=== PATIENT | male | born 1955 | race Caucasian/White ===

== ENCOUNTER 2022-11-27 07:11 | Outpatient (OUT) | payer MEDICARE, SELFPAY ==
[2022-11-27 08:29] LABS: Basophils Percent Auto 0.6 % (0.2-2.0); Eosinophils Absolute Auto 0.1 10^3/uL (0.0-0.7); Eosinophils Percent Auto 2.2 % (0.9-7.0); Hematocrit 36.9 % (42.0-54.0); Hemoglobin 12.5 g/dL (14.0-18.0); Immature Granulocytes Abs Auto 0.01 10^3/uL (0.00-0.03); Immature Granulocytes Pct Auto 0.3 % (0.0-0.5); Lymphocytes Absolute Auto 1.1 10^3/uL (1.2-3.8); Lymphocytes Percent Auto 31.8 % (20.5-60.0); Mean Corpuscular HGB Conc 33.9 g/dL (29.9-35.2); Mean Corpuscular Hemoglobin 32.5 pg (25.9-34.0); Mean Corpuscular Volume 95.8 fL (80.0-94.0); Mean Platelet Volume 9.8 fL (9.5-13.5); Monocytes Absolute Auto 0.4 10^3/uL (0.3-0.8); Monocytes Percent Auto 11.7 % (1.7-12.0); Neutrophils Absolute Auto 1.9 10^3/uL (1.4-6.5); Neutrophils Percent Auto 53.4 % (43.0-75.0); Platelet Count 222 10^3/uL (150-450); Red Blood Count 3.85 10^6/uL (4.70-6.10); White Blood Count 3.6 10^3/uL (4.0-11.0)
[2022-11-27 08:39] LABS: Prostate Specific Antigen Dx 1.08 ng/mL (<=4.00)
[2022-11-27 08:44] LABS: Alanine Aminotransferase 23 U/L (16-63); Albumin Globulin Ratio 1.2; Albumin Level 3.6 g/dL (3.4-5.0); Alkaline Phosphatase 53 U/L (46-116); Aspartate Amino Transferase 21 U/L (15-37); BUN Creatinine Ratio 20.7; Bilirubin Total 0.5 mg/dL (0.2-1.0); Calcium 8.7 mg/dL (8.5-10.1); Carbon Dioxide 24.1 mmol/L (21.0-32.0); Chloride 106 mmol/L (98-107); Chol HDL Ratio 2.8; Cholesterol 162 mg/dL (<=200); Estimated GFR (African America >60 (>=60); Estimated GFR (Non-African Ame >60 (>=60); Globulin 3.1 g/dL; Glucose 92 mg/dL (74-106); HDL Cholesterol 57 mg/dL (40-60); Potassium 4.1 mmol/L (3.5-5.1); Sodium 138 mmol/L (136-145); Thyroid Stimulating Hormone 1.348 uIU/mL (0.358-3.740); Total Protein 6.7 g/dL (6.4-8.2); Triglycerides 40 mg/dL (<=150)
[2022-11-27 10:04] LABS: Free T4 1.09 ng/dL (0.76-1.46)
== END 2022-11-27 07:12 | disposition home or self-care (01) ==
LOC: LAB 07:12
PROVIDERS: PCP Family Medicine; Visit Provider Family Medicine
DX: D51.0 Vitamin B12 deficiency anemia due to intrinsic factor deficiency (principal); Z13.1 Encounter for screening for diabetes mellitus; E78.00 Pure hypercholesterolemia, unspecified; Z13.220 Encounter for screening for lipoid disorders; G93.32 Myalgic encephalomyelitis/chronic fatigue syndrome; E03.9 Hypothyroidism, unspecified; N42.9 Disorder of prostate, unspecified; E53.8 Deficiency of other specified B group vitamins
CPT/HCPCS: 36415; 80053; 80061; 82607; 84153; 84439; 84443; 84481; 85025

== ENCOUNTER 2023-12-14 07:50 | Outpatient (OUT) | payer MEDICARE, SELFPAY ==
[2023-12-14 08:21] LABS: Basophils Percent Auto 0.5 % (0.2-2.0); Eosinophils Absolute Auto 0.2 10^3/uL (0.0-0.7); Hemoglobin 13.5 g/dL (14.0-18.0); Immature Granulocytes Abs Auto 0.01 10^3/uL (0.00-0.03); Immature Granulocytes Pct Auto 0.2 % (0.0-0.5); Lymphocytes Absolute Auto 1.3 10^3/uL (1.2-3.8); Lymphocytes Percent Auto 30.2 % (20.5-60.0); Mean Corpuscular HGB Conc 33.8 g/dL (29.9-35.2); Mean Corpuscular Hemoglobin 32.9 pg (25.9-34.0); Mean Corpuscular Volume 97.6 fL (80.0-94.0); Monocytes Absolute Auto 0.4 10^3/uL (0.3-0.8); Monocytes Percent Auto 8.8 % (1.7-12.0); Neutrophils Absolute Auto 2.4 10^3/uL (1.4-6.5); Neutrophils Percent Auto 56.3 % (43.0-75.0); Platelet Count 189 10^3/uL (150-450); Red Cell Distribution Width 12.8 % (11.0-15.0); White Blood Count 4.3 10^3/uL (4.0-11.0)
[2023-12-14 09:12] LABS: Alanine Aminotransferase 21 U/L (16-63); Albumin Globulin Ratio 1.2; Albumin Level 3.5 g/dL (3.4-5.0); Alkaline Phosphatase 57 U/L (46-116); Anion Gap 12.9; Aspartate Amino Transferase 21 U/L (15-37); BUN Creatinine Ratio 25.2; Bilirubin Total 0.4 mg/dL (0.2-1.0); Carbon Dioxide 26.4 mmol/L (21.0-32.0); Chloride 104 mmol/L (98-107); Chol HDL Ratio 2.9; Cholesterol 187 mg/dL (<=200); Estimated GFR (African America >60 (>=60); Estimated GFR (Non-African Ame >60 (>=60); Globulin 2.9 g/dL; Glucose 100 mg/dL (74-106); HDL Cholesterol 65 mg/dL (40-60); Potassium 4.3 mmol/L (3.5-5.1); Sodium 139 mmol/L (136-145); Thyroid Stimulating Hormone 1.166 uIU/mL (0.358-3.740); Total Protein 6.4 g/dL (6.4-8.2); Triglycerides 65 mg/dL (<=150)
[2023-12-14 09:16] LABS: Prostate Specific Antigen Dx 0.76 ng/mL (<=4.00)
[2023-12-15 04:10] LABS: Vitamin B12 652 pg/mL (232-1245)
== END 2023-12-14 07:51 | disposition home or self-care (01) ==
LOC: LAB 07:50
PROVIDERS: PCP Family Medicine; Visit Provider Family Medicine
DX: N40.0 Benign prostatic hyperplasia without lower urinary tract symptoms (principal); E03.9 Hypothyroidism, unspecified; G93.32 Myalgic encephalomyelitis/chronic fatigue syndrome; E78.00 Pure hypercholesterolemia, unspecified; E53.8 Deficiency of other specified B group vitamins
CPT/HCPCS: 36415; 80053; 80061; 82607; 84153; 84443; 85025

== ENCOUNTER 2024-05-24 16:21 | Emergency (ER) | payer MEDICARE, SELFPAY ==
[2024-05-24 16:28] VITALS: BP 78/50; PULSE 44; O2SAT 99; BMI 25.1
--- OUTSIDE RECORDS SUMMARY | 2024-05-24 16:35 | XMS_ITS | CCD ---
Author Organization [facility] CliniSymt Care Team Providers Care Rd Project Manager Name Role Phone ONEIL, DR CORBIN Consulting Unavailable HEMEYER, DR CORBIN Primary Care Unavailable HEMEYER, DR CORBIN Admitting Unavailable HEMEYER, DR CORBIN Attending Unavailable HEMEYER, DR CORBIN Consulting Unavailable ONEIL, DR CORBIN Primary Care Unavailable HEMEYER, DR CORBIN Admitting Unavailable HEMEYER, DR CORBIN Referring Unavailable HEMEYER, DR CORBIN Attending Unavailable HEMEYER, DR CORBIN Primary Care Unavailable BASIA ROME Admitting Unavailable BASIA ROME Attending Unavailable BASIA ROME Consulting Unavailable ONEIL, DR CORBIN Consulting Unavailable ONEIL, DR CORBIN Primary Care Unavailable HEMEYER, DR CORBIN Admitting Unavailable HEMEGEORGINA, DR CORBIN Attending Unavailable LEONIDAS RIGGS Attending Unavailable REAL RUSSO Attending Unavailable REAL RUSSO Referring Unavailable JR. NEGRO GEORGE C Attending Unavaila LEONIDAS Baker Attending Unavailable Leonidas Riggs MD Unavailable Leonidas Riggs MD Primary Care Provider [phone] Leonidas Riggs MD Unavailable Leonidas Riggs MD Primary Care Provider Allergies Allergy Classification Reported Allergen(s) Allergy Type Date of Onset Reaction(s) Facility (1 source) Penicillin Drug Allergy [facility] Repository (3 sources) Penicillins Drug Allergy 11-17-2022 Rash [facility] Medications Current Medications Medication Drug Class(es) Dates Sig (Normalized) Sig (Original) celecoxib 200 mg oral capsule (4 sources) Nonsteroidal Anti-inflammatory Drug Start: 11-29-2023 End: 05-27-2024 take 1 capsule by mouth twice daily as needed for pain celecoxib (CeleBREX) 200 MG capsule Indications: Chronic fatigue syndrome Take 1 capsule (200 mg) by mouth 2 (two) times a day as needed for moderate pain 180 capsule 1 11/29/2023 05/27/2024 Active cyclobenzaprine hydrochloride 10 mg oral tablet (4 sources) Muscle Relaxant Start: 11-29-2023 End: 12-29-2023 take 1 tablet by mouth three times daily as needed for muscle spasms cyclobenzaprine (Flexeril) 10 MG tablet Indications: Chronic fatigue syndrome Take 1 tablet (10 mg) by mouth 3 (three) times a day as needed for muscle spasms 90 tablet 11/29/2023 Active levothyroxine sodium 0.075 mg oral tablet (5 sources) l-Thyroxine Start: 08-19-2023 End: 05-19-2025 take 1 tablet by mouth before mealtime levothyroxine (Synthroid, Levoxyl) 75 MCG tablet Indications: Acquired hypothyroidism (CMS/HCC) Take 1 tablet (75 mcg) by mouth in the morning. Take before meals. 90 tablet 3 05/19/2024 05/19/2025 Active Multiple Vitamins-Minerals (MULTIVITAMIN GUMMIES ADULTS PO) (3 sources) take 1 tablet by mouth once daily Multiple Vitamins-Minerals (MULTIVITAMIN GUMMIES ADULTS PO) Take 1 tablet by mouth 1 (one) time each day at the same time. Active vitamin b12 1 mg/ml injectable solution (1 source) Vitamin B12 Start: 02-26-2023 End: 02-26-2024 cyanocobalamin (Vitamin B-12) 1000 MCG/ML injection Indications: Pernicious anemia Inject 1 mL (1,000 mcg) into the shoulder, thigh, or buttocks every 30 (thirty) days. Dispense in 1 ml vials 12 mL 02/26/2023 02/26/2024 Active Problems Active Problems Problem Classification Problem Date Documented Date Episodic/Chronic Deficiency and other anemia (1 source) Vitamin B12 deficiency anemia due to intrinsic factor deficiency; Translations: [VITAMIN B12 DEF ANEMIA DUE IF DEF] Onset: 11-26-2021 Episodic Disorders of lipid metabolism (4 sources) Pure hypercholesterolemia, unspecified; Translations: [Pure hypercholesterolemia] Onset: 01-08-2021 11-17-2022 Chronic Diverticulosis and diverticulitis (3 sources) Diverticulosis of sigmoid colon; Translations: [Diverticulosis of large intestine without perforation or abscess without bleeding] Onset: 12-08-2017 11-17-2022 Chronic Genitourinary symptoms and ill-defined conditions (1 source) Other symptoms and signs involving the genitourinary system; Translations: [OT SYMPTOMS SIGNS INVLV SYSTEM] Onset: 11-26-2021 Episodic Hyperplasia of prostate (3 sources) Benign prostatic hyperplasia; Translations: [Benign prostatic hyperplasia without lower urinary tract symptoms] Onset: 11-17-2022 11-17-2022 Chronic Malaise and fatigue (8 sources) Chronic fatigue, unspecified; Translations: [Chronic fatigue syndrome] Onset: 01-21-2021 Chronic Osteoarthritis (3 sources) Degenerative joint disease involving multiple joints; Translations: [Polyosteoarthritis, unspecified] Onset: 11-17-2022 11-17-2022 Chronic Other connective tissue disease (1 source) Dupuytren's contracture; Translations: [Palmar fascial fibromatosis [Dupuytren]] 01-04-2024 Episodic Other connective tissue disease (1 source) Palmar fascial fibromatosis [Dupuytren]; Translations: [Contracture of palmar fascia] 01-04-2024 Episodic Other screening for suspected conditions (not mental disorders or infectious disease) (3 sources) Encounter for screening for lipoid disorders; Translations: [Encounter for screening for diabetes mellitus] Onset: 01-08-2021 Episodic Residual codes; unclassified (1 source) Family history of ischemic heart disease and other diseases of the circulatory system; Translations: [FAM HX ISCHEMIC HRT DZ OTH DZ CIRC] Onset: 11-26-2021 Episodic Thyroid disorders (9 sources) Hypothyroidism, unspecified; Translations: [Acquired hypothyroidism] Onset: 01-29-2021 Chronic Past or Other Problems Problem Classification Problem Date Documented Da te Episodic/Chronic Deficiency and other anemia (3 sources) Pernicious anemia; Translations: [Vitamin B12 deficiency anemia due to intrinsic factor deficiency] Onset: 11-17-2022 11-17-2022 Episodic Immunizations and screening for infectious disease (4 sources) Encounter for immunization; Translations: [ENCOUNTER FOR IMMUNIZATION] Onset: 01-31-2021 Episodic Malaise and fatigue (1 source) Other fatigue; Translations: [OTHER FATIGUE] Onset: 01-08-2021 Episodic Mood disorders (3 sources) Mood disorders Onset: 11-29-2023 11-29-2023 Nutritional deficiencies (4 sources) Deficiency of other specified B group vitamins; Translations: [Cobalamin deficiency] Onset: 01-08-2021 11-17-2022 Episodic Other gastrointestinal disorders (3 sources) Slow transit constipation; Translations: [Slow transit constipation] Onset: 11-17-2022 Resolved: 11-29-2023 11-29-2023 Episodic Other male genital disorders (4 sources) Disorder of prostate, unspecified; Translations: [DISORDER OF PROSTATE UNSPECIFIED] Onset: 12-25-2020 Episodic Other male genital disorders (3 sources) Disorder of prostate; Translations: [Disorder of prostate, unspecified] Onset: 11-17-2022 11-17-2022 Episodic Thyroid disorders (3 sources) Sick-euthyroid syndrome; Translations: [Sick-euthyroid syndrome] Onset: 11-17-2022 Resolved: 11-29-2023 11-29-2023 Episodic Results Test Name Value Interpretation Reference Range Facility ALL CBC WITH AUTO DIFFon BASOPHILS ABSOLUTE AUTO 0.0 [facility] Basophils/100 WBC (Bld) 0.5 % 0.2 - 2.0 % [facility] Eosinophils/100 WBC (Bld) 4.0 % 0.9 - 7.0 % [facility] Erythrocyte distribution width (RBC) [Ratio] 12.8 % 11.0 - 15.0 % [facility] Hematocrit (Bld) [Volume fraction] 40.0 % Low 42.0 - 54.0 % [facility] [Mass/Vol] 13.5 g/dL Low 14.0 - 18.0 g/dL [facility] IMMATURE GRANULOCYTES ABS AUTO 0.01 [facility] Immature granulocytes/100 WBC (Bld) 0.2 % 0.0 - 0.5 % [facility] Interpretation and review of laboratory results Abnormal [facility] LYMPHOCYTES ABSOLUTE AUTO 1.3 [facility] Lymphocytes/100 WBC (Bld) 30.2 % 20.5 - 60.0 % [facility] MCH (RBC) [Entitic mass] 32.9 pg 25.9 - 34.0 pg [facility] MCHC (RBC) [Mass/Vol] 33.8 g/dL 29.9 - 35.2 g/dL [facility] MCV (RBC) [Entitic vol] 97.6 fL High 80.0 - 94.0 fL [facility] MONOCYTES ABSOLUTE AUTO 0.4 [facility] Monocytes/100 WBC (Bld) 8.8 % 1.7 - 12.0 % [facility] NEUTROPHILS ABSOLUTE AUTO 2.4 [facility] Neutrophils/100 WBC (Bld) 56.3 % 43.0 - 75.0 % [facility] Platelet mean volume (Bld) [Entitic vol] 10.0 fL 9.5 - 13.5 fL [facility] EO # 0.2 [facility] PLT 189 [facility] RBC 4.10 Low [facility] WBC 4.3 [facility] REVERSE T3on 11-29-2021 Reverse T3, Serum 17.4 ng/dL Normal 9.2-24.1 [facility] Comment on above: Result Comment: This test was developed and its performance characteristics determined by [facility]. It has not been cleared or approved by the Food and Drug Administration. Performed By: #### R EVRT3 #### [facility] [address] [address] [address] Floridalma Collins PSA, FREE AND TOTAL RATIOon 11-26-2021 % Free PSA 21.7 % Normal [facility] Comment on above: Result Comment: The table below lists the probability of prostate cancer for men with non-suspicious CELINE results and total PSA between 4 and 10 ng/mL, by patient age (Clotilde et al, DARCY 1998, 279:1542). % Free PSA 50-64 yr 65-75 yr 0.00-10.00% 56% 55% 10.01-15.00% 24% 35% 15.01-20.00% 17% 23% 20.01-25.00% 10% 20% >25.00% 5% 9% Please note: Clotilde et al did not make specific recommendations regarding the use of percent free PSA for any other population of men. Performed By: #### P SAFREE #### [facility] [address] [place], [place] [address] Dr. Floridalma Collins Prostate specific Ag [Mass/Vol] 0.6 ng/mL Normal 0.0-4.0 [facility] Comment on above: Result Comment: Shantal CORREA methodology. . According to the [employer], Serum PSA should decrease and remain at undetectable levels after radical prostatectomy. The AUA defines biochemical recurrence as an initial PSA value 0.2 ng/mL or greater followed by a subsequent confirmatory PSA value 0.2 ng/mL or greater. Values obtained with different assay methods or kits cannot be used interchangeably. Results cannot be interpreted as absolute evidence of the presence or absence of malignant disease. Performed By: #### P SAFREE #### [facility] [address] [place] [address] Dr. Floridalma Collins PSA, Free 0.13 ng/mL Normal N/A [facility] Comment on above: Result Comment: Shantal bower ECLIA methodology. Performed By: #### P SAFREE #### [facility] [address] [place] [address] Dr. Floridalma Collins T3, TOTAL (TRIIODOTHYRONINE) on 11-26-2021 T3, TOTAL 106 ng/dL Normal 71-180 [facility] Comment on above: Performed By: #### B 12FOL, PSAD #### [facility] [address] [place] [address] Antonette Damon CBC AUTO DIFFon 11-25-2021 BASO # 0.0 103/ul Normal 0.0-0.1 [facility] Comment on above: Performed By: #### C BC #### [facility] [address] [place] [address] Dr. Floridalma Collins Basophils/100 WBC (Bld) 0.4 % Normal 0.2-2.0 [facility] Comment on above: Performed By: #### C BC #### [facility] [address] [place] [address] Dr. Floridalma Collins EO # 0.3 103/ul Normal 0.0-0.7 [facility] Comment on above: Performed By: #### C BC #### [facility] [address] [place] [address] Dr. Floridalma Collins Eosinophils/100 WBC (Bld) 5.4 % Normal 0.9-7.0 [facility] Comment on above: Performed By: #### C BC #### [facility] [address] [place] [address] Dr. Floridalma Collins Erythrocyte distribution width (RBC) [Ratio] 13.3 % Normal 11.0-15.0 [facility] Comment on above: Performed By: #### C BC #### [facility] [address] [place] [address] Dr. Floridalma Collins Hematocrit (Bld) [Volume fraction] 38.9 % Critically low 42.0-54.0 [facility] Comment on above: Performed By: #### C BC #### [facility] [address] [place] [address] Dr. Floridalma Collins Hemoglobin (Bld) [Mass/Vol] 12.9 g/dL Critically low 14.0-18.0 [facility] Comment on above: Performed By: #### C BC #### [facility] [address] [place] [address] Dr. Floridalma Collins IG # 0.01 10e3/ul Normal 0.00-0.03 [facility] Comment on above: Performed By: #### C BC #### [facility] [address] [place] [address] Dr. Floridalma Collins IG % 0.2 % Normal 0.0-0.5 [facility] Comment on above: Performed By: #### C BC #### [facility] [address] [place] [address] Dr. Floridalma Collins LYMPH # 1.3 103/ul Normal 1.2-3.8 [facility] Comment on above: Performed By: #### C BC #### [facility] [address] [place] [address] Dr. Floridalma Collins Lymphocytes/100 WBC (Bld) 28.7 % Normal 20.5-60.0 [facility] Comment on above: Performed By: #### C BC #### [facility] [address] [place] [address] Dr. Floridalma Collins MANUAL DIFF REQ NO Normal [facility] Comment on above: Performed By: #### C BC #### [facility] [address] [place] [address] Dr. Floridalma Collins MCH (RBC) [Entitic mass] 32.3 pg Normal 25.9-34.0 [facility] Comment on above: Performed By: #### C BC #### [facility] [address] [place] [address] Dr. Floridalma Collins MCHC (RBC) [Mass/Vol] 33.2 g/dL Normal 29.9-35.2 [facility] Comment on above: Performed By: #### C BC #### [facility] [address] [place] [address] Dr. Floridalma Collins MCV (RBC) [Entitic vol] 97.3 fL Critically high 80.0-94.0 [facility] Comment on above: Performed By: #### C BC #### [facility] [address] [place] [address] Dr. Floridalma Collins MONO # 0.4 103/ul Normal 0.3-0.8 [facility] Comment on above: Performed By: #### C BC #### [facility] [address] [place] [address] Dr. Floridalma Collins Monocytes/100 WBC (Bld) 9.5 % Normal 1.7-12.0 [facility] Comment on above: Performed By: #### C BC #### [facility] [address] [place] [address] Dr. Floridalma Collins NEUT # 2.6 103/ul Normal 1.4-6.5 [facility] Comment on above: Performed By: #### C BC #### [facility] [address] [place] [address] Dr. Floridalma Collins Neutrophils/100 WBC (Bld) 55.8 % Normal 43.0-75.0 [facility] Comment on above: Performed By: #### C BC #### [facility] [address] [place] [address] Dr. Floridalma Collins Platelet mean volume (Bld) [Entitic vol] 10.0 fL Normal 9.5-13.5 [facility] Comment on above: Performed By: #### C BC #### [facility] [address] [place] [address] Dr. Floridalma Collins PLT 190 103/ul Normal 150-450 [facility] Comment on above: Performed By: #### C BC #### [facility] [address] [place] [address] Dr. Floridalma Collins RBC 4.00 106/ul Critically low 4.70-6.10 [facility] Comment on above: Performed By: #### C BC #### [facility] [id number] Floridalma Collins WBC 4.6 103/ul Normal 4.0-11.0 [facility] Comment on above: Performed By: #### C BC #### [facility] [address] [place] [address] Dr. Floridalma Collins FREE T3on 11-25-2021 FREE T3 2.39 pg/mlL Normal 2.18-3.98 [facility] Comment on above: Performed By: #### F T3, CMP, LIPID, TSH #### [facility] [address] [place] [address] Dr. Floridalma Collins FREE T4on 11-25-2021 Free T4 [Mass/Vol] 1.09 ng/dL Normal 0.76-1.46 [facility] Comment on above: Performed By: #### B 12FOL, PSAD #### [facility] [address] [place] [address] Antonette Damon LIPID PROFILEon 11-25-2021 CHOL-HDL RATIO NORM SEE BELOW Normal [facility] Comment on above: Result Comment: 3.3 - 4.4 LOW RISK 4.4 - 7.1 AVERAGE RISK 7.1 - 11.0 MODERATE RISK >11.0 HIGH RISK Performed By: #### B 12FOL, PSAD #### [facility] [address] [place] [address] Antonette Marisol Cholesterol [Mass/Vol] 175 mg/dL Normal <=200 [facility] Comment on above: Performed By: #### B 12FOL, PSAD #### [facility] [address] [place] [address] Antonette Marisol Cholesterol in HDL [Mass/Vol] 62 mg/dL Critically high 40-60 [facility] Comment on above: Performed By: #### Rudolph 12FOAshley, PSAD #### [facility] [address] [id number] Antonette Marisol Cholesterol in LDL [Mass/Vol] 103.4 mg/dL Normal [facility] Comment on above: Performed By: #### Rudolph 12FOL, PSAD #### [facility] [address] [place], [place] [id number] Antonette Marisol Cholesterol.total/Ch olesterol in HDL [Mass ratio] 2.8 {ratio} Normal [facility] Comment on above: Performed By: #### Rudolph 12FOAshley, PSAD #### [facility] [address] [place], [place] [id number] Antonette Marisol HDL NORMAL > or = 60 mg/dl - LOW CARDIOVASCULAR RISK <40 mg/dl - HIGH CARDIOVASCULAR RISK Normal [facility] Comment on above: Performed By: #### Rudolph 12FOAshley, PSAD #### [facility] [address] [place], [place] [id number] Antonette Marisol LDL CALC NORMAL SEE BELOW Normal [facility] Comment on above: Result Comment: <100 mg/dl OPTIMAL 100 - 129 mg/dl NEAR OR ABOVE OPTIMAL 130 - 159 mg/dl BORDERLINE HIGH 160 - 189 mg/dl HIGH >190 mg/dl VERY HIGH Performed By: #### Rudolph 12FOL, PSAD #### [facility] [address] [place], [place] [id number] Antonette Marisol Triglyceride [Mass/Vol] 48 mg/dL Normal <=150 [facility] Comment on above: Performed By: #### Rudolph 12FOL, PSAD #### [facility] [address] [place], [place] [id number] Antonette Marisol VLDL CALC 9.6 mg/dL Normal [facility] Comment on above: Performed By: #### B 12FOL, PSAD #### [facility] [address] [place] [id number] Antonette Marisol PROF 14(COMP METB)on 022 Albumin [Mass/Vol] 3.7 g/dL Normal 3.4-5.0 [facility] Comment on above: Performed By: #### B 12FOL, PSAD #### [facility] [address] [id number] Antonette Marisol Albumin/Globulin [Mass ratio] 1.3 {ratio} Normal [facility] Comment on above: Performed By: #### B 12FOL, PSAD #### [facility] [address] [id number] Antonette Marisol ALP [Catalytic activity/Vol] 58 U/L Normal 46-116 [facility] Comment on above: Performed By: #### B 12FOL, PSAD #### [facility] [address] [id number] Antonette Marisol ALT [Catalytic activity/Vol] 21 U/L Normal 16-63 [facility] Comment on above: Performed By: #### B 12FOL, PSAD #### [facility] [address] [id number] Antonette Marisol Anion gap [Moles/Vol] 13.1 mmol/L Normal [facility] Comment on above: Performed By: #### B 12FOL, PSAD #### [facility] [address] [place], [place] [id number] Antonette Marisol AST [Catalytic activity/Vol] 21 U/L Normal 15-37 [facility] Comment on above: Performed By: #### B 12FOL, PSAD #### [facility] [address] [id number] Antonette Marisol Bilirubin [Mass/Vol] 0.5 mg/dL Normal 0.2-1.0 [facility] Comment on above: Performed By: #### B 12FOL, PSAD #### [facility] [address] [id number] Antonette Marisol Calcium [Mass/Vol] 8.6 mg/dL Normal 8.5-10.1 [facility] Comment on above: Performed By: #### B 12FOL, PSAD #### [facility] [address] [id number] Antonette Marisol Chloride [Moles/Vol] 106 mmol/L Normal 98-107 [facility] Comment on above: Performed By: #### Rudolph 12ALEKSEY, PSAD #### [facility] [address] [place], [place] [id number] Antonette Marisol CO2 [Moles/Vol] 23.9 mmol/L Normal 21.0-32.0 [facility] Comment on above: Performed By: #### Rudolph 12FOAshley, PSAD #### [facility] [address] [place] [address] Antonette Marisol Creatinine [Mass/Vol] 1.20 mg/dL Normal 0.70-1.30 [facility] Comment on above: Performed By: #### Rudolph 12FOAshley, PSAD #### [facility] [address] [place] [address] Antonette Marisol EGFR-AF [place] >60 Normal >=60 [facility] Comment on above: Performed By: #### Rudolph 12ALEKSEY, PSAD #### [facility] [address] [place] [address] Antonette Marisol EGFR-NON AF [place] =60 Normal >=60 [facility] Comment on above: Performed By: #### Rudolph 12ALEKSEY, PSAD #### [facility] [address] [place], [place] [id number] Antonette Marisol Globulin (S) [Mass/Vol] 2.9 g/dL Normal [facility] Comment on above: Performed By: #### Rudolph 12FOAshley, PSAD #### [facility] [address] [place] [address] Antonette Marisol Glucose [Mass/Vol] 97 mg/dL Normal 74-106 [facility] Comment on above: Performed By: #### Rudolph 12FOL, PSAD #### [facility] [address] [place] [address] Antonette Marisol Potassium [Moles/Vol] 4.0 mmol/L Normal 3.5-5.1 [facility] Comment on above: Performed By: #### Rudolph 12FOL, PSAD #### [facility] [address] [place], [place] [id number] Antonette Marisol Protein [Mass/Vol] 6.6 g/dL Normal 6.4-8.2 [facility] Comment on above: Performed By: #### Rudolph EVERETT PSARosalio #### [facility] [address] [place] [address] Antonette Marisol Sodium [Moles/Vol] 139 mmol/L Normal 136-145 [facility] Comment on above: Performed By: #### Rudolph EVERETT PSAD #### [facility] [address] [place] [address] Antonette Marisol Urea nitrogen [Mass/Vol] 19.0 mg/dL Critically high 7.0-18.0 [facility] Comment on above: Performed By: #### Rudolph EVERETT PSARosalio #### [facility] [address] [place] [address] Antonette Marisol Urea nitrogen/Creatinine [Mass ratio] 15.8 mg/mg Normal [facility] Comment on above: Performed By: #### Rudolph EVERETT PSARosalio #### [facility] [address] [place] [address] Antonette Marisol TSHon 11-25-2021 TSH 1.726 uIU/mL Normal 0.358-3.740 [facility] Comment on above: Performed By: #### Rudolph EVERETT PSAD #### [facility] [address] [place] [address] Antonette Marisol VIT B12 AND FOLATEon 022 Cobalamin (Vitamin B12) [Mass/Vol] 641.0 pg/mL Normal 193.0-986.0 [facility] Comment on above: Performed By: #### Rudolph 12ALEKSEY PSAD #### [facility] [address] [place] [address] Antonette Marisol FOLATE 17.90 ng/mL Normal 8.60-58.90 [facility] Comment on above: Performed By: #### Rudolph EVERETT PSAD #### [facility] [address] [place] [address] Antonette Marisol TSHon 01-21-2021 TSH 0.720 uIU/mL Normal 0.470-4.680 [facility] Comment on above: Performed By: #### T SH #### [facility] [address] [place] [address] Dr. Floridalma Collins TSH RANGE SEE BELOW Normal [facility] Comment on above: Result Comment: <0.3 4 UIU/ml HYPERTHYROID 0.34-5.60 UIU/ml EUTHYROID >5.60 UIU/ml HYPOTHYROID Performed By: #### T SH #### [facility] [address] [place] [address] Dr. Floridalma Collins T3, TOTAL (TRIIODOTHYRONINE) on 12-25-2020 T3, TOTAL 120 ng/dL Normal 71-180 [facility] Comment on above: Performed By: #### T 3TOTAL #### [facility] [address] [place] [address] Dr. Floridalma Collins CBC AUTO DIFFon 12-24-2020 BASO # 0.0 103/ul Normal 0.0-0.1 [facility] Comment on above: Performed By: #### C BC #### [facility] [address] [place] [address] Antonette Marisol Basophils/100 WBC (Bld) 0.5 % Normal 0.2-2.0 [facility] Comment on above: Performed By: #### C BC #### [facility] [address] [place] [address] Antonette Marisol EO # 0.1 103/ul Normal 0.0-0.7 [facility] Comment on above: Performed By: #### C BC #### [facility] [address] [place] [address] Antonette Marisol Eosinophils/100 WBC (Bld) 3.3 % Normal 0.9-7.0 [facility] Comment on above: Performed By: #### C BC #### [facility] [address] [place], [place] [id number] Antonette Marisol Erythrocyte distribution width (RBC) [Ratio] 12.9 % Normal 11.0-15.0 [facility] Comment on above: Performed By: #### C BC #### [facility] [address] [place], [place] [id number] Antonette Marisol Hematocrit (Bld) [Volume fraction] 37.2 % Critically low 42.0-54.0 [facility] Comment on above: Performed By: #### C BC #### [facility] [address] [place] [address] Antonette Marisol Hemoglobin (Bld) [Mass/Vol] 12.7 g/dL Critically low 14.0-18.0 [facility] Comment on above: Performed By: #### C BC #### [facility] [address] [place] [address] Antonette Marisol IG # 0.01 10e3/ul Normal 0.00-0.03 [facility] Comment on above: Performed By: #### C BC #### [facility] [address] [place] [address] Antonette Marisol IG % 0.3 % Normal 0.0-0.5 [facility] Comment on above: Performed By: #### C BC #### [facility] [address] [place] [address] Antonette Marisol LYMPH # 1.4 103/ul Normal 1.2-3.8 [facility] Comment on above: Performed By: #### C BC #### [facility] [address] [place] [address] Antonette Marisol Lymphocytes/100 WBC (Bld) 33.9 % Normal 20.5-60.0 [facility] Comment on above: Performed By: #### C BC #### [facility] [address] [place] [address] Antonettearsenio Kendallen MANUAL DIFF REQ NO Normal [facility] Comment on above: Performed By: #### C BC #### [facility] [address] [place], [place] [id number] Antonette Marisol MCH (RBC) [Entitic mass] 33.2 pg Normal 25.9-34.0 [facility] Comment on above: Performed By: #### C BC #### [facility] [address] [place] [address] Antonette Marisol MCHC (RBC) [Mass/Vol] 34.1 g/dL Normal 29.9-35.2 [facility] Comment on above: Performed By: #### C BC #### [facility] [address] [place], [place] [id number] Antonette Damon MCV (RBC) [Entitic vol] 97.4 fL Critically high 80.0-94.0 [facility] Comment on above: Performed By: #### C BC #### [facility] [address] [place] [address] Antonette Damon MONO # 0.4 103/ul Normal 0.3-0.8 [facility] Comment on above: Performed By: #### C BC #### [facility] [address] [place] [address] Antonette Damon Monocytes/100 WBC (Bld) 10.8 % Normal 1.7-12.0 [facility] Comment on above: Performed By: #### C BC #### [facility] [address] [place] [address] Antonette Damon NEUT # 2.0 103/ul Normal 1.4-6.5 [facility] Comment on above: Performed By: #### C BC #### [facility] [address] [place] [address] Antonette Damon Neutrophils/100 WBC (Bld) 51.2 % Normal 43.0-75.0 [facility] Comment on above: Performed By: #### C BC #### [facility] [address] [place], [place] [id number] Antonette Damon Platelet mean volume (Bld) [Entitic vol] 9.2 fL Critically low 9.5-13.5 [facility] Comment on above: Performed By: #### C BC #### [facility] [address] [place] [address] Antonette Damon PLT 201 103/ul Normal 150-450 [facility] Comment on above: Performed By: #### C BC #### [facility] [address] [place] [address] Antonette Damon RBC 3.82 106/ul Critically low 4.70-6.10 [facility] Comment on above: Performed By: #### C BC #### [facility] [address] [address] Antonette Marisol WBC 4.0 103/ul Normal 4.0-11.0 [facility] Comment on above: Performed By: #### C BC #### [facility] [address] [address] Antonette Marisol FREE T3on 12-24-2020 FREE T3 2.63 pg/mlL Critically low 2.77-5.27 [facility] Comment on above: Performed By: #### F T3 #### [facility] [address] [place] [address] Dr. Floridalma Collins FREE T4on 12-24-2020 Free T4 [Mass/Vol] 0.76 ng/dL Critically low 0.78-2.19 [facility] Comment on above: Performed By: #### C BC #### [facility] [address] [place] [address] Dr. Floridalma Collins LIPID PROFILEon 12-24-2020 CHOL-HDL RATIO NORM SEE BELOW Normal [facility] Comment on above: Result Comment: 3.3 - 4.4 LOW RISK 4.4 - 7.1 AVERAGE RISK 7.1 - 11.0 MODERATE RISK >11.0 HIGH RISK Performed By: #### B 12FOL PSAD #### [facility] [address] [place] [address] Antonette Marisol Cholesterol [Mass/Vol] 188 mg/dL Normal <=200 [facility] Comment on above: Performed By: #### B 12FOL PSAD #### [facility] [address] [place] [address] Antonette Marisol Cholesterol in HDL [Mass/Vol] 52 mg/dL Normal [facility] Comment on above: Performed By: #### B 12FOL, PSAD #### [facility] [address] [place] [address] Antonette Marisol Cholesterol in LDL [Mass/Vol] 121.6 mg/dL Normal [facility] Comment on above: Performed By: #### B 12FOL, PSAD #### [facility] [address] [place], [place] [address] Antonette Marisol Cholesterol.total/Ch olesterol in HDL [Mass ratio] 3.6 {ratio} Normal [facility] Comment on above: Performed By: #### Rudolph 12ALEKSEY PSAD #### [facility] [address] [id number] Antonette Marisol HDL NORMAL > or = 60 mg/dl - LOW CARDIOVASCULAR RISK <40 mg/dl - HIGH CARDIOVASCULAR RISK Normal [facility] Comment on above: Performed By: #### Rudolph EVERETT PSAD #### [facility] [address] [id number] Antonette Marisol LDL CALC NORMAL SEE BELOW Normal [facility] Comment on above: Result Comment: <100 mg/dl OPTIMAL 100 - 129 mg/dl NEAR OR ABOVE OPTIMAL 130 - 159 mg/dl BORDERLINE HIGH 160 - 189 mg/dl HIGH >190 mg/dl VERY HIGH Performed By: #### Rudolph EVERETT PSARosalio #### [facility] [address] [id number] Antonette Marisol Triglyceride [Mass/Vol] 72 mg/dL Normal <=150 [facility] Comment on above: Performed By: #### Rudolph EVERETT PSARosalio #### [facility] [address] [phone] Antonette Marisol VLDL CALC 14.4 mg/dL Normal [facility] Comment on above: Performed By: #### Rudolph EVERETT PSARosalio #### [facility] [address] [phone] Antonette Marisol PROF 14(COMP METB)on 021 Albumin [Mass/Vol] 3.7 g/dL Normal 3.5-5.0 [facility] Comment on above: Performed By: #### Rudolph EVERETT PSARosalio #### [facility] [address] [id number] Antonette Marisol Albumin/Globulin [Mass ratio] 1.2 {ratio} Normal [facility] Comment on above: Performed By: #### B 12FOL, PSAD #### [facility] [address] [place], [place] [address] Antonette Marisol ALP [Catalytic activity/Vol] 51 U/L Normal 38-126 [facility] Comment on above: Performed By: #### Rudolph 12ALEKSEY, PSAD #### [facility] [address] [place], [place] [address] Antonette Marisol ALT [Catalytic activity/Vol] 23 U/L Normal 21-72 [facility] Comment on above: Performed By: #### Rudolph 12ALEKSEY, PSAD #### [facility] [address] [place], [place] [address] Antonette Marisol Anion gap [Moles/Vol] 14.0 mmol/L Normal [facility] Comment on above: Performed By: #### Rudolph 12ALEKSEY, PSAD #### [facility] [address] [phone] Antonette Marisol AST [Catalytic activity/Vol] 21 U/L Normal 17-59 [facility] Comment on above: Performed By: #### Rudolph EVERETT, PSAD #### [facility] [address] [phone] Antonette Marisol Bilirubin [Mass/Vol] 0.4 mg/dL Normal 0.2-1.3 [facility] Comment on above: Performed By: #### Rudolph 12ALEKSEY, PSAD #### [facility] [address] [phone] Antonette Marisol Calcium [Mass/Vol] 8.7 mg/dL Normal 8.4-10.2 [facility] Comment on above: Performed By: #### Rudolph 12ALEKSEY, PSAD #### [facility] [address] [phone] Antonette Marisol Chloride [Moles/Vol] 105 mmol/L Normal 98-107 [facility] Comment on above: Performed By: #### Rudolph 12FOAshley, PSAD #### [facility] [address] [place], [place] [address] Antonette Marisol CO2 [Moles/Vol] 25.2 mmol/L Normal 22.0-30.0 [facility] Comment on above: Performed By: #### B 12FOL, PSAD #### [facility] [address] [place], [place] [address] Antonette Marisol Creatinine [Mass/Vol] 1.10 mg/dL Normal 0.66-1.25 [facility] Comment on above: Performed By: #### B 12FOL, PSAD #### [facility] [address] [place], [place] [address] Antonette Marisol EGFR-AF [place] >60 Normal >=60 [facility] Comment on above: Performed By: #### B 12FOL, PSAD #### [facility] [address] [place], [place] [address] Antonette Marisol EGFR-NON AF [place] >60 Normal >=60 [facility] Comment on above: Performed By: #### B 12FOL, PSAD #### [facility] [address] [phone] Antonette Marisol Globulin (S) [Mass/Vol] 3.0 g/dL Normal [facility] Comment on above: Performed By: #### B 12FOL, PSAD #### [facility] [address] [place], [place] [address] Antonette Marisol Glucose [Mass/Vol] 97 mg/dL Normal 74-106 [facility] Comment on above: Performed By: #### B 12FOL, PSAD #### [facility] [address] [phone] Antonette Marisol Potassium [Moles/Vol] 4.2 mmol/L Normal 3.4-5.0 [facility] Comment on above: Performed By: #### B 12FOL, PSAD #### [facility] [address] [phone] Antonette Marisol Protein [Mass/Vol] 6.7 g/dL Normal 6.1-8.2 [facility] Comment on above: Performed By: #### B 12FOL, PSAD #### [facility] [address] [phone] Antonette Marisol Sodium [Moles/Vol] 140 mmol/L Normal 137-145 [facility] Comment on above: Performed By: #### Rudolph EVERETT PSARosalio #### [facility] [address] [place] [address] Antonettearsenio Damon Urea nitrogen [Mass/Vol] 24.0 mg/dL Critically high 9.0-20.0 [facility] Comment on above: Performed By: #### Rudolph EVERETT PSAD #### [facility] [address] [place] [address] Antonette Damon Urea nitrogen/Creatinine [Mass ratio] 21.8 mg/mg Normal [facility] Comment on above: Performed By: #### Rudolph EVERETT PSAD #### [facility] [address] [place] [address] Antonette Damon T4on 12-24-2020 T4 [Mass/Vol] 6.60 ug/dL Normal 5.53-11.00 [facility] Comment on above: Performed By: #### Rudolph EVERETT PSARosalio #### [facility] [address] [place] [address] Antonette Damon TSHon 12-24-2020 TSH 6.821 uIU/mL Critically high 0.470-4.680 [facility] Comment on above: Performed By: #### Rudolph EVERETT PSARosalio #### [facility] [address] [place] [address] Antonette Damon TSH RANGE SEE BELOW Normal [facility] Comment on above: Result Comment: <0.3 4 UIU/ml HYPERTHYROID 0.34-5.60 UIU/ml EUTHYROID >5.60 UIU/ml HYPOTHYROID Performed By: #### Rudolph EVERETT PSAD #### [facility] [address] [place] [address] Antonette Marisol VIT B12 AND FOLATEon 021 Cobalamin (Vitamin B12) [Mass/Vol] 1306.0 pg/mL Critically high 239.0-931.0 [facility] Comment on above: Performed By: #### Rudolph EVERETT PSARosalio #### [facility] [address] [place] [address] Antonette Damon FOLATE >20.00 Normal >=2.76 [facility] Comment on above: Performed By: #### B 12FOL, PSAD #### [facility] [address] [place], [place] [address] Antonette Damon Encounters Encounter Date Encounter Type Care Provider Facility Start: 05-19-2024 End: 05-19-2024 Orders Only Leonidas Riggs MD Work Phone: [facility] Comment on above: Acquired hypothyroid ism (CMS/HCC) Start: 05-18-2024 End: 05-18-2024 Telephone encounter Leonidas Riggs MD Work Phone: [facility] Start: 01-04-2024 End: 01-04-2024 ambulatory [facility] Work Phone: Start: 01-04-2024 End: 01-04-2024 Patient encounter procedure [facility] Work Phone: Start: 12-14-2023 End: 12-14-2023 Clinisync Result Encounter Leonidas Riggs MD Work Phone: [facility] Unsolicited Start: 12-14-2023 End: 12-14-2023 Clinisync Result Encounter Leonidas Riggs MD Work Phone: [facility] Unsolicited Start: 11-29-2023 End: 11-29-2023 ambulatory LEONIDAS RIGGS Not Available Start: 08-04-2023 End: 08-04-2023 ambulatory STEW COLE Not Available Start: 08-02-2023 End: 08-02-2023 ambulatory REAL RUSSO Not Available Start: 2023 End: 2023 ambulatory LEONIDAS RIGGS Not Available Start: 11-25-2021 End: 11-26-[address] LEONIDAS RIGGS Facility:[facility] Start: 01-31-2021 End: 02-01-[address] LEONIDAS RIGGS Facility:[facility] Start: 01-21-2021 End: 01-22-[address] LEONIDAS RIGGS Facility:[facility] Start: 12-25-2020 End: 12-26-[address] LEONIDAS RIGGS Facility:[facility] Procedures Date Procedure Procedure Detail Performing Clinician Start: 12-14-2023 ALL CBC WITH AUTO DIFF Leonidas Riggs MD Work Phone: Start: 12-24-[address] LEONIDAS RIGGS Comment on above: Performed By: #### B 12FOL, PSAD #### [facility] [address] [place] [address] Antonette Damon Start: 12-08-2017 Colonoscopy Leonidas mcclure MD Work Phone: Plan of Treatment Date Care Activity Detail Author Start: 12-09-2027 Screening for malign ant neoplasm of colon [facility] Start: 11-28-2024 Medicare Annual Well ness (AWV) Medicare Annual Wellness (AWV) [facility] Start: 12-12-2023 Influenza vaccination Influenza Vacc ine (#1) [facility] Start: 2018 Pneumococcal Vaccine : 65+ Years (1 of 1 - PCV) Pneumococcal Vaccine: 65+ Years (1 of 1 - PCV) [facility] Start: 1955 Screening for malign ant neoplasm of colon [facility] Immunizations Immunization Date Immunization Notes Care Provider Fa [facility] 02-06-2022 Moderna Bivalent Delaney ster Vaccination Leonidas Riggs MD Work Phone: [facility] Healthcare Payers Date Payer Category Payer Private Health Insurance AARP Ma mber [id number] 2022 Unknown AARP AARP [id number] 2022-Present [address] [place] [address] [id number] 2018 Medicare [id number] 1959 Medicare [id number] 1959 Self-pay 1959 Unknown [id number] 1953 Unknown [id number] 1953 Unknown [id number] 1953 Unknown [id number] 1953 Unknown [id number] 1953 Unknown [id number] 1953 Unknown [id number] 1953 Unknown [id number] 1953 Unknown [id number] Unknown [id number] Social History Date Type Detail Facility [facility] Start: 1955 Sex Assigned At Male F [facility] Start: 11-25-2022 [facility] Start: 11-25-2022 Tobacco use and exposure Smoke less tobacco non-user [facility] Start: 11-29-2023 Alcoholic beverage intake Curr ent drinker of alcohol (finding) [facility] Start: 07-19-2023 End: 11-29-2023 Alcoholic beverage intake [facility] Start: 07-19-2023 End: 11-29-2023 Social connection and isolation panel [facility] Do you belong to any clubs or organizations such as buddhist groups, unions, fraternal or athletic groups, or school groups? Yes [facility] Are you now , , , , never or living with a partner? [facility] How often to you hav e a drink containing alcohol? 4 or more times a week [facility] How many standard dr inks containing alcohol do you have on a typical day? 1 or 2 [facility] How often do you hav e 6 or more drinks on 1 occasion? Never [facility] How hard is it for y ou to pay for the very basics like food, housing, medical care, and heating Not hard at all [facility] Do you feel stress - tense, restless, nervous, or anxious, or unable to sleep at night because your mind is troubled all the time - these days [OSQ] Not at all [facility] (I/We) worried whe er (my/our) food would run out before (I/we) got money to buy more. Never true [facility] In the past 12 month s, was there a time when you were not able to pay the mortgage or rent on time? No [facility] Start: 11-24-2022 Alcohol Comment Caffeine intak e: 2 cups per day coffee [facility] Start: 1955 Sex assigned at Not on file [facility] Telephone encounter Note 05-18-2024 Telephone Encounter - Leonidas Riggs MD - 05/18/2024 1:50 PM EST Note Date & Type Note Facility 05-18-2024 Telephone encount er Note RX sent [facility] Note 05-18-2024 Telephone Encounter - Leonidas Riggs MD - 05/18/2024 1:50 PM ESTTelephone Encounter - Tram Zhong - 05/18/2024 10:03 AM EST Note Date & Type Note Facility 05-18-2024 Miscellaneous Notes Formattin g of this note might be different from the original. RX sent Virgie called, He switched his prescription coverage and is asking for his Levo to be sent to [facility] in [place]. documented in this encounter [facility] Telephone encounter Note 05-18-2024 Telephone Encounter - Tram Zhong - 05/18/2024 10:03 AM EST Note Date & Type Note Facility 05-18-2024 Telephone encount er Note Virgie called, He switched his prescription coverage and is asking for his Levo to be sent to [facility] in [place]. [facility] Evaluation note Note Date & Type Note Facility Evaluation note Diagnosis Onset Date Dupuytren contracture of both hands [facility] Work Phone: Evaluation note Note Date & Type Note Facility Evaluation note Diagnosis Acquired hypothyroidism (CMS/HCC) Unspecified hypothyroidism documented in this encounter [facility] Summary Purpose Family History No Family History Records FoundNo Family History Records Found Advance Directives Advance Directive Response Recorded Date/ Time Advance Directives No August 11, 2023 10:22am Documents on File Type Date Recorded Patient Investigation Specialist Expl anation Advance Directives and Living Will 02/21/2019 2003-02-06 Power Of Sales Facilitator Advance Directives and Living Will 02/06/2003 8:09 AM Power of Sales Facilitator 11/30/2022 8:09 AM Power Of Sales Facilitator Chief Complaint and Reason for Visit Chief Complaint NEW RT DUPUYTRENS CO NTRACTURE WX [facility] Reason for Visit Dupuytren contractur e of both hands Additional Source Comments (unrecognized sect ion and content) No Status Records FoundNo Status Records Found INFORMATION SOURCE (unrecogn ized section and content) DATE CREATED AUTHOR 12/02/2021 [facility] [place] [facility] DATE CREATED AUTHOR AUTHOR'S ORGANIZ ATION 11/29/2023 [facility] Care Teams (unrecognized sec tion and content) Team Status: Active Member Role Status Dates Leonidas Riggs MD Primary Care Provider Active Team Status: Inactive Member Role Status Dates Leonidas Riggs MD Primary Care Provider Active Start: January 04, 2024 End: January 04, 2024 Gauri Burris MD Attending Provider Active Start: January 04, 2024 End: January 04, 2024 Rd Project Manager Relationship Specialty Start Date End Date Leonidas Riggs MD [address] [place] [address] (Fax) PCP - ACO Reach 09/03/22 Leonidas Riggs MD [address] [facility] [place] [place] [address] PCP - General Family Medicine 10/05/22 Rd Project Manager Relationship Specialty Start Date End Date Leonidas Riggs MD [address] [address] (Fax) PCP - ACO Reach 09/03/22 Leonidas Riggs MD [address] [address] (Fax) PCP - General Family Medicine 10/05/22 Rd Project Manager Relationship Specialty Start Date End Date Leonidas Riggs MD [address] [address] (Fax) PCP - ACO Reach 09/03/22 Leonidas Riggs MD [address] [address] (Fax) PCP - General Family Medicine 10/05/22 Goals (unrecognized section and content) Goals may be documented in a n alternate section FOR RECORDS PERTAINING TO PATIENTS WHO ARE OR HAVE BEEN ENROLLED IN A CHEMICAL DEPENDENCY/SUBSTANCEABUSE PROGRAM, SOME INFORMATION MAY BE OMITTED. This clinical summary was aggregated from multiple sources. Caution should be exercised in using it in the provision of clinical care. This summary normalizes information from multiple sources, and as a consequence, information in this document may materially change the coding, format and clinical context of patient data. In addition, data may be omitted in some cases. CLINICAL DECISIONS SHOULD BE BASED ON THE PRIMARY CLINICAL RECORDS. [facility]. provides no warranty or guarantee of the accuracy or completeness of information in this document.
[2024-05-24 16:37] VITALS: BP 126/86; PULSE 60; O2SAT 100
--- NOTE | 2024-05-24 16:46 | ED.LOWEXI1 ---
HPI HPI - Extremity Injury (Lower) General Chief Complaint: Extremity Injury, Lower Stated Complaint: Fell Lower Injury Time Seen by Provider: 05/24/24 16:37 Source: patient Mode of arrival: Wheelchair Limitations: no limitations History of Present Illness HPI Narrative: Patient presents to ED complaining of left lower leg pain. Patient states he was walking outside and he stepped over the tracks on a metal thinking that would be the slippery part but he stepped onto the wood and he said it was like his shoe device. He fell and twisted his left ankle. He denies pain anywhere else. No headache no head injury no loss of consciousness. He denies any shoulder or arm pain. He denies any hip pain or knee pain. He said he just has pain in the left ankle. There is obvious swelling in the left ankle. Patient did get diaphoretic and near syncopal while we were triaging him. He had a drop in his blood pressure but it came back up. He thinks that was due to pain in the leg. Patient has no other complaints at this time. Alert and oriented no neurological deficits Related Data Allergies Allergy/AdvReac Type Severity Reaction Status Date / Time Penicillins Allergy Severe Rash Verified 05/24/24 16:28 Opioid HPI Opioid Management Most Recent Pain and Opioid Data: Last Pain Assessment 05/24/24 18:16 Review of Systems ROS Status of ROS 10 or more systems reviewed and unremarkable except as noted in history and below PFSH PFSH Social History Little interest or pleasure in doing things: not at all Feeling down, depressed, or hopeless: not at all Exam Narrative Exam Narrative: Time Seen: [] Vital Signs: [Per nurse's notes.] General: [Alert] Skin: [Warm, dry, no rash.] Head: [Normocephalic, atraumatic.] Neck: [Supple, trachea midline.] No cervical spine tenderness Eye: [Pupils are equal, round and reactive to light, extraocular movements are intact, normal conjunctiva.] Ears, nose, mouth and throat: oral mucosa moist. Cardiovascular: [Regular rate and rhythm, no murmur.] Respiratory: [Lungs are clear to auscultation, respirations are non-labored, breath sounds are equal.] Chest wall: [No tenderness, no deformity.] Gastrointestinal: [Soft, nontender, non distended, normal bowel sounds.] MSK: Patient has pain and swelling to the medial and lateral malleolus on the left ankle. Normal distal pulses normal sensation and motor. No knee pain or proximal fibular pain. No hip pain. Full range of motion of all her other extremities without any deformity or pain. Psychiatric: [Cooperative, appropriate mood & affect.] Neurological: [Alert and oriented to person, place, time, and situation, no focal neurological deficit observed.] Constitutional Vital Signs, click to edit/add: Last Vital Signs Pulse 60 05/24/24 16:37 Resp 20 05/24/24 16:37 BP 126/86 05/24/24 16:37 Pulse Ox 100 05/24/24 16:37 Course Vital Signs Vital signs: Vital Signs Pulse Rate 44 L 05/24/24 16:28 Respiratory Rate 24 H 05/24/24 16:28 Blood Pressure 78/50 L 05/24/24 16:28 Pulse Oximetry 99 05/24/24 16:28 Pulse Rate 60 05/24/24 16:37 Respiratory Rate 20 05/24/24 16:37 Blood Pressure 126/86 05/24/24 16:37 Pulse Oximetry 100 05/24/24 16:37 Discharge Plan Discharge Chief Complaint: Extremity Injury, Lower Print Language: Cape Verdean Referrals: EMERALD RIGGS [Primary Care Provider] - 1 week
--- NOTE | 2024-05-24 16:55 | XR_ITS ---
The [place] [id number] Patient Name: MONI HASTINGS MRN: [id number] date: 1955 Sex: M Assigned Patient Location: ER Current Patient Location: ER Accession/Order Number: [id number] Exam Date: 05/24/2024 16:48 Report Date: 05/24/2024 17:40 At the request of: SHI LARIOS Procedure: XR ankle LT min 3V EXAM: XR ankle LT min 3V HISTORY: fracutre COMPARISON: None. TECHNIQUE: 3 views of the left ankle FINDINGS: Acute displaced oblique fracture of the distal fibula is seen with extension to the ankle joint. Abnormal orientation of the talus is seen relative to the distal tibia with widening of the medial clear space, suspicious for subluxation/dislocation. CT of the left ankle may be considered for better evaluation. XR/XR ankle LT min 3V IMPRESSION: Acute displaced oblique fracture of the distal fibula is seen with extension to the ankle joint. Abnormal orientation of the talus is seen relative to the distal tibia with widening of the medial clear space, suspicious for subluxation/dislocation. CT of the left ankle may be considered for better evaluation. Electronically authenticated by: BERNARDINO GUERRA Date: 05/24/2024 17:40
--- NOTE | 2024-05-24 17:08 | PC.NURSE ---
Pain and swelling to left ankle, skin pink and warm and pulses present. Ice applied to left ankle.
[2024-05-24 17:14] LABS: Basophils Percent Auto 0.7 % (0.2-2.0); Eosinophils Absolute Auto 0.1 10^3/uL (0.0-0.7); Eosinophils Percent Auto 1.7 % (0.9-7.0); Hematocrit 37.6 % (42.0-54.0); Hemoglobin 12.8 g/dL (14.0-18.0); Immature Granulocytes Abs Auto 0.01 10^3/uL (0.00-0.03); Immature Granulocytes Pct Auto 0.2 % (0.0-0.5); Lymphocytes Absolute Auto 2.1 10^3/uL (1.2-3.8); Lymphocytes Percent Auto 36.6 % (20.5-60.0); Mean Corpuscular Hemoglobin 32.6 pg (25.9-34.0); Mean Corpuscular Volume 95.7 fL (80.0-94.0); Mean Platelet Volume 9.7 fL (9.5-13.5); Monocytes Absolute Auto 0.7 10^3/uL (0.3-0.8); Monocytes Percent Auto 11.2 % (1.7-12.0); Neutrophils Absolute Auto 2.9 10^3/uL (1.4-6.5); Neutrophils Percent Auto 49.6 % (43.0-75.0); Platelet Count 225 10^3/uL (150-450); Red Blood Count 3.93 10^6/uL (4.70-6.10); Red Cell Distribution Width 12.3 % (11.0-15.0); White Blood Count 5.8 10^3/uL (4.0-11.0)
[2024-05-24] MEDS: ONDANSETRON PF 4 MG/2 ML VIAL IV ×2 (17:14→21:09)
[2024-05-24] MEDS: MORPHINE SULFATE 4 MG/ML VIAL IV ×3 (17:16→20:37)
[2024-05-24 17:27] LABS: INR 1.01; Prothrombin Time 10.7 sec (9.0-11.6)
[2024-05-24 17:34] LABS: Alanine Aminotransferase 23 U/L (16-63); Albumin Globulin Ratio 1.1; Albumin Level 3.6 g/dL (3.4-5.0); Alkaline Phosphatase 59 U/L (46-116); Anion Gap 13.9; Aspartate Amino Transferase 23 U/L (15-37); BUN Creatinine Ratio 22.8; Bilirubin Total 0.2 mg/dL (0.2-1.0); Calcium 9.4 mg/dL (8.5-10.1); Carbon Dioxide 26.4 mmol/L (21.0-32.0); Chloride 104 mmol/L (98-107); Estimated GFR (African America >60 (>=60 mL/min/1.73m^2); Estimated GFR (Non-African Ame 52 (>=60 mL/min/1.73m^2); Globulin 3.2 g/dL; Glucose 130 mg/dL (74-106); Potassium 4.3 mmol/L (3.5-5.1); Sodium 140 mmol/L (136-145); Total Protein 6.8 g/dL (6.4-8.2)
[2024-05-24 18:01] VITALS: BP 128/82; PULSE 65; O2SAT 100
--- NOTE | 2024-05-24 18:17 | PC.NURSE ---
Patient voices relief of left ankle pain at this time.
--- NOTE | 2024-05-24 18:27 | CT_ITS ---
The [place] [id number] Patient Name: MONI HASTINGS MRN: [id number] date: 1955 Sex: M Assigned Patient Location: ER Current Patient Location: ER Accession/Order Number: [id number] Exam Date: 05/24/2024 18:20 Report Date: 05/24/2024 20:16 At the request of: SHI LARIOS Procedure: CT lower leg LT wo con CT left lower EXTREMITY WITHOUT IV CONTRAST HISTORY: L ankle pain/fracture COMPARISON: There are no prior studies available for comparison. TECHNIQUE: Axial CT images of the left lower extremity was obtained without IV contrast. Coronal and sagittal reformats were constructed. FINDINGS: OSSEOUS STRUCTURES: There is a mildly displaced, comminuted fracture of the distal fibular metadiaphysis. JOINTS: There is widening of the tibiotalar space.. SUBCUTANEOUS/SOFT TISSUES: There is mild edema of the lateral ankle. CT/CT lower leg LT wo con IMPRESSION: Acute mildly displaced fracture of the distal fibular metadiaphysis. There is widening of the tibiotalar space. Electronically authenticated by: MELA MENJIVAR Date: 05/24/2024 20:16
--- NOTE | 2024-05-24 20:27 | ED.LOWEXI1 ---
HPI HPI - Extremity Injury (Lower) General Chief Complaint: Extremity Injury, Lower Stated Complaint: Fell Lower Injury Time Seen by Provider: 05/24/24 16:37 Source: patient Mode of arrival: Wheelchair Limitations: no limitations Related Data Allergies Allergy/AdvReac Type Severity Reaction Status Date / Time Penicillins Allergy Severe Rash Verified 05/24/24 16:28 Opioid HPI Opioid Management Most Recent Pain and Opioid Data: Last Pain Assessment 05/24/24 18:16 PFSH PFSH Social History Little interest or pleasure in doing things: not at all Feeling down, depressed, or hopeless: not at all Exam Constitutional Vital Signs, click to edit/add: Last Vital Signs Pulse 65 05/24/24 18:01 Resp 16 05/24/24 18:01 BP 128/82 05/24/24 18:01 Pulse Ox 100 05/24/24 18:01 O2 Del Method Room Air 05/24/24 18:01 Course Vital Signs Vital signs: Vital Signs Pulse Rate 44 L 05/24/24 16:28 Respiratory Rate 24 H 05/24/24 16:28 Blood Pressure 78/50 L 05/24/24 16:28 Pulse Oximetry 99 05/24/24 16:28 Pulse Rate 65 05/24/24 18:01 Respiratory Rate 16 05/24/24 18:01 Blood Pressure 128/82 05/24/24 18:01 Pulse Oximetry 100 05/24/24 18:01 Oxygen Delivery Method Room Air 05/24/24 18:01 MDM - Extremity Injury (Lower) MDM Narrative Medical decision making narrative: This 68-year-old male was signed out to me at shift change pending CT scan and further disposition of the left lower extremity. 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 X-ray showed a displaced distal fibula fracture with questionable joint space abnormality and recommendation for a CT scan was done. The CT scan showed widening of the tibiotalar space in addition to the fracture of the distal fibula. This was discussed with Dr. Hardy. He recommends gentle reduction and splinting as well as nonweightbearing status and he will see the patient tomorrow in his office. This was discussed with the patient who verbalizes understanding. Please refer to my procedure note. He was gently reduced and splinted. He tolerated the procedure well and was discharged home with 2 [place] and a prescription for [place] and Zofran and Colace. Medical Records Medical records narrative: The [address] [address] [address] Scan Report Signed Patient: MONI HASTINGS MR#: [id number] : 1955 Acct:[id number] Age/Sex: 68 / M ADM Date: 05/24/24 Loc: ER Attending Dr: Ordering Physician: Shi Guardado D.O. Date of Service: 05/24/24 Procedure(s): CT lower leg LT wo con Accession Number(s): [id number] cc: EMERALD RIGGS ~ The [address] [address] Patient Name: MONI HASTINGS MRN: [id number] date: 1955 Sex: M Assigned Patient Location: ER Current Patient Location: ER Accession/Order Number: [id number] Exam Date: 05/24/2024 18:20 Report Date: 05/24/2024 20:16 At the request of: SHI GUARDADO Procedure: CT lower leg LT wo con CT left lower EXTREMITY WITHOUT IV CONTRAST HISTORY: L ankle pain/fracture COMPARISON: There are no prior studies available for comparison. TECHNIQUE: Axial CT images of the left lower extremity was obtained without IV contrast. Coronal and sagittal reformats were constructed. FINDINGS: OSSEOUS STRUCTURES: There is a mildly displaced, comminuted fracture of the distal fibular metadiaphysis. JOINTS: There is widening of the tibiotalar space.. SUBCUTANEOUS/SOFT TISSUES: There is mild edema of the lateral ankle. CT/CT lower leg LT wo con IMPRESSION: Acute mildly displaced fracture of the distal fibular metadiaphysis. There is widening of the tibiotalar space. Electronically authenticated by: MELA MENJIVAR Date: 05/24/2024 20:16 Lab Data Labs: Lab Results 05/24/24 Range/Units 17:05 WBC 5.8 (4.0-11.0) 10^3/uL RBC 3.93 L (4.70-6.10) 10^6/uL Hgb 12.8 L (14.0-18.0) g/dL Hct 37.6 L (42.0-54.0) % MCV 95.7 H (80.0-94.0) fL MCH 32.6 (25.9-34.0) pg MCHC 34.0 (29.9-35.2) g/dL RDW 12.3 (11.0-15.0) % Plt Count 225 (150-450) 10^3/uL MPV 9.7 (9.5-13.5) fL Neut % (Auto) 49.6 (43.0-75.0) % Lymph % (Auto) 36.6 (20.5-60.0) % [place] % (Auto) 11.2 (1.7-12.0) % Eos % (Auto) 1.7 (0.9-7.0) % Baso % (Auto) 0.7 (0.2-2.0) % Neut # (Auto) 2.9 (1.4-6.5) 10^3/uL Lymph # (Auto) 2.1 (1.2-3.8) 10^3/uL [place] # (Auto) 0.7 (0.3-0.8) 10^3/uL Eos # (Auto) 0.1 (0.0-0.7) 10^3/uL Baso # (Auto) 0.0 (0.0-0.1) 10^3/uL Abs Immat Gran (auto) 0.01 (0.00-0.03) 10^3/uL Imm/Tot Granulo (auto) 0.2 (0.0-0.5) % PT 10.7 (9.0-11.6) sec INR 1.01 Sodium 140 (136-145) mmol/L Potassium 4.3 (3.5-5.1) mmol/L Chloride 104 (98-107) mmol/L Carbon Dioxide 26.4 (21.0-32.0) mmol/L Anion Gap 13.9 BUN 31.0 H (7.0-18.0) mg/dL Creatinine 1.36 H (0.70-1.30) mg/dL Est GFR ( Amer) >60 (>=60 mL/min/1.73m^2) Est GFR (Non-Af Amer) 52 L (>=60 mL/min/1.73m^2) BUN/Creatinine Ratio 22.8 Glucose 130 H (74-106) mg/dL Calcium 9.4 (8.5-10.1) mg/dL Total Bilirubin 0.2 (0.2-1.0) mg/dL AST 23 (15-37) U/L ALT 23 (16-63) U/L Alkaline Phosphatase 59 (46-116) U/L Total Protein 6.8 (6.4-8.2) g/dL Albumin 3.6 (3.4-5.0) g/dL Globulin 3.2 g/dL Albumin/Globulin Ratio 1.1 Discharge Plan Discharge Chief Complaint: Extremity Injury, Lower Clinical Impression: Ankle fracture Patient Disposition: Home, Self-Care Time of Disposition Decision: 20:57 Condition: Good Print Language: Kiswahili Instructions: Ankle Fracture (ED), Crutch Instructions (ED) Referrals: EMERALD RIGGS [Primary Care Provider] - 1 week Adam Dhillon DPM [Physician] - As soon as possible Discharge Date/Time: 05/24/24 21:27 Procedures ED Procedure Instructions Procedures Procedures: Fracture care with manipulation. The patient was medicated with 4 mg of IV morphine and a one-step posterior splint was applied to the left lower extremity during which time the fibula was manipulated into anatomic position. Patient tolerated procedure well. Postreduction x-ray showed improved alignment of the distal fibula fracture
--- NOTE | 2024-05-24 20:46 | XR_ITS ---
The [address] [address] Patient Name: MONI HASTINGS MRN: [id number] date: 1955 Sex: M Assigned Patient Location: ER Current Patient Location: Accession/Order Number: [id number] Exam Date: 05/24/2024 20:52 Report Date: 05/24/2024 22:16 At the request of: JOSELYN MARKER Procedure: XR ankle LT 2V EXAM: XR ankle LT 2V HISTORY: post redux COMPARISON: None. TECHNIQUE: 2 views of the left ankle FINDINGS: Images are obtained with the left ankle in a posterior splint which obscures bony detail. Acute displaced distal fibular fracture is again seen with grossly stable appearance widening of the tibiotalar joint. XR/XR ankle LT 2V IMPRESSION: Images are obtained with the left ankle in a posterior splint which obscures bony detail. Acute displaced distal fibular fracture is again seen with grossly stable appearance widening of the tibiotalar joint. Electronically authenticated by: BERNARDINO GUERRA Date: 05/24/2024 22:16
[2024-05-24] MEDS: HYDROCODONE/ACET 5-325 MG TABLET 2 TAB PO (21:16)
[2024-05-24] MEDS: ONDANSETRON 4 MG RAPDIS TABLET SL (21:16)
== END 2024-05-24 21:27 | disposition home or self-care (01) ==
PROVIDERS: Emergency Medicine; Emergency Provider Emergency Medicine; PCP Family Medicine
DX: S82.832A Other fracture of upper and lower end of left fibula, initial encounter for closed fracture (principal); W18.39XA Other fall on same level, initial encounter
CPT/HCPCS: 36415; 73600; 73610; 73700; 80053; 85025; 85610; 96374; 96375; 96376; 99285; J2270; J2405; Q0162

== ENCOUNTER 2024-05-26 06:38 | Day surgery (SDC) | payer MEDICARE, SELFPAY ==
[2024-05-26] VITALS (13 sets, daily range): BP systolic 107–132; BP diastolic 62–76; PULSE 64–70; TEMP 36.2–36.4; O2SAT 93–98; BMI 25.0
--- OUTSIDE RECORDS SUMMARY | 2024-05-26 06:44 | XMS_ITS | CCD ---
Author Organization [facility] CliniSynm Care Team Providers Care Student Education Specialist Name Role Phone ONEIL, DR CORBIN Consulting [...] Unavailable Leonidas Riggs MD Primary Care Provider Leonidas Riggs MD Unavailable Leonidas Riggs MD Primary Care Provider Allergies Allergy Classification Reported Allergen(s) Allergy Type Date of Onset Reaction(s) Facility (1 source) Penicillin Drug Allergy [facility] Repository (3 sources) Penicillins Drug Allergy 11-17-2022 [...] WITH AUTO DIFFon BASOPHILS ABSOLUTE AUTO 0.0 [facility] Basophils/100 WBC (Bld) 0.5 % 0.2 - 2.0 % [facility] Eosinophils/100 WBC (Bld) 4.0 % 0.9 - 7.0 % [facility] Erythrocyte distribution width (RBC) [Ratio] 12.8 % 11.0 - 15.0 % [facility] Hematocrit (Bld) [Volume fraction] 40.0 % Low 42.0 - 54.0 % [facility] (Bld[facility] [Mass/Vol] 13.5 g/dL Low 14.0 - 18.0 g/dL [facility] IMMATURE GRANULOCYTES ABS AUTO 0.01 [facility] Immature granulocytes/100 WBC (Bld) 0.2 % 0.0 - 0.5 % [facility] Interpretation and review of laboratory results Abnormal [facility] LYMPHOCYTES ABSOLUTE AUTO 1.3 [facility] Lymphocytes/100 WBC (Bld) 30.2 % 20.5 - 60.0 % [facility] MCH (RBC) [Entitic mass] 32.9 pg 25.9 - 34.0 pg [facility] MCHC (RBC) [Mass/Vol] 33.8 g/dL 29.9 - 35.2 g/dL [facility] MCV (RBC) [Entitic vol] 97.6 fL High [...] T3, Serum 17.4 ng/dL Normal 9.2-24.1 [facility] Comment on above: Result Comment: This test was developed and its performance characteristics determined by [facility]. It has not been cleared or approved by the Food and Drug Administration. Performed By: #### R EVRT3 #### [facility] [address] [address] [address] Floridalma Collins PSA, FREE AND TOTAL RATIOon 11-26-2021 % Free PSA 21.7 % Normal [facility] Comment on above: Result Comment: The table [...] men. Performed By: #### P SAFREE #### [facility] [address] [place], [place] [address] Dr. Floridalma Collins Prostate specific Ag [Mass/Vol] 0.6 ng/mL Normal 0.0-4.0 [facility] Comment on above: Result Comment: Shantal CORREA methodology. . According to the [employer], Serum PSA should decrease and [...] disease. Performed By: #### P SAFREE #### [facility] [address] [place] [address] Dr. Floridalma Collins PSA, Free 0.13 ng/mL Normal N/A [facility] Comment on above: Result Comment: Shantal bower ECLIA methodology. Performed By: #### P SAFREE #### [facility] [address] [place] [address] Dr. Floridalma Collins T3, TOTAL (TRIIODOTHYRONINE) on 11-26-2021 T3, TOTAL 106 ng/dL Normal 71-180 [facility] Comment on above: Performed By: #### B 12FOL, PSAD #### [facility] [address] [place] [address] Antonette Damon CBC AUTO DIFFon 11-25-2021 BASO # 0.0 103/ul Normal 0.0-0.1 [facility] Comment on above: Performed By: #### C BC #### [facility] [address] [place] [address] Dr. Floridalma Collins Basophils/100 WBC (Bld) 0.4 % Normal 0.2-2.0 [facility] Comment on above: Performed By: #### C BC #### [facility] [address] [place] [address] Dr. Floridalma Collins EO # 0.3 103/ul Normal 0.0-0.7 [facility] Comment on above: Performed By: #### C BC #### [facility] [address] [place] [address] Dr. Floridalma Collins Eosinophils/100 WBC (Bld) 5.4 % Normal 0.9-7.0 [facility] Comment on above: Performed By: #### C BC #### [facility] [address] [place] [address] Dr. Floridalma Collins Erythrocyte distribution width (RBC) [Ratio] 13.3 % Normal 11.0-15.0 [facility] Comment on above: Performed By: #### C BC #### [facility] [address] [place] [address] Dr. Floridalma Collins Hematocrit (Bld) [Volume fraction] 38.9 % Critically low 42.0-54.0 [facility] Comment on above: Performed By: #### C BC #### [facility] [address] [place] [address] Dr. Floridalma Collins Hemoglobin (Bld) [Mass/Vol] 12.9 g/dL Critically low 14.0-18.0 [facility] Comment on above: Performed By: #### C BC #### [facility] [address] [place] [address] Dr. Floridalma Collins IG # 0.01 10e3/ul Normal 0.00-0.03 [facility] Comment on above: Performed By: #### C BC #### [facility] [address] [place] [address] Dr. Floridalma Collins IG % 0.2 % Normal 0.0-0.5 [facility] Comment on above: Performed By: #### C BC #### [facility] [address] [place] [address] Dr. Floridalma Collins LYMPH # 1.3 103/ul Normal 1.2-3.8 [facility] Comment on above: Performed By: #### C BC #### [facility] [address] [place] [address] Dr. Floridalma Collins Lymphocytes/100 WBC (Bld) 28.7 % Normal 20.5-60.0 [facility] Comment on above: Performed By: #### C BC #### [facility] [address] [place] [address] Dr. Floridalma Collins MANUAL DIFF REQ NO Normal [facility] Comment on above: Performed By: #### C BC #### [facility] [address] [place] [address] Dr. Floridalma Collins MCH (RBC) [Entitic mass] 32.3 pg Normal 25.9-34.0 [facility] Comment on above: Performed By: #### C BC #### [facility] [address] [place] [address] Dr. Floridalma Collins MCHC (RBC) [Mass/Vol] 33.2 g/dL Normal 29.9-35.2 [facility] Comment on above: Performed By: #### C BC #### [facility] [address] [place] [address] Dr. Floridalma Collins MCV (RBC) [Entitic vol] 97.3 fL Critically high 80.0-94.0 [facility] Comment on above: Performed By: #### C BC #### [facility] [address] [place] [address] Dr. Floridalma Collins MONO # 0.4 103/ul Normal 0.3-0.8 [facility] Comment on above: Performed By: #### C BC #### [facility] [address] [place] [address] Dr. Floridalma Collins Monocytes/100 WBC (Bld) 9.5 % Normal 1.7-12.0 [facility] Comment on above: Performed By: #### C BC #### [facility] [address] [place] [address] Dr. Floridalma Collins NEUT # 2.6 103/ul Normal 1.4-6.5 [facility] Comment on above: Performed By: #### C BC #### [facility] [address] [place] [address] Dr. Floridalma Collins Neutrophils/100 WBC (Bld) 55.8 % Normal 43.0-75.0 [facility] Comment on above: Performed By: #### C BC #### [facility] [address] [place] [address] Dr. Floridalma Collins Platelet mean volume (Bld) [Entitic vol] 10.0 fL Normal 9.5-13.5 [facility] Comment on above: Performed By: #### C BC #### [facility] [address] [place] [address] Dr. Floridalma Collins PLT 190 103/ul Normal 150-450 [facility] Comment on above: Performed By: #### C BC #### [facility] [address] [place] [address] Dr. Floridalma Collins RBC 4.00 106/ul Critically low 4.70-6.10 [facility] Comment on above: Performed By: #### C BC #### [facility] [id number] Floridalma Collins WBC 4.6 103/ul Normal 4.0-11.0 [facility] Comment on above: Performed By: #### C BC #### [facility] [address] [place] [address] Dr. Floridalma Collins FREE T3on 11-25-2021 FREE T3 2.39 pg/mlL Normal 2.18-3.98 [facility] Comment on above: Performed By: #### F T3, CMP, LIPID, TSH #### [facility] [address] [place] [address] Dr. Floridalma Collins FREE T4on 11-25-2021 Free T4 [Mass/Vol] 1.09 ng/dL Normal 0.76-1.46 [facility] Comment on above: Performed By: #### B 12FOL, PSAD #### [facility] [address] [place] [address] Antonette Damon LIPID PROFILEon 11-25-2021 CHOL-HDL RATIO NORM SEE BELOW Normal [facility] Comment on above: Result Comment: 3.3 - 4.4 LOW RISK 4.4 - 7.1 AVERAGE RISK 7.1 - 11.0 MODERATE RISK >11.0 HIGH RISK Performed By: #### B 12FOL, PSAD #### [facility] [address] [place] [address] Antonette Marisol Cholesterol [Mass/Vol] 175 mg/dL Normal <=200 [facility] Comment on above: Performed By: #### B 12FOL, PSAD #### [facility] [address] [place] [address] Antonette Marisol Cholesterol in HDL [Mass/Vol] 62 mg/dL Critically high 40-60 [facility] Comment on above: Performed By: #### Rudolph 12FOAshley, PSAD #### [facility] [address] [id number] Antonette Marisol Cholesterol in LDL [Mass/Vol] 103.4 mg/dL Normal [facility] Comment on above: Performed By: #### Rudolph 12FOL, PSAD #### [facility] [address] [place], [place] [id number] Antonette Marisol Cholesterol.total/Ch olesterol in HDL [Mass ratio] 2.8 {ratio} Normal [facility] Comment on above: Performed By: #### Rudolph 12FOAshley, PSAD #### [facility] [address] [place], [place] [id number] Antonette Marisol HDL NORMAL > or = 60 mg/dl - LOW CARDIOVASCULAR RISK <40 mg/dl - HIGH CARDIOVASCULAR RISK Normal [facility] Comment on above: Performed By: #### Rudolph 12FOAshley, PSAD #### [facility] [address] [place], [place] [id number] Antonette Marisol LDL CALC NORMAL SEE BELOW Normal [facility] Comment on above: Result Comment: <100 mg/dl OPTIMAL 100 - 129 mg/dl NEAR OR ABOVE OPTIMAL 130 - 159 mg/dl BORDERLINE HIGH 160 - 189 mg/dl HIGH >190 mg/dl VERY HIGH Performed By: #### Rudolph 12FOL, PSAD #### [facility] [address] [place], [place] [id number] Antonette Marisol Triglyceride [Mass/Vol] 48 mg/dL Normal <=150 [facility] Comment on above: Performed By: #### Rudolph 12FOL, PSAD #### [facility] [address] [place], [place] [id number] Antonette Marisol VLDL CALC 9.6 mg/dL Normal [facility] Comment on above: Performed By: #### B 12FOL, PSAD #### [facility] [address] [place] [id number] Antonette Marisol PROF 14(COMP METB)on 022 Albumin [Mass/Vol] 3.7 g/dL Normal 3.4-5.0 [facility] Comment on above: Performed By: #### B 12FOL, PSAD #### [facility] [address] [id number] Antonette Marisol Albumin/Globulin [Mass ratio] 1.3 {ratio} Normal [facility] Comment on above: Performed By: #### B 12FOL, PSAD #### [facility] [address] [id number] Antonette Marisol ALP [Catalytic activity/Vol] 58 U/L Normal 46-116 [facility] Comment on above: Performed By: #### B 12FOL, PSAD #### [facility] [address] [id number] Antonette Marisol ALT [Catalytic activity/Vol] 21 U/L Normal 16-63 [facility] Comment on above: Performed By: #### B 12FOL, PSAD #### [facility] [address] [id number] Antonette Marisol Anion gap [Moles/Vol] 13.1 mmol/L Normal [facility] Comment on above: Performed By: #### B 12FOL, PSAD #### [facility] [address] [place], [place] [id number] Antonette Marisol AST [Catalytic activity/Vol] 21 U/L Normal 15-37 [facility] Comment on above: Performed By: #### B 12FOL, PSAD #### [facility] [address] [id number] Antonette Marisol Bilirubin [Mass/Vol] 0.5 mg/dL Normal 0.2-1.0 [facility] Comment on above: Performed By: #### B 12FOL, PSAD #### [facility] [address] [id number] Antonette Marisol Calcium [Mass/Vol] 8.6 mg/dL Normal 8.5-10.1 [facility] Comment on above: Performed By: #### B 12FOL, PSAD #### [facility] [address] [id number] Antonette Marisol Chloride [Moles/Vol] 106 mmol/L Normal 98-107 [facility] Comment on above: Performed By: #### Rudolph 12ALEKSEY, PSAD #### [facility] [address] [place], [place] [id number] Antonette Marisol CO2 [Moles/Vol] 23.9 mmol/L Normal 21.0-32.0 [facility] Comment on above: Performed By: #### Rudolph 12FOAshley, PSAD #### [facility] [address] [place] [address] Antonette Marisol Creatinine [Mass/Vol] 1.20 mg/dL Normal 0.70-1.30 [facility] Comment on above: Performed By: #### Rudolph 12FOAshley, PSAD #### [facility] [address] [place] [address] Antonette Marisol EGFR-AF UZBEK >60 Normal >=60 [facility] Comment on above: Performed By: #### Rudolph 12ALEKSEY, PSAD #### [facility] [address] [place] [address] Antonette Marisol EGFR-NON AF UZBEK =60 Normal >=60 [facility] Comment on above: Performed By: #### Rudolph 12ALEKSEY, PSAD #### [facility] [address] [place], [place] [id number] Antonette Marisol Globulin (S) [Mass/Vol] 2.9 g/dL Normal [facility] Comment on above: Performed By: #### Rudolph 12FOAshley, PSAD #### [facility] [address] [place] [address] Antonette Marisol Glucose [Mass/Vol] 97 mg/dL Normal 74-106 [facility] Comment on above: Performed By: #### Rudolph 12FOL, PSAD #### [facility] [address] [place] [address] Antonette Marisol Potassium [Moles/Vol] 4.0 mmol/L Normal 3.5-5.1 [facility] Comment on above: Performed By: #### Rudolph 12FOL, PSAD #### [facility] [address] [place], [place] [id number] Antonette Marisol Protein [Mass/Vol] 6.6 g/dL Normal 6.4-8.2 [facility] Comment on above: Performed By: #### Rudolph EVERETT PSARosalio #### [facility] [address] [place] [address] Antonette Marisol Sodium [Moles/Vol] 139 mmol/L Normal 136-145 [facility] Comment on above: Performed By: #### Rudolph EVERETT PSAD #### [facility] [address] [place] [address] Antonette Marisol Urea nitrogen [Mass/Vol] 19.0 mg/dL Critically high 7.0-18.0 [facility] Comment on above: Performed By: #### Rudolph EVERETT PSARosalio #### [facility] [address] [place] [address] Antonette Marisol Urea nitrogen/Creatinine [Mass ratio] 15.8 mg/mg Normal [facility] Comment on above: Performed By: #### Rudolph EVERETT PSARosalio #### [facility] [address] [place] [address] Antonette Marisol TSHon 11-25-2021 TSH 1.726 uIU/mL Normal 0.358-3.740 [facility] Comment on above: Performed By: #### Rudolph EVERETT PSAD #### [facility] [address] [place] [address] Antonette Marisol VIT B12 AND FOLATEon 022 Cobalamin (Vitamin B12) [Mass/Vol] 641.0 pg/mL Normal 193.0-986.0 [facility] Comment on above: Performed By: #### Rudolph 12ALEKSEY PSAD #### [facility] [address] [place] [address] Antonette Marisol FOLATE 17.90 ng/mL Normal 8.60-58.90 [facility] Comment on above: Performed By: #### Rudolph EVERETT PSAD #### [facility] [address] [place] [address] Antonette Marisol TSHon 01-21-2021 TSH 0.720 uIU/mL Normal 0.470-4.680 [facility] Comment on above: Performed By: #### T SH #### [facility] [address] [place] [address] Dr. Floridalma Collins TSH RANGE SEE BELOW Normal [facility] Comment on above: Result Comment: <0.3 4 UIU/ml HYPERTHYROID 0.34-5.60 UIU/ml EUTHYROID >5.60 UIU/ml HYPOTHYROID Performed By: #### T SH #### [facility] [address] [place] [address] Dr. Floridalma Collins T3, TOTAL (TRIIODOTHYRONINE) on 12-25-2020 T3, TOTAL 120 ng/dL Normal 71-180 [facility] Comment on above: Performed By: #### T 3TOTAL #### [facility] [address] [place] [address] Dr. Floridalma Collins CBC AUTO DIFFon 12-24-2020 BASO # 0.0 103/ul Normal 0.0-0.1 [facility] Comment on above: Performed By: #### C BC #### [facility] [address] [place] [address] Antonette Marisol Basophils/100 WBC (Bld) 0.5 % Normal 0.2-2.0 [facility] Comment on above: Performed By: #### C BC #### [facility] [address] [place] [address] Antonette Marisol EO # 0.1 103/ul Normal 0.0-0.7 [facility] Comment on above: Performed By: #### C BC #### [facility] [address] [place] [address] Antonette Marisol Eosinophils/100 WBC (Bld) 3.3 % Normal 0.9-7.0 [facility] Comment on above: Performed By: #### C BC #### [facility] [address] [place], [place] [id number] Antonette Marisol Erythrocyte distribution width (RBC) [Ratio] 12.9 % Normal 11.0-15.0 [facility] Comment on above: Performed By: #### C BC #### [facility] [address] [place], [place] [id number] Antonette Marisol Hematocrit (Bld) [Volume fraction] 37.2 % Critically low 42.0-54.0 [facility] Comment on above: Performed By: #### C BC #### [facility] [address] [place] [address] Antonette Marisol Hemoglobin (Bld) [Mass/Vol] 12.7 g/dL Critically low 14.0-18.0 [facility] Comment on above: Performed By: #### C BC #### [facility] [address] [place] [address] Antonette Marisol IG # 0.01 10e3/ul Normal 0.00-0.03 [facility] Comment on above: Performed By: #### C BC #### [facility] [address] [place] [address] Antonette Marisol IG % 0.3 % Normal 0.0-0.5 [facility] Comment on above: Performed By: #### C BC #### [facility] [address] [place] [address] Antonette Marisol LYMPH # 1.4 103/ul Normal 1.2-3.8 [facility] Comment on above: Performed By: #### C BC #### [facility] [address] [place] [address] Antonette Marisol Lymphocytes/100 WBC (Bld) 33.9 % Normal 20.5-60.0 [facility] Comment on above: Performed By: #### C BC #### [facility] [address] [place] [address] Antonettearsenio Kendallen MANUAL DIFF REQ NO Normal [facility] Comment on above: Performed By: #### C BC #### [facility] [address] [place], [place] [id number] Antonette Marisol MCH (RBC) [Entitic mass] 33.2 pg Normal 25.9-34.0 [facility] Comment on above: Performed By: #### C BC #### [facility] [address] [place] [address] Antonette Marisol MCHC (RBC) [Mass/Vol] 34.1 g/dL Normal 29.9-35.2 [facility] Comment on above: Performed By: #### C BC #### [facility] [address] [place], [place] [id number] Antonette Damon MCV (RBC) [Entitic vol] 97.4 fL Critically high 80.0-94.0 [facility] Comment on above: Performed By: #### C BC #### [facility] [address] [place] [address] Antonette Damon MONO # 0.4 103/ul Normal 0.3-0.8 [facility] Comment on above: Performed By: #### C BC #### [facility] [address] [place] [address] Antonette Damon Monocytes/100 WBC (Bld) 10.8 % Normal 1.7-12.0 [facility] Comment on above: Performed By: #### C BC #### [facility] [address] [place] [address] Antonette Damon NEUT # 2.0 103/ul Normal 1.4-6.5 [facility] Comment on above: Performed By: #### C BC #### [facility] [address] [place] [address] Antonette Damon Neutrophils/100 WBC (Bld) 51.2 % Normal 43.0-75.0 [facility] Comment on above: Performed By: #### C BC #### [facility] [address] [place], [place] [id number] Antonette Damon Platelet mean volume (Bld) [Entitic vol] 9.2 fL Critically low 9.5-13.5 [facility] Comment on above: Performed By: #### C BC #### [facility] [address] [place] [address] Antonette Damon PLT 201 103/ul Normal 150-450 [facility] Comment on above: Performed By: #### C BC #### [facility] [address] [place] [address] Antonette Damon RBC 3.82 106/ul Critically low 4.70-6.10 [facility] Comment on above: Performed By: #### C BC #### [facility] [address] [address] Antonette Marisol WBC 4.0 103/ul Normal 4.0-11.0 [facility] Comment on above: Performed By: #### C BC #### [facility] [address] [address] Antonette Marisol FREE T3on 12-24-2020 FREE T3 2.63 pg/mlL Critically low 2.77-5.27 [facility] Comment on above: Performed By: #### F T3 #### [facility] [address] [place] [address] Dr. Floridalma Collins FREE T4on 12-24-2020 Free T4 [Mass/Vol] 0.76 ng/dL Critically low 0.78-2.19 [facility] Comment on above: Performed By: #### C BC #### [facility] [address] [place] [address] Dr. Floridalma Collins LIPID PROFILEon 12-24-2020 CHOL-HDL RATIO NORM SEE BELOW Normal [facility] Comment on above: Result Comment: 3.3 - 4.4 LOW RISK 4.4 - 7.1 AVERAGE RISK 7.1 - 11.0 MODERATE RISK >11.0 HIGH RISK Performed By: #### B 12FOL PSAD #### [facility] [address] [place] [address] Antonette Marisol Cholesterol [Mass/Vol] 188 mg/dL Normal <=200 [facility] [place] [facility] Comment on above: Performed By: #### B 12FOL PSAD #### [facility] [address] [place] [address] Antonette Marisol Cholesterol in HDL [Mass/Vol] 52 mg/dL Normal [facility] Comment on above: Performed By: #### B 12FOL, PSAD #### [facility] [address] [place] [address] Antonette Marisol Cholesterol in LDL [Mass/Vol] 121.6 mg/dL Normal [facility] Comment on above: Performed By: #### B 12FOL, PSAD #### [facility] [address], [place] [address] Antonette Marisol Cholesterol.total/Ch olesterol in HDL [Mass ratio] 3.6 {ratio} Normal [facility] Comment on above: Performed By: #### Rudolph 12ALEKSEY PSAD #### [facility] [address] [id number] Antonette Marisol HDL NORMAL > or = 60 mg/dl - LOW CARDIOVASCULAR RISK <40 mg/dl - HIGH CARDIOVASCULAR RISK Normal [facility] Comment on above: Performed By: #### Rudolph EVERETT PSAD #### [facility] [address] [id number] Antonette Marisol LDL CALC NORMAL SEE BELOW Normal [facility] Comment on above: Result Comment: <100 mg/dl OPTIMAL 100 - 129 mg/dl NEAR OR ABOVE OPTIMAL 130 - 159 mg/dl BORDERLINE HIGH 160 - 189 mg/dl HIGH >190 mg/dl VERY HIGH Performed By: #### Rudolph EVERETT PSARosalio #### [facility] [address] [phone] Antonette Marisol Triglyceride [Mass/Vol] 72 mg/dL Normal <=150 [facility] Comment on above: Performed By: #### Rudolph EVERETT PSARosalio #### [facility] [address] [phone] Antonette Marisol VLDL CALC 14.4 mg/dL Normal [facility] Comment on above: Performed By: #### Rudolph EVERETT PSARosalio #### [facility] [address] [id number] Antonette Marisol PROF 14(COMP METB)on 021 Albumin [Mass/Vol] 3.7 g/dL Normal 3.5-5.0 The [facility] Comment on above: Performed By: #### Rudolph EVERETT PSARosalio #### [facility] [address] [phone] Antonette Marisol Albumin/Globulin [Mass ratio] 1.2 {ratio} Normal [facility] Comment on above: Performed By: #### B 12FOL, PSAD #### [facility] [address], [place] [address] Antonette Marisol ALP [Catalytic activity/Vol] 51 U/L Normal 38-126 [facility] Comment on above: Performed By: #### Rudolph 12ALEKSEY, PSAD #### [facility] [address], [place] [address] Antonette Marisol ALT [Catalytic activity/Vol] 23 U/L Normal 21-72 [facility] Comment on above: Performed By: #### Rudolph 12ALEKSEY, PSAD #### [facility] [address], [place] [address] Antonette Marisol Anion gap [Moles/Vol] 14.0 mmol/L Normal [facility] Comment on above: Performed By: #### Rudolph 12ALEKSEY, PSAD #### [facility] [address] [phone] Antonette Marisol AST [Catalytic activity/Vol] 21 U/L Normal 17-59 [facility] Comment on above: Performed By: #### Rudolph EVERETT, PSAD #### [facility] [address] [phone] Antonette Marisol Bilirubin [Mass/Vol] 0.4 mg/dL Normal 0.2-1.3 [facility] Comment on above: Performed By: #### Rudolph 12ALEKSEY, PSAD #### [facility] [address] [phone] Antonette Marisol Calcium [Mass/Vol] 8.7 mg/dL Normal 8.4-10.2 [facility] Comment on above: Performed By: #### Rudolph 12ALEKSEY, PSAD #### [facility] [address] [phone] Antonette Marisol Chloride [Moles/Vol] 105 mmol/L Normal 98-107 [facility] Comment on above: Performed By: #### Rudolph 12FOAshley, PSAD #### [facility] [address], [place] [address] Antnoette Marisol CO2 [Moles/Vol] 25.2 mmol/L Normal 22.0-30.0 [facility] Comment on above: Performed By: #### B 12FOL, PSAD #### [facility] [address], [place] [address] Antonette Marisol Creatinine [Mass/Vol] 1.10 mg/dL Normal 0.66-1.25 [facility] Comment on above: Performed By: #### B 12FOL, PSAD #### [facility] [address], [place] [address] Antonette Marisol EGFR-AF UZBEK >60 Normal >=60 [facility] Comment on above: Performed By: #### B 12FOL, PSAD #### [facility] [address], [place] [address] Antonette Marisol EGFR-NON AF UZBEK >60 Normal >=60 [facility] Comment on above: Performed By: #### B 12FOL, PSAD #### [facility] [address] [phone] Antonette Marisol Globulin (S) [Mass/Vol] 3.0 g/dL Normal [facility] Comment on above: Performed By: #### B 12FOL, PSAD #### [facility] [address], [place] [address] Antonette Marisol Glucose [Mass/Vol] 97 mg/dL Normal 74-106 [facility] Comment on above: Performed By: #### B 12FOL, PSAD #### [facility] [address] [phone] Antonette Marisol Potassium [Moles/Vol] 4.2 mmol/L Normal 3.4-5.0 [facility] Comment on above: Performed By: #### B 12FOL, PSAD #### [facility] [address] [phone] Antonette Marisol Protein [Mass/Vol] 6.7 g/dL Normal 6.1-8.2 [facility] Comment on above: Performed By: #### B 12FOL, PSAD #### [facility] [address] [phone] Antonette Marisol Sodium [Moles/Vol] 140 mmol/L Normal 137-145 [facility] Comment on above: Performed By: #### Rudolph EVERETT PSARosalio #### [facility] [address] [place] [address] Antonettearsenio Damon Urea nitrogen [Mass/Vol] 24.0 mg/dL Critically high 9.0-20.0 [facility] Comment on above: Performed By: #### Rudolph EVERETT PSAD #### [facility] [address] [place] [address] Antonette Damon Urea nitrogen/Creatinine [Mass ratio] 21.8 mg/mg Normal [facility] Comment on above: Performed By: #### Rudolph EVERETT PSAD #### [facility] [address] [place] [address] Antonette Damon T4on 12-24-2020 T4 [Mass/Vol] 6.60 ug/dL Normal 5.53-11.00 [facility] Comment on above: Performed By: #### Rudolph EVERETT PSARosalio #### [facility] [address] [place] [address] Antonette Damon TSHon 12-24-2020 TSH 6.821 uIU/mL Critically high 0.470-4.680 [facility] Comment on above: Performed By: #### Rudolph EVERETT PSARosalio #### [facility] [address] [place] [address] Antonette Damon TSH RANGE SEE BELOW Normal [facility] Comment on above: Result Comment: <0.3 4 UIU/ml HYPERTHYROID 0.34-5.60 UIU/ml EUTHYROID >5.60 UIU/ml HYPOTHYROID Performed By: #### Rudolph EVERETT PSAD #### [facility] [address] [place] [address] Antonette Marisol VIT B12 AND FOLATEon 021 Cobalamin (Vitamin B12) [Mass/Vol] 1306.0 pg/mL Critically high 239.0-931.0 [facility] Comment on above: Performed By: #### Rudolph EVERETT PSARosalio #### [facility] [address] [place] [address] Antonette Damon FOLATE >20.00 Normal >=2.76 [facility] Comment on above: Performed By: #### B 12FOL, PSAD #### [facility] [address], [place] [address] Antonette Damon Encounters Encounter Date Encounter Type Care Provider Facility Start: 05-19-2024 End: 05-19-2024 Orders Only Leonidas Riggs MD Work Phone: [facility] Comment on above: Acquired hypothyroid ism (CMS/HCC) Start: 05-18-2024 End: 05-18-2024 Telephone encounter Leonidas Riggs MD Work Phone: [facility] Start: 01-04-2024 End: 01-04-2024 ambulatory [facility] Work Phone: Start: 01-04-2024 End: 01-04-2024 Patient encounter procedure [facility] Work Phone: Start: 12-14-2023 End: [...] Performed By: #### B 12FOL, PSAD #### [facility] [address] [place] [address] Antonette Damon Start: 12-08-2017 Colonoscopy Leonidas mcclure [...] Immunization Date Immunization Notes Care Provider Fa [facility] 02-06-2022 Moderna Bivalent Delaney ster Vaccination Leonidas Riggs MD Work Phone: [facility] Healthcare Payers Date Payer Category Payer Private Health Insurance AARP Ri mber [id number] 2022 Unknown AARP AARP [id number] 2022-Present [address] [place] [address] [id number] 2018 Medicare [id number] 1959 Medicare [id number] 1959 Self-pay 1959 Unknown [id number] 1953 Unknown [id number] 1953 Unknown [id number] 1953 Unknown [id number] 1953 Unknown [id number] .[id number] 1953 Unknown [id number] 1953 Unknown [id number] .1259 1953 Unknown [id number] .1259 1953 Unknown [id number] .1259 Unknown [id number] Social History Date Type Detail [facility] Start: 1955 Sex Assigned At Male [facility] Start: 11-25-2022 [facility] Start: 11-25-2022 Tobacco use and exposure Smoke less tobacco non-user [facility] Start: 11-29-2023 Alcoholic beverage intake Curr ent drinker of alcohol (finding) [facility] Start: 07-19-2023 End: 11-29-2023 Alcoholic beverage intake [facility] Start: 07-19-2023 End: 11-29-2023 Social connection and isolation panel [facility] Do you belong to any clubs or organizations such as christianity groups, unions, fraternal or athletic groups, or [...] to be sent to [facility] in [place]. documented in this encounter [facility] Telephone encounter Note 05-18-2024 Telephone Encounter - Tram Zhong - 05/18/2024 10:03 AM EST Note Date & Type Note Facility 05-18-2024 Telephone encount er Note Virgie called, He switched his prescription coverage and is asking for his Levo to be sent to [facility] in [place]. [facility] Evaluation note Note Date & Type Note Facility Evaluation note Diagnosis Onset Date Dupuytren contracture of both hands [facility] Work Phone: Evaluation note Note Date & Type Note Facility Evaluation note Diagnosis Acquired hypothyroidism (CMS/HCC) Unspecified hypothyroidism documented in this encounter [facility] Summary Purpose Family History No Family History Records FoundNo Family History Records Found Advance Directives Advance Directive Response Recorded Date/ Time Advance Directives No August 11, 2023 10:22am Documents on File Type Date Recorded Patient Associate Java Developer Expl anation Advance Directives and Living Will 02/21/2019 2003-02-06 Power Of Assembly Stock Supervisor Advance Directives and Living Will 02/06/2003 8:09 AM Power of Assembly Stock Supervisor 11/30/2022 8:09 AM Power Of Assembly Stock Supervisor Chief Complaint and Reason for Visit Chief Complaint NEW RT DUPUYTRENS CO NTRACTURE WX [facility] Reason for Visit Dupuytren contractur e of both hands Additional Source Comments (unrecognized sect ion and content) No Status Records FoundNo Status Records Found INFORMATION SOURCE (unrecogn ized section and content) DATE CREATED AUTHOR 12/02/2021 [facility] DATE CREATED AUTHOR AUTHOR'S ORGANIZ ATION 11/29/2023 [facility] Care Teams (unrecognized sec tion and content) Team Status: Active Member Role Status Dates Leonidas Riggs MD Primary Care Provider Active Team Status: Inactive Member Role Status Dates Leonidas Riggs MD Primary Care Provider Active Start: January 04, 2024 End: January 04, 2024 Gauri Burris MD Attending Provider Active Start: January 04, 2024 End: January 04, 2024 Student Education Specialist Relationship Specialty Start Date End Date Leonidas Riggs MD [address] [place] [address] (Fax) PCP - ACO Reach 09/03/22 Leonidas Riggs MD [address] [facility] [place] [address] PCP - General Family Medicine 10/05/22 Student Education Specialist Relationship Specialty Start Date End Date Leonidas Riggs MD [address] [address] (Fax) PCP - ACO Reach 09/03/22 Leonidas Riggs MD [address] [address] (Fax) PCP - General Family Medicine 10/05/22 Student Education Specialist Relationship Specialty Start Date End Date Leonidas Riggs MD [address] [address] (Fax) PCP - ACO Reach 09/03/22 Leonidas Riggs MD [address] [address] (Fax) PCP - General Family Medicine 10/05/22 [...] BE BASED ON THE PRIMARY CLINICAL RECORDS. [facility]. provides no warranty or guarantee of the accuracy or completeness of information in this document.
--- NOTE | 2024-05-26 07:02 | ECG_ITS ---
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
[2024-05-26 07:11] LABS: Basophils Percent Auto 0.5 % (0.2-2.0); Eosinophils Absolute Auto 0.1 10^3/uL (0.0-0.7); Hematocrit 38.2 % (42.0-54.0); Hemoglobin 12.9 g/dL (14.0-18.0); Immature Granulocytes Abs Auto 0.01 10^3/uL (0.00-0.03); Immature Granulocytes Pct Auto 0.2 % (0.0-0.5); Lymphocytes Absolute Auto 1.3 10^3/uL (1.2-3.8); Lymphocytes Percent Auto 21.5 % (20.5-60.0); Mean Corpuscular HGB Conc 33.8 g/dL (29.9-35.2); Mean Corpuscular Hemoglobin 32.6 pg (25.9-34.0); Mean Corpuscular Volume 96.5 fL (80.0-94.0); Mean Platelet Volume 9.6 fL (9.5-13.5); Monocytes Absolute Auto 0.7 10^3/uL (0.3-0.8); Monocytes Percent Auto 11.1 % (1.7-12.0); Neutrophils Absolute Auto 3.9 10^3/uL (1.4-6.5); Neutrophils Percent Auto 64.7 % (43.0-75.0); Platelet Count 201 10^3/uL (150-450); Red Blood Count 3.96 10^6/uL (4.70-6.10); Red Cell Distribution Width 12.7 % (11.0-15.0)
[2024-05-26 07:37] LABS: Glucometer 114 mg/dL (74-106)
[2024-05-26] MEDS: LACTATED RINGER'S SOLUTION 1,000 ML 50 ML IV ×2 (07:45→09:56)
--- NOTE | 2024-05-26 08:39 | P.ORON_ITS ---
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 He was taken to the emergency department by his shortly after the injury and x-rays/CT scan confirmed displaced Moyer B fibular fracture with medial clear space widening. He was splinted and reduced in the emergency department however postreduction x-rays did not show anatomic reduction therefore I contacted the patient and recommended he follow- up with me on 05/25/2024. Fortunately his skin remained intact it did not appear at immediate risk. He was resplinted in a lateral decubitus position with his foot in gravity varus/plantarflexion and a multilayer modified Valiente posterior splint. I recommended operative intervention today and I discussed the potential risks and benefits as well as the postoperative course. All questions were answered to his satisfaction. Intraoperative findings: Displaced oblique Moyer B fibular fracture at the level of the tibiotalar joint with mild comminution. Periosteum and soft tissue within the fracture line. Fracture was reduced which closed down medial clear space. Bone quality was good and within normal limits. No medial, lateral or syndesmotic ligamentous instability observed on stress exam Procedure in detail: Patient was identified in preoperative holding by myself which time correct side and site were marked and consent was obtained. Regional anesthesia was performed by the anesthesia team and preoperative antibiotics were started. Patient is brought back to the operating theater placed on table in supine position with a thigh tourniquet. General anesthesia was administered and the left lower extremity was prepped and draped in usual sterile fashion. The left lower extremity was then exsanguinated and the tourniquet was inflated. Incision was placed along the distal fibula and a combination of sharp and blunt dissection gained access to the fracture while protecting neurovascular and tendinous structures. Bleeders are coagulated. Hematoma was evacuated and the surgical site was irrigated with copious saline. Periosteum and soft tissue within the fracture was excised and the periosteum at the fracture ends was meticulously elevated as minimal as possible. I manually reduced the displaced lateral malleolus fracture while my preschool teacher's assistant maintained this gross reduction I used [id number] forceps to anatomically reduce the lateral malleolus. Fluoroscopy confirmed reduction to proper length and rotation. The fracture was temporarily fixated with multiple K wires. Then a 3.5 mm cortical screw was placed using lag by technique to achieve compression at the fracture line. The reduction forceps were removed and a 3.5 mm plate was placed over the lateral malleolus and temporarily fixated. Hardware position and alignment was checked on fluoroscopy and the plate was temporarily fixated with BB tacks. The plate was then fixated with locking and nonlocking screws and temporary fixation was removed. The lateral, medial and syndesmotic ligaments were stressed under fluoroscopy noting stability in all planes. Surgical site was irrigated with copious months of sterile saline and the incision was then closed in layers. The tourniquet was deflated noting a prompt hyperemic response. A dry sterile dressing consisting of Xeroform, 4 x 4's and Kerlix was applied followed by a multilayer modified Valiente posterior splint. Patient tolerated the procedure and anesthesia well and was transferred to the recovery room with vital signs stable and brisk capillary refill to left toes. Postoperative plan: Discharge home under 's care Nonweightbearing left ankle Elevate operative extremity above level heart Prescriptions were sent to patient's pharmacy using my office EMR Follow-up next week for incision check and hopeful transition to cam boot and partial protected weightbearing. Implants: Medline 3.5 mm plate/screws Anesthesia: regional and General-LMA Surgeon: Adam Dhillon Estimated blood loss (mL): 25 Tourniquet time (min): 43 Pathology: none sent Condition: stable Disposition: PACU
[2024-05-26] MEDS: CLINDAMYCIN PHOS 900 MG/50 ML D5W PREMIX 100 MG IV (08:50)
--- NOTE | 2024-05-26 09:01 | XR_ITS ---
The [address] [address] Patient Name: MONI HASTINGS MRN: [id number] date: 1955 Sex: M Assigned Patient Location: [facility] Current Patient Location: Accession/Order Number: [id number] Exam Date: 05/26/2024 11:20 Report Date: 05/29/2024 15:18 At the request of: AINSLEY RAIN Procedure: XR ankle LT min 3V EXAM: XR ankle LT min 3V 05/26/2024. HISTORY: lateral malleolus fracture COMPARISON: Radiographs left ankle 05/24/2024. FINDINGS: There is a plaster splint overlying the ankle posteriorly which obscures fine bone detail. There has been interval open reduction internal fixation of a fracture of the lateral malleolus with a lateral plate and multiple cortical screws and an interfragmentary screw. This fracture appears in anatomic alignment. There has been interval reduction of the previously seen tibiotalar joint subluxation and widening of the medial ankle mortise. There is a small 3 mm fracture fragment displaced posterior to the posterior malleolus seen on the lateral view. XR/XR ankle LT min 3V IMPRESSION: 1. Satisfactory postoperative appearance from interval open reduction internal fixation of a fracture of the lateral malleolus which appears in anatomic alignment. No hardware complication is seen. 2. A small displaced fracture of the posterior malleolus is seen. 3. Interval reduction of the previously seen tibiotalar joint subluxation and widening of the medial ankle mortise. Electronically authenticated by: AYAAN GOMEZ Date: 05/29/2024 15:18
--- NOTE | 2024-05-26 09:24 | PC.NURSE ---
(0836) Final timeout completed. Patient placed on monitor and O2 at 3l/min via nc. Patient positioned on right side. Left leg elevated with pillows. (0839) Left leg popliteal site landmarked with Ultrasound per Romulo Mercado FURNACE OPERATOR AND TENDER. (0840) Needle placed (0842) Left popliteal site injected. (0843) Left popliteal block completed. (0845) Patient positioned supine. Left leg placed in a frog position. Left adductor site landmarked with ultrasound per Romulo Mercado FURNACE OPERATOR AND TENDER. (0846) Left adductor canal injected. (0847) Left adductor canal completed. Patient tolerated it well. See posted vital signs.
--- NOTE | 2024-05-26 11:27 | PC.NURSE ---
PATIENT IS RESTING WITH EYES CLOSED. VERBALIZES NO PAIN AND WANTS TO REST SOME BEFORE ANY WATER.
[2024-05-26 11:33] LABS: Glucometer 105 mg/dL (74-106)
--- NOTE | 2024-05-26 12:17 | PC.NURSE ---
left lower leg is flaccid d/t pain block
== END 2024-05-26 13:07 | disposition home or self-care (01) ==
PROVIDERS: Anesthesiology; PCP Family Medicine; Visit Provider Podiatrist Foot & Ankle Surgery
PROC: (CPT 27792; principal; 2024-05-26 08:00)
DX: S82.62XA Displaced fracture of lateral malleolus of left fibula, initial encounter for closed fracture (principal); W00.0XXA Fall on same level due to ice and snow, initial encounter; S93.432A Sprain of tibiofibular ligament of left ankle, initial encounter; E03.9 Hypothyroidism, unspecified; Z79.899 Other long term (current) drug therapy
CPT/HCPCS: 27792; 36415; 64445; 64450; 73610; 76000; 76942; 82948; 85025; 93005; C1713; J0131; J0736; J1100; J2250; J2405; J2704; J2795

== ENCOUNTER 2024-05-29 10:50 | Emergency (ER) | payer MEDICARE, SELFPAY ==
[2024-05-29] VITALS (11 sets, daily range): BP systolic 98–130; BP diastolic 68–71; PULSE 57–77; TEMP 36.6; O2SAT 94–99; BMI 22.7
--- NOTE | 2024-05-29 11:28 | ECG_ITS ---
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
--- NOTE | 2024-05-29 11:30 | XR_ITS ---
The [address] [address] Patient Name: MONI HASTINGS MRN: [id number] date: 1955 Sex: M Assigned Patient Location: ER Current Patient Location: ED.MAIN Accession/Order Number: [id number] Exam Date: 05/29/2024 11:55 Report Date: 05/29/2024 14:14 At the request of: CHAD SALAS Procedure: XR acute abdomen series EXAM: XR acute abdomen series HISTORY: abd pain constipation. Nausea. COMPARISON: None. TECHNIQUE: AP chest x-ray with upright and supine abdominal x-rays. FINDINGS: Cardiac size appears within normal limits. The trachea is midline. No mediastinal widening. No pneumothorax or effusion. Slight asymmetric elevation of the right hemidiaphragm. Convex right curvature of the dorsal spine. Moderate stool throughout the course of the colon. The rectum is distended 8.0 cm in diameter. No air-fluid levels identified. No free air below diaphragm. No pathologic-appearing abdominal calcifications. XR/XR acute abdomen series IMPRESSION: 1. No acute cardiopulmonary process identified. 2. Constipation. Prominent stool in the rectum may correlate with fecal impaction. No bowel obstruction. Electronically authenticated by: REAL CHAVEZ Date: 05/29/2024 14:14
--- NOTE | 2024-05-29 11:55 | ED.GENADUL1 ---
HPI HPI - General Adult General Chief complaint: Weakness Stated complaint: POSSIBLE BOWEL IMPACTION Time Seen by Provider: 05/29/24 11:51 Source: patient Mode of arrival: Wheelchair Limitations: no limitations History of Present Illness HPI narrative: Patient is a 5-year-old male who is presenting to the ER today with chief complaint of rectal pain, pressure, and possible constipation. Patient had fractured his ankle Wednesday, patient had surgery on Wednesday by Dr. Dhillon. Patient is only taken for norco for pain. Patient has not been drinking much fluids in last several days. Patient used MiraLAX yesterday, also tried a fleets enema. When patient's try to place a fleets enema inside, she had significant resistance and the water just came right back out. Patient does not have his appendix. Patient had no other abdominal surgery previously. Patient having pain and pressure to her rectum. Patient did have small bowel movements, patient was only having small graciela coming out. He has no chest pain or shortness of breath. Patient was having lightheaded, abdominal cramping and nausea secondary abdominal pain, abdominal cramping. Patient is not having much pain at all to his left foot/ankle. Patient is in a splint that was placed on Wednesday from surgery. All systems are negative except as noted/marked. All systems reviewed and otherwise negative. Nurses note and vital signs reviewed and patient is not hypoxic. General: The patient appears well and in no apparent distress. Patient is resting comfortably on cart. Patient is not toxic, lethargic, or listless Skin: Warm, dry, no pallor noted. There is no rash noted. No petechiae, purpura. Head: Normocephalic, atraumatic Eye: Normal conjunctiva, no drainage, EOMI. PERRL Ears, Nose, Mouth, and Throat: oral mucosa is moist. Nares patent. Mouth without vesicles. Cardiovascular: Regular Rate and Rhythm, no murmur, gallop, rub Respiratory: Patient is in no distress, no accessory muscle use, lungs are clear to auscultation, no wheezing, rales or rhonchi Back: non-tender, no CVA tenderness bilaterally to percussion. No CT LS midline pain GI: Bowel sounds x 4, hypoactive bowel sounds but present in all 4 mancuso, mild to moderate left lower quadrant tenderness palpation, no peritoneal signs, otherwise no tenderness to palpation, no masses appreciated. mild rebound, mild guarding, no tympany or rigidity noted. No distention Musculoskeletal: Patient has full range of motion of all of the extremities, no motor, sensory, or focal neurological deficits Neurological: A&O x4, normal speech Psychiatric: Cooperative Related Data Home Medications ?Medication ?Instructions ?Recorded ?Confirmed hydrocodone 5 mg-acetaminophen 325 1 tab PO Q6H PRN pain 05/26/24 05/26/24 mg tablet levothyroxine 75 mcg tablet 75 mcg PO DAILY 05/26/24 05/26/24 mecobalamin (vitamin B12) 10,000 1,000 mcg IM .monthly 05/26/24 05/26/24 mcg solution for injection Previous Rx's ?Medication ?Instructions ?Recorded dicyclomine 20 mg tablet 20 mg PO TID PRN abdominal pain #7 05/29/24 tabs Allergies Allergy/AdvReac Type Severity Reaction Status Date / Time Penicillins Allergy Severe Rash Verified 05/24/24 16:28 Opioid HPI Opioid Management Most Recent Opioid Data: Last Pain Scale 4 05/29/24 12:03 05/29/24 Last Pain Assessment 05/26/24 12:55 Last MAR Pain Assessment 05/29/24 12:03 PFSH PFS Medical History (Updated 05/29/24 @ 15:44 by Hector Juares MD) Normal colonoscopy Ankle fracture ?S82.899A - Other fracture of unspecified lower leg, initial encounter for closed fracture (ICD-10) Vitamin B12 deficiency ?E53.8 - Deficiency of other specified B group vitamins (ICD-10) Hypothyroidism ?E03.9 - Hypothyroidism, unspecified (ICD-10) Surgical History (Updated 05/26/24 @ 07:20 by Blanca Knox, CHARLEEN) Hx of appendectomy ?Z90.49 - Acquired absence of other specified parts of digestive tract (ICD-10) Family History (Updated 05/26/24 @ 07:21 by Blanca Knox, CHARLEEN) Other CAD (coronary artery disease) Dementia Family history of cancer Social History Little interest or pleasure in doing things: not at all Feeling down, depressed, or hopeless: not at all Exam Constitutional Vital Signs, click to edit/add: Last Vital Signs Temp 97.8 F 05/29/24 11:01 Pulse 77 05/29/24 15:30 Resp 25 H 05/29/24 15:30 BP 125/69 05/29/24 11:13 Pulse Ox 99 05/29/24 15:00 O2 Del Method Room Air 05/29/24 11:01 Course Vital Signs Vital signs: Vital Signs Temperature 97.8 F 05/29/24 11:01 Pulse Rate 58 L 05/29/24 11:01 Respiratory Rate 18 05/29/24 11:01 Blood Pressure 98/68 05/29/24 11:01 Pulse Oximetry 98 05/29/24 11:01 Oxygen Delivery Method Room Air 05/29/24 11:01 Temperature 97.8 F 05/29/24 11:01 Pulse Rate 77 05/29/24 15:30 Respiratory Rate 25 H 05/29/24 15:30 Blood Pressure 125/69 05/29/24 11:13 Pulse Oximetry 99 05/29/24 15:00 Oxygen Delivery Method Room Air 05/29/24 11:01 Medical Decision Making MDM Narrative Medical decision making narrative: 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 Patient had IV established by ultrasound guidance from chest, RN, please see procedure note. Patient will receive IV fluids, Toradol, Bentyl, Zofran, x-ray and lab work. Patient agrees with this plan. Patient may need to be disimpacted and have soapsuds enema, we will wait to see what x-ray and lab test show. Patient admittedly has not been drink much water recently. 1430 patient x-ray shows no acute findings, no obstruction, no air-fluid levels, it does show signs of constipation with moderate amount of stool in the rectal vault. There is rectal distention, see report below. Procedure note: Disimpaction of rectum Tesfaye VILLASEÑOR and Kelsie there is interim at bedside during procedure. Uro-Jet was used to help with pain and relief. Approximately 8 cc of the Uro-Jet was injected around the rectum and inside rectum. After several minutes, disimpaction was done by myself. 5 different attempts of disimpacting the patient. The first 4 times, small amount of hard stool was able to be removed. There is not a large piece of stool in the rectal vault, there is a multiple small grapelike stool that has been palpated but has already been broken up. On the fifth attempt, there is no more stool in the rectal vault, and the stool most likely went more proximal secondary to vacuum suction into the sigmoid, there is no more stool in the rectal vault that I could disimpact on the fifth attempt. Procedure stopped. Procedure was tolerated well by patient, no acute bleeding or abnormalities occurred. Patient will have a soapsuds enema. 1545 patient had a soapsuds enema. Patient had good relief of moderate amount of stool production after soapsuds enema. Patient felt much better. Patient received 1 L of IV fluid, IV Toradol, Bentyl. Patient's BUN was slightly elevated, patient's last 3 BUNs were elevated as well, this was discussed at bedside. Patient understands to use MiraLAX magnesium citrate next few days. Patient was very appreciative, very thankful for care, no question at discharge. Nonsurgical abdomen at discharge. Lab Data Lab results reviewed: Yes I reviewed the patient's lab results Labs: Lab Results 05/29/24 05/29/24 Range/Units 11:47 13:57 WBC 7.3 (4.0-11.0) 10^3/uL RBC 3.70 L (4.70-6.10) 10^6/uL Hgb 12.4 L (14.0-18.0) g/dL Hct 35.6 L (42.0-54.0) % MCV 96.2 H (80.0-94.0) fL MCH 33.5 (25.9-34.0) pg MCHC 34.8 (29.9-35.2) g/dL RDW 12.3 (11.0-15.0) % Plt Count 210 (150-450) 10^3/uL MPV 9.8 (9.5-13.5) fL Neut % (Auto) 82.0 H (43.0-75.0) % Lymph % (Auto) 11.2 L (20.5-60.0) % [place] % (Auto) 6.3 (1.7-12.0) % Eos % (Auto) 0.1 L (0.9-7.0) % Baso % (Auto) 0.3 (0.2-2.0) % Neut # (Auto) 6.0 (1.4-6.5) 10^3/uL Lymph # (Auto) 0.8 L (1.2-3.8) 10^3/uL [place]ton # (Auto) 0.5 (0.3-0.8) 10^3/uL Eos # (Auto) 0.0 (0.0-0.7) 10^3/uL Baso # (Auto) 0.0 (0.0-0.1) 10^3/uL Abs Immat Gran (auto) 0.01 (0.00-0.03) 10^3/uL Imm/Tot Granulo (auto) 0.1 (0.0-0.5) % Sodium 138 (136-145) mmol/L Potassium 4.5 (3.5-5.1) mmol/L Chloride 104 (98-107) mmol/L Carbon Dioxide 25.2 (21.0-32.0) mmol/L Anion Gap 13.3 BUN 28.0 H (7.0-18.0) mg/dL Creatinine 1.20 (0.70-1.30) mg/dL Est GFR ( Amer) >60 (>=60 mL/min/1.73m^2) Est GFR (Non-Af Amer) 60 (>=60 mL/min/1.73m^2) BUN/Creatinine Ratio 23.3 Glucose 111 H (74-106) mg/dL Lactate 2.0 (0.4-2.0) mmol/L Calcium 9.1 (8.5-10.1) mg/dL Total Bilirubin 0.3 (0.2-1.0) mg/dL AST 21 (15-37) U/L ALT 23 (16-63) U/L Alkaline Phosphatase 60 (46-116) U/L Troponin I High Sens 6.1 (4.0-76.1) pg/mL Total Protein 6.7 (6.4-8.2) g/dL Albumin 3.4 (3.4-5.0) g/dL Globulin 3.3 g/dL Albumin/Globulin Ratio 1.0 Lipase 42.0 (16.0-77.0) U/L Urine Color Lt. yellow (YELLOW) Urine Clarity Clear (CLEAR) Urine pH 7.0 (5.0-9.0) Ur Specific [place] 1.015 (1.005-1.025) Urine Protein Negative (NEG/TRACE) mg/dL Urine Glucose (UA) Negative (NEGATIVE) mg/dL Urine Ketones Negative (NEGATIVE) mg/dL Urine Occult Blood Negative (NEGATIVE) Urine Nitrite Negative (NEGATIVE) Urine Bilirubin Negative (NEGATIVE) Urine Urobilinogen 0.2 (0.2-1.0) EU/dL Ur Leukocyte Esterase Negative (NEGATIVE) Urine RBC None seen (0-2) #/HPF Urine WBC 0-2 A (NONE SEEN) #/HPF Ur Squamous Epith Cells Rare (NONE/RARE) #/LPF Urine Crystals None seen (None Seen) #/HPF Urine Bacteria Trace A (NONE SEEN) #/HPF Urine Casts None seen (NONE SEEN) #/LPF Urine Mucus Moderate A (NONE SEEN) Ur Culture Indicated? No Patient's BUN to 28 was discussed with patient. Patient has elevated BUNs the last 3 lab test that have been done as well. Patient has not been diagnosed with any type of stage kidney disease. ECG Data Attestation: I personally reviewed and interpreted this ECG as follows: (EKG interpretation. Normal sinus rhythm at 55 beats a minute. Normal axis deviation. No acute ST elevation, no acute ectopy. 404 QTc) Discharge Plan Discharge Chief Complaint: Weakness Clinical Impression: Acute constipation, Rectal pain Patient Disposition: Home, Self-Care Time of Disposition Decision: 15:41 Condition: Fair Prescriptions / Home Meds: New dicyclomine 20 mg tablet 20 mg PO TID PRN (Reason: abdominal pain) Qty: 7 0RF No Action levothyroxine 75 mcg tablet 75 mcg PO DAILY hydrocodone-acetaminophen 5-325 mg tablet 1 tab PO Q6H PRN (Reason: pain) mecobalamin (vitamin B12) 10,000 mcg recon soln 1,000 mcg IM .monthly Print Language: Azerbaijani Instructions: Constipation (ED), Acute Abdominal Pain (ED) Additional Instructions: Use MiraLAX twice a day for the next 2 or 3 days Use 1 bottle of magnesium citrate today and tomorrow to help with stool production as well. Increase fluids, Gatorade, Powerade, water. Use Zofran and Bentyl as needed. Enjoy your detention sir !!!!!!!!!!!!!!!!!!!!!!!!!!!!!!!!!!!!!!! It has been a pleasure working with you all these years. Referrals: EMERALD RIGGS [Primary Care Provider] - 1 week
[2024-05-29 11:59] LABS: Basophils Percent Auto 0.3 % (0.2-2.0); Eosinophils Percent Auto 0.1 % (0.9-7.0); Hematocrit 35.6 % (42.0-54.0); Hemoglobin 12.4 g/dL (14.0-18.0); Immature Granulocytes Abs Auto 0.01 10^3/uL (0.00-0.03); Immature Granulocytes Pct Auto 0.1 % (0.0-0.5); Lymphocytes Absolute Auto 0.8 10^3/uL (1.2-3.8); Lymphocytes Percent Auto 11.2 % (20.5-60.0); Mean Corpuscular HGB Conc 34.8 g/dL (29.9-35.2); Mean Corpuscular Hemoglobin 33.5 pg (25.9-34.0); Mean Corpuscular Volume 96.2 fL (80.0-94.0); Mean Platelet Volume 9.8 fL (9.5-13.5); Monocytes Absolute Auto 0.5 10^3/uL (0.3-0.8); Monocytes Percent Auto 6.3 % (1.7-12.0); Platelet Count 210 10^3/uL (150-450); Red Cell Distribution Width 12.3 % (11.0-15.0); White Blood Count 7.3 10^3/uL (4.0-11.0)
[2024-05-29] MEDS: KETOROLAC TROMETHAMINE 30 MG/ML VIAL 15 MG IVP (12:03)
[2024-05-29] MEDS: DICYCLOMINE HCL 20 MG/2 ML VIAL IM (12:03)
[2024-05-29] MEDS: ONDANSETRON PF 4 MG/2 ML VIAL IV (12:03)
[2024-05-29] MEDS: 0.9 % SODIUM CHLORIDE 1,000 ML 999 ML IV (12:04)
[2024-05-29 12:14] LABS: Troponin I High Sensitivity 6.1 pg/mL (4.0-76.1)
[2024-05-29 12:23] LABS: Alanine Aminotransferase 23 U/L (16-63); Albumin Level 3.4 g/dL (3.4-5.0); Alkaline Phosphatase 60 U/L (46-116); Anion Gap 13.3; Aspartate Amino Transferase 21 U/L (15-37); BUN Creatinine Ratio 23.3; Bilirubin Total 0.3 mg/dL (0.2-1.0); Calcium 9.1 mg/dL (8.5-10.1); Carbon Dioxide 25.2 mmol/L (21.0-32.0); Chloride 104 mmol/L (98-107); Estimated GFR (African America >60 (>=60 mL/min/1.73m^2); Estimated GFR (Non-African Ame 60 (>=60 mL/min/1.73m^2); Globulin 3.3 g/dL; Glucose 111 mg/dL (74-106); Potassium 4.5 mmol/L (3.5-5.1); Sodium 138 mmol/L (136-145); Total Protein 6.7 g/dL (6.4-8.2)
--- OUTSIDE RECORDS SUMMARY | 2024-05-29 14:25 | XMS_ITS | CCD ---
Author Organization [facility]ini[facility] Care Team Providers Care Car Detailer Name Role Phone ONEIL, DR CORBIN Consulting [...] Admitting Unavailable HEMEGEORGINA, DR CORBIN Attending Unavailable EMERALD RIGGS Attending Unavailable REAL RUSSO Attending Unavailable REAL RUSSO Referring Unavailable JR. NEGRO GEORGE C Attending Unavaila EMERALD Baker Attending Unavailable Emerald Riggs MD Unavailable Emerald Riggs MD Primary Care Provider Emerald Riggs MD Unavailable Emerald Riggs MD Primary Care Provider Allergies Allergy Classification Reported Allergen(s) Allergy Type Date of Onset Reaction(s) Facility (1 source) Penicillin Drug Allergy [facility] (5 sources) Penicillins Drug Allergy 11-17-2022 Rash [facility] Medications Current Medications Medication Drug Class(es) Dates Sig (Normalized) Sig (Original) celecoxib 200 mg oral capsule (6 sources) Nonsteroidal Anti-inflammatory Drug Start: 11-29-2023 End: 05-27-2024 take 1 capsule by mouth twice daily as needed for pain celecoxib (CeleBREX) 200 MG capsule Indications: Chronic fatigue syndrome Take 1 capsule (200 mg) by mouth 2 (two) times a day as needed for moderate pain 180 capsule 1 11/29/2023 05/27/2024 Active cyclobenzaprine hydrochloride 10 mg oral tablet (5 sources) Muscle Relaxant Start: 11-29-2023 End: 12-29-2023 take 1 tablet by mouth three times daily as needed for muscle spasms cyclobenzaprine (Flexeril) 10 MG tablet Indications: Chronic fatigue syndrome Take 1 tablet (10 mg) by mouth 3 (three) times a day as needed for muscle spasms 90 tablet 11/29/2023 Active levothyroxine sodium 0.075 mg oral tablet (7 sources) l-Thyroxine Start: 08-19-2023 End: 05-19-2025 take 1 tablet by mouth before mealtime levothyroxine (Synthroid, Levoxyl) 75 MCG tablet Indications: Acquired hypothyroidism (CMS/HCC) Take 1 tablet (75 mcg) by mouth in the morning. Take before meals. 90 tablet 3 05/19/2024 05/19/2025 Active Multiple Vitamins-Minerals (MULTIVITAMIN GUMMIES ADULTS PO) (5 sources) take 1 tablet by mouth once [...] Onset: 11-26-2021 Episodic Disorders of lipid metabolism (6 sources) Pure hypercholesterolemia, unspecified; Translations: [Pure hypercholesterolemia] Onset: 01-08-2021 11-17-2022 Chronic Diverticulosis and diverticulitis (5 sources) Diverticulosis of sigmoid colon; Translations: [Diverticulosis of large intestine without perforation or abscess without bleeding] Onset: 12-08-2017 11-17-2022 Chronic Genitourinary symptoms and ill-defined conditions (1 source) Other symptoms and signs involving the genitourinary system; Translations: [OT SYMPTOMS SIGNS INVLV SYSTEM] Onset: 11-26-2021 Episodic Hyperplasia of prostate (5 sources) Benign prostatic hyperplasia; Translations: [Benign prostatic hyperplasia without lower urinary tract symptoms] Onset: 11-17-2022 11-17-2022 Chronic Malaise and fatigue (10 sources) Chronic fatigue, unspecified; Translations: [Chronic fatigue syndrome] Onset: 01-21-2021 Chronic Osteoarthritis (5 sources) Degenerative joint disease involving multiple joints; [...] DZ CIRC] Onset: 11-26-2021 Episodic Thyroid disorders (11 sources) Hypothyroidism, unspecified; Translations: [Acquired hypothyroidism] Onset: 01-29-2021 Chronic Past or Other Problems Problem Classification Problem Date Documented Da te Episodic/Chronic Deficiency and other anemia (5 sources) Pernicious anemia; Translations: [Vitamin B12 deficiency anemia due to intrinsic factor deficiency] Onset: 11-17-2022 11-17-2022 Episodic Immunizations and screening for infectious disease (4 sources) Encounter for immunization; Translations: [ENCOUNTER FOR IMMUNIZATION] Onset: 01-31-2021 Episodic Malaise and fatigue (1 source) Other fatigue; Translations: [OTHER FATIGUE] Onset: 01-08-2021 Episodic Mood disorders (5 sources) Mood disorders Onset: 11-29-2023 11-29-2023 Nutritional deficiencies (6 sources) Deficiency of other specified B group vitamins; Translations: [Cobalamin deficiency] Onset: 01-08-2021 11-17-2022 Episodic Other gastrointestinal disorders (5 sources) Slow transit constipation; Translations: [Slow transit constipation] Onset: 11-17-2022 Resolved: 11-29-2023 11-29-2023 Episodic Other male genital disorders (4 sources) Disorder of prostate, unspecified; Translations: [DISORDER OF PROSTATE UNSPECIFIED] Onset: 12-25-2020 Episodic Other male genital disorders (5 sources) Disorder of prostate; Translations: [Disorder of prostate, unspecified] Onset: 11-17-2022 11-17-2022 Episodic Thyroid disorders (5 sources) Sick-euthyroid syndrome; Translations: [Sick-euthyroid syndrome] Onset: 11-17-2022 Resolved: 11-29-2023 11-29-2023 Episodic Results Test Name Value Interpretation Reference Range Facility ECG 12-LEADon 05-27-2024 [place] [address] Electrocardiograph Report Signed Patient: VIRGIE SMITH MR#: [id number] : 1955 Acct:[id number] Age/Sex: 68 / M ADM Date: 05/26/24 Loc: SURGOUT Attending Dr: Adam Dhillon D.P.M. Ordering Physician: Mati Mckeon M.D. Date of Service: 05/26/24 Procedure(s): ECG 12 lead Accession Number(s): [id number] cc: [facility] Test Date: 2024-05-26 Pat Name: VIRGIE SMITH Department: Room: - Gender: Male Center [employer] Hand: : 1955 Requested By: 1850 Order Number: [id number] Reading MD: THAD WEBBER Measurements Intervals [place] Rate: 65 P: 61 MN: 168 QRS: 52 QRSD: 88 T: 56 QT: 377 QTc: 394 Interpretive Statements SINUS RHYTHM No previous ECG available for comparison Electronically Signed On 05-27-2024 8:21:07 EST by THAD WEBBER Dictated By: Thad Webber D.O. Signed By: 05/27/24 0821 DD/ TD/TT: Spiral Weaver: [facility] Radiology, Radiologist, MD - 05/27/2024 [place] [address] Electrocardiograph Report Signed Patient: VIRGIE SMITH MR#: [id number] : 1955 Acct:[id number] Age/Sex: 68 / M ADM Date: 05/26/24 Loc: SURGOUT Attending Dr: Adam Dhillon D.P.M. Ordering Physician: Mati Mckeon M.D. 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 Signed By: 05/27/24 08 DD/ 0738 TD/TT: Spiral Weaver: [facility] [employer] ECG 12-LEADOrdered By: Radio logist Radiology on 05-27-2024 [facility] [employer] Work Phone: ALL CBC WITH AUTO DIFFon BASOPHILS ABSOLUTE AUTO 0 [facility] [place] Basophils/100 WBC (Bld) 0.5 % 0.2 - 2.0 % [facility] Eosinophils/100 WBC (Bld) 2 % 0.9 - 7.0 % [facility] Erythrocyte distribution width (RBC) [Ratio] 12.7 % 11.0 - 15.0 % [facility] Hematocrit (Bld) [Volume fraction] 38.2 % Low 42.0 - 54.0 % [facility] Hemoglobin (Bld) [Mass/Vol] 12.9 g/dL Low 14.0 - 18.0 g/dL [facility] IMMATURE GRANULOCYTES ABS AUTO 0.01 [facility] [place] Immature granulocytes/100 WBC (Bld) 0.2 % 0.0 - 0.5 % [facility] [place] Interpretation and review of laboratory results Abnormal [facility] [place] LYMPHOCYTES ABSOLUTE AUTO 1.3 [facility] Lymphocytes/100 WBC (Bld) 21.5 % 20.5 - 60.0 % [facility] [place] MCH (RBC) [Entitic mass] 32.6 pg 25.9 - 34.0 pg [facility] [place] MCHC (RBC) [Mass/Vol] 33.8 g/dL 29.9 - 35.2 g/dL [facility] [place] MCV (RBC) [Entitic vol] 96.5 fL High 80.0 - 94.0 fL [facility] [place] MONOCYTES ABSOLUTE AUTO 0.7 [facility] [place] Monocytes/100 WBC (Bld) 11.1 % 1.7 - 12.0 % [facility] [place] NEUTROPHILS ABSOLUTE AUTO 3.9 [facility] [place] Neutrophils/100 WBC (Bld) 64.7 % 43.0 - 75.0 % [facility] [place] Platelet mean volume (Bld) [Entitic vol] 9.6 fL 9.5 - 13.[address] [facility]1 [facility] PLT 201 [facility] TB RBC 3.96 Low [facility] WBC 6 [facility] ECG 12-LEADon 05-26-2024 Radiology Study observation (narrative) [facility] ALL CBC WITH AUTO DIFFon BASOPHILS ABSOLUTE AUTO 0.0 [facility] [place] Basophils/100 WBC (Bld) 0.5 % 0.2 - 2.0 % [facility] [place] Eosinophils/100 WBC (Bld) 4.0 % 0.9 - 7.0 % [facility] [place] Erythrocyte distribution width (RBC) [Ratio] 12.8 % 11.0 - 15.0 % [facility] [place] Hematocrit (Bld) [Volume fraction] 40.0 % Low 42.0 - 54.0 % [facility] Hemoglobin (Bld) [Mass/Vol] 13.5 g/dL Low 14.0 - 18.0 g/dL [facility] IMMATURE GRANULOCYTES ABS AUTO 0.01 [facility] [place] Immature granulocytes/100 WBC (Bld) 0.2 % 0.0 - 0.5 % [facility] [place] Interpretation and review of laboratory results Abnormal [facility] LYMPHOCYTES ABSOLUTE AUTO 1.3 [facility] [place] Lymphocytes/100 WBC (Bld) 30.2 % 20.5 - 60.0 % [facility] [place] MCH (RBC) [Entitic mass] 32.9 pg 25.9 - 34.0 pg [facility] MCHC (RBC) [Mass/Vol] 33.8 g/dL 29.9 - 35.2 g/dL [facility] MCV (RBC) [Entitic vol] 97.6 fL High 80.0 - 94.0 fL [facility] MONOCYTES ABSOLUTE AUTO 0.4 [facility] Monocytes/100 WBC (Bld) 8.8 % 1.7 - 12.0 % [facility] NEUTROPHILS ABSOLUTE AUTO 2.4 [facility] Neutrophils/100 WBC (Bld) 56.3 % 43.0 - 75.0 % [facility] Platelet mean volume (Bld) [Entitic vol] 10.0 fL 9.5 - 13.5 fL [facility] are TBH EO # 0.2 [facility] TBH PLT 189 [facility] TBH RBC 4.10 Low [facility] WBC 4.3 [facility] REVERSE T3on 11-29-2021 Reverse T3, Serum 17.4 ng/dL Normal 9.2-24.1 [facility] Comment on above: Result Comment: This test was developed and its performance characteristics determined by [facility]. It has not been cleared or approved by the Food and Drug Administration. Performed By: #### R EVRT3 #### [facility] [address] [place] [address] Dr. Floridalma Collins PSA, FREE AND TOTAL RATIOon 11-26-2021 % Free PSA 21.7 % Normal [facility] Comment on above: Result Comment: The table [...] men. Performed By: #### P SAFREE #### [facility] [address] [place] [address] Dr. Floridalma Collins Prostate specific Ag [Mass/Vol] 0.6 ng/mL Normal 0.0-4.[address] [facility] Comment on above: Result Comment: Shantal CORREA methodology. . According to the [place] [employer], Serum PSA should decrease and [...] disease. Performed By: #### P SAFREE #### [facility] [address] [place] [address] Dr. Floridalma Collins PSA, Free 0.13 ng/mL Normal N/A [facility] Comment on above: Result Comment: Shantal CORREA methodology. Performed By: #### P SAFREE #### [facility] [address] [place] [address] Dr. Floridalma Collins T3, TOTAL (TRIIODOTHYRONINE) on 11-26-2021 T3, TOTAL 106 ng/dL Normal 71-[address] [facility] Comment on above: Performed By: #### B 12FOL, PSAD #### [facility] [address] [place] [address] Antonette Damon CBC AUTO DIFFon 11-25-2021 BASO # 0.0 103/ul Normal 0.0-0.[address] [facility] Comment on above: Performed By: #### C BC #### [facility] [address] [place] [address] Dr. Floridalma Collins Basophils/100 WBC (Bld) 0.4 % Normal 0.2-2.[address] [facility] Comment on above: Performed By: #### C BC #### [facility] [address] [place] [address] Dr. Floridalma Collins EO # 0.3 103/ul Normal 0.0-0.[address] [facility] Comment on above: Performed By: #### C BC #### [facility] [address] [place] [address] Dr. Floridalma Collins Eosinophils/100 WBC (Bld) 5.4 % Normal 0.9-7.[address] [facility] Comment on above: Performed By: #### C BC #### [facility] [address] [place] [address] Dr. Floridalma Collins Erythrocyte distribution width (RBC) [Ratio] 13.3 % Normal 11.0-15.[address] [facility] Comment on above: Performed By: #### C BC #### [facility] [address] [place] [address] Dr. Floridalma Collins Hematocrit (Bld) [Volume fraction] 38.9 % Critically low 42.0-54.[address] [facility] Comment on above: Performed By: #### C BC #### [facility] [address] [place] [address] Dr. Floridalma Collins Hemoglobin (Bld) [Mass/Vol] 12.9 g/dL Critically low 14.0-18.[address] [facility] Comment on above: Performed By: #### C BC #### [facility] [address] [place] [address] Dr. Floridalma Collins IG # 0.01 10e3/ul Normal 0.00-0.[address] [facility] Comment on above: Performed By: #### C BC #### [facility] [address] [place] [address] Dr. Floridalma Collins IG % 0.2 % Normal 0.0-0.5 [facility] Comment on above: Performed By: #### C BC #### [facility] [address] [place] [address] Dr. Floridalma Collins LYMPH # 1.3 103/ul Normal 1.2-3.8 [facility] Comment on above: Performed By: #### C BC #### [facility] [address] [place] [address] Dr. Floridalma Collins Lymphocytes/100 WBC (Bld) 28.7 % Normal 20.5-60.[address] [facility] Comment on above: Performed By: #### C BC #### [facility] [address] [place] [address] Dr. Floridalma Collins MANUAL DIFF REQ NO Normal [facility] Comment on above: Performed By: #### C BC #### [facility] [address] [place] [address] Dr. Floridalma Collins MCH (RBC) [Entitic mass] 32.3 pg Normal 25.9-34.[address] [facility] Comment on above: Performed By: #### C BC #### [facility] [address] [place] [address] Dr. Floridalma Collins MCHC (RBC) [Mass/Vol] 33.2 g/dL Normal 29.9-35.[address] [facility] Comment on above: Performed By: #### C BC #### [facility] [address] [place] [address] Dr. Floridalma Collins MCV (RBC) [Entitic vol] 97.3 fL Critically high 80.0-94.[address] [facility] Comment on above: Performed By: #### C BC #### [facility] [address] [place] [address] Dr. Floridalma Collins MONO # 0.4 103/ul Normal 0.3-0.[address] [facility] Comment on above: Performed By: #### C BC #### [facility] [address] [place] [address] Dr. Floridalma Collins Monocytes/100 WBC (Bld) 9.5 % Normal 1.7-12.[address] [facility] Comment on above: Performed By: #### C BC #### [facility] [address] [place] [address] Dr. Floridalma Collins NEUT # 2.6 103/ul Normal 1.4-6.[address] [facility] Comment on above: Performed By: #### C BC #### [facility] [address] [place] [address] Dr. Floridalma Collins Neutrophils/100 WBC (Bld) 55.8 % Normal 43.0-75.[address] [facility] Comment on above: Performed By: #### C BC #### [facility] [address] [address] [address] Floridalma Collins Platelet mean volume (Bld) [Entitic vol] 10.0 fL Normal 9.5-13.[address] [facility] Comment on above: Performed By: #### C BC #### [facility] [address] [address] [address] Floridalma Collins PLT 190 103/ul Normal 150-[address] [facility] Comment on above: Performed By: #### C BC #### [facility] [address] [address] [address] Floridalma Collins RBC 4.00 106/ul Critically low 4.70-6.10 [facility] Comment on above: Performed By: #### C BC #### [facility] [address] [place] [address] Dr. Floridalma Collins WBC 4.6 103/ul Normal 4.0-11.[address] [facility] Comment on above: Performed By: #### C BC #### [facility] [address] [address] [address] Floridalma Collins FREE T3on 11-25-2021 FREE T3 2.39 pg/mlL Normal 2.18-3.[address] [facility] Comment on above: Performed By: #### F T3, CMP, LIPID, TSH #### [facility] [address] [place] [address] Dr. Floridalma Collins FREE T4on 11-25-2021 Free T4 [Mass/Vol] 1.09 ng/dL Normal 0.76-1.46 [facility] Comment on above: Performed By: #### B 12FOL, PSAD #### [facility] [address] [place] [address] Antonette Damon LIPID PROFILEon 11-25-2021 CHOL-HDL RATIO NORM SEE BELOW Normal [facility] Comment on above: Result Comment: 3.3 - 4.4 LOW RISK 4.4 - 7.1 AVERAGE RISK 7.1 - 11.0 MODERATE RISK >11.0 HIGH RISK Performed By: #### B 12FOL, PSAD #### [facility] [address] [place], [place] [address] Antonette Marisol Cholesterol [Mass/Vol] 175 mg/dL Normal <=[address] [facility] Comment on above: Performed By: #### B 12FOL, PSAD #### [facility] [address] [place], [place] [address] Antonette Marisol Cholesterol in HDL [Mass/Vol] 62 mg/dL Critically high 40-60 [facility] Comment on above: Performed By: #### B 12FOL, PSAD #### [facility] [address] [place], [place] [address] Antonette Marisol Cholesterol in LDL [Mass/Vol] 103.4 mg/dL Normal [facility] Comment on above: Performed By: #### B 12FOL, PSAD #### [facility] [address] [id number] Antonette Marisol Cholesterol.total/Ch olesterol in HDL [Mass ratio] 2.8 {ratio} Normal [facility] Comment on above: Performed By: #### B 12FOL, PSAD #### [facility] [address] [place], [place] [address] Antonette Marisol HDL NORMAL > or = 60 mg/dl - LOW CARDIOVASCULAR RISK <40 mg/dl - HIGH CARDIOVASCULAR RISK Normal [facility] Comment on above: Performed By: #### B 12FOL, PSAD #### [facility] [address] [id number] Antonette Marisol LDL CALC NORMAL SEE BELOW Normal [facility] Comment on above: Result Comment: <100 mg/dl OPTIMAL 100 - 129 mg/dl NEAR OR ABOVE OPTIMAL 130 - 159 mg/dl BORDERLINE HIGH 160 - 189 mg/dl HIGH >190 mg/dl VERY HIGH Performed By: #### B 12FOL, PSAD #### [facility] [address] [id number] Antonette Marisol Triglyceride [Mass/Vol] 48 mg/dL Normal <=150 [facility] Comment on above: Performed By: #### B 12FOL, PSAD #### [facility] [address] [place], [place] [address] Antonette Marisol VLDL CALC 9.6 mg/dL Normal [facility] Comment on above: Performed By: #### Rudolph EVERTET PSAD #### [facility] [address] [place], [place] [address] Antonette Marisol PROF 14(COMP METB)on 022 Albumin [Mass/Vol] 3.7 g/dL Normal 3.4-5.0 [facility] Comment on above: Performed By: #### Rudolph EVERETT, PSAD #### [facility] [address] [id number] Antonette Marisol Albumin/Globulin [Mass ratio] 1.3 {ratio} Normal [facility] Comment on above: Performed By: #### Rudolph EVERETT, PSAD #### [facility] [address] [phone] Antonette Marisol ALP [Catalytic activity/Vol] 58 U/L Normal 46-[address] [facility] Comment on above: Performed By: #### Rudolph EVERETT, PSAD #### [facility] [address] [place] [address] Antonette Marisol ALT [Catalytic activity/Vol] 21 U/L Normal 16-[address] [facility] Comment on above: Performed By: #### Rudolph EVERETT, PSAD #### [facility] [address] [phone] Antonette Marisol Anion gap [Moles/Vol] 13.1 mmol/L Normal [facility] Comment on above: Performed By: #### Rudolph EVERETT, PSAD #### [facility] [address] [phone] Antonette Marisol AST [Catalytic activity/Vol] 21 U/L Normal 15-[address] [facility] Comment on above: Performed By: #### Rudolph 12FOAshley, PSAD #### [facility] [address] [place], [place] [address] Antonette Marisol Bilirubin [Mass/Vol] 0.5 mg/dL Normal 0.2-1.[address] [facility] Comment on above: Performed By: #### B 12FOL, PSAD #### [facility] [address] [phone] Antonette Marisol Calcium [Mass/Vol] 8.6 mg/dL Normal 8.5-10.1 [facility] Comment on above: Performed By: #### B 12FOL, PSAD #### [facility] [address] [place], [place] [id number] Antonette Marisol Chloride [Moles/Vol] 106 mmol/L Normal 98-[address] [facility] Comment on above: Performed By: #### B 12FOL, PSAD #### [facility] [address] [place], [place] [id number] Antonette Marisol CO2 [Moles/Vol] 23.9 mmol/L Normal 21.0-32.0 [facility] Comment on above: Performed By: #### B 12FOL, PSAD #### [facility] [address] [place] [address] Antonette Marisol Creatinine [Mass/Vol] 1.20 mg/dL Normal 0.70-1.[address] [facility] Comment on above: Performed By: #### Rudolph 12FOL, PSAD #### [facility] [address] [place], [place] [id number] Antonette Marisol EGFR-AF TUNISIAN >60 Normal >=60 [facility] Comment on above: Performed By: #### B 12FOL, PSAD #### [facility] [address] [place], [place] [phone] Antonette Marisol EGFR-NON AF TUNISIAN =60 Normal >=60 [facility] Comment on above: Performed By: #### B 12FOL, PSAD #### [facility] [address] [place], [place] [phone] Antonette Marisol Globulin (S) [Mass/Vol] 2.9 g/dL Normal [facility] Comment on above: Performed By: #### B 12FOL, PSAD #### [facility] [address] [place], [place] [phone] Antonette Marisol Glucose [Mass/Vol] 97 mg/dL Normal 74-106 [facility] Comment on above: Performed By: #### Rudolph 12ALEKSEY PSAD #### [facility] [address] [place] [address] Antonette Marisol Potassium [Moles/Vol] 4.0 mmol/L Normal 3.5-5.[address] [facility] Comment on above: Performed By: #### Rudolph EVERETT PSAD #### [facility] [address] [place] [address] Antonette Marisol Protein [Mass/Vol] 6.6 g/dL Normal 6.4-8.2 [facility] Comment on above: Performed By: #### Rudolph EVERETT PSARosalio #### [facility] [address] [place] [address] Antonette Marisol Sodium [Moles/Vol] 139 mmol/L Normal 136-145 [facility] Comment on above: Performed By: #### Rudolph EVERETT PSARosalio #### [facility] [address] [place] [address] Antonette Marisol Urea nitrogen [Mass/Vol] 19.0 mg/dL Critically high 7.0-18.[address] [facility] Comment on above: Performed By: #### MEDINA WATSON #### [facility] [address] [place] [address] Antonette Marisol Urea nitrogen/Creatinine [Mass ratio] 15.8 mg/mg Normal [facility] Comment on above: Performed By: #### Rudolph EVERETT PSARosalio #### [facility] [address] [place], [place] [phone] Antonette Marisol TSHon 11-25-2021 TSH 1.726 uIU/mL Normal 0.358-3.740 [facility] Comment on above: Performed By: #### Rudolph EVERETT PSARosalio #### [facility] [address] [place] [address] Antonette Marisol VIT B12 AND FOLATEon 022 Cobalamin (Vitamin B12) [Mass/Vol] 641.0 pg/mL Normal 193.0-986.0 [facility] [facility] Comment on above: Performed By: #### Rudolph EVERETT, PSAD #### [facility] [address] [place] [address] Antonette Marisol FOLATE 17.90 ng/mL Normal 8.60-58.90 [facility] Comment on above: Performed By: #### B 12ALEKSEY PSAD #### [facility] [address] [place] [address] Antonette Marisol TSHon 01-21-2021 TSH 0.720 uIU/mL Normal 0.470-4.680 [facility] Comment on above: Performed By: #### T SH #### [facility] [address] [place] [address] Dr. Floridalma Collins TSH RANGE SEE BELOW Normal [facility] Comment on above: Result Comment: <0.3 4 UIU/ml HYPERTHYROID 0.34-5.60 UIU/ml EUTHYROID >5.60 UIU/ml HYPOTHYROID Performed By: #### T SH #### [facility] [address] [place] [address] Dr. Floridalma Collins T3, TOTAL (TRIIODOTHYRONINE) on 12-25-2020 T3, TOTAL 120 ng/dL Normal 71-[address] [facility] Comment on above: Performed By: #### T 3TOTAL #### [facility] [address] [place] [address] Dr. Floridalma Collins CBC AUTO DIFFon 12-24-2020 BASO # 0.0 103/ul Normal 0.0-0.1 [facility] Comment on above: Performed By: #### C BC #### [facility] [address] [place] [address] Antonette Marisol Basophils/100 WBC (Bld) 0.5 % Normal 0.2-2.0 [facility] Comment on above: Performed By: #### C BC #### [facility] [address] [place] [address] Antonette Marisol EO # 0.1 103/ul Normal 0.0-0.7 [facility] Comment on above: Performed By: #### C BC #### [facility] [address] [place] [address] Antonette Marisol Eosinophils/100 WBC (Bld) 3.3 % Normal 0.9-7.[address] [facility] Comment on above: Performed By: #### C BC #### [facility] [address] [place] [address] Antonette Marisol Erythrocyte distribution width (RBC) [Ratio] 12.9 % Normal 11.0-15.[address] [facility] Comment on above: Performed By: #### C BC #### [facility] [address] [place] [address] Antonette Marisol Hematocrit (Bld) [Volume fraction] 37.2 % Critically low 42.0-54.[address] [facility] Comment on above: Performed By: #### C BC #### [facility] [address] [place] [address] Antonette Marisol Hemoglobin (Bld) [Mass/Vol] 12.7 g/dL Critically low 14.0-18.0 [facility] Comment on above: Performed By: #### C BC #### [facility] [address] [place] [address] Antonette Marisol IG # 0.01 10e3/ul Normal 0.00-0.03 [facility] Comment on above: Performed By: #### C BC #### [facility] [address] [place] [address] Antonette Marisol IG % 0.3 % Normal 0.0-0.5 [facility] Comment on above: Performed By: #### C BC #### [facility] [address] [place] [address] Antonette Marisol LYMPH # 1.4 103/ul Normal 1.2-3.8 [facility] Comment on above: Performed By: #### C BC #### [facility] [address] [place] [address] Antonette Marisol Lymphocytes/100 WBC (Bld) 33.9 % Normal 20.5-60.0 [facility] Comment on above: Performed By: #### C BC #### [facility] [address] [place] [address] Antonette Marisol MANUAL DIFF REQ NO Normal [facility] Comment on above: Performed By: #### C BC #### [facility] [address] [place], [place] [id number] Antonette Damon MCH (RBC) [Entitic mass] 33.2 pg Normal 25.9-34.[address] [facility] Comment on above: Performed By: #### C BC #### [facility] [address] [place], [place] [id number] Antonette Damon MCHC (RBC) [Mass/Vol] 34.1 g/dL Normal 29.9-35.[address] [facility] Comment on above: Performed By: #### C BC #### [facility] [address] [place] [address] Antonette Damon MCV (RBC) [Entitic vol] 97.4 fL Critically high 80.0-94.[address] [facility] Comment on above: Performed By: #### C BC #### [facility] [address] [place] [address] Antonette Damon MONO # 0.4 103/ul Normal 0.3-0.[address] [facility] Comment on above: Performed By: #### C BC #### [facility] [address] [place] [address] Antonette Damon Monocytes/100 WBC (Bld) 10.8 % Normal 1.7-12.[address] [facility] Comment on above: Performed By: #### C BC #### [facility] [address] [place] [address] Antonette Damon NEUT # 2.0 103/ul Normal 1.4-6.[address] [facility] Comment on above: Performed By: #### C BC #### [facility] [address] [place], [place] [id number] Antonette Marisol Neutrophils/100 WBC (Bld) 51.2 % Normal 43.0-75.[address] [facility] Comment on above: Performed By: #### C BC #### [facility] [address] [place] [address] Antonette Marisol Platelet mean volume (Bld) [Entitic vol] 9.2 fL Critically low 9.5-13.[address] [facility] Comment on above: Performed By: #### C BC #### [facility] [address] [place], [place] [address] Antonette Marisol PLT 201 103/ul Normal 150-[address] [facility] Comment on above: Performed By: #### C BC #### [facility] [address] [place] [address] Antonette Marisol RBC 3.82 106/ul Critically low 4.70-6.10 [facility] Comment on above: Performed By: #### C BC #### [facility] [address] [place] [address] Antonette Marisol WBC 4.0 103/ul Normal 4.0-11.[address] [facility] Comment on above: Performed By: #### C BC #### [facility] [address] [place] [address] Antonette Marisol FREE T3on 12-24-2020 FREE T3 2.63 pg/mlL Critically low 2.77-5.27 [facility] Comment on above: Performed By: #### F T3 #### [facility] [address] [place] [address] Dr. Floridalma Collins FREE T4on 12-24-2020 Free T4 [Mass/Vol] 0.76 ng/dL Critically low 0.78-2.19 [facility] Comment on above: Performed By: #### C BC #### [facility] [address] [place] [address] Dr. Floridalma Collins LIPID PROFILEon 12-24-2020 CHOL-HDL RATIO NORM SEE BELOW Normal [facility] Comment on above: Result Comment: 3.3 - 4.4 LOW RISK 4.4 - 7.1 AVERAGE RISK 7.1 - 11.0 MODERATE RISK >11.0 HIGH RISK Performed By: #### Rudolph 12MEDINA RYDER #### [facility] [address] [place] [address] Antonette Marisol Cholesterol [Mass/Vol] 188 mg/dL Normal <=[address] [facility] Comment on above: Performed By: #### Rudolph 12FOL, PSAD #### [facility] [address] [place], [place] [address] Antonette Marisol Cholesterol in HDL [Mass/Vol] 52 mg/dL Normal [facility] Comment on above: Performed By: #### Rudolph 12ALEKSEY, PSAD #### [facility] [address] [place], [place] [address] Antonette Marisol Cholesterol in LDL [Mass/Vol] 121.6 mg/dL Normal [facility] Comment on above: Performed By: #### Rudolph 12ALEKSEY, PSAD #### [facility] [address] [place], [place] [address] Antonette Marisol Cholesterol.total/Ch olesterol in HDL [Mass ratio] 3.6 {ratio} Normal [facility] Comment on above: Performed By: #### Rudolph 12FOAshley, PSAD #### [facility] [address] [place], [place] [address] Antonette Marisol HDL NORMAL > or = 60 mg/dl - LOW CARDIOVASCULAR RISK <40 mg/dl - HIGH CARDIOVASCULAR RISK Normal [facility] Comment on above: Performed By: #### Rudolph 12FOAshley, PSAD #### [facility] [address] [place] [id number] Antonette Marisol LDL CALC NORMAL SEE BELOW Normal [facility] Comment on above: Result Comment: <100 mg/dl OPTIMAL 100 - 129 mg/dl NEAR OR ABOVE OPTIMAL 130 - 159 mg/dl BORDERLINE HIGH 160 - 189 mg/dl HIGH >190 mg/dl VERY HIGH Performed By: #### Rudolph 12FOAshley, PSAD #### [facility] [address] [place] [id number] Antonette Marisol Triglyceride [Mass/Vol] 72 mg/dL Normal <=150 [facility] Comment on above: Performed By: #### Rudolph EVERETT, PSAD #### [facility] [address] [place] [id number] Antonette Marisol VLDL CALC 14.4 mg/dL Normal [facility] Comment on above: Performed By: #### Rudolph 12FOAshley, PSAD #### [facility] [address] [place] [id number] Antnoette Marisol PROF 14(COMP METB)on 021 Albumin [Mass/Vol] 3.7 g/dL Normal 3.5-5.0 [facility] Comment on above: Performed By: #### MEDINA WATSON #### [facility] [address] [place] [id number] Antonette Marisol Albumin/Globulin [Mass ratio] 1.2 {ratio} Normal [facility] Comment on above: Performed By: #### Rudolph EVERETT PSARosalio #### [facility] [address] [address] Antonette Marisol ALP [Catalytic activity/Vol] 51 U/L Normal 38-[address] [facility] Comment on above: Performed By: #### MEDINA WATSON #### [facility] [address] [place] [address] Antonette Marisol ALT [Catalytic activity/Vol] 23 U/L Normal 21-[address] [facility] Comment on above: Performed By: #### Rudolph EVERETT PSARosalio #### [facility] [address] [place] [address] Antonette Marisol Anion gap [Moles/Vol] 14.0 mmol/L Normal [facility] Comment on above: Performed By: #### Rudolph EVERETT PSAD #### [facility] [address] [place] [id number] Antonette Marisol AST [Catalytic activity/Vol] 21 U/L Normal 17-[address] [facility] Comment on above: Performed By: #### Rudolph EVERETT PSAD #### [facility] [address] [place] [id number] Antonette Marisol Bilirubin [Mass/Vol] 0.4 mg/dL Normal 0.2-1.3 [facility] Comment on above: Performed By: #### MEDINA WATSON #### [facility] [address] [place] [id number] Antonette Marisol Calcium [Mass/Vol] 8.7 mg/dL Normal 8.4-10.2 [facility] Comment on above: Performed By: #### MEDINA WATSON #### [facility] [address] [place] [id number] Antonette Marisol Chloride [Moles/Vol] 105 mmol/L Normal 98-107 [facility] Comment on above: Performed By: #### Rudolph 12ALEKSEY, PSAD #### [facility] [address] [place] [id number] Antonette Marisol CO2 [Moles/Vol] 25.2 mmol/L Normal 22.0-30.0 [facility] Comment on above: Performed By: #### Rudolph 12ALEKSEY, PSAD #### [facility] [address] [address] Antonette Marisol Creatinine [Mass/Vol] 1.10 mg/dL Normal 0.66-1.[address] [facility] Comment on above: Performed By: #### Rudolph EVERETT, PSAD #### [facility] [address] [place] [address] Antonette Marisol EGFR-AF TUNISIAN >60 Normal >=60 [facility] Comment on above: Performed By: #### Rudolph EVERETT, PSAD #### [facility] [address] [place] [address] Antonette Marisol EGFR-NON AF TUNISIAN >60 Normal >=[address] [facility] Comment on above: Performed By: #### Rudolph 12ALEKSEY, PSAD #### [facility] [address] [place], [place] [address] Antonette Marisol Globulin (S) [Mass/Vol] 3.0 g/dL Normal [facility] Comment on above: Performed By: #### Rudolph 12ALEKSEY, PSAD #### [facility] [address] [place], [place] [address] Antonette Marisol Glucose [Mass/Vol] 97 mg/dL Normal 74-106 [facility] Comment on above: Performed By: #### Rudolph 12ALEKSEY, PSAD #### [facility] [address] [place], [place] [address] Antonette Marisol Potassium [Moles/Vol] 4.2 mmol/L Normal 3.4-5.0 [facility] Comment on above: Performed By: #### B 12FOL, PSAD #### [facility] [address] [place] [address] Antonette Marisol Protein [Mass/Vol] 6.7 g/dL Normal 6.1-8.2 [facility] Comment on above: Performed By: #### Rudolph 12ALEKSEY, PSAD #### [facility] [address] [place], [place] [address] Antonette Marisol Sodium [Moles/Vol] 140 mmol/L Normal 137-145 [facility] Comment on above: Performed By: #### Rudolph 12ALEKSEY PSAD #### [facility] [address] [place] [address] Antonette Marisol Urea nitrogen [Mass/Vol] 24.0 mg/dL Critically high 9.0-20.[address] [facility] Comment on above: Performed By: #### Rudolph EVERETT PSAD #### [facility] [address] [place] [address] Antonette Marisol Urea nitrogen/Creatinine [Mass ratio] 21.8 mg/mg Normal [facility] Comment on above: Performed By: #### Rudolph EVERETT PSAD #### [facility] [address] [place], [place] [address] Antonette Marisol T4on 12-24-2020 T4 [Mass/Vol] 6.60 ug/dL Normal 5.53-11.00 [facility] Comment on above: Performed By: #### Rudolph EVERETT PSAD #### [facility] [address] [place], [place] [address] Antonette Marisol TSHon 12-24-2020 TSH 6.821 uIU/mL Critically high 0.470-4.680 [facility] Comment on above: Performed By: #### Rudolph 12ALEKSEY PSAD #### [facility] [address] [place], [place] [address] Antonette Marisol TSH RANGE SEE BELOW Normal [facility] Comment on above: Result Comment: <0.3 4 UIU/ml HYPERTHYROID 0.34-5.60 UIU/ml EUTHYROID >5.60 UIU/ml HYPOTHYROID Performed By: #### Rudolph 12FOAshley PSAD #### [facility] [address] [place], [place] [address] Antonette Damon VIT B12 AND FOLATEon 021 Cobalamin (Vitamin B12) [Mass/Vol] 1306.0 pg/mL Critically high 239.0-931.[address] [facility] Comment on above: Performed By: #### B 12FOL, PSAD #### [facility] [address] [place], [place] [address] Antonette Damon FOLATE >20.00 Normal >=2.[address] [facility] Comment on above: Performed By: #### B 12FOL, PSAD #### [facility] [address] [place], [place] [address] Antonette Damon Encounters Encounter Date Encounter Type Care Provider Facility Start: 05-26-2024 End: 05-27-2024 Clinisync Result Encounter Generic External Data Provider [facility] Unsolicited Start: 05-26-2024 End: 05-27-2024 Clinisync Result Encounter Generic External Data Provider [facility] Unsolicited Start: 05-19-2024 End: 05-19-2024 Orders Only Emerald Riggs MD Work Phone: [facility] Comment on above: Acquired hypothyroid ism (CMS/HCC) Start: 05-18-2024 End: 05-18-2024 Telephone encounter Emerald Riggs MD Work Phone: [facility] Start: 01-04-2024 End: 01-04-2024 ambulatory [facility] Work Phone: Start: 01-04-2024 End: 01-04-2024 Patient encounter procedure [facility] Work Phone: Start: 12-14-2023 End: 12-14-2023 Clinisync Result Encounter Emerald Riggs MD Work Phone: [facility] Unsolicited Start: 12-14-2023 End: 12-14-2023 Clinisync Result Encounter Emerald Riggs MD Work Phone: [facility] Unsolicited Start: 11-29-2023 End: 11-29-2023 ambulatory EMERALD RIGGS Not Available Start: 08-04-2023 End: 08-04-2023 ambulatory STEW COLE Not Available Start: 08-02-2023 End: 08-02-2023 ambulatory REAL RUSSO Not Available Start: 2023 End: 2023 ambulatory EMERALD RIGGS Not Available Start: 11-25-2021 End: 11-26-[address] EMERALD RIGGS Facility:[facility] Start: 01-31-2021 End: 02-01-[address] EMERALD RIGGS Facility:[facility] Start: 01-21-2021 End: 01-22-[address] EMERALD RIGGS Facility:[facility] Start: 12-25-2020 End: 12-26-[address] EMERALD RIGGS Facility:[facility] Procedures Date Procedure Procedure Detail Performing Clinician Start: 05-26-2024 ECG 12-LEAD Generic Ex ternal Data Provider Start: 05-26-2024 ALL CBC WITH AUTO DIFF Generic External Data Provider Start: 12-14-2023 ALL CBC WITH AUTO DIFF Emerald Riggs MD Work Phone: Start: 12-24-[address] EMERALD RIGGS Comment on above: Performed By: #### B 12FOL, PSAD #### [facility] [address] [place] [address] Antonette Damon Start: 12-08-2017 Colonoscopy Emerald mcclure MD Work Phone: Plan of Treatment [...] Screening for malign ant neoplasm of colon [facility] Immunizations Immunization Date Immunization Notes Care Provider Fa prestonty 02-06-2022 Moderna Bivalent Delaney ster Vaccination Emerlad Riggs MD Work Phone: [facility] Payers Date Payer Category Payer Private Health Insurance AARP [id number] 2022 Unknown AARP AARP [id number] 2022-Present [address] [place] [address] [id number] 2018 Medicare [id number] 1959 Medicare [id number] 1959 Self-pay 1959 Unknown [id number] 1953 Unknown [id number] 1953 Unknown [id number] 1953 Unknown [id number] 1953 Unknown [id number] .[id number] 1953 Unknown [id number] .[id number] 1953 Unknown [id number] .1259 1953 Unknown [id number] .1259 1953 Unknown [id number] [id number] .1259 Unknown [id number] .593 Social History Date Type Detail Facility Tobacco smoking stat RUSTIS Unknown if ever smoked [facility] Start: 1955 Sex Assigned At Male [facility] Start: 11-25-2022 Tobacco smoking stat RUSTIS Never smoked tobacco [facility] Start: 11-25-2022 Tobacco use and exposure Smoke less tobacco non-user [facility] Start: 11-29-2023 Alcoholic beverage intake Curr ent drinker of alcohol (finding) [facility] Start: 07-19-2023 End: 11-29-2023 Alcoholic beverage intake [facility] Start: 07-19-2023 End: 11-29-2023 Social connection and isolation panel [facility] Do you belong to any clubs or organizations such as latter day groups, unions, fraternal or athletic groups, or [...] Not at all [facility] (I/We) worried wheth er (my/our) food would run out before (I/we) got money to buy more. Never true [facility] In the past 12 month s, was there a time when you were not able to pay the mortgage or rent on time? No [facility] Start: 11-24-2022 Alcohol Comment Caffeine intak e: 2 cups per day coffee [facility] Start: 1955 Sex assigned at Not on file [facility] Telephone encounter Note 05-18-2024 Telephone Encounter - Emerald Riggs MD - 05/18/2024 1:50 PM EST Note Date & Type Note Facility 05-18-2024 Telephone encount er Note RX sent [facility] Note 05-18-2024 Telephone Encounter - Emerald Riggs MD - 05/18/2024 1:50 PM ESTTelephone Encounter - Tram Zhong - 05/18/2024 10:03 AM EST Note Date & Type Note Facility 05-18-2024 Miscellaneous Notes Formattin g of this note might be different from the original. RX sent Virgie called, He switched his prescription coverage and is asking for his Levo to be sent to [facility] in [place]. documented in this encounter [facility] Telephone encounter Note 05-18-2024 Telephone Encounter - Tram Zhong - 05/18/2024 10:03 AM EST Note Date & Type Note Facility 05-18-2024 Telephone encount er Note Virgie called, He switched his prescription coverage and is asking for his Levo to be sent to [facility] in [place]. [facility] Healthcare Evaluation note Note Date & Type Note Facility Evaluation note Diagnosis Onset Date Dupuytren contracture of both hands acute [facility] Work Phone: Evaluation note Note Date & Type Note Facility Evaluation note Diagnosis Acquired hypothyroidism (CMS/HCC) Unspecified hypothyroidism documented in this encounter [facility] Healthcare Summary Purpose Family History No Family History Records FoundNo Family History Records Found Advance Directives Advance Directive Response Recorded Date/ Time Advance Directives No August 11, 2023 10:22am Documents on File Type Date Recorded Patient Snack Steward Expl anation Advance Directives and Living Will 02/21/2019 2003-02-06 Power Of Hadoop Application Developer Advance Directives and Living Will 02/06/2003 8:09 AM Power of Hadoop Application Developer 11/30/2022 8:09 AM Power Of Hadoop Application Developer Chief Complaint and Reason for Visit Chief Complaint NEW RT DUPUYTRENS CO NTRACTURE WX [facility] Reason for Visit Dupuytren contractur e of both hands Additional Source Comments (unrecognized sect ion and content) No Status Records FoundNo Status Records Found INFORMATION SOURCE (unrecogn ized section and content) DATE CREATED AUTHOR 12/02/2021 [facility] DATE CREATED AUTHOR 'S ORGANIZ ATTIFFANY 11/29/[address] [facility] Care Teams (unrecognized sec tion and content) Team Status: Active Member Role Status Dates Emerald Riggs MD Primary Care Provider Active Team Status: Inactive Member Role Status Dates Emerald Riggs MD Primary Care Provider Active Start: January 04, 2024 End: January 04, 2024 Gauri Burris MD Attending Provider Active Start: January 04, 2024 End: January 04, 2024 Car Detailer Relationship Specialty Start Date End Date Emerald Riggs MD [address] [place] [address] (Fax) PCP - ACO Reach 09/03/22 Emerald Riggs MD [address] [address] PCP - General Family Medicine 10/05/22 Car Detailer Relationship Specialty Start Date End Date Emerald Riggs MD [address] [facility] [address] [place] [address] PCP - ACO Reach 09/03/22 Emerald Riggs MD [address] [place] [address] [place] [address] (Fax) PCP - General Family Medicine 10/05/22 Car Detailer Relationship Specialty Start Date End Date Emerald Riggs MD [address] [facility] [place] [address] (Fax) PCP - ACO Reach 09/03/22 Emerald Riggs MD [address] [place] [address] (Fax) PCP - General Family Medicine 10/05/22 Car Detailer Relationship Specialty Start Date End Date Emerald Riggs MD [address] [place] [address] (Fax) PCP - ACO Reach 09/03/22 Emerald Riggs MD [address] [place] [address] (Fax) PCP - General Family Medicine 10/05/22 Car Detailer Relationship Specialty Start Date End Date Emerald Riggs MD [address] [address] [place] [address] (Fax) PCP - ACO Reach 09/03/22 Emerald Riggs MD [address] [address] (Fax) PCP - General Family Medicine 10/05/22 [...] BE BASED ON THE PRIMARY CLINICAL RECORDS. [facility] [employer] [facility]. provides no warranty or guarantee of the accuracy or completeness of information in this document.
[2024-05-29] MEDS: LIDOCAINE 2% JELLY 10 ML UR (14:31)
--- NOTE | 2024-05-29 14:32 | PC.NURSE ---
Dr. Juares and this RN bedside for physical disimpaction of pts constipation. pt tolerated as expected. lidocaine urojet used for pts comfort.
[2024-05-29 14:37] LABS: Bilirubin Urine NEGATIVE (NEGATIVE); Blood Urine NEGATIVE (NEGATIVE); Clarity Urine CLEAR (CLEAR); Color Urine LT. YELLOW (YELLOW); Glucose Urine UA NEGATIVE (NEGATIVE); Ketones Urine NEGATIVE (NEGATIVE); Leukocyte Esterase Urine NEGATIVE (NEGATIVE); Nitrite Urine NEGATIVE (NEGATIVE); Protein Urine NEGATIVE (NEG/TRACE); Specific Gravity Urine 1.015 (1.005-1.025); Urobilinogen Urine 0.2 EU/dL (0.2-1.0)
[2024-05-29 14:53] LABS: Bacteria Urine TRACE #/HPF (NONE SEEN); Cast Seen? NONE SEEN #/LPF (NONE SEEN); Crystals Seen? None Seen #/HPF (None Seen); Mucus Urine MODERATE (NONE SEEN); RBC Urine NONE SEEN #/HPF (0-2); Squamous Epithelial Cell Urine RARE #/LPF (NONE/RARE); WBC Urine 0-2 #/HPF (NONE SEEN)
[2024-05-29 14:54] LABS: Urine Culture Indicated NO
--- NOTE | 2024-05-29 15:36 | PC.NURSE ---
this RN bedside to administer soaps suds enema per Dr. Juares orders. pt tolerated as expected. approx 350ml of warm fluid with soap administered. pt states sense of urge to have bowel movement. pt assisted to bedside commode with this RN help. moderate stool noted with bowel movement. pt states relief of abd pain and discomfort after bowel movement. pt expresses relief of symptoms and feels much better . Dr. Juares updated on pts bowel movement and that pt expresses readiness for discharge.
== END 2024-05-29 16:09 | disposition home or self-care (01) ==
PROVIDERS: Emergency Provider Emergency Medicine; PCP Family Medicine
DX: K59.00 Constipation, unspecified (principal); K62.89 Other specified diseases of anus and rectum; Z90.49 Acquired absence of other specified parts of digestive tract; R42 Dizziness and giddiness; R10.32 Left lower quadrant pain; Z98.890 Other specified postprocedural states
CPT/HCPCS: 36415; 74022; 80053; 81001; 83605; 83690; 84484; 85025; 93005; 96372; 96374; 96375; 99285; J0500; J1885; J2405

== ENCOUNTER 2024-06-14 09:18 | Outpatient (OUT) | payer MEDICARE, SELFPAY ==
--- NOTE | 2024-06-14 09:22 | XR_ITS ---
[place] [id number] Patient Name: MONI HASTINGS MRN: [id number] date: 1955 Sex: M Assigned Patient Location: RAD Current Patient Location: Accession/Order Number: [id number] Exam Date: 06/14/2024 23:02 Report Date: 06/14/2024 23:04 At the request of: AINSLEY RAIN DPIvan Procedure: XR ankle LT min 3V LEFT ANKLE - 3 views CLINICAL HISTORY: Follow-up surgery. COMPARISON: Left ankle 05/26/2024 FINDINGS: Splint has been removed. Soft tissue swelling is present. Distal fibular hardware is in place without hardware complication. Fracture is unchanged in alignment. Ankle mortise appears intact. XR/XR ankle LT min 3V IMPRESSION: NO HARDWARE COMPLICATION. Impression dictated by: Chino Ulloa Jr., D.O.06/14/2024 11:04 PM Dictation Location: [place] [id number] Electronically authenticated by: [id number] Y Date: 06/14/2024 23:04
--- OUTSIDE RECORDS SUMMARY | 2024-06-14 09:37 | XMS_ITS | CCD ---
Author Organization [facility] CliniSymd Care Team Providers Care Quality Improvement Manager Name Role Phone ONEIL, DR CORBIN [...] Unavailable Emerald Riggs MD Primary Care Provider [phone] Emerald Riggs MD Unavailable [phone] Emerald Riggs MD Primary Care Provider [phone] Allergies Allergy Classification Reported Allergen(s) Allergy Type Date of Onset Reaction(s) Facility (1 source) Penicillin Drug Allergy [facility] Repository (6 sources) Penicillins Drug Allergy 11-17-2022 Rash [facility] [...] Active cyclobenzaprine hydrochloride 10 mg oral tablet (6 sources) Muscle Relaxant Start: 11-29-2023 End: 12-29-2023 take 1 tablet by mouth three times daily as needed for muscle spasms cyclobenzaprine (Flexeril) 10 MG tablet Indications: Chronic fatigue syndrome Take 1 tablet (10 mg) by mouth 3 (three) times a day as needed for muscle spasms 90 tablet 11/29/2023 Active levothyroxine sodium 0.075 mg oral tablet (8 sources) l-Thyroxine Start: 08-19-2023 End: 05-19-2025 take 1 tablet by mouth before mealtime levothyroxine (Synthroid, Levoxyl) 75 MCG tablet Indications: Acquired hypothyroidism (CMS/HCC) Take 1 tablet (75 mcg) by mouth in the morning. Take before meals. 90 tablet 3 05/19/2024 05/19/2025 Active Multiple Vitamins-Minerals (MULTIVITAMIN GUMMIES ADULTS PO) (6 sources) take 1 tablet by mouth once [...] Onset: 11-26-2021 Episodic Disorders of lipid metabolism (7 sources) Pure hypercholesterolemia, unspecified; Translations: [Pure hypercholesterolemia] Onset: 01-08-2021 11-17-2022 Chronic Diverticulosis and diverticulitis (6 sources) Diverticulosis of sigmoid colon; Translations: [Diverticulosis of large intestine without perforation or abscess without bleeding] Onset: 12-08-2017 11-17-2022 Chronic Genitourinary symptoms and ill-defined conditions (1 source) Other symptoms and signs involving the genitourinary system; Translations: [OT SYMPTOMS SIGNS INVLV SYSTEM] Onset: 11-26-2021 Episodic Hyperplasia of prostate (6 sources) Benign prostatic hyperplasia; Translations: [Benign prostatic hyperplasia without lower urinary tract symptoms] Onset: 11-17-2022 11-17-2022 Chronic Malaise and fatigue (11 sources) Chronic fatigue, unspecified; Translations: [Chronic fatigue syndrome] Onset: 01-21-2021 Chronic Osteoarthritis (6 sources) Degenerative joint disease involving multiple joints; [...] DZ CIRC] Onset: 11-26-2021 Episodic Thyroid disorders (12 sources) Hypothyroidism, unspecified; Translations: [Acquired hypothyroidism] Onset: 01-29-2021 Chronic Past or Other Problems Problem Classification Problem Date Documented Da te Episodic/Chronic Deficiency and other anemia (6 sources) Pernicious anemia; Translations: [Vitamin B12 deficiency anemia due to intrinsic factor deficiency] Onset: 11-17-2022 11-17-2022 Episodic Immunizations and screening for infectious disease (4 sources) Encounter for immunization; Translations: [ENCOUNTER FOR IMMUNIZATION] Onset: 01-31-2021 Episodic Malaise and fatigue (1 source) Other fatigue; Translations: [OTHER FATIGUE] Onset: 01-08-2021 Episodic Mood disorders (6 sources) Mood disorders Onset: 11-29-2023 11-29-2023 Nutritional deficiencies (7 sources) Deficiency of other specified B group vitamins; Translations: [Cobalamin deficiency] Onset: 01-08-2021 11-17-2022 Episodic Other gastrointestinal disorders (6 sources) Slow transit constipation; Translations: [Slow transit constipation] Onset: 11-17-2022 Resolved: 11-29-2023 11-29-2023 Episodic Other male genital disorders (4 sources) Disorder of prostate, unspecified; Translations: [DISORDER OF PROSTATE UNSPECIFIED] Onset: 12-25-2020 Episodic Other male genital disorders (6 sources) Disorder of prostate; Translations: [Disorder of prostate, unspecified] Onset: 11-17-2022 11-17-2022 Episodic Thyroid disorders (6 sources) Sick-euthyroid syndrome; Translations: [Sick-euthyroid syndrome] Onset: 11-17-2022 Resolved: 11-29-2023 11-29-2023 Episodic Results Test Name Value Interpretation Reference Range Facility XR ANKLE LT MIN [address] [place] [address] XRay Report Signed Patient: VIRGIE SMITH MR#: [id number] : 1955 Acct:[id number] Age/Sex: 68 / M ADM Date: 05/26/24 Loc: [facility] Attending Dr: Ainsley Dhillon D.P.M. Ordering Physician: Ainsley Dhillon D.P.M. Date of Service: 05/26/24 Procedure(s): XR ankle LT min 3V Accession Number(s): [id number] cc: EMERALD RIGGS ; Ainsley Dhillon D.P.M. [place] [id number] Patient Name: VIRGIE SMITH MRN: [id number] date: 1955 Sex: M Assigned Patient Location: [facility] Current Patient Location: Accession/Order Number: [id number] Exam Date: 05/26/2024 11:20 Report Date: 05/29/2024 15:18 At the request of: AINSLEY DHILLON Procedure: XR ankle LT min 3V EXAM: XR ankle LT min 3V 05/26/2024. HISTORY: lateral malleolus fracture COMPARISON: Radiographs left ankle 05/24/2024. FINDINGS: There is a plaster splint overlying the ankle posteriorly which obscures fine bone detail. There has been interval open reduction internal fixation of a fracture of the lateral malleolus with a lateral plate and multiple cortical screws and an interfragmentary screw. This fracture appears in anatomic alignment. There has been interval reduction of the previously seen tibiotalar joint subluxation and widening of the medial ankle mortise. There is a small 3 mm fracture fragment displaced posterior to the posterior malleolus seen on the lateral view. XR/XR ankle LT min 3V IMPRESSION: 1. Satisfactory postoperative appearance from interval open reduction internal fixation of a fracture of the lateral malleolus which appears in anatomic alignment. No hardware complication is seen. 2. A small displaced fracture of the posterior malleolus is seen. 3. Interval reduction of the previously seen tibiotalar joint subluxation and widening of the medial ankle mortise. Electronically authenticated by: AYAAN CLARK Date: 05/29/2024 15:18 Dictated By: Ayaan Clark M.D. Signed By: 05/29/24 1521 DD/ 1518 TD/TT: Machine Assembler Supervisor: [facility] Radiology, Radiologist, MD - 05/29/2024 [place] [address] XRay Report Signed Patient: VIRGIE SMITH MR#: [id number] : 1955 Acct:[id number] Age/Sex: 68 / M ADM Date: 05/26/24 [facility] Attending Dr: Ainsley Dhillon D.P.M. Ordering Physician: Ainsley Dhillon D.P.M. Date of Service: 05/26/24 Procedure(s): XR ankle LT min 3V Accession Number(s): [id number] cc: EMERALD RIGGS ; Ainsley Dhillon D.P.M. The [place] [id number] Patient Name: VIRGIE SMITH MRN: [facility]:[id number] date: 1955 Sex: M Assigned Patient Location: SURGOUT Current Patient Location: ER Accession/Order Number: [id number] Exam Date: 05/26/2024 11:20 Report Date: 05/29/2024 15:18 At the request of: AINSLEY DHILLON Procedure: XR ankle LT min 3V EXAM: XR ankle LT min 3V 05/26/2024. HISTORY: lateral malleolus fracture COMPARISON: Radiographs left ankle 05/24/2024. FINDINGS: There is a plaster splint overlying the ankle posteriorly which obscures fine bone detail. There has been interval open reduction internal fixation of a fracture of the lateral malleolus with a lateral plate and multiple cortical screws and an interfragmentary screw. This fracture appears in anatomic alignment. There has been interval reduction of the previously seen tibiotalar joint subluxation and widening of the medial ankle mortise. There is a small 3 mm fracture fragment displaced posterior to the posterior malleolus seen on the lateral view. XR/XR ankle LT min 3V IMPRESSION: 1. Satisfactory postoperative appearance from interval open reduction internal fixation of a fracture of the lateral malleolus which appears in anatomic alignment. No hardware complication is seen. 2. A small displaced fracture of the posterior malleolus is seen. 3. Interval reduction of the previously seen tibiotalar joint subluxation and widening of the medial ankle mortise. Electronically authenticated by: AYAAN CLARK Date: 05/29/2024 15:18 Dictated By: Ayaan Clark M.D. Signed By: 05/29/24 1521 DD/ 1518 TD/TT: Machine Assembler Supervisor: [facility] Radiology Study observation (narrative) [facility] XR ANKLE LT MIN 3VOrdered By : Radiologist Radiology on 05-29-2024 [facility] Work Phone: ECG 12-LEADon 05-27-2024 [place] [address] Electrocardiograph Report Signed Patient: VIRGIE SMITH MR#: [id number] : 1955 Acct:[id number] Age/Sex: 68 / M ADM Date: 05/26/24 Loc: SURG[facility] Attending Dr: Ainsley Dhillon D.P.M. Ordering Physician: Mati Mckeon M.D. Date of Service: 05/26/24 Procedure(s): ECG 12 lead Accession Number(s): [id number] cc: [facility] Test Date: 2024-05-26 Pat Name: VIRGIE SMITH Department: Room: - Gender: Male Core Dipper: : 1955 Requested By: 1850 Order Number: [id number] Reading MD: THAD WEBBER Measurements Intervals [place] Rate: 65 P: 61 PA: 168 QRS: 52 QRSD: 88 T: 56 QT: 377 QTc: 394 Interpretive Statements SINUS RHYTHM No previous ECG available for comparison Electronically Signed On 05-27-2024 8:21:07 EST by THAD WEBBER Dictated By: Thad Webber D.O. Signed By: 05/27/24820 DD/ 7 TD/TT: Machine Assembler Supervisor: [facility] Radiology, Radiologist, MD - 05/27/2024 [place] [address] Electrocardiograph Report Signed Patient: VIRGIE SMITH MR#: [id number] : 1955 Acct:[id number] Age/Sex: 68 / M ADM Date: 05/26/24 Loc: SURGOUT Attending Dr: Ainsley Dhillon D.P.M. Ordering Physician: Mati Mckeon M.D. Date of Service: 05/26/24 Procedure(s): ECG 12 lead Accession Number(s): [id number] cc: [facility] Test Date: 2024-05-26 Pat Name: VIRGIE SMITH Department: Room: - Gender: Male Core Dipper: : 1955 Requested By: 1850 Order Number: [id number] Reading MD: THAD WEBBER Measurements Intervals [place] Rate: 65 P: 61 PA: 168 QRS: 52 QRSD: 88 T: 56 QT: 377 QTc: 394 Interpretive Statements SINUS RHYTHM No previous ECG available for comparison Electronically Signed On 05-27-2024 8:21:07 EST by THAD WEBBER Dictated By: Thad Webber D.O. Signed By: 05/27/24820 DD/ 7 TD/TT: Machine Assembler Supervisor: [facility] ECG 12-LEADOrdered By: Radio logist Radiology on 05-27-2024 [facility] Work Phone: ALL CBC WITH AUTO DIFFon BASOPHILS ABSOLUTE [facility] 0 [facility] Basophils/100 WBC (Bld) 0.5 % 0.2 - 2.0 % [facility] Eosinophils/100 WBC (Bld) 2 % 0.9 - 7.0 % [facility] Erythrocyte distribution width (RBC) [Ratio] 12.7 % 11.0 - 15.0 % [facility] Hematocrit (Bld) [Volume fraction] 38.2 % Low 42.0 - 54.0 % [facility] Hemoglobin (Bld) [Mass/Vol] 12.9 g/dL Low 14.0 - 18.0 g/dL [facility] IMMATURE GRANULOCYTES ABS AUTO 0.01 [facility] Immature granulocytes/100 WBC (Bld) 0.2 % 0.0 - 0.5 % [facility] Interpretation and review of laboratory results Abnormal [facility] LYMPHOCYTES ABSOLUTE AUTO 1.3 [facility] Lymphocytes/100 WBC (Bld) 21.5 % 20.5 - 60.0 % [facility] MCH (RBC) [Entitic mass] 32.6 pg 25.9 - 34.0 pg [facility] MCHC (RBC) [Mass/Vol] 33.8 g/dL 29.9 - 35.2 g/dL [facility] MCV (RBC) [Entitic vol] 96.5 fL High 80.0 - 94.0 fL [facility] MONOCYTES ABSOLUTE AUTO 0.7 [facility] Monocytes/100 WBC (Bld) 11.1 % 1.7 - 12.0 % [facility] NEUTROPHILS ABSOLUTE AUTO 3.9 [facility] Neutrophils/100 WBC (Bld) 64.7 % 43.0 - 75.0 % [facility] Platelet mean volume (Bld) [Entitic vol] 9.6 fL 9.5 - 13.5 fL [facility] EO # 0.1 [facility] PLT 201 [facility] RBC 3.96 Low [facility] WBC 6 [facility] ECG 12-LEADon 05-26-2024 Radiology Study observation (narrative) [facility] ALL CBC WITH AUTO DIFFon BASOPHILS ABSOLUTE AUTO 0.0 [facility] Basophils/100 WBC (Bld) 0.5 % 0.2 - 2.0 % [facility] Eosinophils/100 WBC (Bld) 4.0 % 0.9 - 7.0 % [facility] Erythrocyte distribution width (RBC) [Ratio] 12.8 % 11.0 - 15.0 % [facility] Hematocrit (Bld) [Volume fraction] 40.0 % Low 42.0 - 54.0 % [facility] Hemoglobin (Bld) [Mass/Vol] 13.5 g/dL Low 14.0 - 18.0 g/dL [facility] IMMATURE GRANULOCYTES ABS AUTO 0.01 [facility] Immature granulocytes/100 WBC (Bld) 0.2 % 0.0 - 0.5 % [facility] Interpretation and review of laboratory results Abnormal [facility] LYMPHOCYTES ABSOLUTE AUTO 1.3 [facility] Lymphocytes/100 WBC (Bld) 30.2 % 20.5 - 60.0 % [facility] MCH (RBC) [Entitic mass] 32.9 pg 25.9 - 34.0 pg [facility] MCHC (RBC) [Mass/Vol] 33.8 g/dL 29.9 - 35.2 g/dL [facility] MCV (RBC) [Entitic vol] 97.6 fL High 80.0 - 94.0 fL [facility] MONOCYTES ABSOLUTE AUTO 0.4 [facility] Monocytes/100 WBC (Bld) 8.8 % 1.7 - 12.0 % [facility] NEUTROPHILS ABSOLUTE AUTO 2.4 [facility] Neutrophils/100 WBC (Bld) 56.3 % 43.0 - 75.0 % [facility] Platelet mean volume (Bld) [Entitic vol] 10.0 fL 9.5 - 13.5 fL [facility] EO # 0.2 [facility] PLT 189 [facility] RBC 4.10 Low [facility] WBC 4.3 [facility] REVERSE T3on 11-29-2021 Reverse T3, Serum 17.4 ng/dL Normal 9.2-24.1 [facility] Comment on above: Result Comment: This test was developed and its performance characteristics determined by [facility]. It has not been cleared or approved by the Food and Drug Administration. Performed By: #### R EVRT3 #### [facility] [address] [place] [address] [address] Floridalma Collins PSA, FREE AND TOTAL RATIOon 11-26-2021 % Free PSA 21.7 % [facility] Comment on above: Result Comment: The [...] men. Performed By: #### P SAFREE #### [facility] [address] [place] [id number] Floridalma Collins Prostate specific Ag [Mass/Vol] 0.6 ng/mL Normal 0.0-4.0 [facility] Comment on above: Result Comment: Roch sathish ECLIA methodology. . According to the [place] [employer], Serum PSA should decrease and [...] disease. Performed By: #### P SAFREE #### [facility] [address] [place] [id number] Floridalma Collins PSA, Free 0.13 ng/mL Normal N/A [facility] Comment on above: Result Comment: Roch e ECLIA methodology. Performed By: #### P SAFREE #### [facility] [address] [place] [id number] Floridalma Collins T3, TOTAL (TRIIODOTHYRONINE) on 11-26-2021 T3, TOTAL 106 ng/dL Normal 71-180 [facility] Comment on above: Performed By: #### B 12FOL, PSAD #### [facility] [address] [place] [address] Antonette Damon CBC AUTO DIFFon 11-25-2021 BASO # 0.0 103/ul Normal 0.0-0.1 [facility] Comment on above: Performed By: #### C BC #### [facility] [address] [place] [address] Dr. Floridalma Collins Basophils/100 WBC (Bld) 0.4 % Normal 0.2-2.0 [facility] Comment on above: Performed By: #### C BC #### [facility] [address] [place] [address] Dr. Floridalma Collins EO # 0.3 103/ul Normal 0.0-0.7 [facility] Comment on above: Performed By: #### C BC #### [facility] [address] [place] [address] Dr. Floridalma Collins Eosinophils/100 WBC (Bld) 5.4 % Normal 0.9-7.0 [facility] Comment on above: Performed By: #### C BC #### [facility] [address] [place] [address] Dr. Floridalma Collins Erythrocyte distribution width (RBC) [Ratio] 13.3 % Normal 11.0-15.0 [facility] Comment on above: Performed By: #### C BC #### [facility] [address] [place] [address] Dr. Floridalma Collins Hematocrit (Bld) [Volume fraction] 38.9 % Critically low 42.0-54.0 [facility] Comment on above: Performed By: #### C BC #### [facility] [address] [place] [address] Dr. Floridalma Collins Hemoglobin (Bld) [Mass/Vol] 12.9 g/dL Critically low 14.0-18.0 [facility] Comment on above: Performed By: #### C BC #### [facility] [address] [place] [address] Dr. Floridalma Collins IG # 0.01 10e3/ul Normal 0.00-0.03 [facility] Comment on above: Performed By: #### C BC #### [facility] [address] [place] [address] Dr. Floridalma Collins IG % 0.2 % Normal 0.0-0.5 [facility] Comment on above: Performed By: #### C BC #### [facility] [address] [place] [address] Dr. Floridalma Collins LYMPH # 1.3 103/ul Normal 1.2-3.8 [facility] Comment on above: Performed By: #### C BC #### [facility] [address] [place] [address] Dr. Floridalma Collins Lymphocytes/100 WBC (Bld) 28.7 % Normal 20.5-60.0 [facility] Comment on above: Performed By: #### C BC #### [facility] [address] [place] [address] Dr. Floridalma Collins MANUAL DIFF REQ NO Normal [facility] Comment on above: Performed By: #### C BC #### [facility] [address] [place] [address] Dr. Floridalma Collins MCH (RBC) [Entitic mass] 32.3 pg Normal 25.9-34.0 [facility] Comment on above: Performed By: #### C BC #### [facility] [address] [place] [address] Dr. Floridalma Collins MCHC (RBC) [Mass/Vol] 33.2 g/dL Normal 29.9-35.2 [facility] Comment on above: Performed By: #### C BC #### [facility] [address] [place] [address] Dr. Floridalma Collins MCV (RBC) [Entitic vol] 97.3 fL Critically high 80.0-94.0 [facility] Comment on above: Performed By: #### C BC #### [facility] [address] [place] [address] Dr. Floridalma Collins MONO # 0.4 103/ul Normal 0.3-0.8 [facility] Comment on above: Performed By: #### C BC #### [facility] [address] [place] [address] [address] Floridalma Collins Monocytes/100 WBC (Bld) 9.5 % Normal 1.7-12.0 [facility] Comment on above: Performed By: #### C BC #### [facility] [address] [place] [address] [address] Floridalma Collins NEUT # 2.6 103/ul Normal 1.4-6.5 [facility] Comment on above: Performed By: #### C BC #### [facility] [address] [place] [address] Dr. Floridalma Collins Neutrophils/100 WBC (Bld) 55.8 % Normal 43.0-75.0 [facility] Comment on above: Performed By: #### C BC #### [facility] [address] [place] [address] Dr. Floridalma Collins Platelet mean volume (Bld) [Entitic vol] 10.0 fL Normal 9.5-13.5 [facility] Comment on above: Performed By: #### C BC #### [facility] [address] [place] [address] Dr. Floridalma Collins PLT 190 103/ul Normal 150-450 [facility] Comment on above: Performed By: #### C BC #### [facility] [address] [place] [address] Dr. Floridalma Collins RBC 4.00 106/ul Critically low 4.70-6.10 The [facility] Comment on above: Performed By: #### C BC #### [facility] [address] [place] [address] Dr. Floridalma Collins WBC 4.6 103/ul Normal 4.0-11.0 [facility] Comment on above: Performed By: #### C BC #### [facility] [address] [place] [address] Dr. Floridalma Collins FREE T3on 08-16-2022 FREE T3 2.39 pg/mlL Normal 2.18-3.98 [facility] Comment on above: Performed By: #### F T3, CMP, LIPID, TSH #### [facility] [address] [place], [place] [address] Dr. Floridalma Collins FREE T4on 11-25-2021 Free T4 [Mass/Vol] 1.09 ng/dL Normal 0.76-1.46 [facility] Comment on above: Performed By: #### B 12FOL, PSAD #### [facility] [address] [place] [id number] Antonette Marisol LIPID PROFILEon 11-25-2021 CHOL-HDL RATIO NORM SEE BELOW Normal [facility] Comment on above: Result Comment: 3.3 - 4.4 LOW RISK 4.4 - 7.1 AVERAGE RISK 7.1 - 11.0 MODERATE RISK >11.0 HIGH RISK Performed By: #### B 12FOL, PSAD #### [facility] [address] [place] [address] Antonette Marisol Cholesterol [Mass/Vol] 175 mg/dL Normal <=200 [facility] Comment on above: Performed By: #### B 12FOL, PSAD #### [facility] [address] [place], [place] [address] Antonette Marisol Cholesterol in HDL [Mass/Vol] 62 mg/dL Critically high 40-60 [facility] Comment on above: Performed By: #### B 12FOL, PSAD #### [facility] [address] [place] [id number] Antonette Marisol Cholesterol in LDL [Mass/Vol] 103.4 mg/dL [facility] Comment on above: Performed By: #### B 12FOL, PSAD #### [facility] [address] [place] [id number] Antonette Marisol Cholesterol.total/C holesterol in HDL [Mass ratio] 2.8 {ratio} [facility] Comment on above: Performed By: #### B 12FOL, PSAD #### [facility] [address] [place] [id number] Antonette Marisol HDL NORMAL > or = 60 mg/dl - LO W CARDIOVASCULAR RISK <40 mg/dl - HIGH CARDIOVASCULAR RISK [facility] Comment on above: Performed By: #### Rudolph EVERETT PSARosalio #### [facility] [address] [place], [place] [address] Antonette Marisol LDL CALC NORMAL SEE BELOW Normal [facility] Comment on above: Result Comment: <100 mg/dl OPTIMAL 100 - 129 mg/dl NEAR OR ABOVE OPTIMAL 130 - 159 mg/dl BORDERLINE HIGH 160 - 189 mg/dl HIGH >190 mg/dl VERY HIGH Performed By: #### Rudolph EVERETT, PSAD #### [facility] [address] [place], [place] [address] Antonette Marisol Triglyceride [Mass/Vol] 48 mg/dL Normal <=150 [facility] Comment on above: Performed By: #### Rudolph EVERETT PSAD #### [facility] [address] [place], [place] [address] Antonette Marisol VLDL CALC 9.6 mg/dL [facility] Comment on above: Performed By: #### Rudolph EVERETT PSARosalio #### [facility] [address] [place], [place] [address] Antonette Damon PROF 14(COMP METB)on 022 Albumin [Mass/Vol] 3.7 g/dL Normal 3.4-5.0 [facility] Comment on above: Performed By: #### Rudolph EVERETT, PSAD #### [facility] [address] [place], [place] [address] Antonette Marisol Albumin/Globulin [Mass ratio] 1.3 {ratio} [facility] Comment on above: Performed By: #### Rudolph 12ALEKSEY, PSAD #### [facility] [address] [place], [place] [address] Antonette Marisol ALP [Catalytic activity/Vol] 58 U/L Normal 46-116 [facility] Comment on above: Performed By: #### Rudolph EVERETT, PSAD #### [facility] [address] [place], [place] [address] Antonette Marisol ALT [Catalytic activity/Vol] 21 U/L Normal 16-63 [facility] Comment on above: Performed By: #### Rudolph 12FOL, PSAD #### [facility] [address] [place] [id number] Antonette Marisol Anion gap [Moles/Vol] 13.1 mmol/L [facility] Comment on above: Performed By: #### Rudolph 12FOAshley, PSAD #### [facility] [address] [place], [place] [address] Antonette Marisol AST [Catalytic activity/Vol] 21 U/L Normal 15-37 [facility] Comment on above: Performed By: #### Rudolph 12FOAshley, PSAD #### [facility] [address] [place], [place] [address] Antonette Marisol Bilirubin [Mass/Vol] 0.5 mg/dL Normal 0.2-1.0 [facility] Comment on above: Performed By: #### Rudolph 12FOAshley, PSAD #### [facility] [address] [place] [address] Antonette Marisol Calcium [Mass/Vol] 8.6 mg/dL Normal 8.5-10.1 [facility] Comment on above: Performed By: #### Rudolph 12FOAshley, PSAD #### [facility] [address] [place] [address] Antonette Marisol Chloride [Moles/Vol] 106 mmol/L Normal 98-107 [facility] Comment on above: Performed By: #### Rudolph 12FOAshley, PSAD #### [facility] [address] [place] [address] Antonette Marisol CO2 [Moles/Vol] 23.9 mmol/L Normal 21.0-32.0 [facility] Comment on above: Performed By: #### Rudolph 12FOL, PSAD #### [facility] [address] [place], [place] [address] Antonette Marisol Creatinine [Mass/Vol] 1.20 mg/dL Normal 0.70-1.30 [facility] Comment on above: Performed By: #### Rudolph 12FOL, PSAD #### [facility] [address] [place], [place] [address] Antonette Marisol EGFR-AF CUBAN >60 Normal >=60 [facility] Comment on above: Performed By: #### Rudolph 12FOL, PSAD #### [facility] [address] [place], [place] [address] Antonette Marisol EGFR-NON AF CUBAN =60 Normal >=60 [facility] Comment on above: Performed By: #### Rudolph 12FOAshley, PSAD #### [facility] [address] [place], [place] [address] Antonette Marisol Globulin (S) [Mass/Vol] 2.9 g/dL Normal [facility] Comment on above: Performed By: #### Rudolph 12ALEKSEY, PSAD #### [facility] [address] [place] [address] Antonette Marisol Glucose [Mass/Vol] 97 mg/dL Normal 74-106 The [facility] Comment on above: Performed By: #### Rudolph 12FOAshley, PSAD #### [facility] [address] [place] [address] Antonette Marisol Potassium [Moles/Vol] 4.0 mmol/L Normal 3.5-5.1 [facility] Comment on above: Performed By: #### Rudolph 12ALEKSEY PSAD #### [facility] [address] [place] [address] Antonette Marisol Protein [Mass/Vol] 6.6 g/dL Normal 6.4-8.2 The [facility] Comment on above: Performed By: #### Rudolph 12FOAshley, PSAD #### [facility] [address] [place] [address] Antonette Marisol Sodium [Moles/Vol] 139 mmol/L Normal 136-145 The [facility] Comment on above: Performed By: #### Rudolph 12FOAshley, PSAD #### [facility] [address] [place] [address] Antonette Marisol Urea nitrogen [Mass/Vol] 19.0 mg/dL Critically high 7.0-18.0 [facility] Comment on above: Performed By: #### Rudolph 12FOAshley, PSAD #### [facility] [address] [place] [address] Antonette Damon Urea nitrogen/Creatinine [Mass ratio] 15.8 mg/mg Normal [facility] Comment on above: Performed By: #### Rudolph EVERETT PSAD #### [facility] [address] [place] [address] Antonette Damon TSHon 11-25-2021 TSH 1.726 uIU/mL Normal 0.358-3.740 [facility] Comment on above: Performed By: #### Rudolph EVERETT PSAD #### [facility] [address] [place] [address] Antonette Damon VIT B12 AND FOLATEon 022 Cobalamin (Vitamin B12) [Mass/Vol] 641.0 pg/mL Normal 193.0-986.0 [facility] Comment on above: Performed By: #### Rudolph 12ALEKSEY PSAD #### [facility] [address] [place] [address] Antonette Damon FOLATE 17.90 ng/mL Normal 8.60-58.90 [facility] Comment on above: Performed By: #### Rudolph 12ALEKSEY PSAD #### [facility] [address] [place] [address] Antonette Damon TSHon 01-21-2021 TSH 0.720 uIU/mL Normal 0.470-4.680 [facility] Comment on above: Performed By: #### T SH #### [facility] [address] [place] [address] Dr. Floridalma Collins TSH RANGE SEE BELOW Normal The [facility] Comment on above: Result Comment: <0.3 4 UIU/ml HYPERTHYROID 0.34-5.60 UIU/ml EUTHYROID >5.60 UIU/ml HYPOTHYROID Performed By: #### T SH #### [facility] [address] [place] [address] Dr. Floridalma Collins T3, TOTAL (TRIIODOTHYRONINE) on 12-25-2020 T3, TOTAL 120 ng/dL Normal 71-180 [facility] Comment on above: Performed By: #### T 3TOTAL #### [facility] [address] [place], [place] [address] Dr. Floridalma Collins CBC AUTO DIFFon 12-24-2020 BASO # 0.0 103/ul Normal 0.0-0.1 [facility] Comment on above: Performed By: #### C BC #### [facility] [address] [place], [place] [address] Antonette Marisol Basophils/100 WBC (Bld) 0.5 % Normal 0.2-2.0 [facility] Comment on above: Performed By: #### C BC #### [facility] [address] [place] [id number] Antonette Marisol EO # 0.1 103/ul Normal 0.0-0.7 [facility] Comment on above: Performed By: #### C BC #### [facility] [address] [place], [place] [address] Antonette Marisol Eosinophils/100 WBC (Bld) 3.3 % Normal 0.9-7.0 [facility] Comment on above: Performed By: #### C BC #### [facility] [address] [place], [place] [address] Antonette Marisol Erythrocyte distribution width (RBC) [Ratio] 12.9 % Normal 11.0-15.0 [facility] Comment on above: Performed By: #### C BC #### [facility] [address] [place], [place] [address] Antonette Marisol Hematocrit (Bld) [Volume fraction] 37.2 % Critically low 42.0-54.0 [facility] Comment on above: Performed By: #### C BC #### [facility] [address] [place], [place] [address] Antonette Marisol Hemoglobin (Bld) [Mass/Vol] 12.7 g/dL Critically low 14.0-18.0 [facility] Comment on above: Performed By: #### C BC #### [facility] [address] [place] [address] Antonette Marisol IG # 0.01 10e3/ul Normal 0.00-0.03 [facility] Comment on above: Performed By: #### C BC #### [facility] [address] [place], [place] [address] Antonette Marisol IG % 0.3 % Normal 0.0-0.5 [facility] Comment on above: Performed By: #### C BC #### [facility] [address] [place], [place] [address] Antonette Marisol LYMPH # 1.4 103/ul Normal 1.2-3.8 [facility] Comment on above: Performed By: #### C BC #### [facility] [address] [place], [place] [address] Antonette Marisol Lymphocytes/100 WBC (Bld) 33.9 % Normal 20.5-60.0 [facility] Comment on above: Performed By: #### C BC #### [facility] [address] [place], [place] [address] Antonette Marisol MANUAL DIFF REQ NO Normal The [facility] Comment on above: Performed By: #### C BC #### [facility] [address] [place], [place] [address] Antonette Marisol MCH (RBC) [Entitic mass] 33.2 pg Normal 25.9-34.0 [facility] Comment on above: Performed By: #### C BC #### [facility] [address] [place], [place] [address] Antonette Marisol MCHC (RBC) [Mass/Vol] 34.1 g/dL Normal 29.9-35.2 [facility] Comment on above: Performed By: #### C BC #### [facility] [address] [place], [place] [address] Antonette Marisol MCV (RBC) [Entitic vol] 97.4 fL Critically high 80.0-94.0 [facility] Comment on above: Performed By: #### C BC #### [facility] [address] [place], [place] [address] Antonette Marisol MONO # 0.4 103/ul Normal 0.3-0.8 [facility] Comment on above: Performed By: #### C BC #### [facility] [address] [place], [place] [address] Antonette Marisol Monocytes/100 WBC (Bld) 10.8 % Normal 1.7-12.0 [facility] Comment on above: Performed By: #### C BC #### [facility] [address] [place], [place] [address] Antonette Damon NEUT # 2.0 103/ul Normal 1.4-6.5 [facility] Comment on above: Performed By: #### C BC #### [facility] [address] [place], [place] [address] Antonette Damon Neutrophils/100 WBC (Bld) 51.2 % Normal 43.0-75.0 [facility] Comment on above: Performed By: #### C BC #### [facility] [address] [place], [place] [address] Antonette Damon Platelet mean volume (Bld) [Entitic vol] 9.2 fL Critically low 9.5-13.5 [facility] Comment on above: Performed By: #### C BC #### [facility] [address] [place] [address] Antonettearsenio Kendallen PLT 201 103/ul Normal 150-450 [facility] Comment on above: Performed By: #### C BC #### [facility] [address] [place] [address] Antonette Kendallen RBC 3.82 106/ul Critically low 4.70-6.10 The [facility] Comment on above: Performed By: #### C BC #### [facility] [address] [place], [place] [address] Antonette Kendallen WBC 4.0 103/ul Normal 4.0-11.0 [facility] Comment on above: Performed By: #### C BC #### [facility] [address] [place] [address] Antonette Marisol FREE T3on 12-24-2020 FREE T3 2.63 pg/mlL Critically low 2.77-5.27 The [facility] Comment on above: Performed By: #### F T3 #### [facility] [address] [place] [address] Dr. Floridalma Collins FREE T4on 12-24-2020 Free T4 [Mass/Vol] 0.76 ng/dL Critically low 0.78-2.19 Th e [facility] Comment on above: Performed By: #### C BC #### [facility] [address] [place], [place] [address] Dr. Floridalma Collins LIPID PROFILEon 12-24-2020 CHOL-HDL RATIO NORM SEE BELOW Normal [facility] Comment on above: Result Comment: 3.3 - 4.4 LOW RISK 4.4 - 7.1 AVERAGE RISK 7.1 - 11.0 MODERATE RISK >11.0 HIGH RISK Performed By: #### B 12FOL, PSAD #### [facility] [address] [place], [place] [address] Antonette Marisol Cholesterol [Mass/Vol] 188 mg/dL Normal <=200 [facility] Comment on above: Performed By: #### B 12FOL, PSAD #### [facility] [address] [place], [place] [address] Antonette Marisol Cholesterol in HDL [Mass/Vol] 52 mg/dL [facility] Comment on above: Performed By: #### B 12FOL, PSAD #### [facility] [address] [place], [place] [address] Antonette Marisol Cholesterol in LDL [Mass/Vol] 121.6 mg/dL [facility] Comment on above: Performed By: #### B 12FOL, PSAD #### [facility] [address] [place], [place] [address] Antonette Marisol Cholesterol.total/C holesterol in HDL [Mass ratio] 3.6 {ratio} Normal [facility] Comment on above: Performed By: #### B 12FOL, PSAD #### [facility] [address] [place], [place] [address] Antonette Marisol HDL NORMAL > or = 60 mg/dl - LO W CARDIOVASCULAR RISK <40 mg/dl - HIGH CARDIOVASCULAR RISK Normal [facility] Comment on above: Performed By: #### B 12FOL, PSAD #### [facility] [address] [place], [place] [address] Antonette Marisol LDL CALC NORMAL SEE BELOW Normal The [facility] Comment on above: Result Comment: <100 mg/dl OPTIMAL 100 - 129 mg/dl NEAR OR ABOVE OPTIMAL 130 - 159 mg/dl BORDERLINE HIGH 160 - 189 mg/dl HIGH >190 mg/dl VERY HIGH Performed By: #### MEDINA WATSON #### [facility] [address] [place], [place] [address] Antonette Marisol Triglyceride [Mass/Vol] 72 mg/dL Normal <=150 [facility] Comment on above: Performed By: #### MEDINA WATSON #### [facility] [address] [place] [address] Antonette Marisol VLDL CALC 14.4 mg/dL [facility] Comment on above: Performed By: #### MEDINA WATSON #### [facility] [address] [place] [address] Antonette Marisol PROF 14(COMP METB)on 021 Albumin [Mass/Vol] 3.7 g/dL Normal 3.5-5.0 [facility] Comment on above: Performed By: ###MEDINA MAURICE #### [facility] [address] [place] [address] Antonette Marisol Albumin/Globulin [Mass ratio] 1.2 {ratio} [facility] Comment on above: Performed By: #### MEDINA WATSON #### [facility] [address] [place] [address] Antonette Marisol ALP [Catalytic activity/Vol] 51 U/L Normal 38-126 [facility] Comment on above: Performed By: #### Rudolph EVERETT PSARosalio #### [facility] [address] [place], [place] [address] Antonette Marisol ALT [Catalytic activity/Vol] 23 U/L Normal 21-72 [facility] Comment on above: Performed By: #### MEDINA WATSON #### [facility] [address] [place], [place] [address] Antonette Marisol Anion gap [Moles/Vol] 14.0 mmol/L [facility] Comment on above: Performed By: #### MEDINA WATSON #### [facility] [address] [place] [id number] Antonette Marisol AST [Catalytic activity/Vol] 21 U/L Normal 17-59 [facility] Comment on above: Performed By: #### Rudolph EVERETT PSAD #### [facility] [address] [place] [address] Antonette Marisol Bilirubin [Mass/Vol] 0.4 mg/dL Normal 0.2-1.3 [facility] Comment on above: Performed By: #### Rudolph EVERETT PSAD #### [facility] [address] [place] [address] Antonette Marisol Calcium [Mass/Vol] 8.7 mg/dL Normal 8.4-10.2 [facility] Comment on above: Performed By: #### Rudolph EVERETT PSAD #### [facility] [address] [place] [address] Antonette Marisol Chloride [Moles/Vol] 105 mmol/L Normal 98-107 [facility] Comment on above: Performed By: #### Rudolph EVERETT PSAD #### [facility] [address] [place] [address] Antonette Marisol CO2 [Moles/Vol] 25.2 mmol/L Normal 22.0-30.0 [facility] Comment on above: Performed By: #### Rudolph EVERETT, PSAD #### [facility] [address] [place], [place] [address] Antonette Marisol Creatinine [Mass/Vol] 1.10 mg/dL Normal 0.66-1.25 [facility] Comment on above: Performed By: #### Rudolph EVERETT, PSAD #### [facility] [address] [place] [address] Antonette Marisol EGFR-AF CUBAN >60 Normal >=60 [facility] Comment on above: Performed By: #### Rudolph HinojosaFOAshley, PSAD #### [facility] [address] [place], [place] [address] Antonette Marisol EGFR-NON AF CUBAN >60 Normal >=60 [facility] Comment on above: Performed By: #### B 12FOL, PSAD #### [facility] [address] [place], [place] [address] Antonette Marisol Globulin (S) [Mass/Vol] 3.0 g/dL [facility] Comment on above: Performed By: #### Rudolph 12ALEKSEY, PSAD #### [facility] [address] [place], [place] [address] Antonette Marisol Glucose [Mass/Vol] 97 mg/dL Normal 74-106 The [facility] Comment on above: Performed By: #### Rudolph 12FOAshley, PSAD #### [facility] [address] [place] [address] Antonette Marisol Potassium [Moles/Vol] 4.2 mmol/L Normal 3.4-5.0 [facility] Comment on above: Performed By: #### Rudolph 12FOAshley, PSAD #### [facility] [address] [place], [place] [address] Antonette Marisol Protein [Mass/Vol] 6.7 g/dL Normal 6.1-8.2 [facility] Comment on above: Performed By: #### Rudolph 12ALEKSEY, PSAD #### [facility] [address] [place], [place] [address] Antonette Marisol Sodium [Moles/Vol] 140 mmol/L Normal 137-145 The [facility] Comment on above: Performed By: #### Rudolph 12FOAshley, PSAD #### [facility] [address] [place] [address] Antonette Marisol Urea nitrogen [Mass/Vol] 24.0 mg/dL Critically high 9.0-20.0 [facility] Comment on above: Performed By: #### Rudolph 12FOAshley, PSAD #### [facility] [address] [place], [place] [address] Antonette Marisol Urea nitrogen/Creatinine [Mass ratio] 21.8 mg/mg [facility] Comment on above: Performed By: #### Rudolph 12FOAshley, PSAD #### [facility] [address] [place] [address] Antonette Marisol T4on 12-24-2020 T4 [Mass/Vol] 6.60 ug/dL Normal 5.53-11.00 [facility] Comment on above: Performed By: #### MEDINA WATSON #### [facility] [address] [place], [place] [address] Antonette Damon TSHon 12-24-2020 TSH 6.821 uIU/mL Critically high 0.470-4.680 The [facility] Comment on above: Performed By: #### Rudolph EVERETT PSAD #### [facility] [address] [place], [place] [address] Antonette Damon TSH RANGE SEE BELOW [facility] Comment on above: Result Comment: <0.3 4 UIU/ml HYPERTHYROID 0.34-5.60 UIU/ml EUTHYROID >5.60 UIU/ml HYPOTHYROID Performed By: #### MEDINA WATSON #### [facility] [address] [place], [place] [address] Antonette Damon VIT B12 AND FOLATEon 021 Cobalamin (Vitamin B12) [Mass/Vol] 1306.0 pg/mL Critically high 239.0-931.0 [facility] Comment on above: Performed By: #### MEDINA WATSON #### [facility] [address] [place], [place] [address] Antonette Damon FOLATE >20.00 Normal >=2.76 [facility] Comment on above: Performed By: #### MEDINA WATSON #### [facility] [address] [place], [place] [address] Antonette Damon Encounters Encounter Date Encounter Type Care Provider Facility Start: 05-29-2024 End: 05-29-2024 Clinisync Result Encounter Generic External Data Provider [facility] Department Unsolicited Start: 05-29-2024 End: 05-29-2024 Clinisync Result Encounter Generic External Data Provider [...] FM 100 Start: 01-04-2024 End: 01-04-2024 ambulatory [facility] Work Phone: Start: 01-04-2024 End: 01-04-2024 Patient encounter procedure [facility] Work Phone: Start: 12-14-2023 End: 12-14-2023 [...] Not Available Start: 2023 End: 2023 ambulatory EMEARLD RIGGS Not Available Start: 11-25-2021 End: 11-26-[address] EMERALD RIGGS Facility:[facility] Start: 01-31-2021 End: 02-01-[address] EMERALD RIGGS Facility:[facility] Start: 01-21-2021 End: 01-22-[address] EMERALD RIGGS Facility:[facility] Start: 12-25-2020 End: 12-26-[address] EMERALD RIGGS Facility:[facility] Procedures Date Procedure Procedure Detail Performing Clinician Start: 05-29-2024 XR ANKLE LT MIN 3V Gene isaiah External Data Provider Start: 05-26-2024 ECG 12-LEAD Generic Ex ternal Data Provider Start: 05-26-2024 ALL CBC WITH AUTO DIFF Generic External Data Provider Start: 12-14-2023 ALL CBC WITH AUTO DIFF Emerald Riggs MD Work Phone: Start: 12-24-[address] EMERALD RIGGS Comment on above: Performed By: #### B 12FOL, PSAD #### [facility] [address] [place] [address] Antonette Damon Start: 12-08-2017 Colonoscopy Emerald mcclure [...] Immunization Date Immunization Notes Care Provider Fa cility 02-06-2022 Moderna Bivalent Delaney ster Vaccination Emerald Riggs MD Work Phone: [facility] Healthcare Payers Date Payer Category Payer Private Health Insurance AARP Sc mber [id number] 2022 Unknown AARP AARP [id number] 2022-Present [address] [place] [address] [id number] 2018 Medicare [id number] 1959 Medicare [id number] 1959 Self-pay 1959 Unknown [id number] 1953 Unknown [id number] 1953 Unknown [id number] 1953 Unknown [id number] 1953 Unknown [id number] .1259 1953 Unknown [id number] .[id number] 1953 Unknown [id number] .1259 1953 Unknown [id number] .1259 1953 Unknown [id number] .1259 Unknown [id number] Social History Date Type Detail [facility] Start: 1955 Sex Assigned At Male [facility] Start: 11-25-2022 [facility] Start: 11-25-2022 Tobacco use and exposure Smoke less tobacco non-user [facility] Start: 11-29-2023 Alcoholic beverage intake Curr ent drinker of alcohol (finding) [facility] Start: 07-19-2023 End: 11-29-2023 [facility]coholic beverage [facility] Start: 07-19-2023 End: 11-29-2023 Social connection and isolation panel [facility] Do you belong to any clubs or organizations such as restorationism groups, unions, fraternal or athletic groups, or [...] Not at all [facility] (I/We) worried [facility] (my/our) food would run out before [...] to be sent to [facility] in [place]. documented in this encounter [facility] Telephone encounter Note 05-18-2024 Telephone Encounter - Tram Zhong - 05/18/2024 10:03 AM EST Note Date & Type Note Facility 05-18-2024 Telephone encount er Note Virgie called, He switched his prescription coverage and is asking for his Levo to be sent to [facility] in [place]. 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 Advance Directives and Living Will 02/21/2019 2003-02-06 Power Of Dividend Deposit Voucher Clerk Advance Directives and Living Will 02/06/2003 8:09 AM Power of Dividend Deposit Voucher Clerk 11/30/2022 8:09 AM Power Of Dividend Deposit Voucher Clerk Chief Complaint and Reason for Visit Chief Complaint NEW RT DUPUYTRENS CO NTRACTURE WX [facility] Reason for Visit Dupuytren contractur e of both hands Additional Source Comments (unrecognized sect ion and content) No Status Records FoundNo Status Records Found INFORMATION SOURCE (unrecogn ized section and content) DATE CREATED AUTHOR 12/02/2021 [facility] [place] [facility] DATE CREATED AUTHOR AUTHOR'S ORGANIZ ATION 11/29/2023 [facility] Care Teams (unrecognized sec tion and content) Team Status: Active Member Role Status Dates Emerald Riggs MD Primary Care Provider Active Team Status: Inactive Member Role Status Dates Emerald Riggs MD Primary Care Provider Active Start: January 04, 2024 End: January 04, 2024 Gauri Burris MD Attending Provider Active Start: January 04, 2024 End: January 04, 2024 Quality Improvement Manager Relationship Specialty Start Date End Date Emerald Riggs MD [address] [place] [address] (Fax) PCP - ACO Reach 09/03/22 Emerald Riggs MD [address] [facility] [place] [id number] PCP - General Family Medicine 10/05/22 Quality Improvement Manager Relationship Specialty Start Date End Date Emerald Riggs MD [address] [place] [address] (Fax) PCP - ACO Reach 09/03/22 Emerald Riggs MD [address] [place] [address] (Fax) PCP - General Family Medicine 10/05/22 Quality Improvement Manager Relationship Specialty Start Date End Date Emerald Riggs MD [address] [place] [address] (Fax) PCP - ACO Reach 09/03/22 Emerald Riggs MD [address] [place] [address] (Fax) PCP - General Family Medicine 10/05/22 Quality Improvement Manager Relationship Specialty Start Date End Date Emerald Riggs MD [address] [place] [address] (Fax) PCP - ACO Reach 09/03/22 Emerald Riggs MD [address] [place] [address] PCP - General Family Medicine 10/05/22 Quality Improvement Manager Relationship Specialty Start Date End Date Emerald Riggs MD [address] [place] [address] PCP - ACO Reach 09/03/22 Emerald Riggs MD [address] [address] [facility] [address] [place] [address] PCP - General Family Medicine 10/05/22 Goals [...] BE BASED ON THE PRIMARY CLINICAL RECORDS. [employer] [facility]. provides no warranty or guarantee of the accuracy or completeness of information in this document.
== END 2024-06-14 09:19 | disposition home or self-care (01) ==
LOC: RAD 09:18
PROVIDERS: PCP Family Medicine; Visit Provider Podiatrist Foot & Ankle Surgery
DX: M25.572 Pain in left ankle and joints of left foot (principal); Z98.890 Other specified postprocedural states
CPT/HCPCS: 73610

== ENCOUNTER 2024-06-27 13:57 | Outpatient (RCR) | payer MEDICARE, SELFPAY | END 2024-10-11 10:06 | disposition home or self-care (01) | LOC: PT 13:57 | PROVIDERS: PCP Family Medicine; Visit Provider Podiatrist Foot & Ankle Surgery | DX: M25.572 Pain in left ankle and joints of left foot (principal); S89.392D Other physeal fracture of lower end of left fibula, subsequent encounter for fracture with routine healing | CPT/HCPCS: 97110; 97112; 97116; 97140; 97161; 97530 ==

== ENCOUNTER 2024-07-11 08:39 | Outpatient (OUT) | payer MEDICARE, SELFPAY ==
--- NOTE | 2024-07-11 08:42 | XR_ITS ---
[facility] [place] [id number] Patient Name: MONI HASTINGS MRN: [id number] date: 1955 Sex: M Assigned Patient Location: [facility] Current Patient Location: [facility] Accession/Order Number: [id number] Exam Date: 07/11/2024 09:20 Report Date: 07/11/2024 09:22 At the request of: AINSLEY RAIN DPIvan Procedure: XR ankle LT min 3V LEFT ANKLE - 3 views CLINICAL DATA: Follow-up distal fibular fracture COMPARISON: 06/14/2024 AP, lateral and oblique views were obtained. A lateral plate and multiple screws is again seen along the distal fibula. The underlying fracture is not well seen though there is no change in alignment. There is no new fracture or dislocation. The talar dome is intact. There are no significant soft tissue abnormalities. XR/XR ankle LT min 3V IMPRESSION: STABLE APPEARANCE OF THE ANKLE. Impression dictated by: Marisol Wesley M.D.07/11/2024 9:22 AM Dictation Location: [place] [address] Electronically authenticated by: [id number] Y Date: 07/11/2024 09:22
--- OUTSIDE RECORDS SUMMARY | 2024-07-11 08:54 | XMS_ITS | CCD ---
Author Organization [facility] Care Team Providers Care Driller'S Offsider Name Role Phone ONEIL, DR CORBIN Consulting [...] Facility (1 source) Penicillin Drug Allergy [facility] Repository (8 sources) Penicillins Drug Allergy 11-17-2022 Rash [facility] [...] Active cyclobenzaprine hydrochloride 10 mg oral tablet (8 sources) Muscle Relaxant Start: 11-29-2023 End: 12-29-2023 take 1 tablet by mouth three times daily as needed for muscle spasms cyclobenzaprine (Flexeril) 10 MG tablet Indications: Chronic fatigue syndrome Take 1 tablet (10 mg) by mouth 3 (three) times a day as needed for muscle spasms 90 tablet 11/29/2023 Active levothyroxine sodium 0.075 mg oral tablet (10 sources) l-Thyroxine Start: 08-19-2023 End: 05-19-2025 take 1 tablet by mouth before mealtime levothyroxine (Synthroid, Levoxyl) 75 MCG tablet Indications: Acquired hypothyroidism (CMS/HCC) Take 1 tablet (75 mcg) by mouth in the morning. Take before meals. 90 tablet 3 05/19/2024 05/19/2025 Active Multiple Vitamins-Minerals (MULTIVITAMIN GUMMIES ADULTS PO) (8 sources) take 1 tablet by mouth once daily Multiple Vitamins-Minerals (MULTIVITAMIN GUMMIES ADULTS PO) Take 1 tablet by mouth 1 (one) time each day at the same time. Active vitamin b12 1 mg/ml injectable solution (2 sources) Vitamin B12 Start: 06-21-2024 End: 06-21-2025 cyanocobalamin (Vitamin B-12) 1000 MCG/ML injection Indications: Pernicious anemia Inject 1 mL (1,000 mcg) into the shoulder, thigh, or buttocks every 30 (thirty) days 12 mL 06/21/2024 06/21/2025 Active Start: 02-26-2023 End: 02-26-2024 cyanocobalamin (Vitamin B-12 ) 1000 MCG/ML injection Indications: Pernicious anemia Inject [...] ANEMIA DUE IF DEF] Onset: 11-26-2021 Episodic Deficiency and other anemia (9 sources) Pernicious anemia; Translations: [Vitamin B12 deficiency anemia due to intrinsic factor deficiency] Onset: 11-17-2022 11-17-2022 Episodic Disorders of lipid metabolism (9 sources) Pure hypercholesterolemia, unspecified; Translations: [Pure hypercholesterolemia] Onset: 01-08-2021 11-17-2022 Chronic Diverticulosis and diverticulitis (8 sources) Diverticulosis of sigmoid colon; Translations: [Diverticulosis of large intestine without perforation or abscess without bleeding] Onset: 12-08-2017 11-17-2022 Chronic Genitourinary symptoms and ill-defined conditions (1 source) Other symptoms and signs involving the genitourinary system; Translations: [OT SYMPTOMS SIGNS INVLV SYSTEM] Onset: 11-26-2021 Episodic Hyperplasia of prostate (8 sources) Benign prostatic hyperplasia; Translations: [Benign prostatic hyperplasia without lower urinary tract symptoms] Onset: 11-17-2022 11-17-2022 Chronic Malaise and fatigue (13 sources) Chronic fatigue, unspecified; Translations: [Chronic fatigue syndrome] Onset: 01-21-2021 Chronic Osteoarthritis (8 sources) Degenerative joint disease involving multiple joints; [...] DZ CIRC] Onset: 11-26-2021 Episodic Thyroid disorders (14 sources) Hypothyroidism, unspecified; Translations: [Acquired hypothyroidism] Onset: 01-29-2021 Chronic Past or Other Problems Problem Classification Problem Date Documented Da te Episodic/Chronic Immunizations and screening for infectious disease (4 sources) Encounter for immunization; Translations: [ENCOUNTER FOR IMMUNIZATION] Onset: 01-31-2021 Episodic Malaise and fatigue (1 source) Other fatigue; Translations: [OTHER FATIGUE] Onset: 01-08-2021 Episodic Mood disorders (8 sources) Mood disorders Onset: 11-29-2023 11-29-2023 Nutritional deficiencies (9 sources) Deficiency of other specified B group vitamins; Translations: [Cobalamin deficiency] Onset: 01-08-2021 11-17-2022 Episodic Other gastrointestinal disorders (8 sources) Slow transit constipation; Translations: [Slow transit constipation] Onset: 11-17-2022 Resolved: 11-29-2023 11-29-2023 Episodic Other male genital disorders (4 sources) Disorder of prostate, unspecified; Translations: [DISORDER OF PROSTATE UNSPECIFIED] Onset: 12-25-2020 Episodic Other male genital disorders (8 sources) Disorder of prostate; Translations: [Disorder of prostate, unspecified] Onset: 11-17-2022 11-17-2022 Episodic Thyroid disorders (8 sources) Sick-euthyroid syndrome; Translations: [Sick-euthyroid syndrome] Onset: 11-17-2022 Resolved: 11-29-2023 11-29-2023 Episodic Results Test Name Value Interpretation Reference Range Facility XR ANKLE LT MIN [address] [place] [address] XRay Report Signed Patient: VIRGIE SMITH MR#: [id number] : 1955 Acct:[id number] Age/Sex: 68 / M ADM Date: 06/14/24 Loc: RAD Attending Dr: Ainsley Dhillon D.P.M. Ordering Physician: Ainsley Dhillon D.P.M. Date of Service: 06/14/24 Procedure(s): XR ankle LT min 3V Accession Number(s): [id number] cc: EMERALD RIGGS ; Ainsley Dhillon D.P.M. [place] [id number] Patient Name: VIRGIE SMITH MRN: [id number] date: 1955 Sex: M Assigned Patient Location: RAD Current Patient Location: PT Accession/Order Number: [id number] Exam Date: 06/14/2024 23:02 Report Date: 06/14/2024 23:04 At the request of: AINSLEY DHILLON DPM Procedure: XR ankle LT min 3V LEFT ANKLE - 3 views CLINICAL HISTORY: Follow-up surgery. COMPARISON: Left ankle 05/26/2024 FINDINGS: Splint has been removed. Soft tissue swelling is present. Distal fibular hardware is in place without hardware complication. Fracture is unchanged in alignment. Ankle mortise appears intact. XR/XR ankle LT min 3V IMPRESSION: NO HARDWARE COMPLICATION. Impression dictated by: Chino Ulloa Jr., D.O.06/14/2024 11:04 PM Dictation Location: [place] [address] Electronically authenticated by: [id number] Y Date: 06/14/2024 23:04 Dictated By: Chino Ulloa M.D. Signed By: 06/14/242306 DD/ 03 TD/TT: Rhia: [facility] Radiology, Radiologist, MD - 06/14/2024 [place] [address] XRay Report Signed Patient: VIRGIE SMITH MR#: [id number] : 1955 Acct:[id number] Age/Sex: 68 / M ADM Date: 06/14/24 Loc: RAD Attending Dr: Ainsley Dhillon D.P.M. Ordering Physician: Ainsley Dhillon D.P.M. Date of Service: 06/14/24 Procedure(s): XR ankle LT min 3V Accession Number(s): [id number] cc: EMERALD RIGGS ; Ainsley Dhillon D.P.M. The [address] [address] Patient Name: VIRGIE SMITH MRN: [facility]:[id number] date: 1955 Sex: M Assigned Patient Location: RAD Current Patient Location: PT Accession/Order Number: [id number] Exam Date: 06/14/2024 23:02 Report Date: 06/14/2024 23:04 At the request of: AINSLEY DHILLON DPM Procedure: XR ankle LT min 3V LEFT ANKLE - 3 views CLINICAL HISTORY: Follow-up surgery. COMPARISON: Left ankle 05/26/2024 FINDINGS: Splint has been removed. Soft tissue swelling is present. Distal fibular hardware is in place without hardware complication. Fracture is unchanged in alignment. Ankle mortise appears intact. XR/XR ankle LT min 3V IMPRESSION: NO HARDWARE COMPLICATION. Impression dictated by: Chino Ulloa Jr., D.O.06/14/2024 11:04 PM Dictation Location: [place] [address] Electronically authenticated by: [id number] Y Date: 06/14/2024 23:04 Dictated By: Chino Ulloa M.D. Signed By: 06/14/242306 DD/ 03 TD/TT: Rhia: [facility] Radiology Study observation (narrative) [facility] XR ANKLE LT MIN 3VOrdered By : Radiologist Radiology on 06-14-2024 [facility] [employer] Work Phone: XR ANKLE LT MIN [address] [place] [address] XRay Report Signed Patient: VIRGIE SMITH MR#: [id number] : 1955 Acct:[id number] Age/Sex: 68 / M ADM Date: 05/26/24 Loc: SURGOUT Attending Dr: Ainsley Dhillon D.P.M. Ordering Physician: Ainsley Dhillon D.P.M. Date of Service: 05/26/24 Procedure(s): XR ankle LT min 3V Accession Number(s): [id number] cc: EMERALD RIGGS ; Ainsley Dhillon D.P.M. The [place] [id number] Patient Name: VIRGIE SMITH MRN: [id number] date: 1955 Sex: M Assigned Patient Location: [facility] Current Patient Location: ER Accession/Order Number: [id number] Exam Date: 05/26/2024 11:20 Report Date: 05/29/2024 [...] medial ankle mortise. Electronically authenticated by: AYAAN CALRK Date: 05/29/2024 15:18 Dictated By: Ayaan Clark M.D. Signed By: 05/29/24 1521 DD/ 1518 TD/TT: Rhia: [facility] Radiology, Radiologist, - 05/29/2024 [place] [address] XRay Report Signed Patient: VIRGIE SMITH MR#: [id number] : 1955 Acct:[id number] Age/Sex: 68 / M ADM Date: 05/26/24 Loc: SURGOUT Attending Dr: Ainsley Dhillon D.P.M. Ordering Physician: Ainsley Dhillon D.P.M. Date of Service: 05/26/24 Procedure(s): XR ankle LT min 3V Accession Number(s): [id number] cc: EMERALD RIGGS ; Ainsley Dhillon D.P.M. The [place] [address] Patient Name: VIRGIE SMITH MRN: [facility]:[id number] date: 1955 Sex: M Assigned Patient Location: [facility] Current Patient Location: Accession/Order Number: [id number] Exam Date: 05/26/2024 11:20 Report Date: 05/29/2024 [...] Signed By: 05/29/24 1521 DD/ 1518 TD/TT: Rhia: [facility] [employer] Radiology Study observation (narrative) [facility] [employer] XR ANKLE LT MIN 3VOrdered By : Radiologist Radiology on 05-29-2024 [facility] [employer] Work Phone: ECG 12-LEADon 05-27-[address] [address] Electrocardiograph Report Signed Patient: VIRGIE SMITH MR#: [id number] : 1955 Acct:[id number] Age/Sex: 68 / M ADM Date: 05/26/24 Loc: SURGOUT Attending Dr: Ainsley Dhillon D.P.M. Ordering Physician: Mati Mckeon M.D. Date of Service: 05/26/24 Procedure(s): ECG 12 lead Accession Number(s): [id number] cc: [facility] [place] [facility] Test Date: 2024-05-26 Pat Name: VIRGIE SMITH Department: Room: - Gender: Male Dock Builder: : 1955 Requested By: 1850 Order Number: [id number] Reading MD: THAD WEBBER Measurements Intervals [place] Rate: 65 P: 61 FL: 168 QRS: 52 QRSD: 88 T: 56 QT: 377 QTc: 394 Interpretive Statements SINUS RHYTHM No previous ECG available for comparison Electronically Signed On 05-27-2024 8:21:07 EST by THAD WEBBER Dictated By: Thad Webber D.O. Signed By: 05/27/24 0821 DD/ 0738 TD/TT: Rhia: [facility] Radiology, Radiologist, MD - 05/27/2024 [place] [address] Electrocardiograph Report Signed Patient: VIRGIE SMITH MR#: [id number] : 1955 Acct:[id number] Age/Sex: 68 / M ADM Date: 05/26/24 Loc: SURGOUT Attending Dr: Ainsley Dhillon D.P.M. Ordering Physician: Mati Mckeon M.D. Date of Service: 05/26/24 Procedure(s): ECG 12 lead Accession Number(s): [id number] cc: [facility] [place] [facility] Test Date: 2024-05-26 Pat Name: VIRGIE SMITH Department: Room: - Gender: Male Dock Builder: : 1955 Requested By: 1850 Order Number: [id number] Reading MD: THAD WEBBER Measurements Intervals [place] Rate: 65 P: 61 FL: 168 QRS: 52 QRSD: 88 T: 56 QT: 377 QTc: 394 Interpretive Statements SINUS RHYTHM No previous ECG available for comparison Electronically Signed On 05-27-2024 8:21:07 EST by THAD WEBBER Dictated By: Thad Webber D.O. Signed By: 05/27/24 0821 DD/ 0738 TD/TT: Rhia: [facility] ECG 12-LEADOrdered By: Radio logist Radiology on 05-27-2024 [employer] Work Phone: ALL CBC WITH AUTO DIFFon BASOPHILS ABSOLUTE AUTO 0 [facility] Basophils/100 WBC (Bld) 0.5 % 0.2 - 2.0 % [facility] Eosinophils/100 WBC (Bld) 2 % 0.9 - 7.0 % [facility] Erythrocyte distribution width (RBC) [Ratio] 12.7 % 11.0 - 15.0 % [facility] Hematocrit (Bld) [Volume fraction] 38.2 % Low 42.0 - 54.0 % [facility] Hemoglobin (Bld) [Mass/Vol] 12.9 g/dL Low 14.0 - 18.0 g/dL [facility] IMMATURE GRANULOCYTES ABS AUTO 0.01 [facility] Immature granulocytes/100 WBC (Bld) 0.2 % 0.0 - 0.5 % [facility] Interpretation and review of laboratory results Abnormal [facility] LYMPHOCYTES ABSOLUTE AUTO 1.3 [facility] Lymphocytes/100 WBC (Bld) 21.5 % 20.5 - 60.0 % [facility] MCH (RBC) [Entitic mass] 32.6 pg 25.9 - 34.0 pg [facility] MCHC (RBC) [Mass/Vol] 33.8 g/dL 29.9 - 35.2 g/dL [facility] MCV (RBC) [Entitic vol] 96.5 fL High 80.0 - 94.0 fL [facility] MONOCYTES ABSOLUTE AUTO 0.7 [facility] Monocytes/100 WBC (Bld) 11.1 % 1.7 - 12.0 % [facility] NEUTROPHILS ABSOLUTE AUTO 3.9 [facility] Neutrophils/100 WBC (Bld) 64.7 % 43.0 - 75.0 % [facility] Platelet mean volume (Bld) [Entitic vol] 9.6 fL 9.5 - 13.5 fL [facility]H EO # 0.1 [facility] PLT 201 [facility] RBC 3.96 Low [facility] WBC 6 [facility] ECG 12-LEADon 05-26-2024 Radiology Study observation (narrative) [facility] ALL CBC WITH AUTO DIFFon BASOPHILS ABSOLUTE AUTO 0.0 [facility] Basophils/100 WBC (Bld) 0.5 % 0.2 - 2.0 % [facility] Eosinophils/100 WBC (Bld) 4.0 % 0.9 - 7.0 % [facility] Erythrocyte distribution width (RBC) [Ratio] 12.8 % 11.0 - 15.0 % [facility] Hematocrit (Bld) [Volume fraction] 40.0 % Low 42.0 - 54.0 % [facility] Hemoglobin (Bld) [Mass/Vol] 13.5 g/dL Low 14.0 - 18.0 g/dL [facility] IMMATURE GRANULOCYTES ABS AUTO 0.01 [facility] Immature granulocytes/100 WBC (Bld) 0.2 % 0.0 - 0.5 % [facility] Interpretation and review of laboratory results Abnormal [facility] LYMPHOCYTES ABSOLUTE AUTO 1.3 [facility] Lymphocytes/100 WBC (Bld) 30.2 % 20.5 - 60.0 % [facility] MCH (RBC) [Entitic mass] 32.9 pg 25.9 - 34.0 pg [facility] MCHC (RBC) [Mass/Vol] 33.8 g/dL 29.9 - 35.2 g/dL [facility] MCV (RBC) [Entitic vol] 97.6 fL High 80.0 - 94.0 fL [facility] MONOCYTES ABSOLUTE AUTO 0.4 [facility] Monocytes/100 WBC (Bld) 8.8 % 1.7 - 12.0 % [facility] NEUTROPHILS ABSOLUTE AUTO 2.4 [facility] Neutrophils/100 WBC (Bld) 56.3 % 43.0 - 75.0 % [facility] Platelet mean volume (Bld) [Entitic vol] 10.0 fL 9.5 - 13.5 fL [facility] EO # 0.2 [facility] PLT 189 [facility] RBC 4.10 Low [facility] WBC 4.3 [facility] REVERSE T3on 11-29-2021 Reverse T3, Serum 17.4 ng/dL Normal 9.2-24.1 [facility] Comment on above: Result Comment: This test was developed and its performance characteristics determined by [employer]. It has not been cleared or approved by the Food and Drug Administration. Performed By: #### R EVRT3 #### [facility] [address] [place] [address] [address] Floridalma Collins PSA, FREE AND TOTAL RATIOon 11-26-2021 % Free PSA 21.7 % Normal [facility] [place] [facility] Comment on above: Result Comment: The table [...] men. Performed By: #### P SAFREE #### [facility] [address] [place] [address] [address] Floridalma Collins Prostate specific Ag [Mass/Vol] 0.6 ng/mL Normal 0.0-4.0 [facility] [place] [facility] Comment on above: Result Comment: Shantal bower ECLIA methodology. . According to the [place] [employer], Serum PSA should decrease and [...] disease. Performed By: #### P SAFREE #### [facility] [address] [place], [place] [address] Dr. Floridalma Collins PSA, Free 0.13 ng/mL Normal N/A [facility] [place] [facility] Comment on above: Result Comment: Roch e ECLIA methodology. Performed By: #### P SAFREE #### [facility] [address] [place] [address] Dr. Floridalma Collins T3, TOTAL (TRIIODOTHYRONINE) on 11-26-2021 T3, TOTAL 106 ng/dL Normal 71-180 [facility] [place] [facility] Comment on above: Performed By: #### B 12FOL, PSAD #### [facility] [address] [place] [address] Antonette Damon CBC AUTO DIFFon 11-25-2021 BASO # 0.0 103/ul Normal 0.0-0.1 [facility] [place] [facility] Comment on above: Performed By: #### C BC #### [facility] [address] [place] [address] Dr. Floridalma Collins Basophils/100 WBC (Bld) 0.4 % Normal 0.2-2.0 [facility] [place] [facility] Comment on above: Performed By: #### C BC #### [facility] [address] [place] [address] Dr. Floridalma Collins EO # 0.3 103/ul Normal 0.0-0.7 [facility] [place] [facility] Comment on above: Performed By: #### C BC #### [facility] [address] [place] [address] Dr. Floridalma Collins Eosinophils/100 WBC (Bld) 5.4 % Normal 0.9-7.0 [facility] [place] [facility] Comment on above: Performed By: #### C BC #### [facility] [address] [place] [address] Dr. Floridalma Collins Erythrocyte distribution width (RBC) [Ratio] 13.3 % Normal 11.0-15.0 [facility] [place] [facility] Comment on above: Performed By: #### C BC #### [facility] [address] [place] [address] Dr. Floridalma Collins Hematocrit (Bld) [Volume fraction] 38.9 % Critically low 42.0-54.0 [facility] [place] [facility] Comment on above: Performed By: #### C BC #### [facility] [address] [place] [address] Dr. Floridalma Collins Hemoglobin (Bld) [Mass/Vol] 12.9 g/dL Critically low 14.0-18.0 [facility] [place] [facility] Comment on above: Performed By: #### C BC #### [facility] [address] [place] [address] Dr. Floridalma Collins IG # 0.01 10e3/ul Normal 0.00-0.03 [facility] [place] [facility] Comment on above: Performed By: #### C BC #### [facility] [address] [place] [address] Dr. Floridalma Collins IG % 0.2 % Normal 0.0-0.5 [facility] [place] [facility] Comment on above: Performed By: #### C BC #### [facility] [address] [place] [address] Dr. Floridalma Collins LYMPH # 1.3 103/ul Normal 1.2-3.8 [facility] [place] [facility] Comment on above: Performed By: #### C BC #### [facility] [address] [place] [address] Dr. Floridalma Collins Lymphocytes/100 WBC (Bld) 28.7 % Normal 20.5-60.0 [facility] [place] [facility] Comment on above: Performed By: #### C BC #### [facility] [address] [place] [address] Dr. Floridalma Collins MANUAL DIFF REQ NO Normal [facility] Comment on above: Performed By: #### C BC #### [facility] [address] [place] [address] Dr. Floridalma Collins MCH (RBC) [Entitic mass] 32.3 pg Normal 25.9-34.0 [facility] [place] [facility] Comment on above: Performed By: #### C BC #### [facility] [address] [place] [address] Dr. Floridalma Collins MCHC (RBC) [Mass/Vol] 33.2 g/dL Normal 29.9-35.2 [facility] [place] [facility] Comment on above: Performed By: #### C BC #### [facility] [address] [place] [address] Dr. Floridalma Collins MCV (RBC) [Entitic vol] 97.3 fL Critically high 80.0-94.0 [facility] [place] [facility] Comment on above: Performed By: #### C BC #### [facility] [address] [place] [address] [address] Floridalma Collins MONO # 0.4 103/ul Normal 0.3-0.8 [facility] [place] [facility] Comment on above: Performed By: #### C BC #### [facility] [address] [place] [address] [address] Floridalma Collins Monocytes/100 WBC (Bld) 9.5 % Normal 1.7-12.0 [facility] [place] [facility] Comment on above: Performed By: #### C BC #### [facility] [address] [place] [address] Dr. Floridalma Collins NEUT # 2.6 103/ul Normal 1.4-6.5 [facility] [place] [facility] Comment on above: Performed By: #### C BC #### [facility] [address] [place] [address] Dr. Floridalma Collins Neutrophils/100 WBC (Bld) 55.8 % Normal 43.0-75.0 [facility] [place] [facility] Comment on above: Performed By: #### C BC #### [facility] [address] [place] [address] Dr. Floridalma Collins Platelet mean volume (Bld) [Entitic vol] 10.0 fL Normal 9.5-13.5 [facility] [place] [facility] Comment on above: Performed By: #### C BC #### [facility] [address] [place] [address] Dr. Floridalma Collins PLT 190 103/ul Normal 150-450 [facility] Comment on above: Performed By: #### C BC #### [facility] [address] [place] [address] Dr. Floridalma Collins RBC 4.00 106/ul Critically low 4.70-6.10 [facility] Comment on above: Performed By: #### C BC #### [facility] [address] [place] [address] Dr. Floridalma Collins WBC 4.6 103/ul Normal 4.0-11.0 [facility] Comment on above: Performed By: #### C BC #### [facility] [address] [place], [place] [address] Dr. Floridalma Collins FREE T3on 11-25-2021 FREE T3 2.39 pg/mlL Normal 2.18-3.98 [facility] [place] [facility] Comment on above: Performed By: #### F T3, CMP, LIPID, TSH #### [facility] [address] [place], [place] [address] Dr. Floridalma Collins FREE T4on 11-25-2021 Free T4 [Mass/Vol] 1.09 ng/dL Normal 0.76-1.46 [facility] Comment on above: Performed By: #### B 12FOL, PSAD #### [facility] [address] [place] [id number] [place] Marisol LIPID PROFILEon 11-25-2021 CHOL-HDL RATIO NORM SEE BELOW Normal [facility] Comment on above: Result Comment: 3.3 - 4.4 LOW RISK 4.4 - 7.1 AVERAGE RISK 7.1 - 11.0 MODERATE RISK >11.0 HIGH RISK Performed By: #### B 12FOL, PSAD #### [facility] [address] [place] [address] Antonette Marisol Cholesterol [Mass/Vol] 175 mg/dL Normal <=200 [facility] [place] [facility] Comment on above: Performed By: #### B 12FOL, PSAD #### [facility] [address] [place] [id number] Antonette Marisol Cholesterol in HDL [Mass/Vol] 62 mg/dL Critically high 40-60 [facility] [place] [facility] Comment on above: Performed By: #### B 12FOL, PSAD #### [facility] [address] [place], [place] [address] Antonette Marisol Cholesterol in LDL [Mass/Vol] 103.4 mg/dL Normal [facility] [place] [facility] Comment on above: Performed By: #### B 12FOL, PSAD #### [facility] [address] [place], [place] [address] Antonette Marisol Cholesterol.total/C holesterol in HDL [Mass ratio] 2.8 {ratio} Normal [facility] [place] [facility] Comment on above: Performed By: #### Rudolph EVERETT PSAD #### [facility] [address] [place] [id number] [place]ette Marisol HDL NORMAL > or = 60 mg/dl - LO W CARDIOVASCULAR RISK <40 mg/dl - HIGH CARDIOVASCULAR RISK Normal [facility] [place] [facility] Comment on above: Performed By: #### Rudolph EVERETT PSAD #### [facility] [address] [place] [id number] [place]ette Marisol LDL CALC NORMAL SEE BELOW Normal [facility] Comment on above: Result Comment: <100 mg/dl OPTIMAL 100 - 129 mg/dl NEAR OR ABOVE OPTIMAL 130 - 159 mg/dl BORDERLINE HIGH 160 - 189 mg/dl HIGH >190 mg/dl VERY HIGH Performed By: #### Rudolph EVERETT PSAD #### [facility] [address] [place] [address] Antonette Marisol Triglyceride [Mass/Vol] 48 mg/dL Normal <=150 [facility] [place] [facility] Comment on above: Performed By: #### Rudolph EVERETT PSARosalio #### [facility] [address] [place] [id number] Antonette Marisol VLDL CALC 9.6 mg/dL Normal [facility] [place] [facility] Comment on above: Performed By: #### Rudolph EVERETT PSARosalio #### [facility] [address] [place] [id number] Antonettearsenio Damon PROF 14(COMP METB)on 022 Albumin [Mass/Vol] 3.7 g/dL Normal 3.4-5.0 [facility] Comment on above: Performed By: #### Rudolph EVERETT PSAD #### [facility] [address] [place] [phone] [place]ette Marisol Albumin/Globulin [Mass ratio] 1.3 {ratio} Normal [facility] [place] [facility] Comment on above: Performed By: #### Rudolph EVERETT PSAD #### [facility] [address] [place] [phone] Antonette Marisol ALP [Catalytic activity/Vol] 58 U/L Normal 46-116 [facility] Comment on above: Performed By: #### B 12FOL, PSAD #### [facility] Laboratory [address], [place] [address] Antonette Marisol ALT [Catalytic activity/Vol] 21 U/L Normal 16-63 [facility] [place] [facility] Comment on above: Performed By: #### Rudolph 12ALEKSEY, PSAD #### [facility] [address], [place] [address] Antonette Marisol Anion gap [Moles/Vol] 13.1 mmol/L Normal [facility] [place] [facility] Comment on above: Performed By: #### Rudolph 12ALEKSEY, PSAD #### [facility] [address] [id number] Antonette Marisol AST [Catalytic activity/Vol] 21 U/L Normal 15-37 [facility] [place] [facility] Comment on above: Performed By: #### Rudolph 12ALEKSEY, PSAD #### [facility] [address] [place], [place] [id number] Antonette Marisol Bilirubin [Mass/Vol] 0.5 mg/dL Normal 0.2-1.0 [facility] [place] [facility] Comment on above: Performed By: #### Rudolph EVERETT, PSAD #### [facility] [address] [place], [place] [id number] Antonette Marisol Calcium [Mass/Vol] 8.6 mg/dL Normal 8.5-10.1 [facility] Comment on above: Performed By: #### Rudolph 12FOAshley, PSAD #### [facility] [address] [place], [place] [phone] Antonette Marisol Chloride [Moles/Vol] 106 mmol/L Normal 98-107 [facility] Comment on above: Performed By: #### Rudolph 12FOAshley, PSAD #### [facility] [address] [place] [address] Antonette Marisol CO2 [Moles/Vol] 23.9 mmol/L Normal 21.0-32.0 [facility] Comment on above: Performed By: #### Rudolph 12FOAshley, PSAD #### [facility] [address], [place] [address] Antonette Marisol Creatinine [Mass/Vol] 1.20 mg/dL Normal 0.70-1.30 [facility] [place] [facility] Comment on above: Performed By: #### B 12FOL, PSAD #### [facility] [address] [place], [place] [address] Antonette Mariosl EGFR-AF BERMUDIAN >60 Normal >=60 [facility] Comment on above: Performed By: #### B 12FOL, PSAD #### [facility] [address] [place], [place] [address] Antonette Marisol EGFR-NON AF BERMUDIAN =60 Normal >=60 [facility] [place] [facility] Comment on above: Performed By: #### B 12FOL, PSAD #### [facility] [address], [place] [address] Antonette Marisol Globulin (S) [Mass/Vol] 2.9 g/dL Normal [facility] [place] [facility] Comment on above: Performed By: #### B 12FOL, PSAD #### [facility] [address] [place], [place] [address] Antonette Marisol Glucose [Mass/Vol] 97 mg/dL Normal 74-106 [facility] Comment on above: Performed By: #### B 12FOL, PSAD #### [facility] [address] [place], [place] [address] Antonette Marisol Potassium [Moles/Vol] 4.0 mmol/L Normal 3.5-5.1 [facility] [place] [facility] Comment on above: Performed By: #### B 12FOL, PSAD #### [facility] [address], [place] [address] Antonette Marisol Protein [Mass/Vol] 6.6 g/dL Normal 6.4-8.2 [facility] Comment on above: Performed By: #### B 12FOL, PSAD #### [facility] [address] [place], [place] [address] Antonette Marisol Sodium [Moles/Vol] 139 mmol/L Normal 136-145 [facility] Comment on above: Performed By: #### B 12FOL, PSAD #### [facility] [address] [place], [place] [address] Antonette Marisol Urea nitrogen [Mass/Vol] 19.0 mg/dL Critically high 7.0-18.0 [facility] [place] [facility] Comment on above: Performed By: #### Rudolph EVERETT PSAD #### [facility] [address] [place] [address] Antonette Damon Urea nitrogen/Creatinine [Mass ratio] 15.8 mg/mg Normal [facility] Comment on above: Performed By: #### Rudolph 12ALEKSEY PSAD #### [facility] [address] [place] [address] Antonette Kendallen TSHon 11-25-2021 TSH 1.726 uIU/mL Normal 0.358-3.740 [facility] Comment on above: Performed By: #### Rudolph EVERETT PSAD #### [facility] [address] [place] [address] Antonette Damon VIT B12 AND FOLATEon 022 Cobalamin (Vitamin B12) [Mass/Vol] 641.0 pg/mL Normal 193.0-986.0 [facility] [place] [facility] Comment on above: Performed By: #### Rudolph EVERETT PSAD #### [facility] [address] [place] [address] Antonette Damon FOLATE 17.90 ng/mL Normal 8.60-58.90 [facility] Comment on above: Performed By: #### Rudolph 12ALEKSEY PSAD #### [facility] [address] [place] [address] Antonette Damon TSHon 01-21-2021 TSH 0.720 uIU/mL Normal 0.470-4.680 [facility] Comment on above: Performed By: #### T SH #### [facility] [address] [place] [address] Dr. Floridalma Collins TSH RANGE SEE BELOW Normal [facility] Comment on above: Result Comment: <0.3 4 UIU/ml HYPERTHYROID 0.34-5.60 UIU/ml EUTHYROID >5.60 UIU/ml HYPOTHYROID Performed By: #### T SH #### [facility] [address] [place] [address] Dr. Floridalma Collins T3, TOTAL (TRIIODOTHYRONINE) on 12-25-2020 T3, TOTAL 120 ng/dL Normal 71-180 [facility] [place] [facility] Comment on above: Performed By: #### T 3TOTAL #### [facility] [address] [place] [address] Dr. Floridalma Collins CBC AUTO DIFFon 12-24-2020 BASO # 0.0 103/ul Normal 0.0-0.1 [facility] [place] [facility] Comment on above: Performed By: #### C BC #### [facility] [address] [place] [address] Antonette Marisol Basophils/100 WBC (Bld) 0.5 % Normal 0.2-2.0 [facility] [place] [facility] Comment on above: Performed By: #### C BC #### [facility] [address] [place] [address] Antonette Marisol EO # 0.1 103/ul Normal 0.0-0.7 [facility] [place] [facility] Comment on above: Performed By: #### C BC #### [facility] [address] [place] [address] Antonette Marisol Eosinophils/100 WBC (Bld) 3.3 % Normal 0.9-7.0 [facility] [place] [facility] Comment on above: Performed By: #### C BC #### [facility] [address] [place] [address] Antonette Marisol Erythrocyte distribution width (RBC) [Ratio] 12.9 % Normal 11.0-15.0 [facility] [place] [facility] Comment on above: Performed By: #### C BC #### [facility] [address] [place] [address] Antonette Marisol Hematocrit (Bld) [Volume fraction] 37.2 % Critically low 42.0-54.0 [facility] [place] [facility] Comment on above: Performed By: #### C BC #### [facility] [address] [place], [place] [phone] Antonette Marisol Hemoglobin (Bld) [Mass/Vol] 12.7 g/dL Critically low 14.0-18.0 [facility] [place] [facility] Comment on above: Performed By: #### C BC #### [facility] [address] [place] [address] Antonette Marisol IG # 0.01 10e3/ul Normal 0.00-0.03 [facility] [place] [facility] Comment on above: Performed By: #### C BC #### [facility] [address] [place] [address] Antonettearsenio Damon IG % 0.3 % Normal 0.0-0.5 [facility] [place] [facility] Comment on above: Performed By: #### C BC #### [facility] [address] [place] [address] Antonettearsenio Damon LYMPH # 1.4 103/ul Normal 1.2-3.8 [facility] [place] [facility] Comment on above: Performed By: #### C BC #### [facility] [address] [place] [address] Antonette Damon Lymphocytes/100 WBC (Bld) 33.9 % Normal 20.5-60.0 [facility] [place] [facility] Comment on above: Performed By: #### C BC #### [facility] [address] [place] [address] Antonette Damon MANUAL DIFF REQ NO Normal [facility] Comment on above: Performed By: #### C BC #### [facility] [address] [place] [address] Antonette Damon MCH (RBC) [Entitic mass] 33.2 pg Normal 25.9-34.0 [facility] [place] [facility] Comment on above: Performed By: #### C BC #### [facility] [address] [place] [address] Antonette Damon MCHC (RBC) [Mass/Vol] 34.1 g/dL Normal 29.9-35.2 [facility] [place] [facility] Comment on above: Performed By: #### C BC #### [facility] [address] [place] [address] Antonette Damon MCV (RBC) [Entitic vol] 97.4 fL Critically high 80.0-94.0 [facility] [place] [facility] Comment on above: Performed By: #### C BC #### [facility] [address] [place] [address] Antonette Marisol MONO # 0.4 103/ul Normal 0.3-0.8 [facility] [place] [facility] Comment on above: Performed By: #### C BC #### [facility] [address], [place] [address] Antonette Marisol Monocytes/100 WBC (Bld) 10.8 % Normal 1.7-12.0 [facility] [place] [facility] Comment on above: Performed By: #### C BC #### [facility] [address] [id number] Antnoette Marisol NEUT # 2.0 103/ul Normal 1.4-6.5 [facility] Comment on above: Performed By: #### C BC #### [facility] [address] [id number] Antonette Marisol Neutrophils/100 WBC (Bld) 51.2 % Normal 43.0-75.0 [facility] Comment on above: Performed By: #### C BC #### [facility] [address] [place], [place] [phone] Antonette Marisol Platelet mean volume (Bld) [Entitic vol] 9.2 fL Critically low 9.5-13.5 [facility] [place] [facility] Comment on above: Performed By: #### C BC #### [facility] [address] [place], [place] [address] Antonette Marisol PLT 201 103/ul Normal 150-450 [facility] Comment on above: Performed By: #### C BC #### [facility] [address] [place], [place] [address] Antonette Marisol RBC 3.82 106/ul Critically low 4.70-6.10 [facility] Comment on above: Performed By: #### C BC #### [facility] [address] [place], [place] [phone] Antonette Marisol WBC 4.0 103/ul Normal 4.0-11.0 [facility] Comment on above: Performed By: #### C BC #### [facility] [address] [place], [place] [phone] Antonette Marisol FREE T3on 12-24-2020 FREE T3 2.63 pg/mlL Critically low 2.77-5.27 [facility] Comment on above: Performed By: #### F T3 #### [facility] [address], [place] [address] Dr. Floridalma Collins FREE T4on 12-24-2020 Free T4 [Mass/Vol] 0.76 ng/dL Critically low 0.78-2.19 [facility] Comment on above: Performed By: #### C BC #### [facility] [address] [place] [address] [address] Floridalma Collins LIPID PROFILEon 12-24-2020 CHOL-HDL RATIO NORM SEE BELOW Normal [facility] Comment on above: Result Comment: 3.3 - 4.4 LOW RISK 4.4 - 7.1 AVERAGE RISK 7.1 - 11.0 MODERATE RISK >11.0 HIGH RISK Performed By: #### Rudolph EVERETT PSARosalio #### [facility] [address] [place] [address] Antonette Marisol Cholesterol [Mass/Vol] 188 mg/dL Normal <=200 [facility] [place] [facility] Comment on above: Performed By: #### Rudolph EVERETT PSARosalio #### [facility] [address] [place] [address] Antonette Marisol Cholesterol in HDL [Mass/Vol] 52 mg/dL Normal [facility] [place] [facility] Comment on above: Performed By: #### MEDINA WATSON #### [facility] [address] [place] [address] Antonette Marisol Cholesterol in LDL [Mass/Vol] 121.6 mg/dL Normal [facility] [place] [facility] Comment on above: Performed By: #### Rudolph EVERETT PSARosalio #### [facility] [address] [phone] Antonette Marisol Cholesterol.total/C holesterol in HDL [Mass ratio] 3.6 {ratio} Normal [facility] [place] [facility] Comment on above: Performed By: #### Rudolph EVERETT PSARosalio #### [facility] [address] [place], [place] [address] Antonette Marisol HDL NORMAL > or = 60 mg/dl - LO W CARDIOVASCULAR RISK <40 mg/dl - HIGH CARDIOVASCULAR RISK Normal [facility] [place] [facility] Comment on above: Performed By: #### MEDINA WATSON #### [facility] [address] [id number] Antonette Marisol LDL CALC NORMAL SEE BELOW Normal [facility] Comment on above: Result Comment: <100 mg/dl OPTIMAL 100 - 129 mg/dl NEAR OR ABOVE OPTIMAL 130 - 159 mg/dl BORDERLINE HIGH 160 - 189 mg/dl HIGH >190 mg/dl VERY HIGH Performed By: #### Rudolph EVERETT PSAD #### [facility] [address] [id number] Antonette Marisol Triglyceride [Mass/Vol] 72 mg/dL Normal <=150 [facility] [place] [facility] Comment on above: Performed By: #### MEDINA WATSON #### [facility] [address] [place], [place] [address] Antonette Marisol VLDL CALC 14.4 mg/dL Normal [facility] [place] [facility] Comment on above: Performed By: #### MEDINA WATSON #### [facility] [address] [place], [place] [address] Antonette aDmon PROF 14(COMP METB)on 021 Albumin [Mass/Vol] 3.7 g/dL Normal 3.5-5.0 [facility] Comment on above: Performed By: #### MEDINA WATSON #### [facility] [address] [place], [place] [address] Antonette Damon Albumin/Globulin [Mass ratio] 1.2 {ratio} Normal [facility] [place] [facility] Comment on above: Performed By: #### Rudolph EVERETT PSAD #### [facility] [address] [place], [place] [address] Antonette Marisol ALP [Catalytic activity/Vol] 51 U/L Normal 38-126 [facility] Comment on above: Performed By: #### Rudolph EVERETT PSARosalio #### [facility] [address] [place], [place] [phone] Antonette Marisol ALT [Catalytic activity/Vol] 23 U/L Normal 21-72 [facility] [place] [facility] Comment on above: Performed By: #### Rudolph EVERETT PSARosalio #### [facility] [address] [place], [place] [address] Antonette Marisol Anion gap [Moles/Vol] 14.0 mmol/L Normal [facility] [place] [facility] Comment on above: Performed By: #### Rudolph EVERETT PSARosalio #### [facility] [address] [place] [address] Antonette Marisol AST [Catalytic activity/Vol] 21 U/L Normal 17-59 [facility] Comment on above: Performed By: #### Rudolph EVERETT PSARosalio #### [facility] [address] [place] [address] Antonette Marisol Bilirubin [Mass/Vol] 0.4 mg/dL Normal 0.2-1.3 [facility] Comment on above: Performed By: #### Rudolph EVERETT PSARosalio #### [facility] [address] [place] [address] Antonette Marisol Calcium [Mass/Vol] 8.7 mg/dL Normal 8.4-10.2 [facility] Comment on above: Performed By: #### Rudolph EVERETT PSARosalio #### [facility] [address] [place] [address] Antonette Marisol Chloride [Moles/Vol] 105 mmol/L Normal 98-107 [facility] Comment on above: Performed By: #### Rudolph EVERETT PSARosalio #### [facility] [address] [place] [address] Antonette Marisol CO2 [Moles/Vol] 25.2 mmol/L Normal 22.0-30.0 [facility] Comment on above: Performed By: #### Rudolph EVERETT PSAD #### [facility] [address] [place] [address] Antonette Marisol Creatinine [Mass/Vol] 1.10 mg/dL Normal 0.66-1.25 [facility] Comment on above: Performed By: #### Rudolph EVERETT PSARosalio #### [facility] [address] [place], [place] [address] Antonette Marisol EGFR-AF BERMUDIAN >60 Normal >=60 [facility] Comment on above: Performed By: #### Rudolph EEVRETT PSAD #### [facility] [address] [address] Antonette Marisol EGFR-NON AF BERMUDIAN >60 Normal >=60 [facility] Comment on above: Performed By: #### Rudolph EVERETT PSAD #### [facility] [address] [id number] Antonette Marisol Globulin (S) [Mass/Vol] 3.0 g/dL Normal [facility] [place] [facility] Comment on above: Performed By: #### Rudolph EVERETT, PSAD #### [facility] [address] [place] [address] Antonette Marisol Glucose [Mass/Vol] 97 mg/dL Normal 74-106 [facility] Comment on above: Performed By: #### Rudolph EVERETT PSAD #### [facility] [address] [place] [address] Antonette Marisol Potassium [Moles/Vol] 4.2 mmol/L Normal 3.4-5.0 [facility] Comment on above: Performed By: #### Rudolph EVERETT PSAD #### [facility] [address] [place] [address] Antonette Marisol Protein [Mass/Vol] 6.7 g/dL Normal 6.1-8.2 [facility] Comment on above: Performed By: #### Rudolph EVERETT, PSAD #### [facility] [address] [place] [address] Antonette Marisol Sodium [Moles/Vol] 140 mmol/L Normal 137-145 [facility] Comment on above: Performed By: #### Rudolph EVERETT, PSAD #### [facility] [address] [place] [address] Antonette Marisol Urea nitrogen [Mass/Vol] 24.0 mg/dL Critically high 9.0-20.0 [facility] Comment on above: Performed By: #### Rudolph EVERETT, PSAD #### [facility] [address] [place], [place] [address] Antonette Marisol Urea nitrogen/Creatinine [Mass ratio] 21.8 mg/mg Normal [facility] Comment on above: Performed By: #### Rudolph EVERETT, PSAD #### [facility] [address] [address] Antonette Damon T4on 12-24-2020 T4 [Mass/Vol] 6.60 ug/dL Normal 5.53-11.00 [facility] Comment on above: Performed By: #### Rudolph 12ALEKSEY, PSAD #### [facility] [address] [id number] Antonette Damon TSHon 12-24-2020 TSH 6.821 uIU/mL Critically high 0.470-4.680 [facility] Comment on above: Performed By: #### Rudolph 12ALEKSEY PSAD #### [facility] [address] [place] [address] Antonette Damon TSH RANGE SEE BELOW Normal [facility] [place] [facility] Comment on above: Result Comment: <0.3 4 UIU/ml HYPERTHYROID 0.34-5.60 UIU/ml EUTHYROID >5.60 UIU/ml HYPOTHYROID Performed By: #### Rudolph 12ALEKSEY PSAD #### [facility] [address] [place] [address] Antonette Damon VIT B12 AND FOLATEon 021 Cobalamin (Vitamin B12) [Mass/Vol] 1306.0 pg/mL Critically high 239.0-931.0 [facility] [place] [facility] Comment on above: Performed By: #### Rudolph 12ALEKSEY, PSAD #### [facility] [address] [place] [address] Antonette Damon FOLATE >20.00 Normal >=2.76 [facility] Comment on above: Performed By: #### Rudolph 12FOAshley, PSAD #### [facility] [address] [place], [place] [phone] Antonette Damon Encounters Encounter Date Encounter Type Care Provider Facility Start: 06-21-2024 End: 06-21-2024 Telephone encounter Emerald Riggs MD Work Phone: [facility] Start: 06-14-2024 End: 06-14-2024 [facility] Result Encounter Generic External Data Provider [facility] Department Unsolicited Start: 06-14-2024 End: 06-14-2024 [facility] Result Encounter Generic External Data Provider [...] FM 100 Start: 01-04-2024 End: 01-04-2024 ambulatory [facility] Work Phone: Start: 01-04-2024 End: 01-04-2024 Patient encounter procedure [facility] Work Phone: Start: 12-14-2023 End: 12-14-2023 [...] Date Procedure Procedure Detail Performing Clinician Start: 06-14-2024 XR ANKLE LT MIN 3V Gene isaiah External Data Provider Start: 05-29-2024 XR ANKLE LT MIN 3V Gene isaiah External Data Provider Start: 05-26-2024 ECG 12-LEAD Generic Ex ternal Data Provider Start: 05-26-2024 ALL CBC WITH AUTO DIFF Generic External Data Provider Start: 12-14-2023 ALL CBC WITH AUTO DIFF Emerald Riggs MD Work Phone: Start: 12-24-[address] EMERALD RIGGS Comment on above: Performed By: #### B 12FOL, PSAD #### [facility] [address] [place] [address] Antonette Damon Start: 12-08-2017 Colonoscopy Emerald mcclure [...] ster Vaccination Emerald Riggs MD Work Phone: [facility] Payers Date Payer Category Payer Private Health Insurance ZENAIDA Olivas mber [id number] 2022 Unknown AARP AARP [id number] 2022-Present [address] [place] [address] [id number] 2018 Medicare [id number] 1959 Medicare [id number] 1959 Self-pay 1959 Unknown [id number] 1953 Unknown [id number] 1953 Unknown [id number] 1953 Unknown [id number] [id number] .593 1953 Unknown [id number] .1259 1953 Unknown [id number] .1259 1953 Unknown [id number] .1259 1953 Unknown [id number] [id number] .1259 1953 Unknown [id number] [id number] .1259 Unknown [id number] .593 Social History Date Type Detail Facility [facility] Start: 1955 [facility] At [facility] Start: 11-25-2022 [facility] Start: 11-25-2022 Tobacco use and exposure Smoke less tobacco non-user [facility] Start: 11-29-2023 Alcoholic beverage intake Curr ent drinker of alcohol (finding) [facility] Start: 07-19-2023 End: 11-29-2023 Alcoholic beverage intake [facility] Start: 07-19-2023 End: 11-29-2023 Social connection and isolation panel [facility] Do you belong to any clubs or organizations such as faith groups, unions, fraternal or athletic groups, or [...] file [facility] Telephone encounter Note 06-21-2024 Telephone Encounter - Emerald Riggs MD - 06/21/2024 1:32 PM EDT Note Date & Type Note Facility 06-21-2024 Telephone encount er Note RX sent [facility] Note 06-21-2024 Telephone Encounter - Emerald Riggs MD - 06/21/2024 1:32 PM EDTTelephone Encounter - Tramdanny Zhong - 06/21/2024 11:33 AM EDT Note Date & Type Note Facility 06-21-2024 Miscellaneous Notes Formattin g of this note might be different from the original. RX sent Virgie called, he is requesting that his B12 shots be refilled to mail away. documented in this encounter [facility] Telephone encounter Note 06-21-2024 Telephone Encounter - Tram Farheen - 06/21/2024 11:33 AM EDT Note Date & Type Note Facility 06-21-2024 Telephone encount er Note Virgie called, he is requesting that his B12 shots be refilled to mail away. [facility] Telephone encounter Note 05-18-2024 Telephone [...] to be sent to [facility] in [place]. documented in this encounter [facility] Telephone encounter Note 05-18-2024 Telephone Encounter - Tram Zhong - 05/18/2024 10:03 AM EST Note Date & Type Note Facility 05-18-2024 Telephone encount er Note Virgie called, He switched his prescription coverage and is asking for his Levo to be sent to [facility] in [place]. [facility] Evaluation note Note Date & Type Note Facility Evaluation note Diagnosis Onset Date Dupuytren contracture of both hands [facility] Work Phone: Evaluation note Note Date & Type Note Facility Evaluation note Diagnosis Acquired hypothyroidism (CMS/HCC) Unspecified hypothyroidism documented in this encounter [facility] Evaluation note Note Date & Type Note Facility Evaluation note Diagnosis Pernicious anemia- Primary documented in this encounter [facility] Summary Purpose Family History No Family History Records FoundNo Family History Records Found Advance Directives Advance Directive Response Recorded Date/ Time Advance Directives No August 11, 2023 10:22am Documents on File Type Date Recorded 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 Advance Directives and Living Will 02/21/2019 2003-02-06 Power Of Sanitor Advance Directives and Living Will 02/06/2003 8:09 AM Power of Sanitor 11/30/2022 8:09 AM Power Of Sanitor Chief Complaint and Reason for Visit Chief Complaint NEW RT DUPUYTRENS CO NTRACTURE WX NOMS Reason for Visit Dupuytren contractur e of both hands Additional Source Comments (unrecognized sect ion and content) No Status Records FoundNo Status Records Found INFORMATION SOURCE (unrecogn ized section and content) DATE CREATED AUTHOR 12/02/2021 [facility] DATE CREATED AUTHOR AUTHOR'S ORGANIZ ATION 11/29/2023 [facility] EPIC Care Teams (unrecognized sec tion and content) Team Status: Active Member Role Status Dates Emerald Riggs MD Primary Care Provider Active Team Status: Inactive Member Role Status Dates Emerald Riggs MD Primary Care Provider Active Start: January 04, 2024 End: January 04, 2024 Gauri Burris MD Attending Provider Active Start: January 04, 2024 End: January 04, 2024 [employer]iller'S Offsider Relationship Specialty Start Date End Date Emerald Riggs MD [address] [facility] [place] [address] (Fax) PCP - ACO Reach 09/03/22 Emerald Riggs MD [address] [facility] [place] [id number] PCP - General Family Medicine 10/05/22 Driller'S Offsider Relationship Specialty Start Date End Date Emerald Riggs MD [address] [place] [address] (Fax) PCP - ACO Reach 09/03/22 Emerald Riggs MD [address] [place] [address] (Fax) PCP - General Family Medicine 10/05/22 Driller'S Offsider Relationship Specialty Start Date End Date Emerald Riggs MD [address] [place] [address] (Fax) PCP - ACO Reach 09/03/22 Emerald Riggs MD [address] [place] [address] (Fax) PCP - General Family Medicine 10/05/22 Driller'S Offsider Relationship Specialty Start Date End Date Emerald Riggs MD [address] [place] [address] PCP - ACO Reach 09/03/22 Emerald Riggs MD [address] [place] [address] PCP - General Family Medicine 10/05/22 Driller'S Offsider Relationship Specialty Start Date End Date Emerald Riggs MD [address] [place] [address] PCP - ACO Reach 09/03/22 Emerald Riggs MD [address] [place] [address] PCP - General Family Medicine 10/05/22 Goals [...] BE BASED ON THE PRIMARY CLINICAL RECORDS. [facility]. provides no warranty or guarantee of the accuracy or completeness of information in this document.
== END 2024-07-11 08:40 | disposition home or self-care (01) ==
LOC: RAD 08:39
PROVIDERS: PCP Family Medicine; Visit Provider Podiatrist Foot & Ankle Surgery
DX: M25.572 Pain in left ankle and joints of left foot (principal); S89.302D Unspecified physeal fracture of lower end of left fibula, subsequent encounter for fracture with routine healing
CPT/HCPCS: 73610

== ENCOUNTER 2024-08-28 10:01 | Outpatient (OUT) | payer MEDICARE, SELFPAY ==
--- OUTSIDE RECORDS SUMMARY | 2024-08-28 10:09 | XMS_ITS | CCD ---
Author Organization [facility] CliniSymi Care Team Providers Care Special Assemblies Supervisor Name Role Phone ONEIL, DR CORBIN Consulting [...] JR. NEGRO GEORGE C Attending Unavaila EMERALD aBker Attending Unavailable Emerald Riggs MD Unavailable Emerald Riggs MD Primary Care Provider Emerald Riggs MD Unavailable Emerald Riggs MD Primary Care Provider [phone] Allergies Allergy Classification Reported Allergen(s) Allergy Type Date of Onset Reaction(s) Facility (1 source) Penicillin Drug Allergy [facility] Repository (9 sources) Penicillins Drug Allergy 11-17-2022 Rash [facility] [...] Active cyclobenzaprine hydrochloride 10 mg oral tablet (9 sources) Muscle Relaxant Start: 11-29-2023 End: 12-29-2023 take 1 tablet by mouth three times daily as needed for muscle spasms cyclobenzaprine (Flexeril) 10 MG tablet Indications: Chronic fatigue syndrome Take 1 tablet (10 mg) by mouth 3 (three) times a day as needed for muscle spasms 90 tablet 11/29/2023 Active levothyroxine sodium 0.075 mg oral tablet (11 sources) l-Thyroxine Start: 08-19-2023 End: 05-19-2025 take 1 tablet by mouth before mealtime levothyroxine (Synthroid, Levoxyl) 75 MCG tablet Indications: Acquired hypothyroidism (CMS/HCC) Take 1 tablet (75 mcg) by mouth in the morning. Take before meals. 90 tablet 3 05/19/2024 05/19/2025 Active Multiple Vitamins-Minerals (MULTIVITAMIN GUMMIES ADULTS PO) (9 sources) take 1 tablet by mouth once daily Multiple Vitamins-Minerals (MULTIVITAMIN GUMMIES ADULTS PO) Take 1 tablet by mouth 1 (one) time each day at the same time. Active vitamin b12 1 mg/ml injectable solution (3 sources) Vitamin B12 Start: 06-21-2024 End: 06-21-2025 [...] Onset: 11-26-2021 Episodic Disorders of lipid metabolism (10 sources) Pure hypercholesterolemia, unspecified; Translations: [Pure hypercholesterolemia] Onset: 01-08-2021 11-17-2022 Chronic Diverticulosis and diverticulitis (9 sources) Diverticulosis of sigmoid colon; Translations: [Diverticulosis of large intestine without perforation or abscess without bleeding] Onset: 12-08-2017 11-17-2022 Chronic Genitourinary symptoms and ill-defined conditions (1 source) Other symptoms and signs involving the genitourinary system; Translations: [OTH SYMPTOMS SIGNS INVLV SYSTEM] Onset: 11-26-2021 Episodic Hyperplasia of prostate (9 sources) Benign prostatic hyperplasia; Translations: [Benign prostatic hyperplasia without lower urinary tract symptoms] Onset: 11-17-2022 11-17-2022 Chronic Malaise and fatigue (14 sources) Chronic fatigue, unspecified; Translations: [Chronic fatigue syndrome] Onset: 01-21-2021 Chronic Osteoarthritis (9 sources) Degenerative joint disease involving multiple joints; [...] DZ CIRC] Onset: 11-26-2021 Episodic Thyroid disorders (15 sources) Hypothyroidism, unspecified; Translations: [Acquired hypothyroidism] Onset: 01-29-2021 Chronic Past or Other Problems Problem Classification Problem Date Documented Da te Episodic/Chronic Deficiency and other anemia (10 sources) Pernicious anemia; Translations: [Vitamin B12 deficiency anemia due to intrinsic factor deficiency] Onset: 11-17-2022 11-17-2022 Episodic Immunizations and screening for infectious disease (4 sources) Encounter for immunization; Translations: [ENCOUNTER FOR IMMUNIZATION] Onset: 01-31-2021 Episodic Malaise and fatigue (1 source) Other fatigue; Translations: [OTHER FATIGUE] Onset: 01-08-2021 Episodic Mood disorders (9 sources) Mood disorders Onset: 11-29-2023 11-29-2023 Nutritional deficiencies (10 sources) Deficiency of other specified B group vitamins; Translations: [Cobalamin deficiency] Onset: 01-08-2021 11-17-2022 Episodic Other gastrointestinal disorders (9 sources) Slow transit constipation; Translations: [Slow transit constipation] Onset: 11-17-2022 Resolved: 11-29-2023 11-29-2023 Episodic Other male genital disorders (4 sources) Disorder of prostate, unspecified; Translations: [DISORDER OF PROSTATE UNSPECIFIED] Onset: 12-25-2020 Episodic Other male genital disorders (9 sources) Disorder of prostate; Translations: [Disorder of prostate, unspecified] Onset: 11-17-2022 11-17-2022 Episodic Thyroid disorders (9 sources) Sick-euthyroid syndrome; Translations: [Sick-euthyroid syndrome] Onset: 11-17-2022 Resolved: 11-29-2023 11-29-2023 Episodic Results Test Name Value Interpretation Reference Range Facility XR ANKLE LT MIN [address] [place] [address] XRay Report Signed Patient: VIRGIE SMITH MR#: [id number] : 1955 Acct:[id number] Age/Sex: 68 / M ADM Date: 07/11/24 Loc: RAD Attending Dr: Ainsley Dhillon D.P.M. Ordering Physician: Ainsley Dhillon D.P.M. Date of Service: 07/11/24 Procedure(s): XR ankle LT min 3V Accession Number(s): [id number] cc: EMERALD RIGGS ; Ainsley Dhillon D.P.M. [place] [id number] Patient Name: VIRGIE SMITH MRN: [id number]:[id number] date: 1955 Sex: M Assigned Patient Location: RAD Current Patient Location: RAD Accession/Order Number: [id number] Exam Date: 07/11/2024 09:20 Report Date: 07/11/2024 09:22 At the request of: AINSLEY DHILLON DPM Procedure: XR ankle LT min 3V LEFT ANKLE - 3 views CLINICAL DATA: Follow-up distal fibular fracture COMPARISON: 06/14/2024 AP, lateral and oblique views were obtained. A lateral plate and multiple screws is again seen along the distal fibula. The underlying fracture is not well seen though there is no change in alignment. There is no new fracture or dislocation. The talar dome is intact. There are no significant soft tissue abnormalities. XR/XR ankle LT min 3V IMPRESSION: STABLE APPEARANCE OF THE ANKLE. Impression dictated by: Marisol Wesley M.D.07/11/2024 9:22 AM Dictation Location: [place] [address] Electronically authenticated by: [id number] Y Date: 07/11/2024 09:22 Dictated By: Marisol Wesley M.D. Signed By: 07/11/24924 DD/ 1 TD/TT: Resident Buyer: [facility] Radiology, Radiologist, MD - 07/11/2024 [place] [address] XRay Report Signed Patient: VIRGIE SMITH MR#: [id number] : 1955 Acct:[id number] Age/Sex: 68 / M ADM Date: 07/11/24 Loc: TERRIE Attending Dr: Ainsley Dhillon D.P.M. Ordering Physician: Ainsley Dhillon D.P.M. Date of Service: 07/11/24 Procedure(s): XR ankle LT min 3V Accession Number(s): [id number] cc: EMERALD RIGGS ; Ainsley Dhillon D.P.M. The [address] [address] Patient Name: VIRGIE SMITH MRN: [facility]:[id number] date: 1955 Sex: M Assigned Patient Location: RAD Current Patient Location: RAD Accession/Order Number: [id number] Exam Date: 07/11/2024 09:20 Report Date: 07/11/2024 09:22 At the request of: AINSLEY DHILLON DPM Procedure: XR ankle LT min 3V LEFT ANKLE - 3 views CLINICAL DATA: Follow-up distal fibular fracture COMPARISON: 06/14/2024 AP, lateral and oblique views were obtained. A lateral plate and multiple screws is again seen along the distal fibula. The underlying fracture is not well seen though there is no change in alignment. There is no new fracture or dislocation. The talar dome is intact. There are no significant soft tissue abnormalities. XR/XR ankle LT min 3V IMPRESSION: STABLE APPEARANCE OF THE ANKLE. Impression dictated by: Marisol Wesley M.D.07/11/2024 9:22 AM Dictation Location: [place] [address] Electronically authenticated by: [id number] Y Date: 07/11/2024 09:22 Dictated By: Marisol Wesley M.D. Signed By: 07/11/24924 DD/ 1 TD/TT: Resident Buyer: [facility] SCP Events Radiology Study observation (narrative) [facility] XR ANKLE LT MIN 3VOrdered By : Radiologist Radiology on 07-11-2024 [facility] sportif225car e Work Phone: XR ANKLE LT MIN [address] [place] [address] XRay Report Signed Patient: VIRGIE SMITH MR#: [id number] : 1955 Acct:[id number] Age/Sex: 68 / M ADM Date: 06/14/24 Loc: RAD Attending Dr: Ainsley Dhillon D.P.M. Ordering Physician: Ainsley Dhillon D.P.M. Date of Service: 06/14/24 Procedure(s): XR ankle LT min 3V Accession Number(s): [id number] cc: EMERALD RIGGS ; Ainsley Dhillon D.P.M. The [place] [address] Patient Name: VIRGIE SMITH MRN: [facility]:[id number] date: 1955 Sex: M Assigned Patient Location: RAD Current Patient Location: PT Accession/Order Number: [id number] Exam Date: 06/14/2024 23:02 Report Date: 06/14/2024 23:04 At the request of: AINSLEY DHILLON DPIvan Procedure: XR ankle LT min 3V LEFT ANKLE - 3 views CLINICAL HISTORY: Follow-up surgery. COMPARISON: Left ankle 05/26/2024 FINDINGS: Splint has been removed. Soft tissue swelling is present. Distal fibular hardware is in place without hardware complication. Fracture is unchanged in alignment. Ankle mortise appears intact. XR/XR ankle LT min 3V IMPRESSION: NO HARDWARE COMPLICATION. Impression dictated by: Chino Ulloa Jr., DHayde06/14/2024 11:04 PM Dictation Location: [place] [address] Electronically authenticated by: [id number] Y Date: 06/14/2024 23:04 Dictated By: Chino Ulloa M.D. Signed By: 06/14/242306 DD/ 03 TD/TT: Resident Buyer: [facility] Radiology, Radiologist, MD - 06/14/2024 [place] [address] XRay Report Signed Patient: VIRGIE SMITH MR#: [id number] : 1955 Acct:[id number] Age/Sex: 68 / M ADM Date: 06/14/24 Loc: RAD Attending Dr: Ainsley Dhillon D.P.M. Ordering Physician: Ainsley Dhillon D.P.M. Date of Service: 06/14/24 Procedure(s): XR ankle LT min 3V Accession Number(s): [id number] cc: EMERALD RIGGS ; Ainsley Dhillon D.P.M. The [address] [address] Patient Name: VIRGIE SMITH MRN: [facility]:[id number] date: 1955 Sex: M Assigned Patient Location: RAD Current Patient Location: PT Accession/Order Number: [id number] Exam Date: 06/14/2024 23:02 Report Date: 06/14/2024 23:04 At the request of: AINSLEY DHILLON DPIvan Procedure: XR ankle LT min 3V LEFT [...] Ulloa Jr., D.O.06/14/2024 11:04 PM Dictation Location: [facility] Electronically authenticated by: [id number] Y Date: 06/14/2024 23:04 Dictated By: Chino Ulloa M.D. Signed By: 06/14/242306 DD/ 03 TD/TT: Resident Buyer: [facility] Radiology Study observation (narrative) [facility] XR ANKLE LT MIN 3VOrdered By : Radiologist Radiology on 06-14-2024 [facility] sportif225car e Work Phone: XR ANKLE LT MIN [address] [place] [address] XRay Report Signed Patient: VIRGIE SMITH MR#: [id number] : 1955 Acct:[id number] Age/Sex: 68 / M ADM Date: 05/26/24 Loc: SURGOUT Attending Dr: Ainsley Dhillon D.P.M. Ordering Physician: Ainsley Dhillon D.P.M. Date of Service: 05/26/24 Procedure(s): XR ankle LT min 3V Accession Number(s): [id number] cc: EMERALD RIGGS ; Ainsley Dhillon D.P.M. [place] [id number] Patient Name: VIRGIE SMITH MRN: [facility]:[id number] date: 1955 Sex: M [facility] ER Accession/Order Number: [id number] Exam Date: 05/26/2024 11:20 Report Date: 05/29/2024 [...] Signed By: 05/29/24 1521 DD/ 1518 TD/TT: Resident Buyer: [facility] Radiology, Radiologist, MD - 05/29/2024 [place] [address] XRay Report Signed Patient: VIRGIE SMITH MR#: [id number] : 1955 Acct:[id number] Age/Sex: 68 / M ADM Date: 05/26/24 Loc: SURGOUT Attending Dr: Ainsley Dhillon D.P.M. Ordering Physician: Ainsley Dhillon D.P.M. Date of Service: 05/26/24 Procedure(s): XR ankle LT min 3V Accession Number(s): [id number] cc: EMERALD RIGGS ; Ainsley Dhillon D.P.M. [address] [address] Patient Name: VIRGIE SMITH MRN: [id number] date: 1955 Sex: M Assigned Patient Location: SURGOUT Current Patient Location: ER Accession/Order Number: [id number] Exam Date: 05/26/2024 11:20 Report Date: 05/29/2024 [...] Signed By: 05/29/24 1521 DD/ 1518 TD/TT: Resident Buyer: [facility] Radiology Study observation (narrative) [facility] XR ANKLE LT MIN 3VOrdered By : Radiologist Radiology on 05-29-2024 [facility] [email or web address] e Work Phone: ECG 12-LEADon 05-27-[address] [address] Electrocardiograph Report Signed Patient: VIRGIE SMITH MR#: [id number] : 1955 Acct:[id number] Age/Sex: 68 / M ADM Date: 05/26/24 Loc: SURGOUT Attending Dr: Ainsley Dhillon D.P.M. Ordering Physician: Mati Mckeon M.D. 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 Signed By: 05/27/24 0821 DD/ 0738 TD/TT: Resident Buyer: [facility] Radiology, Radiologist, MD - 05/27/2024 [place] [address] Electrocardiograph Report Signed Patient: VIRGIE SMITH MR#: [id number] : 1955 Acct:[id number] Age/Sex: 68 / M ADM Date: 05/26/24 Loc: SURGOUT Attending Dr: Ainsley Dhillon D.P.M. Ordering Physician: Mati Mckeon M.D. 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 Signed By: 05/27/24 0821 DD/ TD/TT: Resident Buyer: [facility] ECG 12-LEADOrdered By: Radio logist Radiology [facility]24 [facility]: ALL CBC WITH AUTO DIFFon BASOPHILS ABSOLUTE AUTO 0 [facility] Basophils/100 WBC (Bld) 0.5 % 0.2 - 2.0 % [facility] Eosinophils/100 WBC (Bld) 2 % 0.9 - 7.0 % [facility] Erythrocyte distribution width (RBC) [Ratio] 12.7 % 11.0 - 15.0 % [facility] Hematocrit (Bld) [Volume fraction] 38.2 % Low 42.0 - 54.0 % [facility] e Hemoglobin (Bld) [Mass/Vol] 12.9 g/dL Low 14.0 - 18.0 g/dL [facility] IMMATURE GRANULOCYTES ABS AUTO 0.01 [facility] Immature granulocytes/100 WBC (Bld) 0.2 % 0.0 - 0.5 % [facility] Interpretation and review of laboratory results [facility]normal [facility] LYMPHOCYTES ABSOLUTE AUTO 1.3 [facility] Lymphocytes/100 WBC (Bld) 21.5 % 20.5 - 60.0 % [facility] MCH (RBC) [Entitic mass] 32.6 pg 25.9 - 34.0 pg [facility] MCHC (RBC) [Mass/Vol] 33.8 g/dL 29.9 - 35.2 g/dL [facility] MCV (RBC) [Entitic vol] 96.5 fL High 80.0 - 94.0 fL [facility] MONOCYTES ABSOLUTE AUTO 0.7 [facility] Monocytes/100 WBC (Bld) 11.1 % 1.7 - 12.0 % [facility] NEUTROPHILS ABSOLUTE AUTO 3.9 [facility] Neutrophils/100 WBC (Bld) 64.7 % 43.0 - 75.0 % [facility] Platelet mean volume (Bld) [Entitic vol] 9.6 fL 9.5 - 13.5 fL [facility] EO # 0.1 [facility] PLT 201 [facility] RBC 3.96 Low [facility] WBC 6 [facility] ECG 12-LEADon 05-26-2024 Radiology Study observation (narrative) [facility] ALL CBC WITH AUTO DIFFon BASOPHILS ABSOLUTE AUTO 0.0 [facility] Basophils/100 WBC (Bld) 0.5 % 0.2 - 2.0 % [facility] Eosinophils/100 WBC (Bld) 4.0 % 0.9 - 7.0 % [facility] Erythrocyte distribution width (RBC) [Ratio] 12.8 % 11.0 - 15.0 % [facility] Hematocrit (Bld) [Volume fraction] 40.0 % Low 42.0 - 54.0 % [facility] Hemoglobin (Bld) [Mass/Vol] 13.5 g/dL Low 14.0 - 18.0 g/dL [facility] IMMATURE GRANULOCYTES ABS AUTO 0.01 [facility] Immature granulocytes/100 WBC (Bld) 0.2 % 0.0 - 0.5 % [facility] Interpretation and review of laboratory results Abnormal [facility] LYMPHOCYTES ABSOLUTE AUTO 1.3 [facility] Lymphocytes/100 WBC (Bld) 30.2 % 20.5 - 60.0 % [facility] MCH (RBC) [Entitic mass] 32.9 pg 25.9 - 34.0 pg [facility]C ([facility]BC) [Mass/Vol] 33.8 g/dL 29.9 - 35.2 g/dL [facility] MCV (RBC) [Entitic vol] 97.6 fL High 80.0 - 94.0 fL [facility] MONOCYTES ABSOLUTE AUTO 0.4 [facility] Monocytes/100 WBC (Bld) 8.8 % 1.7 - 12.0 % [facility] NEUTROPHILS ABSOLUTE AUTO 2.4 [facility] Neutrophils/100 WBC (Bld) 56.3 % 43.0 - 75.0 % [facility] Platelet mean volume (Bld) [Entitic vol] 10.0 fL 9.5 - 13.5 fL [facility] EO # 0.2 [facility] PLT 189 [facility] RBC 4.10 Low [facility] WBC 4.3 [facility] REVERSE T3on 11-29-2021 Reverse T3, Serum 17.4 ng/dL Normal 9.2-24.1 [facility] Comment on above: Result Comment: This test was developed and its performance characteristics determined by [facility]. It has not been cleared or approved by the Food and Drug Administration. Performed By: #### R EVRT3 #### [facility] [address] [place] [address] [address] Floridalma Collins PSA, FREE AND TOTAL RATIOon 11-26-2021 % Free PSA 21.7 % Normal [facility] Comment on above: Result Comment: The [...] men. Performed By: #### P SAFREE #### [facility] [address] [place], [place] [address] Dr. Floridalma Collins Prostate specific Ag [Mass/Vol] 0.6 ng/mL Normal 0.0-4.0 [facility] Comment on above: Result Comment: Shantal CORREA methodology. . According to the [place] [employer], Serum PSA should decrease and [...] disease. Performed By: #### P SAFREE #### [facility] [address] [place], [place] [address] Dr. Floridalma Collins PSA, Free 0.13 ng/mL Normal N/A [facility] Comment on above: Result Comment: Shantal CORREA methodology. Performed By: #### P SAFREE #### [facility] [address] [place] [address] Dr. Floridalma Collins T3, TOTAL (TRIIODOTHYRONINE) on 11-26-2021 T3, TOTAL 106 ng/dL Normal 71-180 [facility] Comment on above: Performed By: #### B 12FOL, PSAD #### [facility] [address] [place] [address] Antonette Damon CBC AUTO DIFFon 11-25-2021 BASO # 0.0 103/ul Normal 0.0-0.1 [facility] Comment on above: Performed By: #### C BC #### [facility] [address] [place] [address] Dr. Floridalma Collins Basophils/100 WBC (Bld) 0.4 % Normal 0.2-2.0 [facility] Comment on above: Performed By: #### C BC #### [facility] [address] [place] [address] Dr. Floridalma Collins EO # 0.3 103/ul Normal 0.0-0.7 [facility] Comment on above: Performed By: #### C BC #### [facility] [address] [place] [address] Dr. Floridalma Collins Eosinophils/100 WBC (Bld) 5.4 % Normal 0.9-7.0 [facility] Comment on above: Performed By: #### C BC #### [facility] [address] [place] [address] Dr. Floridalma Collins Erythrocyte distribution width (RBC) [Ratio] 13.3 % Normal 11.0-15.0 [facility] Comment on above: Performed By: #### C BC #### [facility] [address] [place] [address] Dr. Floridalma Collins Hematocrit (Bld) [Volume fraction] 38.9 % Critically low 42.0-54.0 [facility] Comment on above: Performed By: #### C BC #### [facility] [address] [place] [address] Dr. Floridalma Collins Hemoglobin (Bld) [Mass/Vol] 12.9 g/dL Critically low 14.0-18.0 [facility] Comment on above: Performed By: #### C BC #### [facility] [address] [place] [address] [address] Floridalma Collins IG # 0.01 10e3/ul Normal 0.00-0.03 [facility] Comment on above: Performed By: #### C BC #### [facility] [address] [place] [address] Dr. Floridalma Collins IG % 0.2 % Normal 0.0-0.5 [facility] Comment on above: Performed By: #### C BC #### [facility] [address] [place] [address] Dr. Floridalma Collins LYMPH # 1.3 103/ul Normal 1.2-3.8 [facility] Comment on above: Performed By: #### C BC #### [facility] [address] [place] [address] Dr. Floridalma Collins Lymphocytes/100 WBC (Bld) 28.7 % Normal 20.5-60.0 [facility] Comment on above: Performed By: #### C BC #### [facility] [address] [place] [address] Dr. Floridalma Collins MANUAL DIFF REQ NO Normal [facility] Comment on above: Performed By: #### C BC #### [facility] [address] [place] [address] Dr. Floridalma Collins MCH (RBC) [Entitic mass] 32.3 pg Normal 25.9-34.0 [facility] Comment on above: Performed By: #### C BC #### [facility] [address] [place] [address] Dr. Floridalma Collins MCHC (RBC) [Mass/Vol] 33.2 g/dL Normal 29.9-35.2 [facility] Comment on above: Performed By: #### C BC #### [facility] [address] [place] [address] Dr. Floridalma Collins MCV (RBC) [Entitic vol] 97.3 fL Critically high 80.0-94.0 [facility] [place] [facility] Comment on above: Performed By: #### C BC #### [facility] [address] [place] [address] Dr. Floridalma Collins MONO # 0.4 103/ul Normal 0.3-0.8 [facility] Comment on above: Performed By: #### C BC #### [facility] [address] [place] [address] [address] Floridalma Collins Monocytes/100 WBC (Bld) 9.5 % Normal 1.7-12.0 [facility] Comment on above: Performed By: #### C BC #### [facility] [address] [place] [address] Dr. Floridalma Collins NEUT # 2.6 103/ul Normal 1.4-6.5 [facility] Comment on above: Performed By: #### C BC #### [facility] [address] [place] [address] Dr. Floridalma Collins Neutrophils/100 WBC (Bld) 55.8 % Normal 43.0-75.0 [facility] Comment on above: Performed By: #### C BC #### [facility] [address] [place] [address] Dr. Floridalma Collins Platelet mean volume (Bld) [Entitic vol] 10.0 fL Normal 9.5-13.5 [facility] Comment on above: Performed By: #### C BC #### [facility] [address] [place] [address] Dr. Floridalma Collins PLT 190 103/ul Normal 150-450 [facility] [place] [facility] Comment on above: Performed By: #### C BC #### [facility] [address] [place] [address] Dr. Floridalma Collins RBC 4.00 106/ul Critically low 4.70-6.10 [facility] Comment on above: Performed By: #### C BC #### [facility] [address] [place] [address] Dr. Floridalma Collins WBC 4.6 103/ul Normal 4.0-11.0 [facility] Comment on above: Performed By: #### C BC #### [facility] [address] [place] [address] [address] Floridalma Collins FREE T3on 11-25-2021 FREE T3 2.39 pg/mlL Normal 2.18-3.98 [facility] Comment on above: Performed By: #### F T3, CMP, LIPID, TSH #### [facility] [address] [place] [address] Dr. Floridalma Collins FREE T4on 11-25-2021 Free T4 [Mass/Vol] 1.09 ng/dL Normal 0.76-1.46 [facility] Comment on above: Performed By: #### B 12FOL, PSAD #### [facility] [address] [place] [address] Antonette Marisol LIPID PROFILEon 11-25-2021 CHOL-HDL RATIO NORM SEE BELOW Normal [facility] Comment on above: Result Comment: 3.3 - 4.4 LOW RISK 4.4 - 7.1 AVERAGE RISK 7.1 - 11.0 MODERATE RISK >11.0 HIGH RISK Performed By: #### B 12FOL, PSAD #### [facility] [address] [place] [address] Antonette Marisol Cholesterol [Mass/Vol] 175 mg/dL Normal <=200 [facility] Comment on above: Performed By: #### B 12FOL, PSAD #### [facility] [address] [id number] Antonette Marisol Cholesterol in HDL [Mass/Vol] 62 mg/dL Critically high 40-60 [facility] Comment on above: Performed By: #### B 12FOL, PSAD #### [facility] [address] [place], [place] [id number] Antonette Marisol Cholesterol in LDL [Mass/Vol] 103.4 mg/dL Normal [facility] Comment on above: Performed By: #### B 12FOL, PSAD #### [facility] [address] [id number] Antonette Marisol Cholesterol.total/C holesterol in HDL [Mass ratio] 2.8 {ratio} Normal [facility] Comment on above: Performed By: #### Rudolph 12ALEKSEY PSAD #### [facility] [address] [id number] Antonette Marisol HDL NORMAL > or = 60 mg/dl - LO W CARDIOVASCULAR RISK <40 mg/dl - HIGH CARDIOVASCULAR RISK Normal [facility] Comment on above: Performed By: #### Rudolph 12ALEKSEY, PSAD #### [facility] [address] [id number] Antonette Marisol LDL CALC NORMAL SEE BELOW Normal [facility] Comment on above: Result Comment: <100 mg/dl OPTIMAL 100 - 129 mg/dl NEAR OR ABOVE OPTIMAL 130 - 159 mg/dl BORDERLINE HIGH 160 - 189 mg/dl HIGH >190 mg/dl VERY HIGH Performed By: #### Rudolph 12FOAshley, PSAD #### [facility] [address] [id number] Antonette Marisol Triglyceride [Mass/Vol] 48 mg/dL Normal <=150 [facility] Comment on above: Performed By: #### Rudolph 12ALEKSEY PSAD #### [facility] [address] [id number] Antonette Marisol VLDL CALC 9.6 mg/dL Normal [facility] Comment on above: Performed By: #### Rudolph 12FOAshley, PSAD #### [facility] [address] [id number] Antonette Damon PROF 14(COMP METB)on 022 Albumin [Mass/Vol] 3.7 g/dL Normal 3.4-5.0 [facility] Comment on above: Performed By: #### Rudolph 12FOAshley, PSAD #### [facility] [address] [id number] Antonette Marisol Albumin/Globulin [Mass ratio] 1.3 {ratio} Normal [facility] Comment on above: Performed By: #### Rudolph 12FOAshley, PSAD #### [facility] [address] [id number] Antonette Marisol ALP [Catalytic activity/Vol] 58 U/L Normal 46-116 [facility] Comment on above: Performed By: #### Rudolph 12FOL, PSAD #### [facility] [address] [place], [place] [address] Antonette Marisol ALT [Catalytic activity/Vol] 21 U/L Normal 16-63 [facility] Comment on above: Performed By: #### B 12FOL, PSAD #### [facility] [address] [place], [place] [address] Antonette Marisol Anion gap [Moles/Vol] 13.1 mmol/L Normal [facility] Comment on above: Performed By: #### Rudolph 12FOL, PSAD #### [facility] [address] [place], [place] [address] Antonette Marisol AST [Catalytic activity/Vol] 21 U/L Normal 15-37 [facility] Comment on above: Performed By: #### Rudolph 12FOAshley, PSAD #### [facility] [address] [place] [address] Antonette Marisol Bilirubin [Mass/Vol] 0.5 mg/dL Normal 0.2-1.0 [facility] Comment on above: Performed By: #### Rudolph 12FOAshley, PSAD #### [facility] [address] [place], [place] [address] Antonette Marisol Calcium [Mass/Vol] 8.6 mg/dL Normal 8.5-10.1 [facility] Comment on above: Performed By: #### Rudolph 12FOL, PSAD #### [facility] [address] [place], [place] [address] Antonette Marisol Chloride [Moles/Vol] 106 mmol/L Normal 98-107 [facility] Comment on above: Performed By: #### Rudolph 12FOL, PSAD #### [facility] [address] [place], [place] [address] Antonette Marisol CO2 [Moles/Vol] 23.9 mmol/L Normal 21.0-32.0 [facility] Comment on above: Performed By: #### Rudolph 12FOL, PSAD #### [facility] [address] [place], [place] [address] Antonette Marisol Creatinine [Mass/Vol] 1.20 mg/dL Normal 0.70-1.30 [facility] Comment on above: Performed By: #### Rudolph EVERETT PSAD #### [facility] [address] [place], [place] [address] Antonette Marisol EGFR-AF MALAWIAN >60 Normal >=60 [facility] Comment on above: Performed By: #### Rudolph 12ALEKSEY PSAD #### [facility] [address] [id number] Antonette Marisol EGFR-NON AF MALAWIAN =60 Normal >=60 [facility] Comment on above: Performed By: #### Rudolph EVERETT PSAD #### [facility] [address] [place], [place] [address] Antonette Marisol Globulin (S) [Mass/Vol] 2.9 g/dL Normal [facility] Comment on above: Performed By: #### Rudolph EVERETT PSAD #### [facility] [address] [place] [address] Antonette Marisol Glucose [Mass/Vol] 97 mg/dL Normal 74-106 [facility] Comment on above: Performed By: #### Rudolph EVERETT PSARosalio #### [facility] [address] [place] [address] Antonette Marisol Potassium [Moles/Vol] 4.0 mmol/L Normal 3.5-5.1 [facility] Comment on above: Performed By: #### Rudolph EVERETT, PSAD #### [facility] [address] [place] [address] Antonette Marisol Protein [Mass/Vol] 6.6 g/dL Normal 6.4-8.2 [facility] Comment on above: Performed By: #### Rudolph EVERETT PSAD #### [facility] [address] [place] [address] Antonette Marisol Sodium [Moles/Vol] 139 mmol/L Normal 136-145 [facility] Comment on above: Performed By: #### Rudolph EVERETT PSAD #### [facility] [address] [place] [address] Antonette Marisol Urea nitrogen [Mass/Vol] 19.0 mg/dL Critically high 7.0-18.0 [facility] Comment on above: Performed By: #### Rudolph EVERETT PSARosalio #### [facility] [address] [place] [address] Antonette Damon Urea nitrogen/Creatinine [Mass ratio] 15.8 mg/mg Normal [facility] Comment on above: Performed By: #### Rudolph EVERETT PSAD #### [facility] [address] [place] [address] Antonette Marisol TSHon 11-25-2021 TSH 1.726 uIU/mL Normal 0.358-3.740 [facility] Comment on above: Performed By: #### Rudolph EVERETT PSAD #### [facility] [address] [place] [address] Antonette Marisol VIT B12 AND FOLATEon 022 Cobalamin (Vitamin B12) [Mass/Vol] 641.0 pg/mL Normal 193.0-986.0 [facility] Comment on above: Performed By: #### Rudolph EVERETT PSAD #### [facility] [address] [place] [address] Antonette Damon FOLATE 17.90 ng/mL Normal 8.60-58.90 [facility] Comment on above: Performed By: #### Rudolph EVERETT PSAD #### [facility] [address] [place] [address] Antonette Marisol TSHon 01-21-2021 TSH 0.720 uIU/mL Normal 0.470-4.680 [facility] Comment on above: Performed By: #### T SH #### [facility] [address] [place] [address] Dr. Floridalma Collins TSH RANGE SEE BELOW Normal [facility] Comment on above: Result Comment: <0.3 4 UIU/ml HYPERTHYROID 0.34-5.60 UIU/ml EUTHYROID >5.60 UIU/ml HYPOTHYROID Performed By: #### T SH #### [facility] [address] [place] [address] Dr. Floridalma Collins T3, TOTAL (TRIIODOTHYRONINE) on 12-25-2020 T3, TOTAL 120 ng/dL Normal 71-180 [facility] Comment on above: Performed By: #### T 3TOTAL #### [facility] [address] [place] [address] Dr. Floridalma Collins CBC AUTO DIFFon 12-24-2020 BASO # 0.0 103/ul Normal 0.0-0.1 [facility] Comment on above: Performed By: #### C BC #### [facility] [address] [place] [address] Antonette Marisol Basophils/100 WBC (Bld) 0.5 % Normal 0.2-2.0 [facility] Comment on above: Performed By: #### C BC #### [facility] [address] [place] [address] Antonette Marisol EO # 0.1 103/ul Normal 0.0-0.7 [facility] Comment on above: Performed By: #### C BC #### [facility] [address] [place] [address] Antonette Marisol Eosinophils/100 WBC (Bld) 3.3 % Normal 0.9-7.0 [facility] Comment on above: Performed By: #### C BC #### [facility] [address] [place] [address] Antonette Marisol Erythrocyte distribution width (RBC) [Ratio] 12.9 % Normal 11.0-15.0 [facility] Comment on above: Performed By: #### C BC #### [facility] [address] [place] [address] Antonette Marisol Hematocrit (Bld) [Volume fraction] 37.2 % Critically low 42.0-54.0 [facility] Comment on above: Performed By: #### C BC #### [facility] [address] [place] [address] Antonette Marisol Hemoglobin (Bld) [Mass/Vol] 12.7 g/dL Critically low 14.0-18.0 [facility] Comment on above: Performed By: #### C BC #### [facility] [address] [address] Antonette Marisol IG # 0.01 10e3/ul Normal 0.00-0.03 [facility] Comment on above: Performed By: #### C BC #### [facility] [address] [place] [address] Antonette Marisol IG % 0.3 % Normal 0.0-0.5 [facility] Comment on above: Performed By: #### C BC #### [facility] [address] [place] [address] Antonette Marisol LYMPH # 1.4 103/ul Normal 1.2-3.8 [facility] Comment on above: Performed By: #### C BC #### [facility] [address] [place] [address] Antonette Marisol Lymphocytes/100 WBC (Bld) 33.9 % Normal 20.5-60.0 [facility] Comment on above: Performed By: #### C BC #### [facility] [address] [place] [address] Antonette Marisol MANUAL DIFF REQ NO Normal [facility] Comment on above: Performed By: #### C BC #### [facility] [address] [place] [address] Antonette Marisol MCH (RBC) [Entitic mass] 33.2 pg Normal 25.9-34.0 [facility] Comment on above: Performed By: #### C BC #### [facility] [address] [place] [address] Antonette Marisol MCHC (RBC) [Mass/Vol] 34.1 g/dL Normal 29.9-35.2 [facility] Comment on above: Performed By: #### C BC #### [facility] [address] [place] [address] Antonette Marisol MCV (RBC) [Entitic vol] 97.4 fL Critically high 80.0-94.0 [facility] Comment on above: Performed By: #### C BC #### [facility] [address] [place] [address] Antonette Marisol MONO # 0.4 103/ul Normal 0.3-0.8 [facility] Comment on above: Performed By: #### C BC #### [facility] [address] [id number] Antonette Damon Monocytes/100 WBC (Bld) 10.8 % Normal 1.7-12.0 [facility] Comment on above: Performed By: #### C BC #### [facility] [address] [address] Antonettearsenio Kendallen NEUT # 2.0 103/ul Normal 1.4-6.5 [facility] Comment on above: Performed By: #### C BC #### [facility] [address] [place] [address] Antonette Damon Neutrophils/100 WBC (Bld) 51.2 % Normal 43.0-75.0 [facility] Comment on above: Performed By: #### C BC #### [facility] [address] [place] [address] Antonette Damon Platelet mean volume (Bld) [Entitic vol] 9.2 fL Critically low 9.5-13.5 [facility] Comment on above: Performed By: #### C BC #### [facility] [address] [place] [address] Antonette Kendallen PLT 201 103/ul Normal 150-450 [facility] Comment on above: Performed By: #### C BC #### [facility] [address] [place], [place] [address] Antonettearsenio Kendallen RBC 3.82 106/ul Critically low 4.70-6.10 [facility] Comment on above: Performed By: #### C BC #### [facility] [address] [place], [place] [address] Antonette Marisol WBC 4.0 103/ul Normal 4.0-11.0 [facility] Comment on above: Performed By: #### C BC #### [facility] [address] [place] [address] Antonettearsenio Kendallen FREE T3on 12-24-2020 FREE T3 2.63 pg/mlL Critically low 2.77-5.27 [facility] Comment on above: Performed By: #### F T3 #### [facility] [address] [place], [place] [address] Dr. Floridalma Collins FREE T4on 12-24-2020 Free T4 [Mass/Vol] 0.76 ng/dL Critically low 0.78-2.19 [facility] Comment on above: Performed By: #### C BC #### [facility] [address] [place], [place] [address] Dr. Floridalma Collins LIPID PROFILEon 12-24-2020 CHOL-HDL RATIO NORM SEE BELOW Normal [facility] Comment on above: Result Comment: 3.3 - 4.4 LOW RISK 4.4 - 7.1 AVERAGE RISK 7.1 - 11.0 MODERATE RISK >11.0 HIGH RISK Performed By: #### B 12FOL, PSAD #### [facility] [address] [address] Antonette Marisol Cholesterol [Mass/Vol] 188 mg/dL Normal <=200 [facility] Comment on above: Performed By: #### B 12FOL, PSAD #### [facility] [address] [place], [place] [address] Antonette Marisol Cholesterol in HDL [Mass/Vol] 52 mg/dL Normal [facility] Comment on above: Performed By: #### B 12FOL, PSAD #### [facility] [address] [place], [place] [address] Antonette Marisol Cholesterol in LDL [Mass/Vol] 121.6 mg/dL Normal [facility] Comment on above: Performed By: #### B 12FOL, PSAD #### [facility] [address] [place], [place] [address] Antonette Marisol Cholesterol.total/C holesterol in HDL [Mass ratio] 3.6 {ratio} Normal [facility] Comment on above: Performed By: #### B 12FOL, PSAD #### [facility] [address] [place], [place] [address] Antonette Marisol HDL NORMAL > or = 60 mg/dl - LO W CARDIOVASCULAR RISK <40 mg/dl - HIGH CARDIOVASCULAR RISK Normal [facility] Comment on above: Performed By: #### Rudolph EVERETT PSARosalio #### [facility] [address] [place], [place] [address] Antonette Marisol LDL CALC NORMAL SEE BELOW Normal [facility] Comment on above: Result Comment: <100 mg/dl OPTIMAL 100 - 129 mg/dl NEAR OR ABOVE OPTIMAL 130 - 159 mg/dl BORDERLINE HIGH 160 - 189 mg/dl HIGH >190 mg/dl VERY HIGH Performed By: #### Rudolph EVERETT PSAD #### [facility] [address] [id number] Antonette Marisol Triglyceride [Mass/Vol] 72 mg/dL Normal <=150 [facility] Comment on above: Performed By: #### Rudolph EVERETT PSARosalio #### [facility] [address] [id number] Antonette Marisol VLDL CALC 14.4 mg/dL Normal [facility] Comment on above: Performed By: #### Rudolph EVERETT PSARosalio #### [facility] [address] [id number] Antonette Damon PROF 14(COMP METB)on 021 Albumin [Mass/Vol] 3.7 g/dL Normal 3.5-5.0 [facility] Comment on above: Performed By: #### Rudolph EVERETT PSAD #### [facility] [address] [id number] Antonette Marisol Albumin/Globulin [Mass ratio] 1.2 {ratio} Normal [facility] Comment on above: Performed By: #### Rudolph EVERETT PSAD #### [facility] [address] [place], [place] [address] Antonette Marisol ALP [Catalytic activity/Vol] 51 U/L Normal 38-126 [facility] Comment on above: Performed By: #### Rudolph EVERETT PSAD #### [facility] [address] [phone] Antonette Marisol ALT [Catalytic activity/Vol] 23 U/L Normal 21-72 [facility] Comment on above: Performed By: #### B 12FOL, PSAD #### [facility] [address] [place], [place] [address] Antonette Marisol Anion gap [Moles/Vol] 14.0 mmol/L Normal [facility] Comment on above: Performed By: #### Rudolph 12ALEKSEY, PSAD #### [facility] [address] [place], [place] [address] Antonette Marisol AST [Catalytic activity/Vol] 21 U/L Normal 17-59 [facility] Comment on above: Performed By: #### Rudolph EVERETT, PSAD #### [facility] [address] [id number] Antonette Marisol Bilirubin [Mass/Vol] 0.4 mg/dL Normal 0.2-1.3 [facility] Comment on above: Performed By: #### Rudolph EVERETT, PSAD #### [facility] [address] [place] [address] Antonette Marisol Calcium [Mass/Vol] 8.7 mg/dL Normal 8.4-10.2 [facility] Comment on above: Performed By: #### Rudolph EVERETT, PSAD #### [facility] [address] [id number] Antonette Marisol Chloride [Moles/Vol] 105 mmol/L Normal 98-107 [facility] Comment on above: Performed By: #### Rudolph EVERETT, PSAD #### [facility] [address] [phone] Antonette Marisol CO2 [Moles/Vol] 25.2 mmol/L Normal 22.0-30.0 [facility] Comment on above: Performed By: #### Rudolph EVERETT, PSAD #### [facility] [address] [id number] Antonette Marisol Creatinine [Mass/Vol] 1.10 mg/dL Normal 0.66-1.25 [facility] Comment on above: Performed By: #### Rudolph 12FOAshley, PSAD #### [facility] [address] [id number] Antonette Marisol EGFR-AF MALAWIAN >60 Normal >=60 [facility] Comment on above: Performed By: #### B 12FOL, PSAD #### [facility] [address] [id number] Antonette Marisol EGFR-NON AF MALAWIAN >60 Normal >=60 [facility] Comment on above: Performed By: #### B 12FOL, PSAD #### [facility] [address] [id number] Antonette Marisol Globulin (S) [Mass/Vol] 3.0 g/dL Normal [facility] Comment on above: Performed By: #### B 12FOL, PSAD #### [facility] [address] [place], [place] [address] Antonette Marisol Glucose [Mass/Vol] 97 mg/dL Normal 74-106 [facility] Comment on above: Performed By: #### B 12FOL, PSAD #### [facility] [address] [place] [address] Antonette Marisol Potassium [Moles/Vol] 4.2 mmol/L Normal 3.4-5.0 [facility] Comment on above: Performed By: #### Rudolph 12FOAshley, PSAD #### [facility] [address] [place] [address] Antonette Marisol Protein [Mass/Vol] 6.7 g/dL Normal 6.1-8.2 [facility] Comment on above: Performed By: #### B 12FOL, PSAD #### [facility] [address] [place], [place] [address] Antonette Marisol Sodium [Moles/Vol] 140 mmol/L Normal 137-145 [facility] Comment on above: Performed By: #### B 12FOL, PSAD #### [facility] [address] [place], [place] [address] Antonette Marisol Urea nitrogen [Mass/Vol] 24.0 mg/dL Critically high 9.0-20.0 [facility] Comment on above: Performed By: #### B 12FOL, PSAD #### [facility] [address] [place], [place] [address] Antonette Marisol Urea nitrogen/Creatinine [Mass ratio] 21.8 mg/mg Normal [facility] Comment on above: Performed By: #### Rudolph EVERETT PSARosalio #### [facility] [address] [place] [address] Antonette Damon T4on 12-24-2020 T4 [Mass/Vol] 6.60 ug/dL Normal 5.53-11.00 [facility] Comment on above: Performed By: #### MEDINA WATSON #### [facility] [address] [place] [address] Antonette Damon TSHon 12-24-2020 TSH 6.821 uIU/mL Critically high 0.470-4.680 [facility] Comment on above: Performed By: #### MEDINA WATSON #### [facility] [address] [place] [address] Antonette Damon TSH RANGE SEE BELOW Normal [facility] Comment on above: Result Comment: <0.3 4 UIU/ml HYPERTHYROID 0.34-5.60 UIU/ml EUTHYROID >5.60 UIU/ml HYPOTHYROID Performed By: #### MEDINA WATSON #### [facility] [address] [place] [address] Antonette Damon VIT B12 AND FOLATEon 021 Cobalamin (Vitamin B12) [Mass/Vol] 1306.0 pg/mL Critically high 239.0-931.0 [facility] Comment on above: Performed By: #### MEDINA WATSON #### [facility] [address] [place] [address] Antonette Damon FOLATE >20.00 Normal >=2.76 [facility] Comment on above: Performed By: #### MEDINA WATSON #### [facility] [address] [place], [place] [address] Antonette Damon Encounters Encounter Date Encounter Type Care Provider Facility Start: 07-11-2024 End: 07-11-2024 Clinisync Result Encounter Generic External Data Provider [facility] External Department Unsolicited Start: 07-11-2024 End: 07-11-2024 [facility] Result Encounter Generic External Data Provider [facility] External Department Unsolicited Start: 06-21-2024 End: 06-21-2024 Telephone encounter [facility] [...] FM 100 Start: 01-04-2024 End: 01-04-2024 ambulatory [facility] Work Phone: Start: 01-04-2024 End: 01-04-2024 Patient encounter procedure [facility] Work Phone: Start: 12-14-2023 End: 12-14-2023 [...] Date Procedure Procedure Detail Performing Clinician Start: 07-11-2024 XR ANKLE LT MIN 3V Gene isaiah External Data Provider Start: 06-14-2024 XR ANKLE LT MIN 3V [...] Performed By: #### B 12FOL, PSAD #### [facility] [address] [place] [address] Antonette Damon Start: 12-08-2017 Colonoscopy Emerald mcclure MD Work Phone: Plan of Treatment Date Care Activity Detail Author Start: 12-09-2027 Screening for malign ant neoplasm of colon [facility] Healthcare Start: 11-28-2024 Medicare Annual Well ness (AWV) Medicare Annual Wellness (AWV) [facility] Start: 12-12-2023 Influenza vaccination Influenza Vacc ine (#1) [facility] Start: 2018 Pneumococcal Vaccine : 65+ Years (1 of 1 - PCV) Pneumococcal Vaccine: 65+ Years (1 of 1 - PCV) [facility] Start: 1955 Screening for malign ant neoplasm of colon [facility] Immunizations Immunization Date Immunization Notes Care Provider Vicky nash 02-06-2022 Moderna Bivalent Delaney ster Vaccination Emerald Riggs MD Work Phone: [facility] Payers Date Payer Category Payer Private Health Insurance AARP Ca mber [id number] 2022 Unknown AARP AARP [id number] 2022-Present [address] [place] [address] [id number] 2018 Medicare [id number] 1959 Medicare [id number] 1959 Self-pay 1959 Unknown [id number] 1953 Unknown [id number] .593 1953 Unknown [id number] 2.16.840.1.365591.3.579.2 .593 1953 Unknown [id number] 2.16.840.1.265659.3.579.2 .593 1953 Unknown [id number] 2.16.840.1.261905.3.579.2 .1259 1953 Unknown [id number] 2.16.840.1.396007.3.579.2 .1259 1953 Unknown [id number] 2.16.840.1.220107.3.579.2 .1259 1953 Unknown [id number] 2.16.840.1.029087.3.579.2 .1259 1953 Unknown [id number] 2.16.840.1.409767.3.579.2 .1258 Unknown [id number] 2.16.840.1.738373.3.579.2 .593 Social History Date Type Detail Facility [facility] Start: 1955 Sex Assigned At Male [facility] Start: 11-25-2022 Tobacco smoking stat [facility] Never smoked tobacco [facility] Start: 11-25-2022 Tobacco use and exposure Smoke less tobacco non-user [facility] Start: 11-29-2023 Alcoholic beverage intake Curr ent drinker of alcohol (finding) [facility] Start: 07-19-2023 End: 11-29-2023 Alcoholic beverage intake [facility] Start: 07-19-2023 End: 11-29-2023 Social connection and isolation panel [facility] Do you belong to any clubs or organizations such as confucianist groups, unions, fraternal or athletic groups, or [...] Not at all [facility] (I/We) worried jeri er (my/our) food would run out before [...] - 06/21/2024 1:32 PM EDTTelephone Encounter - Tram Zhong - 06/21/2024 11:33 AM EDT Note Date & Type Note Facility 06-21-2024 Miscellaneous Notes Formattin g of this note might be different from the original. RX sent Virgie called, he is requesting that his B12 shots be refilled to mail away. documented in this encounter [facility] Telephone encounter Note 06-21-2024 Telephone Encounter - Tram Zhong - 06/21/2024 11:33 AM EDT Note [...] to be sent to [facility] in [place]. documented in this encounter [facility] Telephone encounter Note 05-18-2024 Telephone Encounter - Tram Zhong - 05/18/2024 10:03 AM EST Note Date & Type Note Facility 05-18-2024 Telephone encount er Note Virgie called, He switched his prescription coverage and is asking for his Levo to be sent to [facility] in [place]. [facility] Evaluation note Note Date & Type Note Facility Evaluation note Diagnosis Onset Date Dupuytren contracture of both hands [facility] Work Phone: Evaluation note Note Date & Type Note Facility Evaluation note Diagnosis Acquired hypothyroidism (CMS/HCC) Unspecified hypothyroidism documented in this encounter [facility] Evaluation note Note Date & Type Note Facility Evaluation note Diagnosis Pernicious anemia- Primary documented in this encounter [facility] Summary Purpose Family History No Family History Records FoundNo Family History Records Found Advance Directives Advance Directive Response Recorded Date/ Time Advance Directives No August 11, 2023 10:22am Documents on File Type Date Recorded 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 Advance Directives and Living Will 02/21/2019 2003-02-06 Power Of Medical Transcription Advance Directives and Living Will 02/06/2003 8:09 AM Power of Medical Transcription 11/30/2022 8:09 AM Power Of Medical Transcription Chief Complaint and Reason for Visit Chief Complaint NEW RT DUPUYTRENS CO NTRACTURE WX [facility] Reason for Visit Dupuytren contractur e of both hands Additional Source Comments (unrecognized sect ion and content) No Status Records FoundNo Status Records Found INFORMATION SOURCE (unrecogn ized section and content) DATE CREATED AUTHOR 12/02/2021 [facility] DATE CREATED AUTHOR AUTHOR'S ORGANIZ ATION 11/29/2023 [facility] Care Teams (unrecognized sec tion and content) Team Status: Active Member Role Status Dates Emerald Riggs MD Primary Care Provider Active Team Status: Inactive Member Role Status Dates Emerald Riggs MD Primary Care Provider Active Start: January 04, 2024 End: January 04, 2024 Gauri Burris MD Attending Provider Active Start: January 04, 2024 End: January 04, 2024 Special Assemblies Supervisor Relationship Specialty Start Date End Date Emerald Riggs MD [address] [place] [address] (Fax) PCP - ACO Reach 09/03/22 Emerald Riggs MD [address] [place] [address] PCP - General Family Medicine 10/05/22 Special Assemblies Supervisor Relationship Specialty Start Date End Date Emerald Riggs MD [address] [place] [address] (Fax) PCP - ACO Reach 09/03/22 Emerald Riggs MD [address] [place] [address] (Fax) PCP - General Family Medicine 10/05/22 Special Assemblies Supervisor Relationship Specialty Start Date End Date Emerald Riggs MD [address] [place] [address] PCP - ACO Reach 09/03/22 Emerald Riggs MD [address] [place] [address] PCP - General Family Medicine 10/05/22 Special Assemblies Supervisor Relationship Specialty Start Date End Date Emerald Riggs MD [address] [place] [address] PCP - ACO Reach 09/03/22 Emerald Riggs MD [address] [place] [address] PCP - General Family Medicine 10/05/22 Special Assemblies Supervisor Relationship Specialty Start Date End Date Emerald Riggs MD [address] [place] [address] PCP - ACO Reach 09/03/22 Emerald Riggs MD [address] [place] [address] PCP - General Family Medicine 10/05/22 Goals [...] BE BASED ON THE PRIMARY CLINICAL RECORDS. [facility]. provides no warranty or guarantee of the accuracy or completeness of information in this document.
--- NOTE | 2024-08-28 10:15 | XR_ITS ---
[place] [id number] Patient Name: MONI HASTINGS MRN: [id number] date: 1955 Sex: M Assigned Patient Location: [facility] Current Patient Location: [facility] Accession/Order Number: [id number] Exam Date: 08/28/2024 10:35 Report Date: 08/28/2024 10:37 At the request of: AINSLEY RAIN DPIvan Procedure: XR ankle LT min 3V XR ankle LT min 3V 08/28/2024 10:17 AM SIGNS AND SYMPTOMS: ^Pain, status post hardware fixation of left ankle fracture PROTOCOL: Frontal, lateral, and oblique radiographs of the left ankle COMPARISON: 07/11/2024 FINDINGS: The ankle mortise is preserved. There is plate and screw fixation of the distal fibula without hardware complication or change in alignment. There is diminishing soft tissue swelling. Tiny fracture fragments are redemonstrated along the dorsal aspect of the distal tibia. XR/XR ankle LT min 3V IMPRESSION: The ankle mortise is preserved. There is plate and screw fixation of the distal fibula without hardware complication or change in alignment. Tiny fracture fragments are redemonstrated along the dorsal aspect of the distal tibia. Impression dictated by: Saqib Mabry M.D. 08/28/2024 10:37 AM Dictation Location: [place] [address] Electronically authenticated by: [id number] Y Date: 08/28/2024 10:37
== END 2024-08-28 10:02 | disposition home or self-care (01) ==
LOC: RAD 10:04
PROVIDERS: PCP Family Medicine; Visit Provider Podiatrist Foot & Ankle Surgery
DX: M25.572 Pain in left ankle and joints of left foot (principal); Z98.890 Other specified postprocedural states
CPT/HCPCS: 73610

== ENCOUNTER 2025-01-01 06:56 | Outpatient (OUT) | payer MEDICARE, SELFPAY ==
--- OUTSIDE RECORDS SUMMARY | 2025-01-01 06:58 | XMS_ITS | CCD ---
Author Organization [facility] Care Team Providers Care [employer] Farm Manager Name Role Phone ONEIL, DR CORBIN Consulting Unavailable HEMEYER, DR CORBIN Primary Care Unavailable HEMEYER, DR CORBIN Admitting Unavailable HEMEYER, DR CORBIN Attending Unavailable HEMEYER, DR CORBIN Consulting Unavailable HEMEYER, DR CORBIN Primary Care Unavailable HEMEYER, DR CORBIN Admitting Unavailable HEMEYER, DR CORBIN Referring Unavailable HEMEYER, DR CORBIN Attending Unavailable HEMEYER, DR CORBIN Primary Care Unavailable BASIA ROME Admitting Unavailable WILD, BASIA PENNY Attending Unavailable BASIA ROME Consulting Unavailable ONEIL, DR CORBIN Consulting Unavailable ONEIL, DR CORBIN Primary Care Unavailable HEMEYER, DR CORBIN Admitting Unavailable HEMEGEORGINA, DR CORBIN Attending Unavailable Leonidas Riggs MD Unavailable [phone] Leonidas Riggs MD Primary Care Provider [phone] Leonidas Riggs MD Unavailable [phone] Leonidas Riggs MD Primary Care Provider [phone] Jr. Aleksander Villatoro DO Unavailable LEONIDAS RIGGS Attending Unavailable Leonidas Riggs MD Primary Care Provider Allergies Allergy Classification Reported Allergen(s) Allergy Type Date of Onset Reaction(s) Facility (1 source) Penicillin Drug Allergy [facility] Repository (13 sources) Penicillins Drug Allergy 11-17-2022 Rash NOM[facility] [...] Active cyclobenzaprine hydrochloride 10 mg oral tablet (13 sources) Muscle Relaxant Start: 11-29-2023 End: 12-29-2023 take 1 tablet by mouth three times daily as needed for muscle spasms cyclobenzaprine (Flexeril) 10 MG tablet Indications: Chronic fatigue syndrome Take 1 tablet (10 mg) by mouth 3 (three) times a day as needed for muscle spasms 90 tablet 11/29/2023 Active levothyroxine sodium 0.075 mg oral tablet (15 sources) l-Thyroxine Start: 08-19-2023 End: 05-19-2025 take 1 tablet by mouth before mealtime levothyroxine (Synthroid, Levoxyl) 75 MCG tablet Indications: Acquired hypothyroidism Take 1 tablet (75 mcg) by mouth in the morning. Take before meals. 90 tablet 3 05/19/2024 05/19/2025 Active Multiple Vitamins-Minerals (MULTIVITAMIN GUMMIES ADULTS PO) (13 sources) take 1 tablet by mouth once daily Multiple Vitamins-Minerals (MULTIVITAMIN GUMMIES ADULTS PO) Take 1 tablet by mouth 1 (one) time each day at the same time. Active vitamin b12 1 mg/ml injectable solution (7 sources) Vitamin B12 Start: 06-21-2024 End: 06-21-2025 [...] Onset: 11-26-2021 Episodic Deficiency and other anemia (16 sources) Pernicious anemia; Translations: [Vitamin B12 deficiency anemia due to intrinsic factor deficiency] Onset: 11-17-2022 11-17-2022 Episodic Diverticulosis and diverticulitis (13 sources) Diverticulosis of sigmoid colon; Translations: [Diverticulosis of large intestine without perforation or abscess without bleeding] Onset: 12-08-2017 11-17-2022 Chronic Genitourinary symptoms and ill-defined conditions (1 source) Other symptoms and signs involving the genitourinary system; Translations: [OTH SYMPTOMS SIGNS INVLV SYSTEM] Onset: 11-26-2021 Episodic Hyperplasia of prostate (13 sources) Benign prostatic hyperplasia; Translations: [Benign prostatic hyperplasia without lower urinary tract symptoms] Onset: 11-17-2022 11-17-2022 Chronic Malaise and fatigue (18 sources) Chronic fatigue, unspecified; Translations: [Chronic fatigue syndrome] Onset: 01-21-2021 Chronic Nutritional deficiencies (16 sources) Deficiency of other specified B group vitamins; Translations: [Cobalamin deficiency] Onset: 01-08-2021 11-17-2022 Episodic Osteoarthritis (13 sources) Degenerative joint disease involving multiple joints; Translations: [Polyosteoarthritis, unspecified] Onset: 11-17-2022 11-17-2022 Chronic Other connective tissue disease (1 source) Dupuytren's contracture; Translations: [Palmar fascial fibromatosis [Dupuytren]] 01-04-2024 Episodic Other connective tissue disease (1 source) Palmar fascial fibromatosis [Dupuytren]; Translations: [Contracture of palmar fascia] 01-04-2024 Episodic Other male genital disorders (15 sources) Disorder of prostate; Translations: [Disorder of prostate, unspecified] Onset: 11-17-2022 11-17-2022 Episodic Other screening for suspected conditions (not mental disorders or infectious disease) (9 sources) Encounter for screening for lipoid disorders; Translations: [Encounter for screening for diabetes mellitus] Onset: 01-08-2021 12-20-2024 Episodic Residual codes; unclassified (1 source) Family history of ischemic heart disease and other diseases of the circulatory system; Translations: [FAM HX ISCHEMIC HRT DZ OTH DZ CIRC] Onset: 11-26-2021 Episodic Residual codes; unclassified (2 sources) Active advance directive (copy within chart) ; Translations: [Other specified health status] 12-20-2024 Episodic Screening and history of mental health and substance abuse codes (2 sources) Patient encounter status; Translations: [Encounter for screening examination for other mental health and behavioral disorders] 12-20-2024 Episodic Thyroid disorders (20 sources) Hypothyroidism, unspecified; Translations: [Acquired hypothyroidism] Onset: 01-29-2021 Chronic Past or Other Problems Problem Classification Problem Date Documented Da te Episodic/Chronic Disorders of lipid metabolism (14 sources) Pure hypercholesterole carolyn, unspecified; Translations: [Pure hypercholesterole carolyn] Onset: 01-08-2021 Resolved: 12-30-2024 11-17-2022 Chronic Immunizations and screening for infectious disease (4 sources) Encounter for immunization; Translations: [ENCOUNTER FOR IMMUNIZATION] Onset: 01-31-2021 Episodic Malaise and fatigue (1 source) Other fatigue; Translations: [OTHER FATIGUE] Onset: 01-08-2021 Episodic Mood disorders (13 sources) Mood disorders Onset: 11-29-2023 Resolved: 12-26-2024 11-29-2023 Other gastrointestinal disorders (13 sources) Slow transit constipation; Translations: [Slow transit constipation] Onset: 11-17-2022 Resolved: 11-29-2023 11-29-2023 Episodic Other male genital disorders (4 sources) Disorder of prostate, unspecified; Translations: [DISORDER OF PROSTATE UNSPECIFIED] Onset: 12-25-2020 Episodic Thyroid disorders (13 sources) Sick-euthyroid syndrome; Translations: [Sick-euthyroid syndrome] Onset: 11-17-2022 Resolved: 11-29-2023 11-29-2023 Episodic Results Test Name Value Interpretation Reference Range Facility XR ANKLE LT MIN 3Von [address] [place] [address] XRay Report Signed Patient: VIRGIE SMITH MR#: [id number] : 1955 Acct:[id number] Age/Sex: 69 / M ADM Date: 08/28/24 Loc: RAD Attending Dr: Ainsley Dhillon D.P.M. Ordering Physician: Ainsley Dhillon D.P.M. Date of Service: 08/28/24 Procedure(s): XR ankle LT min 3V Accession Number(s): [id number] cc: LEONIDAS RIGGS ; Ainsley Dhillon D.P.M. The [place] [id number] Patient Name: VIRGIE SMITH MRN: [facility]:[id number] date: 1955 Sex: M Assigned Patient Location: RAD Current Patient Location: RAD Accession/Order Number: [id number] Exam Date: 08/28/2024 10:35 Report Date: 08/28/2024 10:37 At the request of: AINSLEY DHILLON DPM Procedure: XR ankle LT min 3V XR ankle LT min 3V 08/28/2024 10:17 AM SIGNS AND SYMPTOMS: Pain, status post hardware fixation of left ankle fracture PROTOCOL: Frontal, lateral, and oblique radiographs of the left ankle COMPARISON: 07/11/2024 FINDINGS: The ankle mortise is preserved. There is plate and screw fixation of the distal fibula without hardware complication or change in alignment. There is diminishing soft tissue swelling. Tiny fracture fragments are redemonstrated along the dorsal aspect of the distal tibia. XR/XR ankle LT min 3V IMPRESSION: The ankle mortise is preserved. There is plate and screw fixation of the distal fibula without hardware complication or change in alignment. Tiny fracture fragments are redemonstrated along the dorsal aspect of the distal tibia. Impression dictated by: Saqib Mabry M.D. 08/28/2024 10:37 AM Dictation Location: [place] [address] Electronically authenticated by: [id number] Y Date: 08/28/2024 10:37 Dictated By: Saqib Mabry M.D. Signed By: 08/28/24 1039 DD/ 1037 TD/TT: [employer] C[employer] Developer: [facility] Radiology, Radiologist, MD - 08/28/2024 [place] [address] XRay Report Signed Patient: VIRGIE SMITH MR#: [id number] : 1955 Acct:[id number] Age/Sex: 69 / M ADM Date: 08/28/24 Loc: RAD Attending Dr: Ainsley Dhillon D.P.M. Ordering Physician: Ainsley Dhillon D.P.M. Date of Service: 08/28/24 Procedure(s): XR ankle LT min 3V Accession Number(s): [id number] cc: LEONIDAS RIGGS ; Ainsley Dhillon D.P.M. [place] [address] Patient Name: VIRGIE SMITH MRN: [facility]:[id number] date: 1955 Sex: M Assigned Patient Location: [facility] Current Patient Location: [facility] Accession/Order Number: [id number] Exam Date: 08/28/2024 10:35 Report Date: 08/28/2024 10:37 At the request of: AINSLEY DHILLON DPIvan Procedure: XR ankle LT min 3V XR ankle LT min 3V 08/28/2024 10:17 AM SIGNS AND SYMPTOMS: Pain, status post hardware fixation of left ankle fracture PROTOCOL: Frontal, lateral, and oblique radiographs of the left ankle COMPARISON: 07/11/2024 FINDINGS: The ankle mortise is preserved. There is plate and screw fixation of the distal fibula without hardware complication or change in alignment. There is diminishing soft tissue swelling. Tiny fracture fragments are redemonstrated along the dorsal aspect of the distal tibia. XR/XR ankle LT min 3V IMPRESSION: The ankle mortise is preserved. There is plate and screw fixation of the distal fibula without hardware complication or change in alignment. Tiny fracture fragments are redemonstrated along the dorsal aspect of the distal tibia. Impression dictated by: Saqib Mabry M.D. 08/28/2024 10:37 AM Dictation Location: [place] [address] Electronically authenticated by: [id number] Y Date: 08/28/2024 10:37 Dictated By: Saqib Mabry M.D. Signed By: 08/28/24 1039 DD/ 1037 TD/TT: [employer] C[employer] Developer: [facility] Radiology Study observation (narrative) [facility] XR ANKLE LT MIN 3VOrdered By : Radiologist Radiology on 08-28-2024 [facility] [employer] Work Phone: XR ANKLE LT MIN 3Von [address] [place] [address] XRay Report Signed Patient: VIRGIE SMITH MR#: [id number] : 1955 Acct:[id number] Age/Sex: 68 / M ADM Date: 07/11/24 Loc: [facility] Attending Dr: Ainsley Dhillon D.P.M. Ordering Physician: Ainsley Dhillon D.P.M. Date of Service: 07/11/24 Procedure(s): XR ankle LT min 3V Accession Number(s): [id number] cc: LEONIDAS RIGGS ; Ainsley Dhillon D.P.M. The [place] [address] Patient Name: VIRGIE SMITH MRN: [facility]:[id number] date: 1955 Sex: M Assigned Patient Location: [facility] Current Patient Location: [facility] Accession/Order Number: [id number] Exam Date: 07/11/2024 09:20 Report Date: 07/11/2024 09:22 At the request of: AINSLEY DHILLON DPIvan [...] Marisol Wesley M.D.07/11/2024 9:22 AM Dictation Location: [place] [address] Electronically authenticated by: [id number] Y Date: 07/11/2024 09:22 Dictated By: Marisol Wesley M.D. Signed By: 07/11/24924 DD/ 1 TD/TT: [employer] Developer: [facility] Radiology, Radiologist, - 07/11/[address] [address] XRay Report Signed Patient: VIRGIE SMITH MR#: [id number] : 1955 Acct:[id number] Age/Sex: 68 / M ADM Date: 07/11/24 Loc: RAD Attending Dr: Ainsley Dhillon D.P.M. Ordering Physician: Ainsley Dhillon D.P.M. Date of Service: 07/11/24 Procedure(s): XR ankle LT min 3V Accession Number(s): [id number] cc: LEONIDAS RIGGS ; Ainsley Dhillon D.P.M. The [place] [address] Patient Name: VIRGIE SMITH MRN: [facility]:[id number] date: 1955 Sex: M Assigned Patient Location: [facility] Current Patient Location: [facility] Accession/Order Number: [id number] Exam Date: 07/11/2024 09:20 Report Date: 07/11/2024 09:22 At the request of: AINSLEY DHILLON DPIvan [...] Marisol Wesley M.D.07/11/2024 9:22 AM Dictation Location: [place] [address] Electronically authenticated by: [id number] Y Date: 07/11/2024 09:22 Dictated By: Marisol Wesley M.D. Signed By: 07/11/24924 DD/ 1 TD/TT: [employer] Crm Developer: [facility] Radiology Study observation (narrative) [facility] XR ANKLE LT MIN 3VOrdered By : Radiologist Radiology on 07-11-2024 RIANA bower Work Phone: XR ANKLE LT MIN [address] [address] XRay Report Signed Patient: VIRGIE SMITH MR#: [id number] : 1955 Acct:[id number] Age/Sex: 68 / M ADM Date: 06/14/24 Loc: RAD Attending Dr: Ainsley Dhillon D.P.M. Ordering Physician: Ainsley Dhillon D.P.M. Date of Service: 06/14/24 Procedure(s): XR ankle LT min 3V Accession Number(s): [id number] cc: LEONIDAS RIGGS ; Ainsley Dhillon D.P.M. [address] [address] Patient Name: VIRGIE SMITH MRN: [facility]:[id number] date: 1955 Sex: M Assigned Patient Location: [facility] Current Patient Location: PT Accession/Order Number: [id number] Exam Date: 06/14/2024 23:02 Report Date: 06/14/2024 23:04 At the request of: AINSLEY DHILLON DP Procedure: XR ankle LT min 3V LEFT [...] Ulloa Jr., D.O.06/14/2024 11:04 PM Dictation Location: [place] [address] Electronically authenticated by: [id number] Y Date: 06/14/2024 23:04 Dictated By: Chino Ulloa M.D. Signed By: 06/14/242306 DD/ 03 TD/TT: [employer] Crm Developer: [facility] Radiology, Radiologist, MD - 06/14/[address] [address] XRay Report Signed Patient: VIRGIE SMITH MR#: [id number] : 1955 Acct:[id number] Age/Sex: 68 / M ADM Date: 06/14/24 Loc: RAD Attending Dr: Ainsley Dhillon D.P.M. Ordering Physician: Ainsley Dhillon D.P.M. Date of Service: 06/14/24 Procedure(s): XR ankle LT min 3V Accession Number(s): [id number] cc: LEONIDAS RIGGS ; Ainsley Dhillon D.P.M. The [place] [address] Patient Name: VIRGIE SMITH MRN: [id number]:[id number] date: 1955 Sex: M Assigned Patient Location: RAD Current Patient Location: PT Accession/Order Number: [id number] Exam Date: 06/14/2024 23:02 Report Date: 06/14/2024 [...] IMPRESSION: NO HARDWARE COMPLICATION. Impression dictated by: Arlen Garg Jr.OLilia06/14/2024 11:04 PM Dictation Location: [place] [address] Electronically authenticated by: [id number] Y Date: 06/14/2024 23:04 Dictated By: Chino Ulloa M.D. Signed By: 06/14/242306 DD/ 03 TD/TT: [employer] Crm Developer: [facility] [employer] Radiology Study observation (narrative) [facility] XR ANKLE LT MIN 3VOrdered By : Radiologist Radiology on 06-14-2024 [facility] [employer] Work Phone: XR ANKLE LT MIN [address] [address] XRay Report Signed Patient: VIRGIE SMITH MR#: [id number] : 1955 Acct:[id number] Age/Sex: 68 / M ADM Date: 05/26/24 Loc: SURGOUT Attending Dr: Ainsley Dhillon D.P.M. Ordering Physician: Ainsley Dhillon D.P.M. Date of Service: 05/26/24 Procedure(s): XR ankle LT min 3V Accession Number(s): [id number] cc: LEONIDAS RIGGS ; Ainsley Dhillon D.P.M. [place] [address] Patient Name: VIRGIE SMITH MRN: [facility]:[id number] date: 1955 Sex: M Assigned Patient Location: [facility] Current Patient Location: ER Accession/Order Number: [id number] Exam Date: 05/26/2024 11:20 Report Date: 05/29/2024 [...] Signed By: 05/29/24 1521 DD/ 1518 TD/TT: [employer] Crm Developer: [facility] Radiology, Radiologist, - 05/29/2024 [place] [address] XRay Report Signed Patient: VIRGIE SMITH MR#: [id number] : 1955 Acct:[id number] Age/Sex: 68 / M ADM Date: 05/26/24 Loc: SURGOUT Attending Dr: Ainsley Dhillon D.P.M. Ordering Physician: Ainsley Dhillon D.P.M. Date of Service: 05/26/24 Procedure(s): XR ankle LT min 3V Accession Number(s): [id number] cc: LEONIDAS RIGGS ; Ainsley Dhillon D.P.M. The [place] [address] Patient Name: VIRGIE SMITH MRN: [facility]:[id number] date: 1955 Sex: M Assigned Patient Location: [facility] Current Patient Location: Accession/Order Number: [id number] Exam Date: 05/26/2024 11:20 Report Date: 05/29/2024 [...] Signed By: 05/29/24 1521 DD/ 1518 TD/TT: [employer] Crm Developer: [facility] [employer] Radiology Study observation (narrative) [facility] [employer] XR ANKLE LT MIN 3VOrdered By : Radiologist Radiology on 05-29-2024 [facility] Work Phone: ECG 12-LEADon 05-27-2024 [place] [address] Electrocardiograph Report Signed Patient: VIRGIE SMITH MR#: [id number] : 1955 Acct:[id number] Age/Sex: 68 / M ADM Date: 05/26/24 Loc: SURGOUT Attending Dr: Ainsley Dhillon D.P.M. Ordering Physician: Mati Mckeon M.D. Date of Service: 05/26/24 Procedure(s): ECG 12 lead Accession Number(s): [id number] cc: [facility] Test Date: 2024-05-26 Pat Name: VIRGIE SMITH Department: Room: - Gender: Male Stock Clipper: : 1955 Requested By: 1850 Order Number: [id number] Reading MD: THAD WEBBER Measurements Intervals [place] Rate: 65 P: 61 NH: 168 QRS: 52 QRSD: 88 T: 56 QT: 377 QTc: 394 Interpretive Statements SINUS RHYTHM No previous ECG available for comparison Electronically Signed On 05-27-2024 8:21:07 EST by THAD WEBBER Dictated By: Thad Webber D.O. Signed By: 05/27/24 0821 DD/ 0738 TD/TT: [employer] C[employer] Developer: [facility] Radiology, Radiologist, - 05/27/2024 [place] [address] Electrocardiograph Report Signed Patient: VIRGIE SMITH MR#: [id number] : 1955 Acct:[id number] Age/Sex: 68 / M ADM Date: 05/26/24 Loc: SURGOUT Attending Dr: Ainsley Dhillon D.P.M. Ordering Physician: Mati Mckeon M.D. Date of Service: 05/26/24 Procedure(s): ECG 12 lead Accession Number(s): [id number] cc: The [facility] Test Date: 2024-05-26 Pat Name: VIRGIE SMITH Department: Room: - Gender: Male Stock Clipper: : 1955 Requested By: 1850 Order Number: [id number] Reading MD: THAD WEBBER Measurements Intervals [place] Rate: 65 P: 61 NH: 168 QRS: 52 QRSD: 88 T: 56 QT: 377 QTc: 394 Interpretive Statements SINUS RHYTHM No previous ECG available for comparison Electronically Signed On 05-27-2024 8:21:07 EST by THAD WEBBER Dictated By: Thad Webber D.O. Signed By: 05/27/24 0821 DD/ 0738 TD/TT: [employer] C[employer] Developer: [facility] ECG 12-LEADOrdered By: Radio logist Radiology on 05-27-2024 [facility] [employer] Work Phone: ALL CBC WITH AUTO DIFFon BASOPHILS ABSOLUTE AUTO 0 [facility] Basophils/100 WBC (Bld) 0.5 % 0.2 - 2.0 % [facility] Eosinophils/100 WBC (Bld) 2 % 0.9 - 7.0 % [facility] Erythrocyte distribution width (RBC) [Ratio] 12.7 % 11.0 - 15.0 % [facility] Hematocrit (Bld) [Volume fraction] 38.2 % Low 42.0 - 54.0 % [facility] Hemoglobin (Bld) [Mass/Vol] 12.9 g/dL Low 14.0 - 18.0 g/dL [facility] IMMATURE GRANULOCYTES ABS AUTO 0.01 [facility] Immature granulocytes/100 WBC (Bld) 0.2 % 0.0 - 0.5 % [facility] Interpretation and review of laboratory results [facility] LYMPHOCYTES ABSOLUTE AUTO 1.3 [facility] Lymphocytes/100 WBC (Bld) 21.5 % 20.5 - 60.0 % [facility] MCH (RBC) [Entitic mass] 32.6 pg 25.9 - 34.0 pg [facility] MCHC (RBC) [Mass/Vol] 33.8 g/dL 29.9 - 35.2 g/dL [facility] MCV (RBC) [Entitic vol] 96.5 fL High 80.0 - 94.0 fL [facility] MONOCYTES ABSOLUTE AUTO 0.7 [facility] Monocytes/100 WBC (Bld) 11.1 % 1.7 - 12.0 % [facility] NEUTROPHILS ABSOLUTE AUTO 3.9 [facility] Neutrophils/100 WBC (Bld) 64.7 % 43.0 - 75.0 % [facility] Platelet mean volume (Bld) [Entitic vol] 9.6 fL 9.5 - 13.5 fL [facility] TBH EO # 0.1 [facility] Health[facility] TB PLT 201 N[facility] TB RBC 3.96 Low [facility] TBH WBC 6 [facility] ECG 12-LEADon 05-26-2024 Radiology Study observation (narrative) [facility] ALL CBC WITH AUTO DIFFon BASOPHILS ABSOLUTE AUTO 0.0 [facility] Basophils/100 WBC (Bld) 0.5 % 0.2 - 2.0 % [facility] Eosinophils/100 WBC (Bld) 4.0 % 0.9 - 7.0 % [facility] Erythrocyte distribution width (RBC) [Ratio] 12.8 % 11.0 - 15.0 % [facility] Hematocrit (Bld) [Volume fraction] 40.0 % Low 42.0 - 54.0 % [facility] Hemoglobin (Bld) [Mass/Vol] 13.5 g/dL Low 14.0 - 18.0 g/dL [facility] IMMATURE GRANULOCYTES ABS AUTO 0.01 [facility] Immature granulocytes/100 WBC (Bld) 0.2 % 0.0 - 0.5 % [facility] Interpretation and review of laboratory results [facility] LYMPHOCYTES ABSOLUTE AUTO 1.3 [facility] Lymphocytes/100 WBC (Bld) 30.2 % 20.5 - 60.0 % [facility] MCH (RBC) [Entitic mass] 32.9 pg 25.9 - 34.0 pg [facility] MCHC (RBC) [Mass/Vol] 33.8 g/dL 29.9 - 35.2 g/dL [facility] MCV (RBC) [Entitic vol] 97.6 fL High 80.0 - 94.0 fL [facility] MONOCYTES ABSOLUTE AUTO 0.4 [facility] Monocytes/100 WBC (Bld) 8.8 % 1.7 - 12.0 % [facility] NEUTROPHILS ABSOLUTE AUTO 2.4 [facility] Neutrophils/100 WBC (Bld) 56.3 % 43.0 - 75.0 % [facility] Platelet mean volume (Bld) [Entitic vol] 10.0 fL 9.5 - 13.5 fL [facility] TBH EO # 0.2 [facility] TBH PLT 189 [facility] RBC 4.10 Low [facility] WBC 4.3 [facility] REVERSE T3on 11-29-2021 Reverse T3, Serum 17.4 ng/dL Normal 9.2-24.1 [facility] Comment on above: Result Comment: This test was developed and its performance characteristics determined by [facility]. It has not been cleared or approved by the Food and Drug Administration. Performed By: #### R EVRT3 #### [facility] [address] [place] [address] Dr. Floridalma Collins PSA, FREE AND TOTAL RATIOon 11-26-2021 % Free PSA 21.7 % Normal [facility] Comment on above: Result Comment: The [...] men. Performed By: #### P SAFREE #### [facility] [address] [place] [address] Dr. Floridalma Collins Prostate specific Ag [Mass/Vol] 0.6 ng/mL Normal 0.0-4.0 [facility] Comment on above: Result Comment: Shantal HALLIA methodology. . According to the [place] [employer], Serum PSA should decrease and [...] disease. Performed By: #### P SAFREE #### [facility] [address] [place] [address] Dr. Floridalma Collins PSA, Free 0.13 ng/mL Normal N/A [facility] Comment on above: Result Comment: Shantal bower ECLIA methodology. Performed By: #### P SAFREE #### [facility] [address] [place] [address] Dr. Floridalma Collins T3, TOTAL (TRIIODOTHYRONINE) on 11-26-2021 T3, TOTAL 106 ng/dL Normal 71-180 [facility] Comment on above: Performed By: #### B 12FOL, PSAD #### [facility] [address] [place] [address] Antonette Damon CBC AUTO DIFFon 11-25-2021 BASO # 0.0 103/ul Normal 0.0-0.1 [facility] Comment on above: Performed By: #### C BC #### [facility] [address] [place] [address] Dr. Floridalma Collins Basophils/100 WBC (Bld) 0.4 % Normal 0.2-2.0 [facility] Comment on above: Performed By: #### C BC #### [facility] [facility] [address] [place] [address] Dr. Floridalma Collins EO # 0.3 103/ul Normal 0.0-0.7 [facility] Comment on above: Performed By: #### C BC #### [facility] [address] [place] [address] Dr. Floridalma Collins Eosinophils/100 WBC (Bld) 5.4 % Normal 0.9-7.0 [facility] Comment on above: Performed By: #### C BC #### [facility] [address] [place] [address] Dr. Floridalma Collins Erythrocyte distribution width (RBC) [Ratio] 13.3 % Normal 11.0-15.0 [facility] Comment on above: Performed By: #### C BC #### [facility] [address] [place] [address] Dr. Floridalma Collins Hematocrit (Bld) [Volume fraction] 38.9 % Critically low 42.0-54.0 [facility] Comment on above: Performed By: #### C BC #### [facility] [address] [place] [address] Dr. Floridalma Collins Hemoglobin (Bld) [Mass/Vol] 12.9 g/dL Critically low 14.0-18.0 [facility] Comment on above: Performed By: #### C BC #### [facility] [address] [place] [address] Dr. Floridalma Collins IG # 0.01 10e3/ul Normal 0.00-0.03 [facility] Comment on above: Performed By: #### C BC #### [facility] [address] [place] [address] Dr. Floridalma Collins IG % 0.2 % Normal 0.0-0.5 [facility] Comment on above: Performed By: #### C BC #### [facility] [address] [place] [address] Dr. Floridalma Collins LYMPH # 1.3 103/ul Normal 1.2-3.8 [facility] Comment on above: Performed By: #### C BC #### [facility] [address] [place] [address] Dr. Floridalma Collins Lymphocytes/100 WBC (Bld) 28.7 % Normal 20.5-60.0 [facility] Comment on above: Performed By: #### C BC #### [facility] [address] [place] [address] Dr. Floridalma Collins MANUAL DIFF REQ NO Normal [facility] Comment on above: Performed By: #### C BC #### [facility] [address] [place] [address] Dr. Floridalma Collins MCH (RBC) [Entitic mass] 32.3 pg Normal 25.9-34.0 [facility] Comment on above: Performed By: #### C BC #### [facility] [address] [place] [address] Dr. Floridalma Collins MCHC (RBC) [Mass/Vol] 33.2 g/dL Normal 29.9-35.2 [facility] Comment on above: Performed By: #### C BC #### [facility] [address] [place] [address] Dr. Floridalma Collins MCV (RBC) [Entitic vol] 97.3 fL Critically high 80.0-94.0 [facility] Comment on above: Performed By: #### C BC #### [facility] [address] [place] [address] Dr. Floridalma Collins MONO # 0.4 103/ul Normal 0.3-0.8 [facility] Comment on above: Performed By: #### C BC #### [facility] [address] [place] [address] Dr. Floridalma Collins Monocytes/100 WBC (Bld) 9.5 % Normal 1.7-12.0 [facility] Comment on above: Performed By: #### C BC #### [facility] [address] [place] [address] Dr. Floridalma Collins NEUT # 2.6 103/ul Normal 1.4-6.5 [facility] Comment on above: Performed By: #### C BC #### [facility] [address] [place] [address] Dr. Floridalma Collins Neutrophils/100 WBC (Bld) 55.8 % Normal 43.0-75.0 [facility] Comment on above: Performed By: #### C BC #### [facility] [address] [address] [address] Floridalma Collins Platelet mean volume (Bld) [Entitic vol] 10.0 fL Normal 9.5-13.5 [facility] Comment on above: Performed By: #### C BC #### [facility] [address] [address] [address] Floridalma Collins PLT 190 103/ul Normal 150-450 [facility] Comment on above: Performed By: #### C BC #### [facility] [address] [address] [address] Floridalma Collins RBC 4.00 106/ul Critically low 4.70-6.10 [facility] Comment on above: Performed By: #### C BC #### [facility] [address] [place] [address] Dr. Floridalma Collins WBC 4.6 103/ul Normal 4.0-11.0 [facility] Comment on above: Performed By: #### C BC #### [facility] [address] [address] [address] Floridalma Collins FREE T3on 11-25-2021 FREE T3 2.39 pg/mlL Normal 2.18-3.98 [facility] Comment on above: Performed By: #### F T3, CMP, LIPID, TSH #### [facility] [address] [place] [address] Dr. Floridalma Collins FREE T4on 11-25-2021 Free T4 [Mass/Vol] 1.09 ng/dL Normal 0.76-1.46 [facility] Comment on above: Performed By: #### B 12FOL, PSAD #### [facility] [address] [place] [address] Antonette Damon LIPID PROFILEon 11-25-2021 CHOL-HDL RATIO NORM SEE BELOW Normal [facility] Comment on above: Result Comment: 3.3 - 4.4 LOW RISK 4.4 - 7.1 AVERAGE RISK 7.1 - 11.0 MODERATE RISK >11.0 HIGH RISK Performed By: #### B 12FOL, PSAD #### [facility] [address] [place], [place] [address] Antonette Marisol Cholesterol [Mass/Vol] 175 mg/dL Normal <=200 [facility] Comment on above: Performed By: #### B 12FOL, PSAD #### [facility] [address] [place], [place] [address] Antonette Marisol Cholesterol in HDL [Mass/Vol] 62 mg/dL Critically high 40-60 [facility] Comment on above: Performed By: #### B 12FOL, PSAD #### [facility] [address] [place], [place] [address] Antonette Marisol Cholesterol in LDL [Mass/Vol] 103.4 mg/dL Normal [facility] Comment on above: Performed By: #### B 12FOL, PSAD #### [facility] [address] [place], [place] [address] Antonette Marisol Cholesterol.total/C holesterol in HDL [Mass ratio] 2.8 {ratio} Normal [facility] Comment on above: Performed By: #### B 12FOL, PSAD #### [facility] [address] [place], [place] [address] Antonette Marisol HDL NORMAL > or = 60 mg/dl - LO W CARDIOVASCULAR RISK <40 mg/dl - HIGH CARDIOVASCULAR RISK Normal [facility] Comment on above: Performed By: #### B 12FOL, PSAD #### [facility] [address] [place], [place] [address] Antonette Marisol LDL CALC NORMAL SEE BELOW Normal [facility] Comment on above: Result Comment: <100 mg/dl OPTIMAL 100 - 129 mg/dl NEAR OR ABOVE OPTIMAL 130 - 159 mg/dl BORDERLINE HIGH 160 - 189 mg/dl HIGH >190 mg/dl VERY HIGH Performed By: #### B 12FOL, PSAD #### [facility] [address] [place], [place] [address] Antonette Marisol Triglyceride [Mass/Vol] 48 mg/dL Normal <=150 [facility] Comment on above: Performed By: #### B 12FOL, PSAD #### [facility] [address] [id number] Antonette Marisol VLDL CALC 9.6 mg/dL Normal [facility] Comment on above: Performed By: #### MEDINA WATSON #### [facility] [address] [id number] Antonette Marisol PROF 14(COMP METB)on 022 Albumin [Mass/Vol] 3.7 g/dL Normal 3.4-5.0 [facility] Comment on above: Performed By: #### Rudolph EVERETT, PSAD #### [facility] [address] [id number] Antonette Marisol Albumin/Globulin [Mass ratio] 1.3 {ratio} Normal [facility] Comment on above: Performed By: #### Rudolph EVERETT PSAD #### [facility] [address] [place], [place] [id number] Antonette Marisol ALP [Catalytic activity/Vol] 58 U/L Normal 46-116 [facility] Comment on above: Performed By: #### Rudolph EVERETT, PSAD #### [facility] [address] [place], [place] [id number] Antonette Marisol ALT [Catalytic activity/Vol] 21 U/L Normal 16-63 [facility] Comment on above: Performed By: #### Rudolph EVERETT PSAD #### [facility] [address] [place], [place] [id number] Antonette Marisol Anion gap [Moles/Vol] 13.1 mmol/L Normal [facility] Comment on above: Performed By: #### Rudolph EVERETT, PSAD #### [facility] [address] [place], [place] [id number] Antonette Marisol AST [Catalytic activity/Vol] 21 U/L Normal 15-37 [facility] Comment on above: Performed By: #### Rudolph EVERETT, PSAD #### [facility] [address] [place], [place] [id number] Antonette Marisol Bilirubin [Mass/Vol] 0.5 mg/dL Normal 0.2-1.0 [facility] Comment on above: Performed By: #### FAVIO WATSOND #### [facility] [address] [id number] Antonette Marisol Calcium [Mass/Vol] 8.6 mg/dL Normal 8.5-10.1 [facility] Comment on above: Performed By: #### B 12FOL, PSAD #### [facility] [address] [place] [address] Antonette Marisol Chloride [Moles/Vol] 106 mmol/L Normal 98-107 [facility] Comment on above: Performed By: #### B 12FOL, PSAD #### [facility] [address] [place] [address] Antonette Marisol CO2 [Moles/Vol] 23.9 mmol/L Normal 21.0-32.0 [facility] Comment on above: Performed By: #### B 12FOL, PSAD #### [facility] [address] [place] [address] Anotnette Marisol Creatinine [Mass/Vol] 1.20 mg/dL Normal 0.70-1.30 [facility] Comment on above: Performed By: #### Rudolph 12FOL, PSAD #### [facility] [address] [place], [place] [id number] Antonette Marisol EGFR-AF MALIAN >60 Normal >=60 [facility] Comment on above: Performed By: #### B 12FOL, PSAD #### [facility] [address] [place], [place] [id number] Antonette Marisol EGFR-NON AF MALIAN =60 Normal >=60 [facility] Comment on above: Performed By: #### B 12FOL, PSAD #### [facility] [address] [place], [place] [phone] Antonette Marisol Globulin (S) [Mass/Vol] 2.9 g/dL Normal [facility] Comment on above: Performed By: #### B 12FOL, PSAD #### [facility] [address] [place], [place] [phone] Antonette Marisol Glucose [Mass/Vol] 97 mg/dL Normal 74-106 [facility] Comment on above: Performed By: #### B 12ALEKSEY, PSAD #### [facility] [address] [place] [address] Antonette Marisol Potassium [Moles/Vol] 4.0 mmol/L Normal 3.5-5.1 [facility] Comment on above: Performed By: #### Rudolph 12ALEKSEY, PSAD #### [facility] [address] [place], [place] [id number] Antonette Marisol Protein [Mass/Vol] 6.6 g/dL Normal 6.4-8.2 [facility] Comment on above: Performed By: #### Rudolph 12ALEKSEY, PSAD #### [facility] [address] [place] [address] Antonette Marisol Sodium [Moles/Vol] 139 mmol/L Normal 136-145 [facility] Comment on above: Performed By: #### Rudolph 12ALEKSEY PSAD #### [facility] [address] [place] [address] Antonette Marisol Urea nitrogen [Mass/Vol] 19.0 mg/dL Critically high 7.0-18.0 [facility] Comment on above: Performed By: #### Rudolph EVERETT PSARosalio #### [facility] [address] [place], [place] [phone] Antonette Marisol Urea nitrogen/Creatinine [Mass ratio] 15.8 mg/mg Normal [facility] Comment on above: Performed By: #### Rudolph EVERETT PSAD #### [facility] [address] [place], [place] [phone] Antonette Marisol TSHon 11-25-2021 TSH 1.726 uIU/mL Normal 0.358-3.[address] [facility] Comment on above: Performed By: #### Rudolph EVERETT PSAD #### [facility] [address] [place], [place] [phone] Antonette Marisol VIT B12 AND FOLATEon 022 Cobalamin (Vitamin B12) [Mass/Vol] 641.0 pg/mL Normal 193.0-986.0 [facility] Comment on above: Performed By: #### B 12FOL, PSAD #### [facility] [address] [place] [address] Antonette Marisol FOLATE 17.90 ng/mL Normal 8.60-58.90 [facility] Comment on above: Performed By: #### B 12MEDINA RYDER #### [facility] [address] [place] [address] Antonette Marisol TSHon 01-21-2021 TSH 0.720 uIU/mL Normal 0.470-4.[address] [facility] Comment on above: Performed By: #### T SH #### [facility] [address] [place] [address] Dr. Floridalma Collins TSH RANGE SEE BELOW Normal [facility] Comment on above: Result Comment: <0.3 4 UIU/ml HYPERTHYROID 0.34-5.60 UIU/ml EUTHYROID >5.60 UIU/ml HYPOTHYROID Performed By: #### T SH #### [facility] [address] [place] [address] Dr. Floridalma Collins T3, TOTAL (TRIIODOTHYRONINE) on 12-25-2020 T3, TOTAL 120 ng/dL Normal 71-180 [facility] Comment on above: Performed By: #### T 3TOTAL #### [facility] [address] [place] [address] Dr. Floridalma Collins CBC AUTO DIFFon 12-24-2020 BASO # 0.0 103/ul Normal 0.0-0.1 [facility] Comment on above: Performed By: #### C BC #### [facility] [address] [place] [address] Antonette Marisol Basophils/100 WBC (Bld) 0.5 % Normal 0.2-2.0 [facility] Comment on above: Performed By: #### C BC #### [facility] [address] [place] [address] Antonette Marisol EO # 0.1 103/ul Normal 0.0-0.7 [facility] Comment on above: Performed By: #### C BC #### [facility] [address] [place] [address] Antonette Marisol Eosinophils/100 WBC (Bld) 3.3 % Normal 0.9-7.0 [facility] Comment on above: Performed By: #### C BC #### [facility] [address] [place] [address] Antonettearsenio Damon Erythrocyte distribution width (RBC) [Ratio] 12.9 % Normal 11.0-15.0 [facility] Comment on above: Performed By: #### C BC #### [facility] [address] [place] [address] Antonette Marisol Hematocrit (Bld) [Volume fraction] 37.2 % Critically low 42.0-54.0 [facility] Comment on above: Performed By: #### C BC #### [facility] [address] [place] [address] Antonette Marisol Hemoglobin (Bld) [Mass/Vol] 12.7 g/dL Critically low 14.0-18.0 [facility] Comment on above: Performed By: #### C BC #### [facility] [address] [place] [address] Antonette Marisol IG # 0.01 10e3/ul Normal 0.00-0.03 [facility] Comment on above: Performed By: #### C BC #### [facility] [address] [place] [address] Antonette Marisol IG % 0.3 % Normal 0.0-0.5 [facility] Comment on above: Performed By: #### C BC #### [facility] [address] [place] [address] Antonette Marisol LYMPH # 1.4 103/ul Normal 1.2-3.8 [facility] Comment on above: Performed By: #### C BC #### [facility] [address] [place] [address] Antonette Marisol Lymphocytes/100 WBC (Bld) 33.9 % Normal 20.5-60.0 [facility] Comment on above: Performed By: #### C BC #### [facility] [address] [place] [address] Antonette Marisol MANUAL DIFF REQ NO Normal [facility] Comment on above: Performed By: #### C BC #### [facility] [address] [id number] Antonette Damon MCH (RBC) [Entitic mass] 33.2 pg Normal 25.9-34.0 [facility] Comment on above: Performed By: #### C BC #### [facility] [address] [id number] Antonette Damon MCHC (RBC) [Mass/Vol] 34.1 g/dL Normal 29.9-35.2 [facility] Comment on above: Performed By: #### C BC #### [facility] [address] [id number] Antonette Damon MCV (RBC) [Entitic vol] 97.4 fL Critically high 80.0-94.0 [facility] Comment on above: Performed By: #### C BC #### [facility] [address] [place] [address] Antonette Damon MONO # 0.4 103/ul Normal 0.3-0.8 [facility] Comment on above: Performed By: #### C BC #### [facility] [address] [id number] Antonette Damon Monocytes/100 WBC (Bld) 10.8 % Normal 1.7-12.0 [facility] Comment on above: Performed By: #### C BC #### [facility] [address] [place], [place] [phone] Antonette Damon NEUT # 2.0 103/ul Normal 1.4-6.5 [facility] Comment on above: Performed By: #### C BC #### [facility] [address] [place], [place] [phone] Antonette Damon Neutrophils/100 WBC (Bld) 51.2 % Normal 43.0-75.0 [facility] Comment on above: Performed By: #### C BC #### [facility] [address] [place], [place] [id number] Antonettearsenio Damon Platelet mean volume (Bld) [Entitic vol] 9.2 fL Critically low 9.5-13.5 [facility] Comment on above: Performed By: #### C BC #### [facility] [address] [id number] Antonette Marisol PLT 201 103/ul Normal 150-450 [facility] Comment on above: Performed By: #### C BC #### [facility] [address] [address] Antonette Marisol RBC 3.82 106/ul Critically low 4.70-6.10 [facility] Comment on above: Performed By: #### C BC #### [facility] [address] [address] Antonette Marisol WBC 4.0 103/ul Normal 4.0-11.0 [facility] Comment on above: Performed By: #### C BC #### [facility] [address] [place] [address] Antonette Marisol FREE T3on 12-24-2020 FREE T3 2.63 pg/mlL Critically low 2.77-5.27 [facility] Comment on above: Performed By: #### F T3 #### [facility] [address] [place] [address] Dr. Floridalma Collins FREE T4on 12-24-2020 Free T4 [Mass/Vol] 0.76 ng/dL Critically low 0.78-2.19 [facility] Comment on above: Performed By: #### C BC #### [facility] [address] [place] [address] Dr. Floridalma Collins LIPID PROFILEon 12-24-2020 CHOL-HDL RATIO NORM SEE BELOW Normal [facility] Comment on above: Result Comment: 3.3 - 4.4 LOW RISK 4.4 - 7.1 AVERAGE RISK 7.1 - 11.0 MODERATE RISK >11.0 HIGH RISK Performed By: #### Rudolph 12MEDINA RYDER #### [facility] [address] [place] [address] Antonette Marisol Cholesterol [Mass/Vol] 188 mg/dL Normal <=200 [facility] Comment on above: Performed By: #### Rudolph EVERETT PSARosalio #### [facility] [address] [id number] Antonette Marisol Cholesterol in HDL [Mass/Vol] 52 mg/dL Normal [facility] Comment on above: Performed By: #### Rudolph EVERETT PSARosalio #### [facility] [address] [id number] Antonette Marisol Cholesterol in LDL [Mass/Vol] 121.6 mg/dL Normal [facility] Comment on above: Performed By: #### Rudolph EVERETT PSAD #### [facility] [address] [id number] Antonette Marisol Cholesterol.total/C holesterol in HDL [Mass ratio] 3.6 {ratio} Normal [facility] Comment on above: Performed By: #### Rudolph EVERETT PSARosalio #### [facility] [address] [id number] Antonette Marisol HDL NORMAL > or = 60 mg/dl - LO W CARDIOVASCULAR RISK <40 mg/dl - HIGH CARDIOVASCULAR RISK Normal [facility] Comment on above: Performed By: #### Rudolph EVERETT PSAD #### [facility] [address] [place], [place] [id number] Antonette Marisol LDL CALC NORMAL SEE BELOW Normal [facility] Comment on above: Result Comment: <100 mg/dl OPTIMAL 100 - 129 mg/dl NEAR OR ABOVE OPTIMAL 130 - 159 mg/dl BORDERLINE HIGH 160 - 189 mg/dl HIGH >190 mg/dl VERY HIGH Performed By: #### Rudolph EVERETT PSAD #### [facility] [address] [id number] Antonette Marisol Triglyceride [Mass/Vol] 72 mg/dL Normal <=150 [facility] Comment on above: Performed By: #### Rudolph EVERETT PSARosalio #### [facility] [address] [id number] Antonette Marisol VLDL CALC 14.4 mg/dL Normal [facility] Comment on above: Performed By: #### Rudolph HinojosaFOAshley PSAD #### [facility] [address] [id number] Antonette Marisol PROF 14(COMP METB)on 09-14-2 021 Albumin [Mass/Vol] 3.7 g/dL Normal 3.5-5.0 [facility] Comment on above: Performed By: #### MEDINA WATSON #### [facility] [address] [id number] Antonette Marisol Albumin/Globulin [Mass ratio] 1.2 {ratio} Normal [facility] Comment on above: Performed By: #### Rudolph EVERETT PSAD #### [facility] [address] [address] Antonette Marisol ALP [Catalytic activity/Vol] 51 U/L Normal 38-126 [facility] Comment on above: Performed By: #### MEDINA WATSON #### [facility] [address] [address] Antonette Marisol ALT [Catalytic activity/Vol] 23 U/L Normal 21-72 [facility] Comment on above: Performed By: #### Rudolph EVERETT PSARosalio #### [facility] [address] [address] Antonette Marisol Anion gap [Moles/Vol] 14.0 mmol/L Normal [facility] Comment on above: Performed By: #### Rudolph EVERETT PSARosalio #### [facility] [address] [place] [address] Antonette Marisol AST [Catalytic activity/Vol] 21 U/L Normal 17-59 [facility] Comment on above: Performed By: #### Rudolph EVERETT PSARosalio #### [facility] [address] [address] Antonette Marisol Bilirubin [Mass/Vol] 0.4 mg/dL Normal 0.2-1.3 [facility] Comment on above: Performed By: #### Rudolph EVERETT PSARosalio #### [facility] [address] [id number] Antonette Marisol Calcium [Mass/Vol] 8.7 mg/dL Normal 8.4-10.2 [facility] Comment on above: Performed By: #### Rudolph EVERETT PSARosalio #### [facility] [address] [address] Antonette Marisol Chloride [Moles/Vol] 105 mmol/L Normal 98-107 [facility] Comment on above: Performed By: #### Rudolph EVERETT PSARosalio #### [facility] [address] [place] [address] Antonette Marisol CO2 [Moles/Vol] 25.2 mmol/L Normal 22.0-30.0 [facility] Comment on above: Performed By: #### Rudolph EVERETT, PSAD #### [facility] [address] [place] [address] Antonette Marisol Creatinine [Mass/Vol] 1.10 mg/dL Normal 0.66-1.25 [facility] Comment on above: Performed By: #### Rudolph EVERETT PSAD #### [facility] [address] [place] [address] Antonette Marisol EGFR-AF MALIAN >60 Normal >=60 [facility] Comment on above: Performed By: #### Rudolph EVERETT, PSAD #### [facility] [address] [place] [address] Antonette Marisol EGFR-NON AF MALIAN >60 Normal >=60 [facility] Comment on above: Performed By: #### Rudolph EVERETT PSAD #### [facility] [address] [place] [address] Antonette Marisol Globulin (S) [Mass/Vol] 3.0 g/dL Normal [facility] Comment on above: Performed By: #### Rudolph EVERETT, PSAD #### [facility] [address] [place] [address] Antonette Marisol Glucose [Mass/Vol] 97 mg/dL Normal 74-106 [facility] Comment on above: Performed By: #### Rudolph EVERETT, PSAD #### [facility] [address] [place] [address] Antonette Marisol Potassium [Moles/Vol] 4.2 mmol/L Normal 3.4-5.0 [facility] Comment on above: Performed By: #### Rudolph EVERETT, PSAD #### [facility] [address] [place], [place] [phone] Antonette Marisol Protein [Mass/Vol] 6.7 g/dL Normal 6.1-8.2 [facility] Comment on above: Performed By: #### Rudolph 12ALEKSEY, PSAD #### [facility] [address] [place], [place] [phone] Antonette Marisol Sodium [Moles/Vol] 140 mmol/L Normal 137-145 [facility] Comment on above: Performed By: #### Rudolph EVERETT, PSAD #### [facility] [address] [place] [address] Antonette Marisol Urea nitrogen [Mass/Vol] 24.0 mg/dL Critically high 9.0-20.0 [facility] Comment on above: Performed By: #### Rudolph EVERETT PSAD #### [facility] [address] [place] [address] Antonette Marisol Urea nitrogen/Creatinine [Mass ratio] 21.8 mg/mg Normal [facility] Comment on above: Performed By: #### Rudolph EVERETT, PSAD #### [facility] [address] [place], [place] [phone] Antonette Marisol T4on 12-24-2020 T4 [Mass/Vol] 6.60 ug/dL Normal 5.53-11.00 [facility] Comment on above: Performed By: #### Rudolph EVERETT, PSAD #### [facility] [address] [place] [address] Antonette Marisol TSHon 12-24-2020 TSH 6.821 uIU/mL Critically high 0.470-4.680 [facility] Comment on above: Performed By: #### Rudolph 12ALEKSEY PSAD #### [facility] [address] [place], [place] [phone] Antonette Marisol TSH RANGE SEE BELOW Normal [facility] Comment on above: Result Comment: <0.3 4 UIU/ml HYPERTHYROID 0.34-5.60 UIU/ml EUTHYROID >5.60 UIU/ml HYPOTHYROID Performed By: #### Rudolph EVERETT, PSAD #### [facility] [address] [place], [place] [address] Antonette Damon VIT B12 AND FOLATEon 021 Cobalamin (Vitamin B12) [Mass/Vol] 1306.0 pg/mL Critically high 239.0-931.0 [facility] Comment on above: Performed By: #### B 12FOL, PSAD #### [facility] [address] [place], [place] [address] Antonette Damon FOLATE >20.00 Normal >=2.76 [facility] Comment on above: Performed By: #### B 12FOL, PSAD #### [facility] [address] [place], [place] [address] Antonette Damon Vital Signs Date Time Vital Sign Value Performing Clinician Baylee mays 12-26-2024 09:06-0400 Body height 172.7 cm Leonidas Riggs MD Work Phone: [facility] 12-26-2024 09:06-0400 Body mass index (BMI) [Ratio] 24.71 kg/m2 Leonidas Riggs MD Work Phone: [facility] 12-26-2024 09:06-0400 Body weight 73.71 kg Leonidas Riggs MD Work Phone: [facility] 12-26-2024 09:06-0400 Diastolic blood pressure 72 mm[Hg] Leonidas Riggs MD Work Phone: [facility] 12-26-2024 09:06-0400 Heart rate 57 /min Leonidas Riggs MD Work Phone: [facility] 12-26-2024 09:06-0400 SaO2% (BldA) [Mass fraction] 98 % Leonidas Riggs MD Work Phone: [facility] 12-26-2024 09:06-0400 Systolic blood pressure 128 mm[Hg] Leonidas Riggs MD Work Phone: [facility] Encounters Encounter Date Encounter Type Care Provider Facility Start: 12-26-2024 End: 12-26-2024 Bamboo flowsheet Leonidas Riggs MD Work Phone: [facility] Start: 12-26-2024 End: 12-26-2024 Bamboo flowsheet Leonidas Riggs MD Work Phone: [facility] Start: 12-26-2024 End: 12-26-2024 Patient encounter procedure Leonidas Riggs MD Work Phone: [facility] Comment on above: Encounter for Medica re annual wellness exam (Primary Dx); Advance directive in chart; Encounter for screening for other disorder; Screening for alcohol problem; Encounter for lipid screening for cardiovascular disease; Screening for diabetes mellitus (DM); Disorder of prostate, unspecified; Vitamin B12 deficiency; Pernicious anemia; Acquired hypothyroidism Start: 12-26-2024 End: 12-26-2024 ambulatory LEONIDAS RIGGS Not Available Start: 08-28-2024 End: 08-28-2024 Clinisync Result Encounter Generic External Data Provider [facility] Unsolicited Start: 08-28-2024 End: 08-28-2024 Clinisync Result Encounter Generic External Data Provider [facility] Unsolicited Start: 07-11-2024 End: 07-11-2024 Clinisync Result Encounter Generic External Data Provider [facility] Unsolicited Start: 07-11-2024 End: 07-11-2024 Clinisync Result Encounter Generic External Data Provider [facility] Unsolicited Start: 06-21-2024 End: 06-21-2024 Telephone encounter Leonidas Riggs MD Work Phone: [facility] Start: 06-14-2024 End: 06-14-2024 Clinisync Result [...] Unsolicited Start: 05-19-2024 End: 05-19-2024 Orders Only Leonidas Riggs MD Work Phone: [facility] Comment on above: Acquired hypothyroid ism (CMS/HCC) Start: 05-18-2024 End: 05-18-2024 Telephone encounter Leonidas Riggs MD Work Phone: [facility] Start: 01-04-2024 End: 01-04-2024 ambulatory [facility] Work Phone: Start: 01-04-2024 End: 01-04-2024 Patient encounter procedure [facility] Work Phone: Start: 12-14-2023 End: 12-14-2023 Clinisync Result Encounter Leonidas Riggs MD Work Phone: [facility] Unsolicited Start: 12-14-2023 End: 12-14-2023 Clinisync Result Encounter Leonidas Riggs MD Work Phone: [facility]solic[facility] Start: 11-25-2021 End: 11-26-[address] LEONIDAS RIGGS Facility:[facility] Start: 01-31-2021 End: 02-01-[address] LEONIDAS RIGGS Facility:[facility] Start: 01-21-2021 End: 01-22-[address] LEONIDAS RIGGS Facility:[facility] Start: 12-25-2020 End: 12-26-[address] LEONIDAS RIGGS Facility:[facility] Procedures Date Procedure Procedure Detail Performing Clinician Start: 08-28-2024 XR ANKLE LT MIN 3V Gene isaiah External Data Provider Start: 07-11-2024 XR ANKLE LT MIN 3V Gene isaiah External Data Provider Start: 06-14-2024 XR ANKLE LT MIN 3V Gene isaiah External Data Provider Start: 02-17-2025 XR ANKLE LT MIN 3V Gene isaiah External Data Provider Start: 05-26-2024 ECG 12-LEAD Generic Ex ternal Data Provider Start: 05-26-2024 ALL CBC WITH AUTO DIFF Generic External Data Provider Start: 12-14-2023 ALL CBC WITH AUTO DIFF Leonidas Riggs MD Work Phone: Start: 12-24-[address] LEONIDAS RIGGS Comment on above: Performed By: #### B 12FOL, PSAD #### [facility] [address] [address] Antonette Damon Start: 12-08-2017 Colonoscopy Leonidas mcclure MD Work Phone: Plan of Treatment Date Care Activity Detail Author Start: 12-09-2027 Screening for malignant neoplasm of colon [facility] Start: 12-26-2025 Medicare Annual Wellness (AWV) Medicare Annual Wellness (AWV) [facility] Start: 10-09-2025 Influenza vaccination Influenza Vaccine (#1) [facility] Comment on above: Postponed from 12/11/2024 (Patient Refus ed) Start: 01-02-2025 Pneumococcal Vaccine: 65+ Years (1 of 1 - PCV) Pneumococcal Vaccine: 65+ Years (1 of 1 - PCV) [facility] Comment on above: Postponed from 07/27/2003 (Patient Refus ed) Start: 12-26-2024 End: 12-26-2025 CBC W Auto Differential panel - Blood CBC and differential Lab Routine Pernicious anemia Expected: 12/26/2024 (Approximate), Expires: 12/26/2025 [facility] Comment on above: Expected: 12/26/2024 (Approximate), Expi res: 12/26/2025 Start: 12-26-2024 End: 12-26-2025 Cobalamin (Vitamin B12) [Mass/volume] in Serum or Plasma Vitamin B12 Lab Routine Vitamin B12 deficiency Expected: 12/26/2024 (Approximate), Expires: 12/26/2025 [facility] Comment on above: Expected: 12/26/2024 (Approximate), Expi res: 12/26/2025 Start: 12-26-2024 End: 12-26-2025 Comprehensive metabolic 2000 panel - Serum or Plasma Comprehensive metabolic panel Lab Routine Screening for diabetes mellitus (DM) Expected: 12/26/2024 (Approximate), Expires: 12/26/2025 [facility] Work Phone: Comment on above: Expected: 12/26/2024 (Approximate), Expi res: 12/26/2025 Start: 12-26-2024 End: 12-26-2025 Lipid 1996 panel - Serum or Plasma Lipid panel Lab Routine Encounter for lipid screening for cardiovascular disease Expected: 12/26/2024 (Approximate), Expires: 12/26/2025 [facility] Comment on above: Expected: 12/26/2024 (Approximate), Expi res: 12/26/2025 Start: 12-26-2024 End: 12-26-2025 Prostate specific Ag [Mass/volume] in Serum or Plasma PSA Lab Routine Disorder of prostate, unspecified Expected: 12/26/2024 (Approximate), Expires: 12/26/2025 [facility] Comment on above: Expected: 12/26/2024 (Approximate), Expi res: 12/26/2025 Start: 12-26-2024 End: 12-26-2025 Thyrotropin [Units/volume] in Serum or Plasma TSH Lab Routine Acquired hypothyroidism Expected: 12/26/2024 (Approximate), Expires: 12/26/2025 [facility] Comment on above: Expected: 12/26/2024 (Approximate), Expi res: 12/26/2025 Start: 12-26-2024 End: 12-26-2024 Patient encounter procedure 12/26/2024 9:00 AM EDT Office Visit [facility] [address] [place] [address] [address] [place] [address] Leonidas Riggs MD [address] [facility] [address] [place] [address] Encounter for Medicare annual wellness exam; Advance directive in chart; Encounter for screening for other disorder; Screening for alcohol problem; Pure hypercholesterolemia ; Screening for diabetes mellitus (DM); Encounter for lipid screening for cardiovascular disease [address] [address] [facility] Comment on above: Encounter for Medicare annual wellness e xam; Advance directive in chart; Encounter for screening for other disorder; Screening for alcohol problem; Pure hypercholesterolemia ; Screening for diabetes mellitus (DM); Encounter for lipid screening for cardiovascular disease Start: 12-11-2024 Influenza vaccination [facility] Start: 11-28-2024 Medicare Annual Wellness (AWV) Medicare Annual Wellness (AWV) [facility] Start: 12-12-2023 Influenza vaccination Influenza Vaccine (#1) [facility] Start: 2018 Pneumococcal Vaccine: 65+ Years (1 of 1 - PCV) Pneumococcal Vaccine: 65+ Years (1 of 1 - PCV) [facility] Start: 07-27-2003 Pneumococcal Vaccine: 65+ Years (1 of 1 - PCV) Pneumococcal Vaccine: 65+ Years (1 of 1 - PCV) [facility] Start: 1953 Screening for malignant neoplasm of colon [facility] Immunizations Immunization Date Immunization Notes Care Provider Fa [facility] 01-17-2024 influenza, seasonal, injectable, preservative free Leonidas Riggs MD Work Phone: [facility] 01-17-2024 influenza virus vacc ine, unspecified formulation Leonidas Riggs MD Work Phone: [facility] 01-05-2024 SARS-COV-2 (COVID-19 ) vaccine, mRNA, spike protein, LNP, preservative free, 25 mcg/0.25 mL dose CVX 311 Leonidas Riggs MD Work Phone: [facility] 02-06-2022 Moderna Bivalent Delaney ster Vaccination Leonidas Riggs MD Work Phone: [facility] Payers Date Payer Category Payer Private Health Insurance [place] [id number] 2023 Unknown AARP AARP [id number] 2022-Present [address] [place] [address] [id number] 2018 Medicare [id number] 1959 Medicare [id number] 1959 Self-pay 1959 Unknown [id number] 1953 Unknown [id number] 1953 Unknown [id number] 1953 Unknown [id number] 1953 Unknown [id number] Unknown [id number] Social History Date Type Detail Facility Tobacco smoking stat [facility] Unknown if ever smoked [facility] Start: 1955 Sex Assigned At Male [facility] Start: 11-25-2022 [facility] Start: 11-25-2022 Tobacco use and exposure Smoke less tobacco non-user [facility] Start: 11-29-2023 End: 12-26-2024 Alcoholic beverage intake Current drinker of alcohol (finding) [facility] Start: 07-19-2023 End: 11-29-2023 Alcoholic beverage intake [facility] Start: 07-19-2023 End: 12-26-2024 Social connection and isolation panel [facility] Do you belong to any clubs or organizations such as denominational groups, unions, fraternal or athletic groups, or [...] at Not on file [facility] Functional Status Date Assessment Result Facility 12-26-2024 Patient Health Quest ionnaire 2 item (PHQ-2) [Reported] [facility] Clinical Notes 05-18-2024 to 12-26-2024 Leonidas Riggs MD - 12/26/2024 9:00 AM EDTTelephone Encounter - Leonidas Riggs MD - 06/21/2024 1:32 PM EDTTelephone Encounter - Leonidas Riggs MD - 06/21/2024 1:32 PM EDT Note Date & Type Note Facility 12-26-2024 History of Presen t illness Narrative Images from the original note were not included. Virgie Smith is a 69 y.o. male presents with chief complaint of Annual Exam HPI: History of Present Illness I have reviewed and reconciled the history and medication list with the patient today. CURRENT PCP/CARE TEAM: Patient Care Team: Leonidas Riggs MD as PCP - General (Family Medicine) Leonidas Riggs MD as PCP - OCTAVIO Villatoro DO as Referring Physician (Orthopaedic Surgery) Over the past 2 weeks, how often have you been bothered by any of the following problems? Little interest or pleasure in doing things: Not at all Feeling down, depressed, or hopeless: Not at all Patient Health Questionnaire-2 Score: 0 Over the past 2 weeks, how often have you been bothered by any of the following problems? Trouble falling or staying asleep, or sleeping too much: Not at all Feeling tired or having little energy: Several days Poor appetite or overeating: Not at all Feeling bad about yourself - or that you are a failure or have let yourself or your family down: Not at all Trouble concentrating on things, such as reading the newspaper or watching television: Not at all Moving or speaking so slowly that other people could have noticed? Or the opposite - being so fidgety or restless that you have been moving around a lot more than usual.: Not at all Thoughts that you would be better off or hurting yourself in some way: Not at all Patient Health Questionnaire-9 Score: 1 Health Risk Assessment Form Do you need help eating, bathing, using the toilet, dressing, or getting around your home?: No Can you prepare your own meals?: Yes Can you do your own housework without help?: Yes Can you shop for groceries or clothes without help?: Yes Do you exercise for about 20 minutes 3 or more days a week?: Yes How confident are you that you can control and manage most of your health problems?: Very confident Can you mange your money, credit cards and accounts, pay bills and taxes?: Yes Vision Screening: Yes, patient was advised to have yearly eye exam Hearing Screening: Yes, uses hearing aids Cognitive Screening Self Assessment: No concerns rasied by family members, friends, or caretakers Three Word Registration: Leader, Season, Table Clock Drawing: Normal Clock - 2 Three Word Recall: All 3 words correct - 3 Total Score (0-5 Points): 5 Pain Assessment Pain Score: 0 - No pain HISTORIES: PAST MEDICAL HISTORY: Past Medical History: Diagnosis Date Chronic fatigue Encounter for Hemoccult screening positive 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 Overweight Shingles SURGICAL HISTORY: Past Surgical History: Procedure Laterality Date APPENDECTOMY 1966 COLONOSCOPY 2007, 11/2017 SOCIAL HISTORY: Social History Tobacco Use Smoking status: Never Smokeless tobacco: Never Vaping Use Vaping status: Never Used Substance Use Topics Alcohol use: Yes Alcohol/week: 2.0 standard drinks of alcohol Types: 2 Standard drinks or equivalent per week Comment: Caffeine intake: 2 cups per day coffee Drug use: Never Depression: Not at risk (12/26/2024) PHQ-2 PHQ-2 Score: 0 FAMILY HISTORY: Family History Problem Relation Name Age of Onset Dementia Mother Ulcerative colitis Father Other (B12 deficiiency) Father Hiatal hernia Father Heart disease Father MEDICATIONS: Current Outpatient Medications Medication Instructions cyanocobalamin (VITAMIN B-12) 1,000 mcg, Intramuscular, Every 30 days cyclobenzaprine (FLEXERIL) 10 mg, Oral, 3 times daily PRN levothyroxine (SYNTHROID, LEVOXYL) 75 mcg, Oral, Daily before breakfast Multiple Vitamins-Minerals (MULTIVITAMIN GUMMIES ADULTS PO) 1 tablet, Every 24 hours ALLERGIES: Allergies Allergen Reactions Penicillins Rash PHYSICAL EXAM: Visit Vitals BP 128/72 Pulse 57 Ht 5' 8 Wt 162 lb 8 oz SpO2 98% BMI 24.71 kg/m Smoking Status Never BSA 1.88 m BP Readings from Last 3 Encounters: 12/26/24 128/72 11/29/23 124/70 11/25/22 114/68 Wt Readings from Last 3 Encounters: 12/26/24 162 lb 8 oz 11/29/23 160 lb 08/02/23 162 lb Physical Exam The patient is pleasant and in no acute distress The patient has good eye contact and clear speech Results ASSESSMENT AND PLAN: Assessment/Plan 1. Encounter for Medicare annual wellness exam (Primary) The patient is here for their Annual Medicare Wellness visit. Demographics were updated. Self-assessment was completed and reviewed. Past medical, family, and social history were updated. The medication list updated and reviewed by the doctor. A list of other current medical providers is established and updated. Time was spent discussing health maintenance issues, ordering testing as appropriate, and a schedule was reviewed regarding recommended screening. We discussed safety issues and fall risk. Depression screening was completed and addressed as appropriate. Fall screening was completed and addressed. Cognitive function was assessed by direct observation, cognitive screening as indicated, and assessment of ability to perform ADL's. The BMI and discussed. Major risk factors for chronic disease including family history were discussed. An after visit summary is made available to the patient 2. Advance directive in chart No changes to advanced directives 3. Encounter for screening for other disorder Clinically insignificant depression screening 4. Screening for alcohol problem Negative alcohol screening 5. Encounter for lipid screening for cardiovascular disease - Lipid panel; Future - Lipid panel 6. Screening for diabetes mellitus (DM) - Comprehensive metabolic panel; Future - Comprehensive metabolic panel 7. Disorder of prostate, unspecified I did discuss digital rectal examination for prostate cancer screening today. The patient declined that is screening. He prefers the PSA test. We did briefly review the difference between the PSA in the digital rectal examination and the importance of early detection. - PSA; Future - PSA 8. Vitamin B12 deficiency - Vitamin B12; Future - Vitamin B12 9. Pernicious anemia - CBC and differential; Future - CBC and differential 10. Acquired hypothyroidism - TSH; Future - TSH documented in this encounter [facility] 06-21-2024 Telephone encount er Note RX sent [facility] 06-21-2024 Miscellaneous Notes Formattin g of this note might be different from the original. RX sent Vigrie called, he is requesting that his B12 shots be refilled to mail away. documented in this encounter [facility] 06-21-2024 Telephone encount er Note Virgie called, he is requesting that his B12 shots be refilled to mail away. [facility] 05-18-2024 Telephone encount er Note RX sent [facility] 05-18-2024 Miscellaneous Notes Formattin g of this note might be different from the original. RX sent Virgie called, He switched his prescription coverage and is asking for his Levo to be sent to [facility] in [place]. documented in this encounter [facility] 05-18-2024 Telephone encount er Note Virgie called, He switched his prescription coverage and is asking for his Levo to be sent to [facility] in [place]. [facility] Evaluation note Diagnosis Onset Date Dupuytren contracture of both hands [facility] Work Phone: Evaluation note* Diagnosis Acquired hypothyroidism (CMS/[facility]) Unspecified hypothyroidism documented in this encounter [facility]* Diagnosis Pernicious anemia- Primary documented in this encounter [facility] HealthcareEvaluation note* Diagnosis Encounter for Medicare annual wellness exam- Primary Advance directive in chart Encounter for screening for other disorder Screening for alcohol problem Screening for alcoholism Encounter for lipid screening for cardiovascular disease Screening for diabetes mellitus (DM) Screening for diabetes mellitus Disorder of prostate, unspecified Vitamin B12 deficiency Other B-complex deficiencies Pernicious anemia Acquired hypothyroidism Unspecified hypothyroidism documented in this encounter [facility] Summary Purpose Family History No Family History Records FoundNo Family History Records Found Advance Directives Advance Directive Response Recorded Date/ Time Advance Directives No August 11, 2023 10:22am Documents on File Type Date Recorded 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 Advance Directives and Living Will 02/21/2019 2003-02-06 Power Of Seed Service Advisor Advance Directives and Living Will 02/06/2003 8:09 AM Power of Seed Service Advisor 11/30/2022 8:09 AM Power Of Seed Service Advisor Chief Complaint and Reason for Visit Chief Complaint NEW RT DUPUYTRENS CO NTRACTURE WX [facility] Reason for Visit Dupuytren contractur e of both hands Additional Source Comments (unrecognized sect ion and content) No Status Records FoundNo Status Records Found INFORMATION SOURCE (unrecogn ized section and content) DATE CREATED AUTHOR 12/02/2021 [facility] DATE CREATED AUTHOR AUTHOR'S ORGANIZ ATION 12/27/2024 [facility] EPIC Care Teams (unrecognized sec tion and content) Team Status: Active Member Role Status Dates Leonidas Riggs MD Primary Care Provider Active Team Status: Inactive Member Role Status Dates Leonidas Riggs MD Primary Care Provider Active Start: January 04, 2024 End: January 04, 2024 Gauri Burris MD Attending Provider Active Start: January 04, 2024 End: January 04, 2024 [employer] Relationship Specialty Start Date End Date Leonidas Riggs MD [address] [facility] [place] [address] (Fax) PCP - ACO Reach 09/03/22 Leonidas Riggs MD [address] [facility] [place] [address] PCP - General Family Medicine 10/05/22 [employer] Relationship Specialty Start Date End Date Leonidas Riggs MD [address] [place] [address] (Fax) PCP - ACO Reach 09/03/22 Leonidas Riggs MD [address] [place] [address] (Fax) PCP - General Family Medicine 10/05/22 [employer] Relationship Specialty Start Date End Date Leonidas Riggs MD [address] [place] [address] (Fax) PCP - ACO Reach 09/03/22 Leonidas Riggs MD [address] [place] [address] (Fax) PCP - General Family Medicine 10/05/22 [employer] Relationship Specialty Start Date End Date Leonidas Riggs MD [address] [place] [address] (Fax) PCP - ACO Reach 09/03/22 Leonidas Riggs MD [address] [place] [address] (Fax) PCP - General Family Medicine 10/05/22 [employer] Relationship Specialty Start Date End Date Leonidas Riggs MD [address] [place] [address] (Fax) PCP - ACO Reach 09/03/22 Leonidas Riggs MD [address] [place] [address] (Fax) PCP - General Family Medicine 10/05/22 [employer] Relationship Specialty Start Date End Date Leonidas Riggs MD [address] [place] [address] (Fax) PCP - ACO Reach 09/03/22 Leonidas Riggs MD [address] [place] [address] (Fax) PCP - General Family Medicine 10/05/22 Jr. Aleksander Villatoro DO [address] [place] [address] Referring Physician Orthopaedic Surgery 12/20/24 [employer] Relationship Specialty Start Date End Date Leonidas Riggs MD [address] [place] [address] (Fax) PCP - ACO Reach 09/03/22 Leonidas Riggs MD [address] [place] [address] PCP - General Family Medicine 12/26/24 Jr. Aleksander Villatoro DO [address] [address] Referring Physician Orthopaedic Surgery 12/20/24 Goals (unrecognized section and content) Goals may be documented in a n alternate section Reason for Visit (unrecogniz ed section and content) Reason Comments Annual Exam FOR RECORDS PERTAINING TO PATIENTS WHO ARE [...] BE BASED ON THE PRIMARY CLINICAL RECORDS. [employer] provides no warranty or guarantee of the accuracy or completeness of information in this document.
[2025-01-01 07:10] LABS: Hematocrit 37.5 % (42.0-54.0); Hemoglobin 12.6 g/dL (14.0-18.0); Immature Granulocytes Abs Auto 0.01 10^3/uL (0.00-0.03); Immature Granulocytes Pct Auto 0.2 % (0.0-0.5); Lymphocytes Absolute Auto 1.3 10^3/uL (1.2-3.8); Mean Corpuscular HGB Conc 33.6 g/dL (29.9-35.2); Mean Corpuscular Hemoglobin 32.6 pg (25.9-34.0); Mean Corpuscular Volume 97.2 fL (80.0-94.0); Platelet Count 197 10^3/uL (150-450); Red Blood Count 3.86 10^6/uL (4.70-6.10); White Blood Count 4.4 10^3/uL (4.0-11.0)
[2025-01-01 07:40] LABS: Alanine Aminotransferase 21 U/L (16-63); Albumin Globulin Ratio 1.1; Albumin Level 3.4 g/dL (3.4-5.0); Alkaline Phosphatase 64 U/L (46-116); Anion Gap 12.4; Aspartate Amino Transferase 23 U/L (15-37); Blood Urea Nitrogen 23.0 mg/dL (7.0-18.0); Calcium 8.6 mg/dL (8.5-10.1); Carbon Dioxide 24.8 mmol/L (21.0-32.0); Chloride 108 mmol/L (98-107); Cholesterol 150 mg/dL (<=200); Estimated GFR (African America >60 (>=60 mL/min/1.73m^2); Estimated GFR (Non-African Ame >60 (>=60 mL/min/1.73m^2); Globulin 3.2 g/dL; Glucose 94 mg/dL (74-106); HDL Cholesterol 50 mg/dL (40-60); Potassium 4.2 mmol/L (3.5-5.1); Sodium 141 mmol/L (136-145); Thyroid Stimulating Hormone 1.573 uIU/mL (0.358-3.740); Total Protein 6.6 g/dL (6.4-8.2); Triglycerides 57 mg/dL (<=150); VLDL CHOLESTEROL 11.4 mg/dL
[2025-01-02 04:12] LABS: Vitamin B12 1100 pg/mL (232-1245)
== END 2025-01-01 06:57 | disposition home or self-care (01) ==
LOC: LAB 06:57
PROVIDERS: PCP Family Medicine; Visit Provider Family Medicine
DX: N42.9 Disorder of prostate, unspecified (principal); Z13.1 Encounter for screening for diabetes mellitus; D64.9 Anemia, unspecified; Z13.220 Encounter for screening for lipoid disorders; Z13.6 Encounter for screening for cardiovascular disorders; D51.0 Vitamin B12 deficiency anemia due to intrinsic factor deficiency; E03.9 Hypothyroidism, unspecified
CPT/HCPCS: 36415; 80053; 80061; 82607; 84443; 85025; G0103